=== PATIENT | female | born 1955 | race African-American/Black ===

== ENCOUNTER → 2016-06-21 | Outpatient (CLI) | payer MEDICAID ==
[2016-06-21 12:29] LABS: APPEARANCE,URINE CLEAR; BILIRUBIN,URINE NEGATIVE (NEGATIVE); GLUCOSE, URINE NEGATIVE (NEGATIVE); KETONES,URINE NEGATIVE (NEGATIVE); LEUKOCYTE ESTERASE,URINE NEGATIVE (NEGATIVE); NITRITE,URINE NEGATIVE (NEGATIVE); PROTEIN,URINE NEGATIVE (NEGATIVE); URINE SPECIFIC GRAVITY 1.014; UROBILINOGEN,URINE NEGATIVE mg/dL (<2.0)
[2016-06-21 12:48] LABS: HEMATOCRIT 32.5 % (36.0-47.0); HEMOGLOBIN 10.5 g/dL (12.0-15.5); MEAN CORPUSCULAR HEMOGLOBIN 27.1 pg (27.0-33.4); MEAN CORPUSCULAR HGB CONC 32.2 g/dL (32.0-36.0); MEAN CORPUSCULAR VOLUME 84 fl (80-97); RED BLOOD COUNT 3.86 10^6/uL (3.72-5.28); RED CELL DISTRIBUTION WIDTH 15.6 % (11.5-14.0); WHITE BLOOD COUNT 5.9 10^3/uL (4.0-10.5)
[2016-06-21 13:04] LABS: ANION GAP 10 (5-19); BLOOD UREA NITROGEN 33 mg/dL (7-20); CALCIUM 8.7 mg/dL (8.4-10.2); CARBON DIOXIDE 29 mmol/L (22-30); CHLORIDE 105 mmol/L (98-107); CREATININE RESULT 2.12 mg/dL (0.52-1.25); GLUCOSE 130 mg/dL (75-110); PHOSPHORUS 4.5 mg/dL (2.5-4.5); POTASSIUM 3.7 mmol/L (3.6-5.0); SODIUM 143.8 mmol/L (137-145)
== END ==
LOC: OD 11:21
PROVIDERS: ATTEND Internal Medicine Nephrology
DX: I12.9 Hypertensive chronic kidney disease with stage 1 through stage 4 chronic kidney disease, or unspecified chronic kidney disease (principal); N18.4 Chronic kidney disease, stage 4 (severe); E11.9 Type 2 diabetes mellitus without complications; D64.9 Anemia, unspecified
CPT/HCPCS: 36415; 80048; 81001; 82570; 83970; 84100; 84156; 85027

== ENCOUNTER → 2016-08-03 | Outpatient (CLI) | payer MEDICAID ==
[2016-08-03 13:10] LABS: ANION GAP 6 (5-19); BLOOD UREA NITROGEN 29 mg/dL (7-20); CALCIUM 9.6 mg/dL (8.4-10.2); CARBON DIOXIDE 35 mmol/L (22-30); CHLORIDE 106 mmol/L (98-107); CREATININE RESULT 1.69 mg/dL (0.52-1.25); GLUCOSE 47 mg/dL (75-110); MAGNESIUM 1.9 mg/dL (1.6-2.3); POTASSIUM 3.7 mmol/L (3.6-5.0); SODIUM 147.4 mmol/L (137-145)
== END ==
LOC: OD 12:05
PROVIDERS: ATTEND Internal Medicine Nephrology
DX: N18.9 Chronic kidney disease, unspecified (principal)
CPT/HCPCS: 36415; 80048; 83735

== ENCOUNTER → 2016-09-09 | Outpatient (CLI) | payer MEDICAID ==
[2016-09-09 09:44] LABS: HEMATOCRIT 39.2 % (36.0-47.0); HEMOGLOBIN 12.7 g/dL (12.0-15.5); HGB HCT DIFFERENCE -1.1; MEAN CORPUSCULAR HEMOGLOBIN 27.6 pg (27.0-33.4); MEAN CORPUSCULAR HGB CONC 32.3 g/dL (32.0-36.0); MEAN CORPUSCULAR VOLUME 85 fl (80-97); RED CELL DISTRIBUTION WIDTH 16.2 % (11.5-14.0); WHITE BLOOD COUNT 6.8 10^3/uL (4.0-10.5)
[2016-09-09 10:14] LABS: ANION GAP 11 (5-19); BLOOD UREA NITROGEN 31 mg/dL (7-20); CALCIUM 9.2 mg/dL (8.4-10.2); CARBON DIOXIDE 29 mmol/L (22-30); CHLORIDE 106 mmol/L (98-107); CREATININE RESULT 1.91 mg/dL (0.52-1.25); GLUCOSE 122 mg/dL (75-110); MAGNESIUM 2.1 mg/dL (1.6-2.3); SODIUM 146.1 mmol/L (137-145)
[2016-09-09 10:34] LABS: POTASSIUM 3.9 mmol/L (3.6-5.0)
== END ==
LOC: OD 08:31
PROVIDERS: ATTEND Internal Medicine Nephrology
DX: N18.4 Chronic kidney disease, stage 4 (severe) (principal); E11.9 Type 2 diabetes mellitus without complications; I50.9 Heart failure, unspecified; D64.1 Secondary sideroblastic anemia due to disease
CPT/HCPCS: 36415; 80048; 82043; 83735; 85027

== ENCOUNTER → 2016-10-20 | Outpatient (CLI) | payer MEDICAID ==
--- NOTE | 2016-10-20 15:36 | RADIOLOGY REPORT (SQ) ---
EXAM DESCRIPTION: CT ABD/PELVIS ORAL ONLY COMPLETED DATE/TIME: 10/20/2016 3:03 pm REASON FOR STUDY: RIGHT LOWER QUADRANT PAIN R10.31 RIGHT LOWER QUADRANT PAIN COMPARISON: CT abdomen and pelvis 08/13/2011, 05/01/2012, 03/25/2013, 02/25/2014 TECHNIQUE: CT scan of the abdomen and pelvis performed without intravenous contrast. Patient drank oral contrast. Images reviewed with lung, soft tissue, and bone windows. Reconstructed coronal and sagittal MPR imag es reviewed. All images stored on PACS. All CT scanners at this facility use dose modulation, iterative reconstruction, and/or weight based d osing when appropriate to reduce radiation dose to as low as reasonably achievable (ALARA). [facility]: Dose Right [facility]: CareDose [facility]: Dose Right [facility]: Teradose 4D [facility]: [employer] RADIATION DOSE: 28.03mGy. LIMITATIONS: None. FINDINGS: LOWER CHEST: Cardiomegaly. Small hiatal hernia. Lung bases are clear. NON-CONTRASTED LIVER, SPLEEN, ADRENALS: Evaluation limited by lack of IV contrast. No identified sign ificant masses. PANCREAS: No masses. No peripancreatic inflammatory changes. GALLBLADDER: No identified stones by CT criteria. No inflammatory changes to suggest cholecystitis. RIGHT KIDNEY AND URETER: Post partial nephrectomy along the mid pole kidney. 2 mm upper pole and 5 mm lower pole right sided intrarenal calculi. No hydronephrosis or hydroureter. LEFT KIDNEY AND URETER: No suspicious masses. Assessment limited by lack of IV contrast. 2.5 cm left midpole renal cortical cyst. No significant calcifications. No hydronephrosis or hydroureter. AORTA AND RETROPERITONEUM: No aneurysm. No retroperitoneal masses or adenopathy. BOWEL AND PERITONEAL CAVITY: No obvious masses or inflammatory changes. No free fluid. Post gastric bypass with surgical clips at the stomach fundus. Oral contrast is seen throughout small bowel and c olon in a nonobstructive pattern. APPENDIX: Normal. PELVIS, BLADDER, AND ABDOMINAL WALL:No abnormal masses. No free fluid. Bladder normal. Post hysterec kimberlee. Multiple small fat containing midline anterior abdominal wall hernias. BONES: Degenerative changes lower lumbar spine. OTHER: No other significant finding. IMPRESSION: Post gastric bypass. Small hiatal hernia. Post right partial nephrectomy. Right-sided intrarenal nonobstructive kidney stones. Oral contrast throughout the gastrointestinal tract without evidence of obstruction Multiple small midline incisional hernias containing fat TECHNICAL DOCUMENTATION: JOB ID: [id number] Quality ID # [id number]: Final reports with documentation of one or more dose reduction techniques (e.g., Au tomated exposure control, adjustment of the mA and/or kV according to patient size, use of iterative reconstruction technique) 2010 [employer]- All Rights Reserved
== END ==
LOC: RAD 12:04
PROVIDERS: ATTEND Internal Medicine
DX: R10.31 Right lower quadrant pain (principal); K44.9 Diaphragmatic hernia without obstruction or gangrene; N20.0 Calculus of kidney; Z98.84 Bariatric surgery status
CPT/HCPCS: 74176

== ENCOUNTER → 2016-11-29 | Outpatient (CLI) | payer MEDICAID ==
[2016-11-29 15:22] LABS: HEMOGLOBIN 12.2 g/dL (12.0-15.5); HGB HCT DIFFERENCE -1.4; MEAN CORPUSCULAR HGB CONC 32.2 g/dL (32.0-36.0); MEAN CORPUSCULAR VOLUME 87 fl (80-97); RED BLOOD COUNT 4.38 10^6/uL (3.72-5.28); RED CELL DISTRIBUTION WIDTH 14.1 % (11.5-14.0); WHITE BLOOD COUNT 7.1 10^3/uL (4.0-10.5)
[2016-11-29 16:09] LABS: ANION GAP 8 (5-19); BLOOD UREA NITROGEN 36 mg/dL (7-20); CALCIUM 8.4 mg/dL (8.4-10.2); CARBON DIOXIDE 28 mmol/L (22-30); CHLORIDE 105 mmol/L (98-107); CREATININE RESULT 2.16 mg/dL (0.52-1.25); GLUCOSE 46 mg/dL (75-110); POTASSIUM 3.7 mmol/L (3.6-5.0); SODIUM 141.4 mmol/L (137-145)
== END ==
LOC: OD 13:53
PROVIDERS: ATTEND Internal Medicine Nephrology
DX: E11.22 Type 2 diabetes mellitus with diabetic chronic kidney disease (principal); N18.3 Chronic kidney disease, stage 3 (moderate); R80.9 Proteinuria, unspecified; I50.9 Heart failure, unspecified
CPT/HCPCS: 36415; 80048; 85027

== ENCOUNTER → 2017-01-19 | Outpatient (CLI) | payer MEDICAID ==
--- NOTE | 2017-01-19 10:08 | RADIOLOGY REPORT (SQ) ---
EXAM DESCRIPTION: CT ABD/PELVIS NO ORAL OR IV COMPLETED DATE/TIME: 01/19/2017 9:12 am REASON FOR STUDY: RLQ PAIN R10.13 EPIGASTRIC PAIN COMPARISON: 10/20/2016 TECHNIQUE: CT scan of the abdomen and pelvis performed without intravenous or oral contrast. Images reviewed with lung, soft tissue, and bone windows. Reconstructed coronal and sagittal MPR images revi ewed. All images stored on PACS. All CT scanners at this facility use dose modulation, iterative reconstruction, and/or weight based d osing when appropriate to reduce radiation dose to as low as reasonably achievable (ALARA). [facility]: Dose Right [facility]: CareDose [facility]: Dose Right [facility]: Teradose 4D [facility]: [employer] RADIATION DOSE: Up-to-date CT equipment and radiation dose reduction techniques were employed. CTDIv ol: 28.5 mGy. DLP: 1492 mGy-cm.mGy. LIMITATIONS: None. FINDINGS: LOWER CHEST: No significant findings. No nodules or infiltrates. NON-CONTRASTED LIVER, SPLEEN, ADRENALS: Evaluation limited by lack of IV contrast. No identified sign ificant masses. PANCREAS: No masses. No peripancreatic inflammatory changes. GALLBLADDER: No identified stones by CT criteria. No inflammatory changes to suggest cholecystitis. RIGHT KIDNEY AND URETER: There are postsurgical changes involving the right kidney. There are small nonobstructing stones stable in appearance. No hydronephrosis or hydroureter. LEFT KIDNEY AND URETER: There is a simple left renal cysts. No suspicious findings. No significant calcifications. No hydronephrosis or hydroureter. AORTA AND RETROPERITONEUM: No aneurysm. No retroperitoneal masses or adenopathy. BOWEL AND PERITONEAL CAVITY: The patient has had prior gastric bypass. There is stool throughout the colon. No inflammation or evidence of obstruction. APPENDIX: Normal. PELVIS, BLADDER, AND ABDOMINAL WALL:There are multiple small anterior abdominal wall hernias. On [address] 48 there is a small hernia containing a small amount of colon but no obstruction. BONES: No significant findings. OTHER: No other significant finding. IMPRESSION: Stable CT of the abdomen pelvis with postsurgical changes. There are small incisional h ernias. No obstruction. Other findings as described above. COMMENT: Quality ID # [id number]: Final reports with documentation of one or more dose reduction techniques (e.g., Automated exposure control, adjustment of the mA and/or kV according to patient size, use of iterative reconstruction technique) TECHNICAL DOCUMENTATION: JOB ID: [id number] [employer]- All Rights Reserved
--- NOTE | 2017-01-19 10:10 | RADIOLOGY REPORT (SQ) ---
EXAM DESCRIPTION: CHEST PA/LAT COMPLETED DATE/TIME: 01/19/2017 9:38 am REASON FOR STUDY: WHEEZING/RLQ PAIN COMPARISON: 01/28/2016 EXAM PARAMETERS: NUMBER OF VIEWS: two views TECHNIQUE: Digital Frontal and Lateral radiographic views of the chest acquired. RADIATION DOSE: NA LIMITATIONS: none FINDINGS: LUNGS AND PLEURA: No opacities, masses or pneumothorax. No pleural effusion. MEDIASTINUM AND HILAR STRUCTURES: No masses or contour abnormalities. HEART AND VASCULAR STRUCTURES: The heart is enlarged. There is no failure. BONES: No acute findings. HARDWARE: None in the chest. OTHER: No other significant finding. IMPRESSION: Cardiomegaly. No failure. TECHNICAL DOCUMENTATION: JOB ID: [id number] [employer]- All Rights Reserved
== END ==
LOC: RAD 09:01
PROVIDERS: ATTEND Internal Medicine
DX: R10.13 Epigastric pain (principal); R06.2 Wheezing; R10.31 Right lower quadrant pain; K43.2 Incisional hernia without obstruction or gangrene; I51.7 Cardiomegaly
CPT/HCPCS: 71020; 74176

== ENCOUNTER 2017-03-18 09:21 | Emergency (ER) | payer MEDICAID ==
--- NOTE | 2017-03-18 09:50 | ER Document Report ---
ED Medical Screen (RME) - General Chief Complaint: High Blood Sugar Stated Complaint: BLOOD SUGAR PROBLEM Time Seen by Provider: 03/18/17 09:37 Mode of Arrival: Wheelchair Information source: Patient TRAVEL OUTSIDE OF THE [place] IN LAST 30 DAYS: No - HPI Patient complains to provider of: Multiple complaint Notes: 03/18/17 09:49 Patient is a 61-year-old female presenting to the emergency room for multiple complaints which include intermittent chest pain with shortness of breath, elevated blood sugars, elevated blood pressure, seeing black spots, mild headache - Related Data Allergies/Adverse Reactions: benazepril Allergy (Verified 03/18/17 09:42) throat closes,lips swell Past Medical History - Social History Family history: Reviewed & Not Pertinent - Past Medical History Cardiac Medical History: Reports: Hx Atrial Fibrillation, Hx Hypercholesterolemia, Hx Hypertension Denies: Hx Congestive Heart Failure, Hx Coronary Artery Disease, Hx Heart Attack, Hx Peripheral Vascular Disease, Hx Pulmonary Embolism, Hx Heart Murmur Pulmonary Medical History: Reports: Hx Asthma - as a child, Hx Sleep Apnea - CPAP- started October 2014 Denies: Hx Bronchitis, Hx COPD, Hx Pneumonia, Hx Respiratory Failure, Hx Tuberculosis Neurological Medical History: Denies: Hx Cerebrovascular Accident, Hx Seizures Endocrine Medical History: Reports: Hx Diabetes Mellitus Type 2, Hx Hypothyroidism - goiter/Thyroidectomy 2010. Denies: Hx Graves' Disease, Hx Hyperthyroidism Renal/ Medical History: Reports: Hx Kidney Stones. Denies: Hx End Stage Renal Disease, Hx Peritoneal Dialysis Malignancy Medical History: Reports: Hx Renal (Kidney) Cancer. Denies: Hx Leukemia, Hx Lung Cancer GI Medical History: Reports: Hx Gastroesophageal Reflux Disease - 3 yrs-takes meds. Denies: Hx Crohn's Disease, Hx Hiatal Hernia, Hx Irritable Bowel, Hx Liver Failure, Hx Pancreatitis, Hx Ulcer Musculoskeltal Medical History: Reports Hx Arthritis - neck, Denies Hx Fibromyalgia, Denies Hx Multiple Sclerosis, Denies Hx Muscular Dystrophy Psychiatric Medical History: Denies: Hx Dementia Traumatic Medical History: Denies: Hx Fractures Infectious Medical History: Denies: Hx HIV Past Surgical History: Reports: Hx Gastric Bypass Surgery - 1994, Hx Hysterectomy, Hx Kidney (Renal Surgery) - mass removed off of right kidney, Hx Thyroid Surgery - removed 2010. Denies: Hx Appendectomy, Hx Bowel Surgery, Hx Section, Hx Cholecystectomy, Hx Colostomy, Hx Coronary Artery Bypass Graft, Hx Herniorrhaphy, Hx Mastectomy, Hx Pacemaker, Hx Tonsillectomy, Hx Tubal Ligation - Immunizations Hx Diphtheria, Pertussis, Tetanus Vaccination: Yes Physical Exam - Vital signs Vitals: Temp Pulse Resp BP Pulse Ox 98.8 F 59 L 16 162/76 H 99 03/18/17 09:25 03/18/17 09:25 03/18/17 09:25 03/18/17 09:25 03/18/17 09:25 Course - Vital Signs Vital signs: Temp Pulse Resp BP Pulse Ox 98.8 F 59 L 16 162/76 H 99 03/18/17 09:25 03/18/17 09:25 03/18/17 09:25 03/18/17 09:25 03/18/17 09:25
[2017-03-18 10:37] LABS: ABSOLUTE EOSINOPHILS # (AUTO) 0.1 10^3/uL (0.0-0.6); ABSOLUTE LYMPHOCYTES (AUTO) 0.7 10^3/uL (0.5-4.7); ABSOLUTE MONOCYTES (AUTO) 0.6 10^3/uL (0.1-1.4); ABSOLUTE NEUT (AUTO) 7.6 10^3/uL (1.7-8.2); BASOPHILS % (AUTO) 0.2 % (0-2); EOSINOPHILS % (AUTO) 0.8 % (0-6); HEMATOCRIT 37.9 % (36.0-47.0); HEMOGLOBIN 12.6 g/dL (12.0-15.5); HGB HCT DIFFERENCE -0.1; LYMPHOCYTES % (AUTO) 7.7 % (13-45); MEAN CORPUSCULAR HEMOGLOBIN 28.3 pg (27.0-33.4); MEAN CORPUSCULAR HGB CONC 33.2 g/dL (32.0-36.0); MEAN CORPUSCULAR VOLUME 85 fl (80-97); MONOCYTES % (AUTO) 6.2 % (3-13); RED BLOOD COUNT 4.44 10^6/uL (3.72-5.28); RED CELL DISTRIBUTION WIDTH 14.9 % (11.5-14.0); SEGMENTED NEUTROPHILS % (AUTO) 85.1 % (42-78)
--- NOTE | 2017-03-18 10:39 | ER Document Report ---
ED General - General Chief Complaint: High Blood Sugar Stated Complaint: BLOOD SUGAR PROBLEM Time Seen by Provider: 03/18/17 09:37 Mode of Arrival: Wheelchair Information source: Patient Notes: PCP: Sheldon[facility]office [facility]-- 61 yo femlae htn, dm (lantus, novolog), peripheral neuropathy, hyperlipidemic, stage 2 renal disease, hypothyroid, sleep apnea (CPAP) a fib (2013) takes xarelto, DVT, right kidney cancer, GERD, Lives alone. came to ER today for high blood pressure, shortness of breath, seeing black dots /strings (that float) in front of eyes since monday after she saw dr. Thomas in the office. Short of breath for a month (dr. Thomas aware). Slight left uatsdin HUITRON this morning, not unusual for her. Wanted to come last night due to the difficulty breathing, something heavy on her chest at 2230, lasted for 1 hour. Monday heaviness was worse at 22:00, lasted all night, sat up in recliner which made it better, same as last night used 2 pillows to prop up. No fever. no cough, no n/v/d. TRAVEL OUTSIDE OF THE [place] IN LAST 30 DAYS: No - Related Data Allergies/Adverse Reactions: benazepril Allergy (Verified 03/18/17 09:42) throat closes,lips swell Past Medical History - General Information source: Patient - Social History Smoking Status: Never Smoker Chew tobacco use (# tins/day): No Frequency of alcohol use: None Drug Abuse: None Lives with: Alone Family History: CAD, CVA Patient has suicidal ideation: No Patient has homicidal ideation: No - Past Medical History Cardiac Medical History: Reports: Hx Atrial Fibrillation, Hx Hypercholesterolemia, Hx Hypertension Pulmonary Medical History: Reports: Hx Asthma - as a child, Hx Sleep Apnea - CPAP- started October 2014 Endocrine Medical History: Reports: Hx Diabetes Mellitus Type 2, Hx Hypothyroidism - goiter/Thyroidectomy 2010 Renal/ Medical History: Reports: Hx Kidney Stones, Other - stage 2 renal disease Malignancy Medical History: Reports: Hx Renal (Kidney) Cancer GI Medical History: Reports: Hx Gastroesophageal Reflux Disease - 3 yrs-takes meds Musculoskeltal Medical History: Reports Hx Arthritis - neck Psychiatric Medical History: Infectious Medical History: Past Surgical History: Reports: Hx Gastric Bypass Surgery - 1994, Hx Hysterectomy, Hx Kidney (Renal Surgery) - mass removed off of right kidney, Hx Orthopedic Surgery - left knee replacement, Hx Thyroid Surgery - removed 2010 - Immunizations Hx Diphtheria, Pertussis, Tetanus Vaccination: Yes Hx Pneumococcal Vaccination: 02/26/14 Review of Systems - Review of Systems Constitutional: No symptoms reported EENT: See HPI Cardiovascular: See HPI Respiratory: See HPI Gastrointestinal: No symptoms reported Genitourinary: No symptoms reported Female Genitourinary: No symptoms reported Musculoskeletal: No symptoms reported Skin: No symptoms reported Hematologic/Lymphatic: No symptoms reported Neurological/Psychological: No symptoms reported Physical Exam - Vital signs Vitals: Temp Pulse Resp BP Pulse Ox 98.8 F 59 L 16 162/76 H 99 03/18/17 09:25 03/18/17 09:25 03/18/17 09:25 03/18/17 09:25 03/18/17 09:25 Interpretation: Normal - General General appearance: Appears well, Alert - HEENT Head: Normocephalic, Atraumatic Eyes: Normal Conjunctiva: Normal Cornea: Normal. No: Flourescein stain uptake Pupils: PERRL Neck: Supple. No: Lymphadenopathy - Respiratory Respiratory status: No respiratory distress Chest status: Nontender Breath sounds: Normal Chest palpation: Normal - Cardiovascular Rhythm: Regular Heart sounds: Normal auscultation Murmur: No - Abdominal Inspection: Normal Distension: No distension Bowel sounds: Normal Tenderness: Nontender. No: Tender Organomegaly: No organomegaly - Back Back: Normal, Nontender. No: CVA tenderness - Extremities General upper extremity: Normal inspection, Nontender, Normal color, Normal ROM , Normal temperature General lower extremity: Normal inspection, Nontender, Normal color, Normal ROM , Normal temperature, Normal weight bearing. No: Pavel's sign - Neurological Neuro grossly intact: Yes Cognition: Normal Orientation: AAOx4 Ant Coma Scale Eye Opening: Spontaneous Clayton Coma Scale Verbal: Oriented Ant Coma Scale Motor: Obeys Commands Ant Coma Scale Total: 15 Speech: Normal Motor strength normal: LUE, RUE, LLE, RLE Sensory: Normal - Psychological Associated symptoms: Normal affect, Normal mood - Skin Skin Temperature: Warm Skin Moisture: Dry Skin Color: Normal Course - Re-evaluation Re-evalutation: 03/18/17 11:30 Chest x-ray and head CT are negative EKG shows normal sinus rhythm not atrial fibrillation. Her liver enzymes are elevated today and they never have been before. 03/18/17 11:[address] García over the phone about the elevated liver enzymes and the symptoms he feels like he can follow her up at the office. I told him that the hepatitis A, B, and C panel is pending. He states she has been worked up for coronary artery disease in the past. Sees Dr. Cesar and had a recent echocardiogram. He is okay with her going home and seeing her in the office. - Vital Signs Vital signs: Temp Pulse Resp BP Pulse Ox 97.7 F 60 16 187/101 H 100 03/18/17 12:06 03/18/17 12:06 03/18/17 12:06 03/18/17 12:06 03/18/17 12:06 - Laboratory Result Diagrams: 03/18/17 10:28 03/18/17 10:28 Laboratory results interpreted by me: 03/18/17 03/18/17 03/18/17 10:11 10:28 10:28 RDW 14.9 H Seg Neutrophils % 85.1 H Lymphocytes % 7.7 L Sodium 147.5 H Chloride 109 H BUN 31 H Creatinine 2.43 H Est GFR ( Amer) 25 L Est GFR (Non-Af Amer) 20 L AST 100 H ALT 205 H Alkaline Phosphatase 148 H Total Protein 5.6 L Albumin 3.1 L Urine Protein 100 H Discharge - Discharge Clinical Impression: Elevated liver enzymes, bilateral eye floaters , episode of chest pain last night, diabetes Hypertension Qualifiers: Hypertension type: unspecified Qualified Code(s): I10 - Essential (primary) hypertension Condition: Good Disposition: HOME, SELF-CARE Instructions: Chest Pain of Unclear Cause ([facility]), Diabetes ([facility]), Dyspnea, Nonspecific ([facility]), High Blood Pressure ([facility]), Liver Function Abnormality ([facility]) Additional Instructions: see dr garcía on monday, call for appt early monday morning hepatitis screening panel is pending see the eye doctor about the new floaters return to the ER if worse Please complete the patient satisfaction survey if you get one, and return it.. If you do not receive a survey, then you can go to the [facility] website, [email or web address] and place your comments about your very good care. Thank you very much. It was a pleasure being your medical provider today. Referrals: JIM GARCÍA MD [Primary Care Provider] - 03/20/17 CATHERINE MARTINS MD [ACTIVE STAFF] - Follow up tomorrow
[2017-03-18 10:40] LABS: APPEARANCE,URINE CLEAR; BILIRUBIN,URINE NEGATIVE (NEGATIVE); GLUCOSE, URINE NEGATIVE (NEGATIVE); KETONES,URINE NEGATIVE (NEGATIVE); LEUKOCYTE ESTERASE,URINE NEGATIVE (NEGATIVE); NITRITE,URINE NEGATIVE (NEGATIVE); PROTEIN,URINE 100 mg/dL (NEGATIVE); URINE SPECIFIC GRAVITY 1.006; UROBILINOGEN,URINE NEGATIVE mg/dL (<2.0)
--- NOTE | 2017-03-18 10:52 | RADIOLOGY REPORT (SQ) ---
EXAM DESCRIPTION: CT HEAD WITHOUT COMPLETED DATE/TIME: 03/18/2017 10:36 am REASON FOR STUDY: headache COMPARISON: 09/28/2013 TECHNIQUE: Axial images acquired through the brain without intravenous contrast. Images reviewed wi th bone, brain and subdural windows. Images stored on PACS. All CT scanners at this facility use dose modulation, iterative reconstruction, and/or weight based d osing when appropriate to reduce radiation dose to as low as reasonably achievable (ALARA). [facility]: Dose Right [facility]: CareDose [facility]: Dose Right [facility]: Teradose 4D [facility]: [employer] RADIATION DOSE: Up-to-date CT equipment and radiation dose reduction techniques were employed. CTDIv ol: 64.6 mGy. DLP: 1034 mGy-cm. mGy. LIMITATIONS: None. FINDINGS: VENTRICLES: Normal size and contour. CEREBRUM: No masses. No hemorrhage. No midline shift. No evidence for acute infarction. Normal gra y/white matter differentiation. No areas of low density in the white matter. CEREBELLUM: No masses. No hemorrhage. No alteration of density. No evidence for acute infarction. EXTRAAXIAL SPACES: No fluid collections. No masses. ORBITS AND GLOBE: No intra- or extraconal masses. Normal contour of globe without masses. CALVARIUM: No fracture. PARANASAL SINUSES: No fluid or mucosal thickening. SOFT TISSUES: No mass or hematoma. OTHER: No other significant finding. IMPRESSION: NORMAL BRAIN CT WITHOUT CONTRAST. EVIDENCE OF ACUTE STROKE: NO. COMMENT: Quality ID # [id number]: Final reports with documentation of one or more dose reduction techniques (e.g., Automated exposure control, adjustment of the mA and/or kV according to patient size, use of iterative reconstruction technique) TECHNICAL DOCUMENTATION: JOB ID: [id number]- All Rights Reserved
[2017-03-18 10:54] LABS: ALANINE AMINOTRANSFERASE 205 U/L (9-52); ALBUMIN 3.1 g/dL (3.5-5.0); ALKALINE PHOSPHATASE 148 U/L (38-126); ANION GAP 11 (5-19); ASPARTATE AMINO TRANSFERASE 100 U/L (14-36); BILIRUBIN,DIRECT 0.3 mg/dL (0.0-0.4); BILIRUBIN,TOTAL 0.4 mg/dL (0.2-1.3); BLOOD UREA NITROGEN 31 mg/dL (7-20); CALCIUM 8.6 mg/dL (8.4-10.2); CARBON DIOXIDE 28 mmol/L (22-30); CHLORIDE 109 mmol/L (98-107); CREATININE RESULT 2.43 mg/dL (0.52-1.25); GLUCOSE 100 mg/dL (75-110); POTASSIUM 3.7 mmol/L (3.6-5.0); SODIUM 147.5 mmol/L (137-145); TOTAL PROTEIN 5.6 g/dL (6.3-8.2)
--- NOTE | 2017-03-18 11:18 | RADIOLOGY REPORT (SQ) ---
EXAM DESCRIPTION: CHEST PA/LAT COMPLETED DATE/TIME: 03/18/2017 10:54 am REASON FOR STUDY: cp COMPARISON: 01/19/2017 NUMBER OF VIEWS: Two view. TECHNIQUE: Frontal and lateral radiographic views of the chest acquired. LIMITATIONS: None. FINDINGS: LUNGS AND PLEURA: No opacities, masses or pneumothorax. No pleural effusion. MEDIASTINUM AND HILAR STRUCTURES: No masses. No contour abnormalities. HEART AND VASCULAR STRUCTURES: Heart enlarged without failure. Aorta normal for age. BONES: No acute findings. HARDWARE: None in the chest. OTHER: No other significant finding. IMPRESSION: No acute findings in the chest. TECHNICAL DOCUMENTATION: JOB ID: [id number] [employer]- All Rights Reserved
[2017-03-18 12:34] VITALS: BP 187/101
[2017-03-18] MEDS ORDERED: CLONIDINE HCL 0.1 MG TABLET PO ONE (12:54)
--- NOTE | 2017-03-18 13:38 | EKG REPORT ---
SEVERITY:- BORDERLINE ECG - SINUS RHYTHM BORDERLINE T ABNORMALITIES, INFERIOR LEADS : Confirmed by: Olivia Cesar 18-Mar-2017 13:37:31
== END 2017-03-18 13:00 | disposition home or self-care (01) ==
LOC: ER 09:21
DX: E11.42 Type 2 diabetes mellitus with diabetic polyneuropathy (principal); E11.65 Type 2 diabetes mellitus with hyperglycemia; H43.393 Other vitreous opacities, bilateral; R74.8 Abnormal levels of other serum enzymes; R07.9 Chest pain, unspecified; I10 Essential (primary) hypertension; Z79.4 Long term (current) use of insulin; E78.5 Hyperlipidemia, unspecified; N18.2 Chronic kidney disease, stage 2 (mild); E03.9 Hypothyroidism, unspecified; I48.91 Unspecified atrial fibrillation; Z79.01 Long term (current) use of anticoagulants
CPT/HCPCS: 93005; 99285; 36415; 82962; 85025; 80053; 81001; 84484; 80074; 71020; 70450; 93010; J3490

== ENCOUNTER → 2017-04-04 | Outpatient (CLI) | payer MEDICAID ==
--- NOTE | 2017-04-04 14:40 | RADIOLOGY REPORT (SQ) ---
EXAM DESCRIPTION: U/S ABDOMEN COMPLETE W/DOPPLER COMPLETED DATE/TIME: 04/04/2017 10:53 am REASON FOR STUDY: N94.5 ABNORMAL RESULTS OF LIVER FUNCTION STUDIES R94.5 ABNORMAL RESULTS OF LIVER FUNCTION STUDIES COMPARISON: 02/17/2012 TECHNIQUE: Dynamic and static grayscale images acquired of the abdomen and recorded on PACS. Additio nal selected color Doppler and spectral images recorded. LIMITATIONS: None. FINDINGS: PANCREAS: Poorly seen. LIVER: 18.8 cm. Normal echotexture. LIVER VASCULATURE: Normal directional flow of the main portal vein and hepatic veins. GALLBLADDER: No stones. Normal wall thickness. No pericholecystic fluid. ULTRASOUND-DETECTED LINN'S SIGN: Negative. INTRAHEPATIC DUCTS AND COMMON DUCT: CBD and intrahepatic ducts normal caliber. No filling defects. INFERIOR VENA CAVA: Normal flow. AORTA: No aneurysm in the proximal mid aorta. The distal aorta was obscured by gas. RIGHT KIDNEY: Normal size, 8.2 cm. Normal echogenicity. No solid masses. Surgical changes. No hydronephrosis. No calcifications. LEFT KIDNEY: Normal size, 9.6 cm Normal echogenicity. No solid masses. There is a 33 mm cyst. No hydronephrosis. No calcifications. SPLEEN: Normal size, 8.3 cm. No masses. PERITONEAL AND PLEURAL SPACES: No ascites or effusions. OTHER: No other significant finding. IMPRESSION: Hepatomegaly. TECHNICAL DOCUMENTATION: JOB ID: [id number] [employer]- All Rights Reserved
== END ==
LOC: RAD 09:49
PROVIDERS: ATTEND Internal Medicine
DX: R94.5 Abnormal results of liver function studies (principal)
CPT/HCPCS: 76700; 93976

== ENCOUNTER → 2017-04-21 | Outpatient (CLI) | payer MEDICAID ==
--- NOTE | 2017-04-21 16:01 | RADIOLOGY REPORT (SQ) ---
EXAM DESCRIPTION: CT ABD/PELVIS NO ORAL OR IV COMPLETED DATE/TIME: 04/21/2017 3:47 pm REASON FOR STUDY: UNSPECIFIED RENAL COLIC N23 UNSPECIFIED RENAL COLIC COMPARISON: 01/19/2017. TECHNIQUE: CT scan of the abdomen and pelvis performed without intravenous or oral contrast. Images reviewed with lung, soft tissue, and bone windows. Reconstructed coronal and sagittal MPR images revi ewed. All images stored on PACS. All CT scanners at this facility use dose modulation, iterative reconstruction, and/or weight based d osing when appropriate to reduce radiation dose to as low as reasonably achievable (ALARA). [facility]: Dose Right [facility]: CareDose [facility]: Dose Right [facility]: Teradose 4D [facility]: [employer] RADIATION DOSE: mGy. LIMITATIONS: None. FINDINGS: LOWER CHEST: Trace left pleural effusion and trace pericardial effusion. No nodules or inf iltrates. NON-CONTRASTED LIVER, SPLEEN, ADRENALS: Evaluation limited by lack of IV contrast. No identified sign ificant masses. PANCREAS: No masses. No peripancreatic inflammatory changes. GALLBLADDER: No identified stones by CT criteria. No inflammatory changes to suggest cholecystitis. RIGHT KIDNEY AND URETER: Surgical changes. No suspicious masses. Assessment limited by lack of IV co ntrast. 4 mm of calculus in a lower pole calyx. No hydronephrosis or hydroureter. LEFT KIDNEY AND URETER: Cortical and parapelvic cyst. No suspicious masses. Assessment limited by la ck of IV contrast. No significant calcifications. No hydronephrosis or hydroureter. AORTA AND RETROPERITONEUM: No aneurysm. No retroperitoneal masses or adenopathy. BOWEL AND PERITONEAL CAVITY: Previous gastric bypass. No obvious masses or inflammatory changes. No free fluid. APPENDIX: Normal. PELVIS, BLADDER, AND ABDOMINAL WALL:Again seen are midline anterior abdominal wall hernias containing fat. The most superior hernia contains a small portion of the transverse colon, unchanged from the prior study. No abnormal masses. No free fluid. Bladder normal. BONES: No significant findings. OTHER: No other significant finding. IMPRESSION: 1. MIDLINE ANTERIOR ABDOMINAL WALL HERNIAS. THE MOST SUPERIOR HERNIA CONTAINS A SMALL PORTION OF THE ADJACENT TRANSVERSE COLON. NO OBSTRUCTION. 2. NONOBSTRUCTING CALYCEAL CALCULUS IN THE RIGHT KIDNEY. SURGICAL CHANGES IN THE RIGHT KIDNEY. LEFT RENAL CYST. 3. CHANGES OF GASTRIC BYPASS. 4. TRACE LEFT PLEURAL EFFUSION AND TRACE PERICARDIAL EFFUSION. 5. NO OTHER SIGNIFICANT OR ACUTE PROCESS IN THE ABDOMEN OR PELVIS. COMMENT: Quality ID # 436: Final reports with documentation of one or more dose reduction techniques (e.g., Automated exposure control, adjustment of the mA and/or kV according to patient size, use of iterative reconstruction technique) TECHNICAL DOCUMENTATION: JOB ID: [id number] [employer]- All Rights Reserved
== END ==
LOC: RAD 15:24
PROVIDERS: ATTEND Internal Medicine
DX: N23 Unspecified renal colic (principal)
CPT/HCPCS: 74176

== ENCOUNTER → 2017-05-05 | Outpatient (CLI) | payer MEDICAID ==
[2017-05-05 11:12] LABS: APPEARANCE,URINE CLEAR; BILIRUBIN,URINE NEGATIVE (NEGATIVE); GLUCOSE, URINE NEGATIVE (NEGATIVE); KETONES,URINE NEGATIVE (NEGATIVE); LEUKOCYTE ESTERASE,URINE NEGATIVE (NEGATIVE); NITRITE,URINE NEGATIVE (NEGATIVE); PROTEIN,URINE 100 mg/dL (NEGATIVE); URINE SPECIFIC GRAVITY 1.009; UROBILINOGEN,URINE NEGATIVE mg/dL (<2.0)
[2017-05-05 11:17] LABS: HEMATOCRIT 36.7 % (36.0-47.0); HGB HCT DIFFERENCE -0.7; MEAN CORPUSCULAR HEMOGLOBIN 28.3 pg (27.0-33.4); MEAN CORPUSCULAR HGB CONC 32.8 g/dL (32.0-36.0); MEAN CORPUSCULAR VOLUME 86 fl (80-97); RED BLOOD COUNT 4.25 10^6/uL (3.72-5.28); RED CELL DISTRIBUTION WIDTH 14.4 % (11.5-14.0)
[2017-05-05 11:31] LABS: URINE CREATININE 62.6 mg/dL (15-278); URINE PROTEIN 120.2 mg/dL (<12)
[2017-05-05 11:50] LABS: ANION GAP 10 (5-19); BLOOD UREA NITROGEN 36 mg/dL (7-20); CALCIUM 8.1 mg/dL (8.4-10.2); CARBON DIOXIDE 27 mmol/L (22-30); CHLORIDE 107 mmol/L (98-107); CREATININE RESULT 2.45 mg/dL (0.52-1.25); GLUCOSE 75 mg/dL (75-110); PHOSPHORUS 4.3 mg/dL (2.5-4.5); POTASSIUM 3.4 mmol/L (3.6-5.0); SODIUM 144.2 mmol/L (137-145)
== END ==
LOC: OD 10:27
PROVIDERS: ATTEND Internal Medicine Nephrology
DX: E11.22 Type 2 diabetes mellitus with diabetic chronic kidney disease (principal); N18.4 Chronic kidney disease, stage 4 (severe); I50.9 Heart failure, unspecified; R80.9 Proteinuria, unspecified; D64.9 Anemia, unspecified
CPT/HCPCS: 36415; 80048; 81001; 82570; 83970; 84100; 84156; 85027

== ENCOUNTER 2017-05-29 15:37 | Emergency (ER) | payer MEDICAID ==
[2017-05-29] MEDS ORDERED: NORMAL SALINE 1000 ML 1,000 ML IV ONE ×2 (16:31→18:41)
--- NOTE | 2017-05-29 16:31 | ER Document Report ---
ED Medical Screen (RME) - General Chief Complaint: Flank Pain Stated Complaint: FLANK PAIN Time Seen by Provider: 05/29/17 16:30 Notes: Patient has right flank pain. She has had no nausea vomiting or diarrhea. She is also feeling lightheaded dizzy and has chills. TRAVEL OUTSIDE OF THE [place] IN LAST 30 DAYS: No - Related Data Allergies/Adverse Reactions: benazepril Allergy (Verified 05/29/17 15:39) throat closes,lips swell Past Medical History - Social History Family history: Reviewed & Not Pertinent - Past Medical History Cardiac Medical History: Reports: Hx Atrial Fibrillation, Hx Hypercholesterolemia, Hx Hypertension Denies: Hx Congestive Heart Failure, Hx Coronary Artery Disease, Hx Heart Attack, Hx Peripheral Vascular Disease, Hx Pulmonary Embolism, Hx Heart Murmur Pulmonary Medical History: Reports: Hx Asthma - as a child, Hx Sleep Apnea - CPAP- started October 2014 Denies: Hx Bronchitis, Hx COPD, Hx Pneumonia, Hx Respiratory Failure, Hx Tuberculosis Neurological Medical History: Denies: Hx Cerebrovascular Accident, Hx Seizures Endocrine Medical History: Reports: Hx Diabetes Mellitus Type 2, Hx Hypothyroidism - goiter/Thyroidectomy 2010. Denies: Hx Graves' Disease, Hx Hyperthyroidism Renal/ Medical History: Reports: Hx Kidney Stones. Denies: Hx End Stage Renal Disease, Hx Peritoneal Dialysis Malignancy Medical History: Reports: Hx Renal (Kidney) Cancer. Denies: Hx Leukemia, Hx Lung Cancer GI Medical History: Reports: Hx Gastroesophageal Reflux Disease - 3 yrs-takes meds. Denies: Hx Crohn's Disease, Hx Hiatal Hernia, Hx Irritable Bowel, Hx Liver Failure, Hx Pancreatitis, Hx Ulcer Musculoskeltal Medical History: Reports Hx Arthritis - neck, Denies Hx Fibromyalgia, Denies Hx Multiple Sclerosis, Denies Hx Muscular Dystrophy Psychiatric Medical History: Denies: Hx Dementia Traumatic Medical History: Denies: Hx Fractures Infectious Medical History: Denies: Hx HIV Past Surgical History: Reports: Hx Gastric Bypass Surgery - 1994, Hx Hysterectomy, Hx Kidney (Renal Surgery) - mass removed off of right kidney, Hx Orthopedic Surgery - left knee replacement, Hx Thyroid Surgery - removed 2010. Denies: Hx Appendectomy, Hx Bowel Surgery, Hx Section, Hx Cholecystectomy, Hx Colostomy, Hx Coronary Artery Bypass Graft, Hx Herniorrhaphy , Hx Mastectomy, Hx Pacemaker, Hx Tonsillectomy, Hx Tubal Ligation - Immunizations Hx Diphtheria, Pertussis, Tetanus Vaccination: Yes Physical Exam - Vital signs Vitals: Temp Pulse Resp BP Pulse Ox 98.8 F 112 H 20 141/89 H 100 05/29/17 15:42 05/29/17 15:42 05/29/17 15:42 05/29/17 15:42 05/29/17 15:42 Course - Vital Signs Vital signs: Temp Pulse Resp BP Pulse Ox 98.8 F 112 H 20 141/89 H 100 05/29/17 15:42 05/29/17 15:42 05/29/17 15:42 05/29/17 15:42 05/29/17 15:42
[2017-05-29 18:09] LABS: ABSOLUTE EOSINOPHILS # (AUTO) 0.1 10^3/uL (0.0-0.6); ABSOLUTE LYMPHOCYTES (AUTO) 0.8 10^3/uL (0.5-4.7); ABSOLUTE MONOCYTES (AUTO) 0.5 10^3/uL (0.1-1.4); ABSOLUTE NEUT (AUTO) 6.7 10^3/uL (1.7-8.2); APPEARANCE,URINE CLEAR; BASOPHILS % (AUTO) 0.2 % (0-2); BILIRUBIN,URINE NEGATIVE (NEGATIVE); COLOR,URINE STRAW; EOSINOPHILS % (AUTO) 0.9 % (0-6); GLUCOSE, URINE NEGATIVE (NEGATIVE); HEMATOCRIT 37.4 % (36.0-47.0); HEMOGLOBIN 12.1 g/dL (12.0-15.5); KETONES,URINE NEGATIVE (NEGATIVE); LEUKOCYTE ESTERASE,URINE NEGATIVE (NEGATIVE); LYMPHOCYTES % (AUTO) 9.4 % (13-45); MEAN CORPUSCULAR HEMOGLOBIN 27.9 pg (27.0-33.4); MEAN CORPUSCULAR HGB CONC 32.3 g/dL (32.0-36.0); MEAN CORPUSCULAR VOLUME 86 fl (80-97); MONOCYTES % (AUTO) 6.3 % (3-13); NITRITE,URINE NEGATIVE (NEGATIVE); PLATELET COUNT 250 10^3/uL (150-450); PROTEIN,URINE 100 mg/dL (NEGATIVE); RED BLOOD COUNT 4.33 10^6/uL (3.72-5.28); RED CELL DISTRIBUTION WIDTH 14.6 % (11.5-14.0); SEGMENTED NEUTROPHILS % (AUTO) 83.2 % (42-78); TOTAL CELLS COUNTED % (AUTO) 100 %; URINE SPECIFIC GRAVITY 1.006; UROBILINOGEN,URINE NEGATIVE mg/dL (<2.0); WHITE BLOOD COUNT 8.1 10^3/uL (4.0-10.5)
[2017-05-29 18:34] LABS: ALANINE AMINOTRANSFERASE 60 U/L (9-52); ALBUMIN 3.1 g/dL (3.5-5.0); ALKALINE PHOSPHATASE 100 U/L (38-126); ANION GAP 13 (5-19); ASPARTATE AMINO TRANSFERASE 34 U/L (14-36); BILIRUBIN,DIRECT 0.2 mg/dL (0.0-0.4); BILIRUBIN,TOTAL 0.2 mg/dL (0.2-1.3); BLOOD UREA NITROGEN 48 mg/dL (7-20); CALCIUM 8.4 mg/dL (8.4-10.2); CARBON DIOXIDE 24 mmol/L (22-30); CHLORIDE 106 mmol/L (98-107); GLUCOSE 183 mg/dL (75-110); POTASSIUM 3.4 mmol/L (3.6-5.0); SODIUM 142.9 mmol/L (137-145); TOTAL PROTEIN 5.4 g/dL (6.3-8.2)
[2017-05-29] MEDS ORDERED: LIDOCAINE 5% (700 MG) TRANSDERMAL ADH..PATCH TP ONE (18:41)
[2017-05-29] MEDS ORDERED: ACETAMINOPHEN 325 MG TABLET PO ONE (18:42)
--- NOTE | 2017-05-29 18:42 | ER Document Report ---
ED GI/ - General Chief Complaint: Flank Pain Stated Complaint: FLANK PAIN Time Seen by Provider: 05/29/17 16:30 Notes: The patient is a 61-year-old female, past medical history right renal mass that was surgically removed, prior kidney stones, CKD, presents with right lower back pain that is worse with movement. She said that she has not had much to eat or drink for the past few days. She denies hematuria, dysuria, fevers, rash , saddle anesthesia, change in bowel or bladder, chest pain, shortness of breath , numbness, tingling or weakness. TRAVEL OUTSIDE OF THE [place] IN LAST 30 DAYS: No - Related Data Allergies/Adverse Reactions: benazepril Allergy (Verified 05/29/17 15:39) throat closes,lips swell Past Medical History - General Information source: Patient - Social History Smoking Status: Unknown if Ever Smoked Family History: CAD, CVA Patient has suicidal ideation: No Patient has homicidal ideation: No - Past Medical History Cardiac Medical History: Reports: Hx Atrial Fibrillation, Hx Hypercholesterolemia, Hx Hypertension Denies: Hx Congestive Heart Failure, Hx Coronary Artery Disease, Hx Heart Attack, Hx Peripheral Vascular Disease, Hx Pulmonary Embolism, Hx Heart Murmur Pulmonary Medical History: Reports: Hx Asthma - as a child, Hx Sleep Apnea - CPAP- started October 2014 Denies: Hx Bronchitis, Hx COPD, Hx Pneumonia, Hx Respiratory Failure, Hx Tuberculosis Neurological Medical History: Denies: Hx Cerebrovascular Accident, Hx Seizures Endocrine Medical History: Reports: Hx Diabetes Mellitus Type 2, Hx Hypothyroidism - goiter/Thyroidectomy 2010. Denies: Hx Graves' Disease, Hx Hyperthyroidism Renal/ Medical History: Reports: Hx Kidney Stones. Denies: Hx End Stage Renal Disease, Hx Peritoneal Dialysis Malignancy Medical History: Reports: Hx Renal (Kidney) Cancer. Denies: Hx Leukemia, Hx Lung Cancer GI Medical History: Reports: Hx Gastroesophageal Reflux Disease - 3 yrs-takes meds. Denies: Hx Crohn's Disease, Hx Hiatal Hernia, Hx Irritable Bowel, Hx Liver Failure, Hx Pancreatitis, Hx Ulcer Musculoskeltal Medical History: Reports Hx Arthritis - neck, Denies Hx Fibromyalgia, Denies Hx Multiple Sclerosis, Denies Hx Muscular Dystrophy Psychiatric Medical History: Denies: Hx Dementia Traumatic Medical History: Denies: Hx Fractures Infectious Medical History: Denies: Hx HIV Past Surgical History: Reports: Hx Gastric Bypass Surgery - 1994, Hx Hysterectomy, Hx Kidney (Renal Surgery) - mass removed off of right kidney, Hx Orthopedic Surgery - left knee replacement, Hx Thyroid Surgery - removed 2010. Denies: Hx Appendectomy, Hx Bowel Surgery, Hx Section, Hx Cholecystectomy, Hx Colostomy, Hx Coronary Artery Bypass Graft, Hx Herniorrhaphy , Hx Mastectomy, Hx Pacemaker, Hx Tonsillectomy, Hx Tubal Ligation - Immunizations Hx Diphtheria, Pertussis, Tetanus Vaccination: Yes Hx Pneumococcal Vaccination: 02/26/14 Review of Systems - Review of Systems Notes: REVIEW OF SYSTEMS: CONSTITUTIONAL: -fevers, -chills EENT: -eye pain, -difficulty swallowing, -nasal congestion CARDIOVASCULAR: -chest pain, -syncope. RESPIRATORY: -cough, -SOB GASTROINTESTINAL: -abdominal pain, -nausea, -vomiting, -diarrhea GENITOURINARY: -dysuria, -hematuria MUSCULOSKELETAL: +right lower back pain, -neck pain SKIN: -rash or skin lesions. HEMATOLOGIC: -easy bruising or bleeding. LYMPHATIC: -swollen, enlarged glands. NEUROLOGICAL: -altered mental status or loss of consciousness, -headache, - neurologic symptoms PSYCHIATRIC: -anxiety, -depression. ALL OTHER SYSTEMS REVIEWED AND NEGATIVE. Physical Exam - Vital signs Vitals: Temp Pulse Resp BP Pulse Ox 98.8 F 112 H 20 141/89 H 100 05/29/17 15:42 05/29/17 15:42 05/29/17 15:42 05/29/17 15:42 05/29/17 15:42 - Notes Notes: PHYSICAL EXAMINATION: GENERAL: Well-appearing, well-nourished and in no acute distress. HEAD: Atraumatic, normocephalic. EYES: Pupils equal round and reactive to light, extraocular movements intact, sclera anicteric, conjunctiva are normal. ENT: nares patent, oropharynx clear without exudates. Moist mucous membranes. NECK: Normal range of motion, supple without lymphadenopathy LUNGS: Breath sounds clear to auscultation bilaterally and equal. No wheezes rales or rhonchi. HEART: Regular rate and rhythm without murmurs ABDOMEN: Soft, nontender, normoactive bowel sounds. No guarding, no rebound. No masses appreciated. EXTREMITIES: Normal range of motion, no pitting or edema. No cyanosis. BACK: Tenderness over right lower back. No midline tenderness. NEUROLOGICAL: Cranial nerves grossly intact. Normal speech, normal gait. Normal sensory and motor exams. PSYCH: Normal mood, normal affect. SKIN: Warm, Dry, normal turgor, no rashes or lesions noted. Course - Re-evaluation Re-evalutation: Pt's low back pain is reproducible nature. Her urinalysis does not show any evidence of pyelonephritis or hematuria. She has known small renal stones and said that she has usually have them pass in the past. Symptoms are atypical for her kidney stones at this time. Patient does appear to be dehydrated and she was provided with IV fluids. Her creatinine is 4.9, which is increased from her prior value of 2.45. 05/29/17 18:[address] García about the increase in creatinine. Will provide him with 2 L IV fluids and have the patient seen in the office tomorrow for recheck of her kidney function. She has had prior values that have been higher than today, but her last recorded creatinine was 2.45. Instructed patient to drink plenty of fluids and given very strict return precautions. - Vital Signs Vital signs: Temp Pulse Resp BP Pulse Ox 97.8 F 79 18 162/109 H 98 05/29/17 18:44 05/29/17 18:44 05/29/17 18:44 05/29/17 18:44 05/29/17 18:44 - Laboratory Result Diagrams: 05/29/17 17:10 05/29/17 17:10 Laboratory results interpreted by me: 05/29/17 05/29/17 05/29/17 17:10 17:10 17:10 RDW 14.6 H Seg Neutrophils % 83.2 H Lymphocytes % 9.4 L Potassium 3.4 L BUN 48 H Creatinine 4.93 H Est GFR ( Amer) 11 L Est GFR (Non-Af Amer) 9 L Glucose 183 H ALT 60 H Total Protein 5.4 L Albumin 3.1 L Urine Protein 100 H Discharge - Discharge Clinical Impression: Right flank pain, LEÓN (acute kidney injury) Condition: Stable Disposition: HOME, SELF-CARE Additional Instructions: Your creatinine increased today from your prior values (2.45 to 4.9 today). You must have this rechecked by Dr. García tomorrow in his office. Call for an appointment. Use Lidoderm patches and Tylenol for any pain. Return to the ER if you have any worsening symptoms or any other concerns. Flank Pain We weren't able to prove an exact cause for your flank pain. Pain in the flank can be caused by a muscle strain or spasm. Sometimes a kidney stone causes pain, but can't be found on our tests. Infection in the kidney should be evident on a urine test. Early shingles can occasionally cause flank pain, without the rash that proves the diagnosis. On rare occasions, disease of the pancreas, aorta, spleen, or colon can create pain in the flank. At this time, there's no evidence of a dangerous condition, and it seems safe for you to be at home. If the pain goes away and does not come back, no further testing will be needed. If pain persists, or becomes more severe, we may need to repeat some tests or order additional new testing. Blood in the urine, urgency to urinate frequently, and pain that radiates to the groin can indicate a kidney stone. Fever may mean that the pain is due to infection, either of the kidney or the colon (diverticulitis). If your pain is early shingles, you should develop an eruption of blisters in the painful area within a few days. Call the doctor or return if you have pain that is spreading or becoming more severe, pain that does not resolve with time, fever, or any other new symptoms. Kidney Failure When your kidneys no longer filter the blood adequately, we call this "kidney failure." While kidney failure can happen suddenly, usually it's the result of many years of slow damage. Kidneys can be injured by many different medical problems including infections, diabetes, high blood pressure, kidney stones, drug toxicity, and immune reactions. The symptoms of kidney failure do not develop until most of the normal kidney tissue has been lost. Early kidney failure usually has no symptoms. As it gets worse, symptoms can include weakness, confusion, high blood pressure, swelling, nausea, anemia, and itching. The seriousness of kidney failure is determined by measuring kidney function tests such as BUN or creatinine. The cause of kidney failure may be obvious from the medical history, but occasionally requires special tests such as an angiogram or kidney biopsy. Kidney failure can cause high blood pressure, and uncontrolled hypertension damages kidneys. Good control of blood pressure is important. If you have diabetes, good blood sugar control helps prevent further kidney damage. Fluid retention can be monitored by checking your weight daily. It's best to eat a diet low in protein, potassium, and salt. When kidney failure becomes severe, dialysis or kidney transplant may be required. Call the doctor or return if you develop significant weakness, repeated vomiting, severe lightheadedness, confusion, severe headache, or other serious change in your health. Forms: Elevated Blood Pressure Referrals: JIM GARCÍA MD [Primary Care Provider] - Follow up as needed
[2017-05-29 18:45] VITALS: BP 162/109
[2017-05-29 19:55] LABS: VENOUS BLOOD BASE EXCESS -4.1 mmol/L; VENOUS BLOOD HCO3 22.5 mmol/L (20-32); VENOUS BLOOD PH 7.3 (7.30-7.42)
== END 2017-05-29 19:50 | disposition home or self-care (01) ==
LOC: ER 15:37
DX: R10.9 Unspecified abdominal pain (principal); N17.9 Acute kidney failure, unspecified; E78.00 Pure hypercholesterolemia, unspecified; I10 Essential (primary) hypertension; E11.9 Type 2 diabetes mellitus without complications; I48.91 Unspecified atrial fibrillation; Z87.442 Personal history of urinary calculi; Z98.84 Bariatric surgery status; Z90.710 Acquired absence of both cervix and uterus; Z96.652 Presence of left artificial knee joint
CPT/HCPCS: 99284; 96360; 96361; 36415; 87040; 87086; 85025; 80053; 81001; 82803; 83605; J3490 ×2; J7030

== ENCOUNTER → 2017-06-05 | Outpatient (CLI) | payer MEDICAID ==
[2017-06-05 09:57] LABS: HEMATOCRIT 34.5 % (36.0-47.0); HEMOGLOBIN 11.3 g/dL (12.0-15.5); MEAN CORPUSCULAR HEMOGLOBIN 27.9 pg (27.0-33.4); MEAN CORPUSCULAR HGB CONC 32.6 g/dL (32.0-36.0); MEAN CORPUSCULAR VOLUME 85 fl (80-97); PLATELET COUNT 233 10^3/uL (150-450); RED BLOOD COUNT 4.04 10^6/uL (3.72-5.28); RED CELL DISTRIBUTION WIDTH 14.4 % (11.5-14.0); WHITE BLOOD COUNT 8.4 10^3/uL (4.0-10.5)
[2017-06-05 10:18] LABS: ALANINE AMINOTRANSFERASE 54 U/L (9-52); ALBUMIN 2.7 g/dL (3.5-5.0); ALKALINE PHOSPHATASE 88 U/L (38-126); ANION GAP 8 (5-19); ASPARTATE AMINO TRANSFERASE 34 U/L (14-36); BILIRUBIN,DIRECT 0.1 mg/dL (0.0-0.4); BILIRUBIN,TOTAL 0.1 mg/dL (0.2-1.3); BLOOD UREA NITROGEN 52 mg/dL (7-20); CALCIUM 8.1 mg/dL (8.4-10.2); CARBON DIOXIDE 27 mmol/L (22-30); CHLORIDE 106 mmol/L (98-107); GLUCOSE 157 mg/dL (75-110); MAGNESIUM 1.6 mg/dL (1.6-2.3); PHOSPHORUS 5.5 mg/dL (2.5-4.5); POTASSIUM 4.1 mmol/L (3.6-5.0); SODIUM 140.5 mmol/L (137-145); TOTAL PROTEIN 4.8 g/dL (6.3-8.2)
== END ==
LOC: OD 09:25
PROVIDERS: ATTEND Internal Medicine Nephrology
DX: I12.9 Hypertensive chronic kidney disease with stage 1 through stage 4 chronic kidney disease, or unspecified chronic kidney disease (principal); N18.4 Chronic kidney disease, stage 4 (severe); E11.9 Type 2 diabetes mellitus without complications; D64.9 Anemia, unspecified; R80.9 Proteinuria, unspecified
CPT/HCPCS: 36415; 80053; 83735; 83970; 84100; 85027

== ENCOUNTER → 2017-06-05 | Outpatient (CLI) | payer MEDICAID ==
--- NOTE | 2017-06-05 16:05 | RADIOLOGY REPORT (SQ) ---
EXAM DESCRIPTION: CHEST PA/LATERAL COMPLETED DATE/TIME: 06/05/2017 3:51 pm REASON FOR STUDY: OTH SYMPTOMS AND SIGNS INVOLVING THE CIRC AND RESP SYSTEMS R09.89 OTH SYMPTOMS AN D SIGNS INVOLVING THE CIRC AND RESP SY COMPARISON: 03/18/2017. NUMBER OF VIEWS: Two view. TECHNIQUE: Frontal and lateral radiographic views of the chest acquired. LIMITATIONS: None. FINDINGS: LUNGS AND PLEURA: No opacities, masses or pneumothorax. No pleural effusion. MEDIASTINUM AND HILAR STRUCTURES: No masses. No contour abnormalities. HEART AND VASCULAR STRUCTURES: Heart enlarged without failure. Aorta normal for age. BONES: No acute findings. HARDWARE: None in the chest. OTHER: No other significant finding. IMPRESSION: CARDIAC ENLARGEMENT WITHOUT FAILURE. TECHNICAL DOCUMENTATION: JOB ID: [id number] [employer]- All Rights Reserved
== END ==
LOC: OD 14:58
PROVIDERS: ATTEND Physician Assistant Medical
DX: I51.7 Cardiomegaly (principal); R09.89 Other specified symptoms and signs involving the circulatory and respiratory systems
CPT/HCPCS: 71046

== ENCOUNTER → 2017-06-12 | Outpatient (CLI) | payer MEDICAID ==
--- NOTE | 2017-06-12 16:43 | RADIOLOGY REPORT (SQ) ---
EXAM DESCRIPTION: U/S RETROPERITON (RENAL/AORTA) COMPLETED DATE/TIME: 06/12/2017 3:23 pm REASON FOR STUDY: CKD STAGE 4 N18.4 CHRONIC KIDNEY DISEASE, STAGE 4 (SEVERE) N20.0 CALCULUS OF KID MILTON I50.9 HEART FAILURE, UNSPECIFIED COMPARISON: Comparison CT abdomen 04/21/2017 TECHNIQUE: Dynamic and static grayscale images acquired of the kidneys and bladder and recorded on P ACS. Additional selected color Doppler and spectral images recorded. LIMITATIONS: None. FINDINGS: RIGHT KIDNEY: The right kidney is 9 cm in length. No overt hydronephrosis. 1.3 cm cyst. LEFT KIDNEY: The left kidney is 10.5 cm in length. Stable 2.9 cm peripelvic cyst. No overt hydrone phrosis. BLADDER: Unremarkable OTHER FINDINGS: No other significant finding. IMPRESSION: No overt hydronephrosis. Right kidney 9 cm in length. Left kidney 10.5 cm in length. TECHNICAL DOCUMENTATION: JOB ID: [id number] [employer]- All Rights Reserved
== END ==
LOC: RAD 14:21
PROVIDERS: ATTEND Physician Assistant Medical
DX: N18.4 Chronic kidney disease, stage 4 (severe) (principal); N20.0 Calculus of kidney; I50.9 Heart failure, unspecified
CPT/HCPCS: 76770

== ENCOUNTER → 2017-06-13 | Outpatient (CLI) | payer MEDICAID ==
[2017-06-13 12:46] LABS: HEMATOCRIT 34.2 % (36.0-47.0); HEMOGLOBIN 11.2 g/dL (12.0-15.5); MEAN CORPUSCULAR HEMOGLOBIN 27.9 pg (27.0-33.4); MEAN CORPUSCULAR HGB CONC 32.7 g/dL (32.0-36.0); MEAN CORPUSCULAR VOLUME 85 fl (80-97); PLATELET COUNT 226 10^3/uL (150-450); RED BLOOD COUNT 4.02 10^6/uL (3.72-5.28); RED CELL DISTRIBUTION WIDTH 14.5 % (11.5-14.0); WHITE BLOOD COUNT 7.1 10^3/uL (4.0-10.5)
[2017-06-13 13:12] LABS: ANION GAP 7 (5-19); BLOOD UREA NITROGEN 47 mg/dL (7-20); CALCIUM 8.5 mg/dL (8.4-10.2); CARBON DIOXIDE 27 mmol/L (22-30); CHLORIDE 109 mmol/L (98-107); GLUCOSE 65 mg/dL (75-110); POTASSIUM 3.7 mmol/L (3.6-5.0); SODIUM 142.7 mmol/L (137-145)
== END ==
LOC: OD 11:11
PROVIDERS: ATTEND Physician Assistant Medical
DX: N18.4 Chronic kidney disease, stage 4 (severe) (principal); I50.9 Heart failure, unspecified; R60.9 Edema, unspecified
CPT/HCPCS: 36415; 80048; 85027

== ENCOUNTER → 2017-06-23 | Outpatient (CLI) | payer MEDICAID ==
--- NOTE | 2017-06-23 12:43 | RADIOLOGY REPORT (SQ) ---
EXAM DESCRIPTION: VENOUS UNILATERAL LOWER COMPLETED DATE/TIME: 06/23/2017 12:33 pm REASON FOR STUDY: RLE SWELLING R22.41 LOCALIZED SWELLING, MASS AND LUMP, RIGHT LOWER LIMB COMPARISON: 05/10/2016 TECHNIQUE: Dynamic and static green scale and color images acquired of the right leg venous system. S elected spectral images acquired with additional compression and augmentation maneuvers. The contrala teral common femoral vein and saphenofemoral junction were also imaged. Images stored on PACS. LIMITATIONS: None. FINDINGS: RIGHT COMMON FEMORAL: Normal phasicity, compression and augmentation. No visualized echogenic material on g ray scale. No defects on color images. FEMORAL: Normal compression and augmentation. No visualized echogenic material on green scale. No defe cts on color images. POPLITEAL: Normal compression, augmentation. No visualized echogenic material on green scale. No defec ts on color images. CALF VESSELS: Normal compression, augmentation. No visualized echogenic material on green scale. No de fects on color images. GSV and SSV: Normal compression, augmentation. No visualized echogenic material on green scale. No def ects on color images. ANY DEEP VENOUS INSUFFICIENCY: Not evaluated. ANY EVIDENCE OF POPLITEAL CYST: No. OTHER: No other significant finding. LEFT COMMON FEMORAL VEIN AND SAPHENOFEMORAL JUNCTION: Normal phasicity, compression and augmentation. No visualized echogenic material on green scale. No de fects on color images. IMPRESSION: NO EVIDENCE OF DVT OR SVT IN THE RIGHT LEG. TECHNICAL DOCUMENTATION: JOB ID: [id number] [employer]- All Rights Reserved
== END ==
LOC: SP 11:26
PROVIDERS: ATTEND Internal Medicine
DX: R22.41 Localized swelling, mass and lump, right lower limb (principal)
CPT/HCPCS: 93971

== ENCOUNTER → 2017-07-24 | Outpatient (CLI) | payer MEDICAID ==
[2017-07-24 08:37] LABS: HEMATOCRIT 36.4 % (36.0-47.0); HEMOGLOBIN 11.8 g/dL (12.0-15.5); MEAN CORPUSCULAR HEMOGLOBIN 27.3 pg (27.0-33.4); MEAN CORPUSCULAR HGB CONC 32.4 g/dL (32.0-36.0); MEAN CORPUSCULAR VOLUME 84 fl (80-97); PLATELET COUNT 239 10^3/uL (150-450); RED BLOOD COUNT 4.33 10^6/uL (3.72-5.28); RED CELL DISTRIBUTION WIDTH 14.7 % (11.5-14.0); WHITE BLOOD COUNT 9.5 10^3/uL (4.0-10.5)
[2017-07-24 08:45] LABS: APPEARANCE,URINE CLEAR; BILIRUBIN,URINE NEGATIVE (NEGATIVE); COLOR,URINE STRAW; GLUCOSE, URINE NEGATIVE (NEGATIVE); KETONES,URINE NEGATIVE (NEGATIVE); LEUKOCYTE ESTERASE,URINE NEGATIVE (NEGATIVE); NITRITE,URINE NEGATIVE (NEGATIVE); PROTEIN,URINE 100 mg/dL (NEGATIVE); UROBILINOGEN,URINE NEGATIVE mg/dL (<2.0)
[2017-07-24 09:00] LABS: ANION GAP 9 (5-19); BLOOD UREA NITROGEN 53 mg/dL (7-20); CALCIUM 9.2 mg/dL (8.4-10.2); CARBON DIOXIDE 25 mmol/L (22-30); CHLORIDE 109 mmol/L (98-107); GLUCOSE 179 mg/dL (75-110); PHOSPHORUS 5.6 mg/dL (2.5-4.5); POTASSIUM 3.6 mmol/L (3.6-5.0); SODIUM 143.4 mmol/L (137-145)
[2017-07-24 09:01] LABS: UR PRO/CREAT RATIO RESULT 1.4 mg/mg (0.0-0.2); URINE CREATININE 69.1 mg/dL (15-278); URINE PROTEIN 98.5 mg/dL (<12)
== END ==
LOC: OD 07:56
PROVIDERS: ATTEND Physician Assistant Medical
DX: I12.9 Hypertensive chronic kidney disease with stage 1 through stage 4 chronic kidney disease, or unspecified chronic kidney disease (principal); N18.4 Chronic kidney disease, stage 4 (severe); I50.9 Heart failure, unspecified; E11.9 Type 2 diabetes mellitus without complications
CPT/HCPCS: 36415; 80048; 81001; 82570; 83970; 84100; 84156; 85027

== ENCOUNTER 2017-08-03 15:39 | Observation (INO) | payer MEDICAID ==
[2017-08-03] MEDS ORDERED: DEXTROSE 40% GEL 15 GM TUBE X 2 PO PRN (16:40)
[2017-08-03] MEDS ORDERED: DEXTROSE 50%-WATER SYRINGE 12.5 GM/25 ML DOSE IV PRN (16:40)
[2017-08-03] MEDS ORDERED: GLUCAGON,HUMAN RECOMB 1 MG INJ IM PRN (16:40)
[2017-08-03] MEDS ORDERED: DEXTROSE 40% GEL 15 GM TUBE PO PRN (16:40)
[2017-08-03] MEDS ORDERED: DEXTROSE 50%-WATER SYRINGE 25 GM/50 ML DOSE IV PRN (16:40)
[2017-08-03 17:09] LABS: HEMATOCRIT 35.1 % (36.0-47.0); HEMOGLOBIN 11.2 g/dL (12.0-15.5); MEAN CORPUSCULAR HEMOGLOBIN 27.1 pg (27.0-33.4); MEAN CORPUSCULAR VOLUME 85 fl (80-97); PLATELET COUNT 247 10^3/uL (150-450); RED BLOOD COUNT 4.14 10^6/uL (3.72-5.28); RED CELL DISTRIBUTION WIDTH 15.1 % (11.5-14.0); WHITE BLOOD COUNT 9.2 10^3/uL (4.0-10.5)
[2017-08-03 17:26] LABS: ALANINE AMINOTRANSFERASE 43 U/L (9-52); ALBUMIN 3.3 g/dL (3.5-5.0); ALKALINE PHOSPHATASE 91 U/L (38-126); ANION GAP 12 (5-19); ASPARTATE AMINO TRANSFERASE 22 U/L (14-36); BILIRUBIN,DIRECT 0.2 mg/dL (0.0-0.4); BILIRUBIN,TOTAL 0.2 mg/dL (0.2-1.3); BLOOD UREA NITROGEN 59 mg/dL (7-20); CALCIUM 9.2 mg/dL (8.4-10.2); CARBON DIOXIDE 23 mmol/L (22-30); CHLORIDE 106 mmol/L (98-107); CREATINE KINASE 95 U/L (30-135); GLUCOSE 58 mg/dL (75-110); IRON(TIBC) 42.5 ug/dL (37-170); POTASSIUM 3.6 mmol/L (3.6-5.0); TOTAL PROTEIN 5.2 g/dL (6.3-8.2)
--- NOTE | 2017-08-03 17:33 | RADIOLOGY REPORT (SQ) ---
EXAM DESCRIPTION: CHEST SINGLE VIEW COMPLETED DATE/TIME: 08/03/2017 4:58 pm REASON FOR STUDY: Direct Admission COMPARISON: 06/05/2017 EXAM PARAMETERS: NUMBER OF VIEWS: One view. TECHNIQUE: Single frontal radiographic view of the chest acquired. RADIATION DOSE: NA LIMITATIONS: None. FINDINGS: LUNGS AND PLEURA: No opacities, masses or pneumothorax. No pleural effusion. MEDIASTINUM AND HILAR STRUCTURES: No masses. Contour normal. HEART AND VASCULAR STRUCTURES: Marked cardiomegaly, stable BONES: No acute findings. HARDWARE: Clips post thyroidectomy OTHER: No other significant finding. IMPRESSION: Marked cardiomegaly, stable TECHNICAL DOCUMENTATION: JOB ID: [id number] [employer]- All Rights Reserved Reading location - IP/workstation name: [email or web address]
[2017-08-03 17:45] LABS: CREATINE KINASE MB 1.99 ng/mL (<4.55)
[2017-08-03 17:49] LABS: TROPONIN I < 0.012 ng/mL
--- NOTE | 2017-08-03 18:58 | EKG REPORT ---
SEVERITY:- ABNORMAL ECG - ATRIAL FIBRILLATION, V-RATE 79-120 NONSPECIFIC T ABNORMALITIES, ANT-LAT LEADS : Confirmed by: Kendall Arrington MD 03-Aug-2017 18:57:56
--- NOTE | 2017-08-03 20:31 | PDOC H&P ---
History of Present Illness Admission Date/PCP: 08/03/17 15:39 JIM GARCÍA MD History of Present Illness: ORLANDO COOPER is a 62 year old female, She came to the office to the floor evaluation of multiple complaints including dizziness, malaise, anorexia, fatigue, sense of doom there was no apparent unifying diagnosis that I could come up with in the office. She was admitted directly from the office to the hospital for further evaluation of her symptoms. She has chronic kidney disease stage IV but the blood work that was done , GFR was 12, consistent with chronic kidney disease stage V. She has diabetic related nephropathy/nephrotic syndrome she follows with nephrology she did not show any signs of uremia and there is no biochemical evidence of immediate need for hemodialysis. Past Medical History Cardiac Medical History: Reports: Atrial Fibrillation, Hyperlipidema, Hypertension Pulmonary Medical History: Reports: Asthma - as a child, Sleep Apnea - CPAP- started October 2014 Endocrine Medical History: Reports: Diabetes Mellitus Type 2, Hypothyroidism - goiter/Thyroidectomy 2010 Malignancy Medical History: Reports: Renal (Kidney) Cancer GI Medical History: Reports: Gastroesophageal Reflux Disease - 3 yrs-takes meds Musculoskeltal Medical History: Reports: Arthritis - neck Psychiatric Medical History: Reports: Depression Hematology: Reports: 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 Infectious Medical History: Denies: HIV Past Surgical History Past Surgical History: Reports: Gastric Bypass Surgery - 1994, Hysterectomy, Orthopedic Surgery - left knee replacement Social History Smoking Status: Never Smoker Frequency of Alcohol Use: None Hx Recreational Drug Use: No Drugs: None Hx Prescription Drug Abuse: No - Advance Directive Resuscitation Status: Full Code Family History Family History: CAD, CVA Parental Family History Reviewed: Yes Children Family History Reviewed: Yes Sibling(s) Family History Reviewed.: Yes Medication/Allergy Home Medications: Amlodipine Besylate [Norvasc 10 mg Tablet] 10 mg PO DAILY 08/03/17 Calcitriol [Rocaltrol 0.5 mcg Capsule] 1 mcg PO DAILY 08/03/17 Cetirizine HCl [Zyrtec 10 mg Tablet] 10 mg PO DAILY 08/03/17 Clonidine HCl [Catapres 0.3 mg Tablet] 0.3 mg PO Q8 08/03/17 Cyanocobalamin (Vitamin B-12) [Vitamin B-12 Inj 1000 Mcg/1 ml Vial] 1,000 mcg IM [id number] 08/03/17 Furosemide [Lasix 40 mg Tablet] 20 mg PO DAILY@1400 08/03/17 Furosemide [Lasix 40 mg Tablet] 40 mg PO QAM 08/03/17 Glipizide [Glipizide Xl] 10 mg PO DAILY 08/03/17 Insulin Aspart [Novolog Flexpen] 5 units SQ MEALS 08/03/17 Isosorb Dinit/Hydralazine HCl [Bidil 20-37.5 mg Tablet] 1 tab PO Q8 08/03/17 Levothyroxine Sodium [Synthroid 0.15 mg Tablet] 0.15 mg PO Q6AM 08/03/17 Metoprolol Succinate [Toprol XL 100 mg Tablet] 100 mg PO Q12 08/03/17 Omeprazole 40 mg PO DAILY 08/03/17 Oxycodone HCl/Acetaminophen [Oxycodone-Acetaminophen 10-325] 1 tab PO Q8HP PRN 08/03/17 Potassium Chloride [Klor-Con Sprinkle] 10 meq PO DAILY 08/03/17 Pravastatin Sodium [Pravachol] 40 mg PO DAILY 08/03/17 Rivaroxaban [Xarelto 10 mg Tablet] 10 mg PO DAILY 08/03/17 Sertraline HCl [Zoloft] 25 mg PO DAILY 08/03/17 Solifenacin Succinate [Vesicare] 5 mg PO DAILY 08/03/17 Valsartan [Diovan] 320 mg PO DAILY 08/03/17 Allergies/Adverse Reactions: benazepril Allergy (Verified 05/29/17 15:39) throat closes,lips swell Review of Systems Constitutional: PRESENT: anorexia, fatigue Eyes: ABSENT: visual disturbances Ears: ABSENT: hearing changes Cardiovascular: ABSENT: chest pain, dyspnea on exertion, edema, orthropnea, palpitations Respiratory: ABSENT: cough, hemoptysis Gastrointestinal: PRESENT: nausea Genitourinary: ABSENT: dysuria, hematuria Musculoskeletal: ABSENT: joint swelling Integumentary: ABSENT: rash, wounds Neurological: ABSENT: abnormal gait, abnormal speech, confusion, dizziness, focal weakness, syncope Psychiatric: ABSENT: anxiety, depression, homidical ideation, suicidal ideation Endocrine: ABSENT: cold intolerance, heat intolerance, menstrual abnormalities, polydipsia, polyuria Hematologic/Lymphatic: ABSENT: easy bleeding, easy bruising, lymphadenopathy Physical Exam Vital Signs: Temp Pulse Resp BP Pulse Ox 97.9 F 103 H 18 131/94 H 100 08/03/17 16:21 08/03/17 19:00 08/03/17 16:21 08/03/17 16:21 08/03/17 16:21 Intake & Output 08/02/17 08/03/17 08/04/17 06:59 06:59 06:59 Weight 107.2 kg General appearance: PRESENT: no acute distress, well-developed, well-nourished Head exam: PRESENT: atraumatic, normocephalic Eye exam: PRESENT: conjunctiva pink, EOMI, PERRLA Ear exam: PRESENT: normal external ear exam Mouth exam: PRESENT: moist, tongue midline Neck exam: PRESENT: full ROM Respiratory exam: PRESENT: clear to auscultation andrey Cardiovascular exam: PRESENT: RRR, +S1, +S2 Pulses: PRESENT: normal dorsalis pedis pul, +2 pedal pulses bilateral Vascular exam: PRESENT: normal capillary refill GI/Abdominal exam: PRESENT: normal bowel sounds, soft Rectal exam: PRESENT: deferred Neurological exam: PRESENT: alert, awake, oriented to person, oriented to place , oriented to time, oriented to situation, CN II-XII grossly intact Psychiatric exam: PRESENT: appropriate affect, normal mood Skin exam: PRESENT: dry, intact, warm Results Laboratory Results: 08/03/17 16:43 08/03/17 16:43 08/03/17 08/03/17 16:43 16:43 WBC 9.2 RBC 4.14 Hgb 11.2 L Hct 35.1 L MCV 85 MCH 27.1 MCHC 32.0 RDW 15.1 H Plt Count 247 Sodium 141.0 Potassium 3.6 Chloride 106 Carbon Dioxide 23 Anion Gap 12 BUN 59 H Creatinine 4.62 H Est GFR ( Amer) 12 L Est GFR (Non-Af Amer) 10 L Glucose 58 L Calcium 9.2 Iron 42.5 TIBC 255 % Saturation 17 Ferritin 187.00 Total Bilirubin 0.2 AST 22 ALT 43 Alkaline Phosphatase 91 Total Protein 5.2 L Albumin 3.3 L 08/03/17 08/03/17 16:43 16:43 Creatine Kinase 95 CK-MB (CK-2) 1.99 Troponin I < 0.012 Impressions: Chest X-Ray 08/03/17 00:00 IMPRESSION: Marked cardiomegaly, stable Assessment & Plan - Diagnosis (1) Chronic kidney disease, stage 5 Is this a current diagnosis for this admission?: Yes Plan: It seems that the kidney disease has progressed to stage V, and symptoms who partly be due to the chronic kidney disease but there is no immediate need for dialysis at this time, she be observed on discharge home, she would need to follow with Dr. Scotty Lopez nephrology that is primary quality assurance project manager (2) Type 2 diabetes mellitus with chronic kidney disease Qualifiers: Diabetes mellitus exterminator termite insulin use: with exterminator termite use Chronic kidney disease stage: stage 5, not on chronic dialysis Qualified Code(s): E11.22 - Type 2 diabetes mellitus with diabetic chronic kidney disease; N18.5 - Chronic kidney disease, stage 5; N18.5 - Chronic kidney disease, stage 5; N18.5 - Chronic kidney disease, stage 5; N18.5 - Chronic kidney disease, stage 5; Z79.4 - FDC (current) use of insulin; Z79.4 - FDC (current) use of insulin ; Z79.4 - terminal operations supervisor (current) use of insulin; Z79.4 - FDC (current) use of insulin Is this a current diagnosis for this admission?: Yes
[2017-08-03] MEDS: AMLODIPINE BESYLATE 10 MG TABLET PO SCH (22:45)
[2017-08-03] MEDS: CLONIDINE HCL 0.1 MG TABLET PO SCH (22:45)
[2017-08-03] MEDS: ISOSORB DINIT/HYDRALAZINE HCL 20-37.5 MG TABLET PO SCH (22:46)
[2017-08-03] MEDS: RIVAROXABAN 10 MG TABLET PO SCH (22:46)
[2017-08-03] MEDS: INSULIN LISPRO 100 UNIT/ML 3 ML VIAL SUBCUT PRN (23:02)
[2017-08-03] MEDS: OXYCODONE-ACETAMINOPHEN 5-325 MG TABLET PO PRN (23:04)
[2017-08-04 00:59] LABS: CREATINE KINASE MB 1.27 ng/mL (<4.55)
[2017-08-04 01:01] LABS: TROPONIN I < 0.012 ng/mL
[2017-08-04] MEDS: ISOSORB DINIT/HYDRALAZINE HCL 20-37.5 MG TABLET PO SCH ×3 (06:13→21:50)
[2017-08-04] MEDS: CLONIDINE HCL 0.1 MG TABLET PO SCH ×3 (06:13→21:50)
[2017-08-04] MEDS: LEVOTHYROXINE SODIUM 0.15 MG TABLET PO SCH (06:18)
[2017-08-04] MEDS: CALCITRIOL 0.25 MCG CAPSULE PO SCH (09:09)
[2017-08-04] MEDS: VALSARTAN 160 MG TABLET PO SCH (09:10)
[2017-08-04 09:42] LABS: CREATINE KINASE MB 1.06 ng/mL (<4.55)
[2017-08-04 09:47] LABS: TROPONIN I < 0.012 ng/mL
[2017-08-04] MEDS: OXYCODONE-ACETAMINOPHEN 5-325 MG TABLET PO PRN (13:53)
[2017-08-04 14:14] LABS: ALANINE AMINOTRANSFERASE 44 U/L (9-52); ALKALINE PHOSPHATASE 95 U/L (38-126); ANION GAP 11 (5-19); ASPARTATE AMINO TRANSFERASE 27 U/L (14-36); BILIRUBIN,DIRECT 0.2 mg/dL (0.0-0.4); BILIRUBIN,TOTAL 0.2 mg/dL (0.2-1.3); BLOOD UREA NITROGEN 60 mg/dL (7-20); CALCIUM 9.2 mg/dL (8.4-10.2); CARBON DIOXIDE 22 mmol/L (22-30); CHLORIDE 108 mmol/L (98-107); GLUCOSE 193 mg/dL (75-110); POTASSIUM 3.9 mmol/L (3.6-5.0); SODIUM 140.5 mmol/L (137-145); TOTAL PROTEIN 5.5 g/dL (6.3-8.2)
[2017-08-04 17:21] LABS: APPEARANCE,URINE CLEAR; BILIRUBIN,URINE NEGATIVE (NEGATIVE); COLOR,URINE YELLOW; GLUCOSE, URINE 50 mg/dL (NEGATIVE); KETONES,URINE NEGATIVE (NEGATIVE); LEUKOCYTE ESTERASE,URINE TRACE (NEGATIVE); NITRITE,URINE NEGATIVE (NEGATIVE); PROTEIN,URINE 100 mg/dL (NEGATIVE); URINE SPECIFIC GRAVITY 1.012; UROBILINOGEN,URINE NEGATIVE mg/dL (<2.0)
[2017-08-04] MEDS: INSULIN LISPRO 100 UNIT/ML 3 ML VIAL SUBCUT PRN (18:37)
--- NOTE | 2017-08-04 20:56 | PDOC DISCHARGE SUMMARY ---
General - Admit/Disc Date/PCP Admission Date/Primary Care Provider: 08/03/17 15:39 JIM GARCÍA MD Discharge Date: 08/04/17 - Discharge Diagnosis (1) Chronic kidney disease, stage 5 Is this a current diagnosis for this admission?: Yes (2) Type 2 diabetes mellitus with chronic kidney disease Is this a current diagnosis for this admission?: Yes - Additional Information Resuscitation Status: Full Code Home Medications: Amlodipine Besylate [Norvasc 10 mg Tablet] 10 mg PO DAILY 08/03/17 Calcitriol [Rocaltrol 0.5 mcg Capsule] 1 mcg PO DAILY 08/03/17 Cetirizine HCl [Zyrtec 10 mg Tablet] 10 mg PO DAILY 08/03/17 Clonidine HCl [Catapres 0.3 mg Tablet] 0.3 mg PO Q8 08/03/17 Cyanocobalamin (Vitamin B-12) [Vitamin B-12 Inj 1000 Mcg/1 ml Vial] 1,000 mcg IM [id number] 08/03/17 Furosemide [Lasix 40 mg Tablet] 20 mg PO DAILY@1400 08/03/17 Furosemide [Lasix 40 mg Tablet] 40 mg PO QAM 08/03/17 Glipizide [Glipizide Xl] 10 mg PO DAILY 08/03/17 Insulin Aspart [Novolog Flexpen] 5 units SQ MEALS 08/03/17 Isosorb Dinit/Hydralazine HCl [Bidil 20-37.5 mg Tablet] 1 tab PO Q8 08/03/17 Levothyroxine Sodium [Synthroid 0.15 mg Tablet] 0.15 mg PO Q6AM 08/03/17 Metoprolol Succinate [Toprol XL 100 mg Tablet] 100 mg PO Q12 08/03/17 Omeprazole 40 mg PO DAILY 08/03/17 Oxycodone HCl/Acetaminophen [Oxycodone-Acetaminophen 10-325] 1 tab PO Q8HP PRN 08/03/17 Potassium Chloride [Klor-Con Sprinkle] 10 meq PO DAILY 08/03/17 Pravastatin Sodium [Pravachol] 40 mg PO DAILY 08/03/17 Rivaroxaban [Xarelto 10 mg Tablet] 10 mg PO DAILY 08/03/17 Sertraline HCl [Zoloft] 25 mg PO DAILY 08/03/17 Solifenacin Succinate [Vesicare] 5 mg PO DAILY 08/03/17 Valsartan [Diovan] 320 mg PO DAILY 08/03/17 History of Present Illness History of Present Illness: ORLANDO COOPER is a 62 year old female, She came to the office to the floor evaluation of multiple complaints including dizziness, malaise, anorexia, fatigue, sense of doom there was no apparent unifying diagnosis that I could come up with in the office. She was admitted directly from the office to the hospital for further evaluation of her symptoms. She has chronic kidney disease stage IV but the blood work that was done , GFR was 12, consistent with chronic kidney disease stage V. She has diabetic related nephropathy/nephrotic syndrome she follows with nephrology she did not show any signs of uremia and there is no biochemical evidence of immediate need for hemodialysis. Hospital Course Hospital Course: She was admitted for observation, for management of multiple complaints, it seems that I kidney disease has progressed to stay 5, there is no immediate need for hemodialysis, she will follow with Dr. Scotty Lopez, primary land title examiner Physical Exam Vital Signs: Temp Pulse Resp BP Pulse Ox 98.5 F 93 18 130/68 H 99 08/04/17 15:37 08/04/17 15:37 08/04/17 15:37 08/04/17 15:37 08/04/17 15:37 Intake & Output 08/03/17 08/04/17 08/05/17 06:59 06:59 06:59 Intake Total 580 920 Output Total 1000 Balance -420 920 Weight 107.2 kg General appearance: PRESENT: no acute distress, well-developed, well-nourished Head exam: PRESENT: atraumatic, normocephalic Eye exam: PRESENT: conjunctiva pink, EOMI, PERRLA Ear exam: PRESENT: normal external ear exam Mouth exam: PRESENT: moist, tongue midline Neck exam: PRESENT: full ROM. ABSENT: carotid bruit, JVD, lymphadenopathy, thyromegaly Respiratory exam: PRESENT: clear to auscultation andrey Cardiovascular exam: PRESENT: RRR, +S1, +S2 Pulses: PRESENT: normal dorsalis pedis pul, +2 pedal pulses bilateral Vascular exam: PRESENT: normal capillary refill GI/Abdominal exam: PRESENT: normal bowel sounds, soft Rectal exam: PRESENT: deferred Neurological exam: PRESENT: alert, awake, oriented to person, oriented to place , oriented to time, oriented to situation, CN II-XII grossly intact. ABSENT: motor sensory deficit Psychiatric exam: PRESENT: appropriate affect, normal mood Skin exam: PRESENT: dry, intact, warm Results Laboratory Results: 08/03/17 16:43 08/04/17 13:38 08/04/17 08/04/17 13:38 16:25 Sodium 140.5 Potassium 3.9 Chloride 108 H Carbon Dioxide 22 Anion Gap 11 BUN 60 H Creatinine 4.95 H Est GFR ( Amer) 11 L Est GFR (Non-Af Amer) 9 L Glucose 193 H Calcium 9.2 Total Bilirubin 0.2 AST 27 ALT 44 Alkaline Phosphatase 95 Total Protein 5.5 L Albumin 3.0 L Urine Color YELLOW Urine Appearance CLEAR Urine pH 5.0 Ur Specific [place] 1.012 Urine Protein 100 H Urine Glucose (UA) 50 H Urine Ketones NEGATIVE Urine Blood NEGATIVE Urine Nitrite NEGATIVE Ur Leukocyte Esterase TRACE H Urine WBC (Auto) 3 Urine RBC (Auto) 1 08/03/17 08/03/17 08/04/17 16:43 16:43 00:16 Creatine Kinase 95 70 CK-MB (CK-2) 1.99 Troponin I < 0.012 08/04/17 08/04/17 08/04/17 00:16 08:27 08:37 Creatine Kinase 55 CK-MB (CK-2) 1.27 1.06 Troponin I < 0.012 < 0.012 Impressions: Chest X-Ray 08/03/17 00:00 IMPRESSION: Marked cardiomegaly, stable Qualifiers - * PATEINT BEING DISCHARGED WITH ANY OF THE FOLLOWING DIAGNOSIS?: No VTE patient discharged on overlapping Therapy?: Yes
[2017-08-04] MEDS: RIVAROXABAN 10 MG TABLET PO SCH (21:50)
[2017-08-04] MEDS: AMLODIPINE BESYLATE 10 MG TABLET PO SCH (21:50)
[2017-08-04] MEDS ORDERED: ATORVASTATIN CALCIUM 10 MG TABLET PO SCH (22:00)
[2017-08-05] MEDS: CLONIDINE HCL 0.1 MG TABLET PO SCH (06:28)
[2017-08-05] MEDS: ISOSORB DINIT/HYDRALAZINE HCL 20-37.5 MG TABLET PO SCH (06:28)
[2017-08-05] MEDS: LEVOTHYROXINE SODIUM 0.15 MG TABLET PO SCH (06:28)
[2017-08-05 08:59] VITALS: BP 131/94
[2017-08-05] MEDS: CALCITRIOL 0.25 MCG CAPSULE PO SCH (09:19)
[2017-08-05] MEDS: VALSARTAN 160 MG TABLET PO SCH (09:24)
[2017-08-05] MEDS ORDERED: MULTIVITAMIN TABLET PO SCH (10:00)
== END 2017-08-05 11:56 | disposition home or self-care (01) ==
LOC: 4N 15:39
PROVIDERS: ADMIT Internal Medicine; ATTEND Internal Medicine
DX: E11.22 Type 2 diabetes mellitus with diabetic chronic kidney disease (principal); I12.0 Hypertensive chronic kidney disease with stage 5 chronic kidney disease or end stage renal disease; N18.5 Chronic kidney disease, stage 5; E11.21 Type 2 diabetes mellitus with diabetic nephropathy; I48.91 Unspecified atrial fibrillation; K21.9 Gastro-esophageal reflux disease without esophagitis; E78.5 Hyperlipidemia, unspecified; E03.9 Hypothyroidism, unspecified; R11.0 Nausea; R63.0 Anorexia; Z98.84 Bariatric surgery status; Z85.528 Personal history of other malignant neoplasm of kidney; Z79.899 Other long term (current) drug therapy; Z79.01 Long term (current) use of anticoagulants; Z68.41 Body mass index [BMI] 40.0-44.9, adult; Z79.4 Long term (current) use of insulin
CPT/HCPCS: 36415 ×2; 87040; 87086; 82553 ×2; 82962 ×3; 82550 ×2; 82728; 83540; 83550; 85027; 80076; 80048; 80053; 81001; 84484 ×2; 71045; 93005; 93010; J3490 ×12

== ENCOUNTER → 2017-08-16 | Outpatient (CLI) | payer MEDICAID ==
[2017-08-16 13:05] LABS: ANION GAP 10 (5-19); BLOOD UREA NITROGEN 49 mg/dL (7-20); CALCIUM 8.9 mg/dL (8.4-10.2); CARBON DIOXIDE 25 mmol/L (22-30); CHLORIDE 108 mmol/L (98-107); GLUCOSE 88 mg/dL (75-110); POTASSIUM 3.9 mmol/L (3.6-5.0); SODIUM 142.7 mmol/L (137-145)
== END ==
LOC: OD 12:03
PROVIDERS: ATTEND Physician Assistant Medical
DX: I12.9 Hypertensive chronic kidney disease with stage 1 through stage 4 chronic kidney disease, or unspecified chronic kidney disease (principal); N18.5 Chronic kidney disease, stage 5; I50.9 Heart failure, unspecified
CPT/HCPCS: 36415; 80048

== ENCOUNTER → 2017-09-18 | Outpatient (CLI) | payer MEDICAID ==
[2017-09-18 11:47] LABS: HEMATOCRIT 28.9 % (36.0-47.0); HEMOGLOBIN 9.5 g/dL (12.0-15.5); MEAN CORPUSCULAR HEMOGLOBIN 28.8 pg (27.0-33.4); MEAN CORPUSCULAR VOLUME 87 fl (80-97); PLATELET COUNT 235 10^3/uL (150-450); RED BLOOD COUNT 3.31 10^6/uL (3.72-5.28); RED CELL DISTRIBUTION WIDTH 16.3 % (11.5-14.0); WHITE BLOOD COUNT 7.4 10^3/uL (4.0-10.5)
[2017-09-18 12:09] LABS: ANION GAP 11 (5-19); BLOOD UREA NITROGEN 42 mg/dL (7-20); CALCIUM 8.7 mg/dL (8.4-10.2); CARBON DIOXIDE 27 mmol/L (22-30); CHLORIDE 108 mmol/L (98-107); GLUCOSE 94 mg/dL (75-110); PHOSPHORUS 4.6 mg/dL (2.5-4.5); SODIUM 146.1 mmol/L (137-145)
[2017-09-18 12:40] LABS: AMORPHOUS SEDIMENT,URINE TRACE /HPF; APPEARANCE,URINE CLOUDY; BILIRUBIN,URINE NEGATIVE (NEGATIVE); COLOR,URINE YELLOW; GLUCOSE, URINE 50 mg/dL (NEGATIVE); KETONES,URINE NEGATIVE (NEGATIVE); LEUKOCYTE ESTERASE,URINE NEGATIVE (NEGATIVE); NITRITE,URINE NEGATIVE (NEGATIVE); PROTEIN,URINE 100 mg/dL (NEGATIVE); URINE SPECIFIC GRAVITY 1.014; UROBILINOGEN,URINE NEGATIVE mg/dL (<2.0)
== END ==
LOC: OD 11:18
PROVIDERS: ATTEND Physician Assistant Medical
DX: I12.9 Hypertensive chronic kidney disease with stage 1 through stage 4 chronic kidney disease, or unspecified chronic kidney disease (principal); N18.4 Chronic kidney disease, stage 4 (severe); I50.9 Heart failure, unspecified
CPT/HCPCS: 36415; 80048; 81001; 83970; 84100; 85027

== ENCOUNTER → 2017-10-24 | Outpatient (CLI) | payer MEDICAID ==
[2017-10-24 13:54] LABS: HEMATOCRIT 29.6 % (36.0-47.0); HEMOGLOBIN 9.9 g/dL (12.0-15.5); MEAN CORPUSCULAR HEMOGLOBIN 29.4 pg (27.0-33.4); MEAN CORPUSCULAR HGB CONC 33.4 g/dL (32.0-36.0); MEAN CORPUSCULAR VOLUME 88 fl (80-97); PLATELET COUNT 205 10^3/uL (150-450); RED BLOOD COUNT 3.36 10^6/uL (3.72-5.28); RED CELL DISTRIBUTION WIDTH 14.5 % (11.5-14.0); WHITE BLOOD COUNT 8.4 10^3/uL (4.0-10.5)
[2017-10-24 13:59] LABS: APPEARANCE,URINE CLEAR; BILIRUBIN,URINE NEGATIVE (NEGATIVE); COLOR,URINE YELLOW; GLUCOSE, URINE NEGATIVE (NEGATIVE); KETONES,URINE NEGATIVE (NEGATIVE); LEUKOCYTE ESTERASE,URINE NEGATIVE (NEGATIVE); NITRITE,URINE NEGATIVE (NEGATIVE); PROTEIN,URINE 100 mg/dL (NEGATIVE); URINE SPECIFIC GRAVITY 1.012; UROBILINOGEN,URINE NEGATIVE mg/dL (<2.0)
[2017-10-24 14:14] LABS: ANION GAP 9 (5-19); BLOOD UREA NITROGEN 36 mg/dL (7-20); CALCIUM 8.9 mg/dL (8.4-10.2); CARBON DIOXIDE 25 mmol/L (22-30); CHLORIDE 109 mmol/L (98-107); GLUCOSE 124 mg/dL (75-110); PHOSPHORUS 4.3 mg/dL (2.5-4.5); POTASSIUM 3.9 mmol/L (3.6-5.0); SODIUM 143.4 mmol/L (137-145)
== END ==
LOC: OD 13:27
PROVIDERS: ATTEND Physician Assistant Medical
DX: I12.9 Hypertensive chronic kidney disease with stage 1 through stage 4 chronic kidney disease, or unspecified chronic kidney disease (principal); N18.4 Chronic kidney disease, stage 4 (severe); I50.9 Heart failure, unspecified
CPT/HCPCS: 36415; 80048; 81001; 83970; 84100; 85027

== ENCOUNTER → 2017-12-04 | Outpatient (CLI) | payer MEDICAID ==
--- NOTE | 2017-12-04 17:23 | WOMENS IMAGING REPORT ---
EXAM DESCRIPTION: 3D SCREENING MAMMO BILAT COMPLETED DATE/TIME: 12/04/2017 4:02 pm REASON FOR STUDY: SCREENING MAMMO Z12.31 ENCNTR SCREEN MAMMOGRAM FOR MALIGNANT NEOPLASM OF ZELDA COMPARISON: 2011, 2013 TECHNIQUE: Standard craniocaudal and mediolateral oblique views of each breast recorded using digita l acquisition and breast tomosynthesis. LIMITATIONS: None. FINDINGS: Findings present which are benign by mammographic criteria. No suspicious masses, calcifi cations or architectural distortion. Pertinent benign findings: Multiple benign bilateral breast parenchymal calcifications. Read with the assistance of CAD. .[facility] - R2 Cenova Version 1.3 .[facility] - R2 Cenova Version 1.3 .[facility] - R2 Cenova Version 2.4 .[facility] [place]2 Cenova Version 2.4 .[facility] - R2 Spd Manager Version 9.2 Benign mammographic findings may include one or more of the following: Smooth masses, popcorn/rim/co arse calcifications, asymmetries, post-procedure changes, and lesions with long-standing stability. IMPRESSION: BENIGN MAMMOGRAPHIC FINDINGS. BIRADS 2 BREAST DENSITY: b. There are scattered areas of fibroglandular density. BIRAD: 2 BENIGN FINDING(S) RECOMMENDATION: RECOMMENDATION: ROUTINE SCREENING Please continue yearly bilateral screening mammography/tomosynthesis in November 2018 COMMENT: The patient has been notified of the results by letter per SA requirements. Additional no tification policies are in place for contacting patient with suspicious or incomplete findings. Quality ID #[id number]: The [employer] recommends an annual screening mammogram for women aged 40 years or over. This facility utilizes a reminder system to ensure that all patients receive reminder letters, and/or direct phone calls for appointments. This includes reminders for routine scr eening mammograms, diagnostic mammograms, or other Breast Imaging Interventions when appropriate. Th is patient will be placed in the appropriate reminder system. The [employer] (ACR) has developed recommendations for screening MRI of the breast s in certain patient populations, to be used in conjunction with mammography. Breast MRI surveillanc e may be appropriate for women with more than 20% lifetime risk of developing breast cancer as deter mined by genetic testing, significant family history of the disease, or history of mantle radiation f or Hodgkins Disease. ACR Practice Guidelines 2008. DBT Technology DBT is a type of tomographic mammography. With conventional mammography, overlapping breast tissue ma y make lesions difficult to detect, even with good compression. DBT uses an x-ray tube that rotates a round the breast, taking images at different angles. These images are then combined to create thin sl ices of the breast that the radiologist can view as a 3D reconstruction. The SYLOB unit can perform full-field digital mammograms (2D imaging); or DBT (3D imaging); or both, in a combination mode that quickly performs both the mammogram and the tomosynthesis scan while the breast is still compressed. PQRS 6045F: Fluoroscopic imaging is not utilized for breast tomosynthesis. TECHNICAL DOCUMENTATION: FINDING NUMBER: (1) ASSESSMENT: (1) JOB ID: [id number] [employer]- All Rights Reserved Reading location - IP/workstation name: [email or web address]
== END ==
LOC: WI 14:36
PROVIDERS: ATTEND Internal Medicine
DX: Z12.31 Encounter for screening mammogram for malignant neoplasm of breast (principal)
CPT/HCPCS: 77063; 77067

== ENCOUNTER → 2018-01-19 | Outpatient (CLI) | payer MEDICAID ==
[2018-01-19 10:45] LABS: HEMATOCRIT 30.4 % (36.0-47.0); HEMOGLOBIN 10.1 g/dL (12.0-15.5); MEAN CORPUSCULAR HEMOGLOBIN 28.9 pg (27.0-33.4); MEAN CORPUSCULAR HGB CONC 33.3 g/dL (32.0-36.0); MEAN CORPUSCULAR VOLUME 87 fl (80-97); PLATELET COUNT 205 10^3/uL (150-450); RED CELL DISTRIBUTION WIDTH 13.9 % (11.5-14.0); WHITE BLOOD COUNT 6.5 10^3/uL (4.0-10.5)
[2018-01-19 11:07] LABS: ANION GAP 11 (5-19); BLOOD UREA NITROGEN 47 mg/dL (7-20); CALCIUM 8.8 mg/dL (8.4-10.2); CARBON DIOXIDE 24 mmol/L (22-30); CHLORIDE 109 mmol/L (98-107); GLUCOSE 131 mg/dL (75-110); PHOSPHORUS 4.8 mg/dL (2.5-4.5); POTASSIUM 3.8 mmol/L (3.6-5.0); SODIUM 144.2 mmol/L (137-145)
[2018-01-19 13:33] LABS: APPEARANCE,URINE SLIGHTLY-CLOUDY; BILIRUBIN,URINE NEGATIVE (NEGATIVE); COLOR,URINE STRAW; GLUCOSE, URINE 50 mg/dL (NEGATIVE); KETONES,URINE NEGATIVE (NEGATIVE); LEUKOCYTE ESTERASE,URINE NEGATIVE (NEGATIVE); NITRITE,URINE NEGATIVE (NEGATIVE); PROTEIN,URINE 30 mg/dL (NEGATIVE); URINE SPECIFIC GRAVITY 1.009; UROBILINOGEN,URINE NEGATIVE mg/dL (<2.0)
[2018-01-19 13:44] LABS: URINE CREATININE 52.6 mg/dL (15-278); URINE PROTEIN 53.2 mg/dL (<12)
== END ==
LOC: OD 10:02
PROVIDERS: ATTEND Physician Assistant Medical
DX: I12.9 Hypertensive chronic kidney disease with stage 1 through stage 4 chronic kidney disease, or unspecified chronic kidney disease (principal); N18.4 Chronic kidney disease, stage 4 (severe); E11.9 Type 2 diabetes mellitus without complications; R80.9 Proteinuria, unspecified; I50.9 Heart failure, unspecified
CPT/HCPCS: 36415; 80048; 81001; 82570; 83970; 84100; 84156; 85027

== ENCOUNTER → 2018-05-04 | Outpatient (CLI) | payer MEDICAID ==
[2018-05-04 11:58] LABS: HEMOGLOBIN 11.5 g/dL (12.0-15.5); MEAN CORPUSCULAR VOLUME 88 fl (80-97); PLATELET COUNT 235 10^3/uL (150-450); RED BLOOD COUNT 3.98 10^6/uL (3.72-5.28); WHITE BLOOD COUNT 7.7 10^3/uL (4.0-10.5)
[2018-05-04 12:24] LABS: ANION GAP 13 (5-19); BLOOD UREA NITROGEN 58 mg/dL (7-20); CARBON DIOXIDE 21 mmol/L (22-30); CHLORIDE 110 mmol/L (98-107); GLUCOSE 179 mg/dL (75-110); POTASSIUM 3.9 mmol/L (3.6-5.0); SODIUM 144.3 mmol/L (137-145)
[2018-05-04 12:35] LABS: APPEARANCE,URINE SLIGHTLY-CLOUDY; BILIRUBIN,URINE NEGATIVE (NEGATIVE); COLOR,URINE STRAW; GLUCOSE, URINE 50 mg/dL (NEGATIVE); KETONES,URINE NEGATIVE (NEGATIVE); LEUKOCYTE ESTERASE,URINE NEGATIVE (NEGATIVE); NITRITE,URINE NEGATIVE (NEGATIVE); PROTEIN,URINE 30 mg/dL (NEGATIVE); URINE SPECIFIC GRAVITY 1.011; UROBILINOGEN,URINE NEGATIVE mg/dL (<2.0)
== END ==
LOC: OD 11:05
PROVIDERS: ATTEND Physician Assistant Medical
DX: I12.9 Hypertensive chronic kidney disease with stage 1 through stage 4 chronic kidney disease, or unspecified chronic kidney disease (principal); E11.22 Type 2 diabetes mellitus with diabetic chronic kidney disease; N18.4 Chronic kidney disease, stage 4 (severe); E87.6 Hypokalemia
CPT/HCPCS: 36415; 80048; 81001; 85027

== ENCOUNTER 2018-07-25 10:13 | Emergency (ER) | payer MEDICAID ==
[2018-07-25 10:20] VITALS: BP 149/89
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
[2018-07-25] MEDS ORDERED: DIPH/PERTUSS(ACELL)/TETANUS VAC/PF 0.5 ML SYR (>=10YO) IM ONE (11:01)
== END 2018-07-25 11:14 | disposition home or self-care (01) ==
LOC: ER 10:13
DX: T21.21XA Burn of second degree of chest wall, initial encounter (principal); X10.2XXA Contact with fats and cooking oils, initial encounter; Y93.G3 Activity, cooking and baking; I10 Essential (primary) hypertension; E11.9 Type 2 diabetes mellitus without complications; Z85.528 Personal history of other malignant neoplasm of kidney; Z98.84 Bariatric surgery status
CPT/HCPCS: 90471; 90715; 99283

== ENCOUNTER 2018-08-18 07:06 | Emergency (ER) | payer MEDICAID ==
[2018-08-18 07:27] VITALS: BP 158/98
--- NOTE | 2018-08-18 08:37 | ER Document Report ---
ED ENT - General Chief Complaint: Nose Bleed Stated Complaint: NOSE BLEED Time Seen by Provider: 08/18/18 07:36 Primary Care Provider: JIM GARCÍA MD [Primary Care Provider] - Follow up as needed TRAVEL OUTSIDE OF THE [place] IN LAST 30 DAYS: No - HPI Notes: Patient presents the emergency department for evaluation of a nosebleed. It started while she was sleeping. She woke up to the taste of blood. She states it was bleeding until the time she got to the hospital when he did stop. She is currently on Xarelto for atrial fibrillation. Has been taking it as prescribed. She denies any trauma. No chest pain or difficulty breathing. No dizziness. - Related Data Allergies/Adverse Reactions: benazepril Allergy (Verified 08/18/18 08:27) throat closes,lips swell Past Medical History - General Information source: Patient - Social History Smoking Status: Never Smoker Family History: CAD, CVA Patient has suicidal ideation: No Patient has homicidal ideation: No - Past Medical History Cardiac Medical History: Reports: Hx Atrial Fibrillation, Hx Hypercholesterolemia, Hx Hypertension Denies: Hx Congestive Heart Failure, Hx Coronary Artery Disease, Hx Heart Attack, Hx Peripheral Vascular Disease, Hx Pulmonary Embolism, Hx Heart Murmur Pulmonary Medical History: Reports: Hx Asthma - as a child, Hx Sleep Apnea - CPAP- started October 2014 Denies: Hx Bronchitis, Hx COPD, Hx Pneumonia, Hx Respiratory Failure, Hx Tuberculosis Neurological Medical History: Denies: Hx Cerebrovascular Accident, Hx Seizures Endocrine Medical History: Reports: Hx Diabetes Mellitus Type 2, Hx Hypothyroidism - goiter/Thyroidectomy 2010. Denies: Hx Graves' Disease, Hx Hyperthyroidism Renal/ Medical History: Denies: Hx End Stage Renal Disease, Hx Kidney Stones, Hx Peritoneal Dialysis Malignancy Medical History: Reports: Hx Renal (Kidney) Cancer. Denies: Hx Leukemia, Hx Lung Cancer GI Medical History: Reports: Hx Gastroesophageal Reflux Disease - 3 yrs-takes meds. Denies: Hx Cirrhosis, Hx Crohn's Disease, Hx Hiatal Hernia, Hx Irritable Bowel, Hx Liver Failure, Hx Pancreatitis, Hx Ulcer Musculoskeletal Medical History: Reports Hx Arthritis - neck, Denies Hx Fibromyalgia, Denies Hx Multiple Sclerosis, Denies Hx Muscular Dystrophy Psychiatric Medical History: Reports: Hx Depression Denies: Hx Bipolar Disorder, Hx Dementia, Hx Schizophrenia Traumatic Medical History: Denies: Hx Fractures Infectious Medical History: Denies: Hx HIV Past Surgical History: Reports: Hx Abdominal Surgery - GBP, Hx Gastric Bypass Surgery - 1994, Hx Hysterectomy, Hx Kidney (Renal Surgery) - mass removed off of right kidney, Hx Orthopedic Surgery - left knee replacement, Hx Thyroid Surgery - removed 2010. Denies: Hx Appendectomy, Hx Bowel Surgery, Hx Section, Hx Cholecystectomy, Hx Colostomy, Hx Coronary Artery Bypass Graft, Hx Herniorrhaphy, Hx Mastectomy, Hx Pacemaker, Hx Tonsillectomy, Hx Tubal Ligation - Immunizations Hx Diphtheria, Pertussis, Tetanus Vaccination: Yes Hx Pneumococcal Vaccination: 02/26/14 Review of Systems - Review of Systems Constitutional: No symptoms reported EENT: See HPI Cardiovascular: No symptoms reported Respiratory: No symptoms reported Gastrointestinal: No symptoms reported Genitourinary: No symptoms reported Skin: No symptoms reported Neurological/Psychological: No symptoms reported Physical Exam - Vital signs Vitals: Temp Pulse Resp BP Pulse Ox 98.6 F 104 H 16 158/98 H 96 08/18/18 07:22 08/18/18 07:22 08/18/18 07:22 08/18/18 07:22 08/18/18 07:22 - Notes Notes: Vital signs reviewed, please refer to chart. Patient is normocephalic, atraumatic. Pupils equal round, reactive to light. Palpebral conjunctivae is pink. Examination of bilateral nares reveals a mild amount of dried blood. No visible active bleeding. No blood in the posterior pharynx. Neck is supple without meningismus. Heart is regular rate and rhythm. Lungs are clear to auscultation bilaterally. Abdomen is soft, nontender, normoactive bowel sounds throughout. Extremities without cyanosis, clubbing, edema. Peripheral pulses are equal. Skin is warm and dry. Patient is awake, alert, neurological exam is nonfocal. Course - Re-evaluation Re-evalutation: 08/18/18 08:35 Patient presents emergency department for evaluation. Initially she was mildly tachycardic but on my exam she was not. She is on Xarelto but her bleeding stopped prior to my examination. She was monitored here and she was concerned about her blood sugar, that this was checked. It was found to be within normal limits. At this point she has no signs of significant anemia. She has no active bleeding. She is given cautions not to touch her nose, blow her nose, pick her nose. She is monitored here and had no signs of rebleeding. She is to hold her Xarelto for the next 48 hours. She is to follow-up with primary care, return to the emergency department for worsening or new concerning symptoms. 08/18/18 08:38 - Vital Signs Vital signs: Temp Pulse Resp BP Pulse Ox 98.6 F 104 H 16 158/98 H 96 08/18/18 07:22 08/18/18 07:22 08/18/18 07:22 08/18/18 07:22 08/18/18 07:22 Discharge - Discharge Clinical Impression: Epistaxis not due to trauma Condition: Stable Instructions: Nosebleed Instructions ([facility]) Additional Instructions: Do not take your Xarelto today or tomorrow. Avoid touching or blowing her nose. Follow-up with your doctor this week. Return to the emergency department with worsening or new hearing symptoms. Referrals: JIM GARCÍA MD [Primary Care Provider] - Follow up as needed
== END 2018-08-18 08:56 | disposition home or self-care (01) ==
LOC: ER 07:06
DX: R04.0 Epistaxis (principal); I48.91 Unspecified atrial fibrillation; Z79.02 Long term (current) use of antithrombotics/antiplatelets; E78.00 Pure hypercholesterolemia, unspecified; I10 Essential (primary) hypertension; E11.9 Type 2 diabetes mellitus without complications; E03.9 Hypothyroidism, unspecified; Z98.84 Bariatric surgery status; Z90.710 Acquired absence of both cervix and uterus; Z96.652 Presence of left artificial knee joint
CPT/HCPCS: 82962; 99283

== ENCOUNTER 2018-08-18 18:21 | Emergency (ER) | payer MEDICAID ==
--- NOTE | 2018-08-18 18:47 | ER Document Report ---
ED Medical Screen (RME) - General Chief Complaint: Nose Bleed Stated Complaint: NOSE BLEED Time Seen by Provider: 08/18/18 18:39 Primary Care Provider: JIM GARCÍA MD [Primary Care Provider] - Follow up as needed Notes: 63-year-old female patient who takes Xarelto 10 mg once daily comes emerged from complaining of nosebleed. She was seen here early this morning with nosebleed, however reviewing the chart appears that there was no bleeding when she was seen. She states she has been bleeding off and on since leaving, with occasional clots. She reports it comes out of both sides of her nose. Brief exam shows that at this time there is no active bleeding. The mucosa is hyperemic on both sides. I have greeted and performed a rapid initial assessment of this patient. A comprehensive ED assessment and evaluation of the patient, analysis of test results and completion of the medical decision making process will be conducted by additional ED providers. TRAVEL OUTSIDE OF THE [place] IN LAST 30 DAYS: No - Related Data Allergies/Adverse Reactions: benazepril Allergy (Verified 08/18/18 18:36) throat closes,lips swell Past Medical History - Social History Frequency of alcohol use: None Drug Abuse: None Family history: Reviewed & Not Pertinent - Past Medical History Cardiac Medical History: Reports: Hx Atrial Fibrillation, Hx Hypercholesterolemia, Hx Hypertension Denies: Hx Congestive Heart Failure, Hx Coronary Artery Disease, Hx Heart Attack, Hx Peripheral Vascular Disease, Hx Pulmonary Embolism, Hx Heart Murmur Pulmonary Medical History: Reports: Hx Asthma - as a child, Hx Sleep Apnea - CPAP- started October 2014 Denies: Hx Bronchitis, Hx COPD, Hx Pneumonia, Hx Respiratory Failure, Hx Tuberculosis Neurological Medical History: Denies: Hx Cerebrovascular Accident, Hx Seizures Endocrine Medical History: Reports: Hx Diabetes Mellitus Type 2, Hx Hypothyroidism - goiter/Thyroidectomy 2010. Denies: Hx Graves' Disease, Hx Hyperthyroidism Renal/ Medical History: Denies: Hx End Stage Renal Disease, Hx Kidney Stones, Hx Peritoneal Dialysis Malignancy Medical History: Reports: Hx Renal (Kidney) Cancer. Denies: Hx Leukemia, Hx Lung Cancer GI Medical History: Reports: Hx Gastroesophageal Reflux Disease - 3 yrs-takes meds. Denies: Hx Cirrhosis, Hx Crohn's Disease, Hx Hiatal Hernia, Hx Irritable Bowel, Hx Liver Failure, Hx Pancreatitis, Hx Ulcer Musculoskeltal Medical History: Reports Hx Arthritis - neck, Denies Hx Fibromyalgia, Denies Hx Multiple Sclerosis, Denies Hx Muscular Dystrophy Psychiatric Medical History: Reports: Hx Depression Denies: Hx Bipolar Disorder, Hx Dementia, Hx Schizophrenia Traumatic Medical History: Denies: Hx Fractures Infectious Medical History: Denies: Hx HIV Past Surgical History: Reports: Hx Abdominal Surgery - GBP, Hx Gastric Bypass Surgery - 1994, Hx Hysterectomy, Hx Kidney (Renal Surgery) - mass removed off of right kidney, Hx Orthopedic Surgery - left knee replacement, Hx Thyroid Surgery - removed 2010. Denies: Hx Appendectomy, Hx Bowel Surgery, Hx Section, Hx Cholecystectomy, Hx Colostomy, Hx Coronary Artery Bypass Graft, Hx Her niorrhaphy, Hx Mastectomy, Hx Pacemaker, Hx Tonsillectomy, Hx Tubal Ligation - Immunizations Hx Diphtheria, Pertussis, Tetanus Vaccination: Yes History of Influenza Vaccine for 02/2017 - 07/2017 Season: Yes Influenza Administration Date for 02/2017 - 07/2017 Season: 02/19/17 Physical Exam - Vital signs Vitals: Temp Pulse Resp BP Pulse Ox 98.7 F 107 H 18 154/89 H 95 08/18/18 18:24 08/18/18 18:24 08/18/18 18:24 08/18/18 18:24 08/18/18 18:24 Course - Vital Signs Vital signs: Temp Pulse Resp BP Pulse Ox 98.7 F 107 H 18 154/89 H 95 08/18/18 18:24 08/18/18 18:24 08/18/18 18:24 08/18/18 18:24 08/18/18 18:24 Doctor's Discharge - Discharge Referrals: JIM GARCÍA MD [Primary Care Provider] - Follow up as needed
--- NOTE | 2018-08-18 19:18 | EKG REPORT ---
SEVERITY:- ABNORMAL ECG - ATRIAL FIBRILLATION, V-RATE 82-143 PROBABLE LVH WITH SECONDARY REPOL ABNRM : Confirmed by: Nancy Collier MD 18-Aug-2018 19:18:16
[2018-08-18 19:21] LABS: ABSOLUTE EOSINOPHILS # (AUTO) 0.1 10^3/uL (0.0-0.6); ABSOLUTE LYMPHOCYTES (AUTO) 0.8 10^3/uL (0.5-4.7); ABSOLUTE MONOCYTES (AUTO) 0.6 10^3/uL (0.1-1.4); ABSOLUTE NEUT (AUTO) 6.6 10^3/uL (1.7-8.2); BASOPHILS % (AUTO) 0.2 % (0-2); HEMATOCRIT 31.6 % (36.0-47.0); HEMOGLOBIN 10.4 g/dL (12.0-15.5); LYMPHOCYTES % (AUTO) 9.6 % (13-45); MEAN CORPUSCULAR VOLUME 88 fl (80-97); MONOCYTES % (AUTO) 7.2 % (3-13); PLATELET COUNT 219 10^3/uL (150-450); RED CELL DISTRIBUTION WIDTH 14.4 % (11.5-14.0); TOTAL CELLS COUNTED % (AUTO) 100 %; WHITE BLOOD COUNT 8.1 10^3/uL (4.0-10.5)
[2018-08-18 19:30] LABS: INTERNATIONAL RATION (INR) 1.27; PROTHROMBIN TIME 16.5 SEC (11.4-15.4)
[2018-08-18 19:35] LABS: ALANINE AMINOTRANSFERASE 76 U/L (9-52); ALBUMIN 3.1 g/dL (3.5-5.0); ALKALINE PHOSPHATASE 134 U/L (38-126); ANION GAP 8 (5-19); ASPARTATE AMINO TRANSFERASE 46 U/L (14-36); BILIRUBIN,DIRECT 0.3 mg/dL (0.0-0.4); BILIRUBIN,TOTAL 0.3 mg/dL (0.2-1.3); BLOOD UREA NITROGEN 48 mg/dL (7-20); CALCIUM 8.7 mg/dL (8.4-10.2); CARBON DIOXIDE 22 mmol/L (22-30); CHLORIDE 110 mmol/L (98-107); GLUCOSE 130 mg/dL (75-110); POTASSIUM 3.6 mmol/L (3.6-5.0); SODIUM 139.9 mmol/L (137-145); TOTAL PROTEIN 5.2 g/dL (6.3-8.2)
[2018-08-18] MEDS ORDERED: OXYMETAZOLINE HCL 0.05% NASAL SPRAY 15 ML BOTTLE NASL ONE (21:00)
--- NOTE | 2018-08-18 21:00 | ER Document Report ---
ED General - General Chief Complaint: Nose Bleed Stated Complaint: NOSE BLEED Time Seen by Provider: 08/18/18 18:39 Primary Care Provider: JIM GARCÍA MD [Primary Care Provider] - Follow up as needed Notes: Patient is a 63-year-old female with a past medical history of chronic kidney disease, anticoagulated on rivaroxaban, presents with intermittent bleeding from the right nostril since early this morning. Was seen in the emergency department at that time, no active bleeding, discharged home. States after getting home she woke up from a nap and had some scant bleeding from the right nostril again prompting her to return to the emergency department. She has not had any bleeding since arriving here in the department. Denies any associated lightheadedness, near-syncope, chest pain or shortness of breath. No difficulty breathing. No trauma to the nose. Denies history of similar symptoms in the past. Nothing seemed to improve or worsen her symptoms. Has not seen her primary doctor regarding today's concerns. TRAVEL OUTSIDE OF THE [place] IN LAST 30 DAYS: No - Related Data Allergies/Adverse Reactions: benazepril Allergy (Verified 08/18/18 18:36) throat closes,lips swell Past Medical History - General Information source: Patient - Social History Smoking Status: Never Smoker Frequency of alcohol use: None Drug Abuse: None Lives with: Family Family History: CAD, CVA Patient has suicidal ideation: No Patient has homicidal ideation: No - Past Medical History Cardiac Medical History: Reports: Hx Atrial Fibrillation, Hx Hyperc holesterolemia, Hx Hypertension Denies: Hx Congestive Heart Failure, Hx Coronary Artery Disease, Hx Heart Attack, Hx Peripheral Vascular Disease, Hx Pulmonary Embolism, Hx Heart Murmur Pulmonary Medical History: Reports: Hx Asthma - as a child, Hx Sleep Apnea - CPAP- started October 2014 Denies: Hx Bronchitis, Hx COPD, Hx Pneumonia, Hx Respiratory Failure, Hx Tuberculosis Neurological Medical History: Denies: Hx Cerebrovascular Accident, Hx Seizures Endocrine Medical History: Reports: Hx Diabetes Mellitus Type 2, Hx Hypo thyroidism - goiter/Thyroidectomy 2010. Denies: Hx Graves' Disease, Hx Hyperthyroidism Renal/ Medical History: Denies: Hx End Stage Renal Disease, Hx Kidney Stones, Hx Peritoneal Dialysis Malignancy Medical History: Reports: Hx Renal (Kidney) Cancer. Denies: Hx Leukemia, Hx Lung Cancer GI Medical History: Reports: Hx Gastroesophageal Reflux Disease - 3 yrs-takes meds. Denies: Hx Cirrhosis, Hx Crohn's Disease, Hx Hiatal Hernia, Hx Irritable Bowel, Hx Liver Failure, Hx Pancreatitis, Hx Ulcer Musculoskeletal Medical History: Reports Hx Arthritis - neck, Denies Hx Fibromyalgia, Denies Hx Multiple Sclerosis, Denies Hx Muscular Dystrophy Psychiatric Medical History: Reports: Hx Depression Denies: Hx Bipolar Disorder, Hx Dementia, Hx Schizophrenia Traumatic Medical History: Denies: Hx Fractures Infectious Medical History: Denies: Hx HIV Past Surgical History: Reports: Hx Abdominal Surgery - GBP, Hx Gastric Bypass Surgery - 1994, Hx Hysterectomy, Hx Kidney (Renal Surgery) - mass removed off of right kidney, Hx Orthopedic Surgery - left knee replacement, Hx Thyroid Surgery - removed 2010. Denies: Hx Appendectomy, Hx Bowel Surgery, Hx Section, Hx Cholecystectomy, Hx Colostomy, Hx Coronary Artery Bypass Graft, Hx Herniorrhaphy, Hx Mastectomy, Hx Pacemaker, Hx Tonsillectomy, Hx Tubal Ligation - Immunizations Hx Diphtheria, Pertussis, Tetanus Vaccination: Yes Hx Pneumococcal Vaccination: 02/26/14 Review of Systems - Review of Systems Notes: Constitutional: Negative for fever. HENT: Negative for sore throat. Positive for nosebleed Eyes: Negative for visual changes. Cardiovascular: Negative for chest pain. Respiratory: Negative for shortness of breath. Gastrointestinal: Negative for abdominal pain, vomiting or diarrhea. Genitourinary: Negative for dysuria. Musculoskeletal: Negative for back pain. Skin: Negative for rash. Neurological: Negative for headaches, weakness or numbness. 10 point ROS negative except as marked above and in HPI. Physical Exam - Vital signs Vitals: Temp Pulse Resp BP Pulse Ox 98.7 F 107 H 18 154/89 H 95 08/18/18 18:24 08/18/18 18:24 08/18/18 18:24 08/18/18 18:24 08/18/18 18:24 Interpretation: Hypertensive, Tachycardic Notes: PHYSICAL EXAMINATION: GENERAL: Well-appearing, well-nourished and in no acute distress. HEAD: Atraumatic, normocephalic. EYES: Pupils equal round and reactive to light, extraocular movements intact, sclera anicteric, conjunctiva are normal. ENT: nares patent, oropharynx clear without exudates. Moist mucous membranes. NECK: Normal range of motion, supple without lymphadenopathy LUNGS: Breath sounds clear to auscultation bilaterally and equal. No wheezes rales or rhonchi. HEART: Regular rate and rhythm without murmurs ABDOMEN: Soft, nontender, normoactive bowel sounds. No guarding, no rebound. No masses appreciated. EXTREMITIES: Normal range of motion, no pitting or edema. No cyanosis. NEUROLOGICAL: No focal neurological deficits. Moves all extremities spontaneously and on command. PSYCH: Normal mood, normal affect. SKIN: Warm, Dry, normal turgor, no rashes or lesions noted. Course - Re-evaluation Re-evalutation: 08/18/18 20:59 Patient presents with concerns of intermittent bleeding from her right nostril which has not recurred since apparently she came into the emergency room today. Was seen in the emergency room earlier. States that she had some scant bleeding from the nostril since that time although none in triage and on exam currently. No active bleeding on nasal examination. Does take rivaroxaban. Hemoglobin mildly low, relatively within her previous ranges. No lightheadedness, syncope or vomiting. Remainder of exam is benign. Have prescribed oxymetazoline for at home, recommended moisturizing nasal passages. At this time will discharge with return precautions and follow-up recommendations. Verbal discharge instructions given a the bedside and opportunity for questions given. Medication warnings reviewed. Patient is in agreement with this plan and has verbalized understanding of return precautions and the need for primary care follow-up in the next 24-72 hours. - Vital Signs Vital signs: Temp Pulse Resp BP Pulse Ox 98.7 F 107 H 18 154/89 H 95 08/18/18 18:24 08/18/18 18:24 08/18/18 18:24 08/18/18 18:24 08/18/18 18:24 - Laboratory Result Diagrams: 08/18/18 19:10 08/18/18 19:10 Laboratory results interpreted by me: 08/18/18 08/18/18 08/18/18 19:10 19:10 19:10 RBC 3.60 L Hgb 10.4 L Hct 31.6 L RDW 14.4 H Seg Neutrophils % 82.0 H Lymphocytes % 9.6 L PT 16.5 H Chloride 110 H BUN 48 H Creatinine 4.17 H Est GFR ( Amer) 13 L Est GFR (Non-Af Amer) 11 L Glucose 130 H AST 46 H ALT 76 H Alkaline Phosphatase 134 H Total Protein 5.2 L Albumin 3.1 L Discharge - Discharge Clinical Impression: Epistaxis, Anticoagulated Condition: Good Disposition: HOME, SELF-CARE Additional Instructions: You were seen today for a nosebleed. If this restarts please apply direct pressure to the area for 15 minutes without releasing pressure. You can use 4-5 sprays the Afrin (oxymetazoline) spray that was given to you here in the em ergency room into the affected side prior to applying the pressure. You need to apply vasaline or a similar product along the inside of the side of the nose that is bleeding twice daily to help heal the inside of your nose. Please return to emergency department if these measures do not control the bleeding. Please also return if you pass out, have significant pain of the nose or face, or any other symptoms that are concerning to you. Your primary care doctor regarding today's visit.it. Referrals: JIM GARCÍA MD [Primary Care Provider] - Follow up as needed
[2018-08-19 07:51] VITALS: BP 180/100
== END 2018-08-18 21:55 | disposition home or self-care (01) ==
LOC: ER 18:21
DX: R04.0 Epistaxis (principal); Z79.02 Long term (current) use of antithrombotics/antiplatelets; I48.91 Unspecified atrial fibrillation; E78.00 Pure hypercholesterolemia, unspecified; I10 Essential (primary) hypertension; E11.9 Type 2 diabetes mellitus without complications; Z85.528 Personal history of other malignant neoplasm of kidney; Z98.84 Bariatric surgery status
CPT/HCPCS: 93005; 99283; 36415; 85025; 85610; 80053; 93010; J3490

== ENCOUNTER 2018-08-21 08:19 | Emergency (ER) | payer MEDICAID ==
--- NOTE | 2018-08-21 08:44 | ER Document Report ---
ED General - General Chief Complaint: Fall Stated Complaint: FALL Time Seen by Provider: 08/21/18 08:44 Primary Care Provider: JIM GARCÍA MD [Primary Care Provider] - Follow up in 3-5 days MCKAYLA CHRISTIAN DO [ACTIVE STAFF] - Follow up as needed TRAVEL OUTSIDE OF THE [place] IN LAST 30 DAYS: No - HPI Notes: Ext 3-year-old femalewith hx of diabetes presents to the female with complaints of bilateral knee pain right greater than left after she fell while going up a curb yesterday, denies any head trauma or change in level consciousness, patient has not been on any blood thinners since she had a episode of epistaxis approximately 3 days ago, that has completely resolved. Patient states she was getting out of her car was trying to get on the curb and fell on her knee, usually provider she did not hit her head, did not lose consciousness or there is no other area of injury. Patient did have a left knee replacement done by Dr. Veliz approximately 2 years ago. Pain is 4 out of 10, throbbing achy. Patient is ambulating with a cane however this is her usual form of ambulation. Denies fevers, chills, chest pain,palpitations, shortness of breath, dyspnea, nausea, vomiting, diarrhea, abdominal pain, hematuria,b speech changes, LH, dizziness, syncope, headaches, wheezing, ST, URI, neck pain, weakness, bowel or bladder dysfunction, saddle anesthesia, numbness or tingling in bilateral upper or lower extremities equally, muscle paralysis, weakness in bilateral upper or lower extremities equally or rash. - Related Data Allergies/Adverse Reactions: benazepril Allergy (Verified 08/21/18 08:22) throat closes,lips swell Past Medical History - General Information source: Patient - Social History Smoking Status: Unknown if Ever Smoked Family History: Reviewed & Not Pertinent, CAD, CVA - Past Medical History Cardiac Medical History: Reports: Hx Atrial Fibrillation, Hx Hypercholesterolemia, Hx Hypertension Denies: Hx Congestive Heart Failure, Hx Coronary Artery Disease, Hx Heart Attack, Hx Peripheral Vascular Disease, Hx Pulmonary Embolism, Hx Heart Murmur Pulmonary Medical History: Reports: Hx Asthma - as a child, Hx Sleep Apnea - CPAP- started October 2014 Denies: Hx Bronchitis, Hx COPD, Hx Pneumonia, Hx Respiratory Failure, Hx Tuberculosis Neurological Medical History: Denies: Hx Cerebrovascular Accident, Hx Seizures Endocrine Medical History: Reports: Hx Diabetes Mellitus Type 2, Hx Hypothyroidism - goiter/Thyroidectomy 2010. Denies: Hx Graves' Disease, Hx Hyperthyroidism Renal/ Medical History: Denies: Hx End Stage Renal Disease, Hx Kidney Stones, Hx Peritoneal Dialysis Malignancy Medical History: Reports: Hx Renal (Kidney) Cancer. Denies: Hx Leukemia, Hx Lung Cancer GI Medical History: Reports: Hx Gastroesophageal Reflux Disease - 3 yrs-takes meds. Denies: Hx Cirrhosis, Hx Crohn's Disease, Hx Hiatal Hernia, Hx Irritable Bowel, Hx Liver Failure, Hx Pancreatitis, Hx Ulcer Musculoskeletal Medical History: Reports Hx Arthritis - neck, Denies Hx Fibromyalgia, Denies Hx Multiple Sclerosis, Denies Hx Muscular Dystrophy Psychiatric Medical History: Reports: Hx Depression Denies: Hx Bipolar Disorder, Hx Dementia, Hx Schizophrenia Traumatic Medical History: Denies: Hx Fractures Infectious Medical History: Denies: Hx HIV Past Surgical History: Reports: Hx Abdominal Surgery - GBP, Hx Gastric Bypass Surgery - 1994, Hx Hysterectomy, Hx Kidney (Renal Surgery) - mass removed off of right kidney, Hx Orthopedic Surgery - left knee replacement, Hx Thyroid Surgery - removed 2010. Denies: Hx Appendectomy, Hx Bowel Surgery, Hx Section, Hx Cholecystectomy, Hx Colostomy, Hx Coronary Artery Bypass Graft, Hx Herniorrhaphy, Hx Mastectomy, Hx Pacemaker, Hx Tonsillectomy, Hx Tubal Ligation - Immunizations Hx Diphtheria, Pertussis, Tetanus Vaccination: Yes Hx Pneumococcal Vaccination: 02/26/14 Review of Systems - Review of Systems Constitutional: No symptoms reported EENT: No symptoms reported Cardiovascular: No symptoms reported Respiratory: No symptoms reported Gastrointestinal: No symptoms reported Genitourinary: No symptoms reported Female Genitourinary: No symptoms reported Musculoskeletal: See HPI Skin: No symptoms reported Hematologic/Lymphatic: No symptoms reported Neurological/Psychological: No symptoms reported Physical Exam - Vital signs Vitals: Temp Pulse Resp BP Pulse Ox 99.0 F 88 16 141/95 H 97 08/21/18 08:23 08/21/18 08:23 08/21/18 08:23 08/21/18 08:23 08/21/18 08:23 - Notes Notes: PHYSICAL EXAMINATION: GENERAL: Well-appearing, well-nourished and in no acute distress. HEAD: Atraumatic, normocephalic. EYES: Pupils equal round and reactive to light, extraocular movements intact, conjunctiva are normal. ENT: Nares patent, oropharynx clear without exudates. Moist mucous membranes. NECK: Normal range of motion, supple without lymphadenopathy LUNGS: Breath sounds clear to auscultation bilaterally and equal. No wheezes rales or rhonchi. HEART: Regular rate and rhythm without murmurs ABDOMEN: Soft, nontender, nondistended abdomen. No guarding, no rebound. No masses appreciated. Female : deferred Musculoskeletal: Normal range of motion, no pitting or edema. No cyanosis. right>L knee pain with palpation to lateral aspect of knee with noted swelling. negative cathy's sign. anterior and posterior drawer test negative. noted pain with inversion to right > left knee. Dtr + 2 in BLE. Full motor and sensory function to BLE equally. No open wounds. No induration or drainage. Strength 5 out of 5 bilaterally equally. Ankle examination normal. Squeeze test negative. Hip examination normal. Pulses + 2 bilaterally and equally.negative squeeze bilaterally and equally. NEUROLOGICAL: Cranial nerves grossly intact. Normal speech, normal gait. Normal sensory, motor exams PSYCH: Normal mood, normal affect. SKIN: Warm, Dry, normal turgor, no rashes or lesions noted. 22-like and then on the other half of a flight Course - Re-evaluation Re-evalutation: 08/21/18 10:51 63-year-old female with multiple comorbidities afebrile vitals stable no distress, evaluation of bilateral knee pain status post fall, x-ray negative for any acute fracture dislocation, patient placed in a right knee immobilizer and an Adebayo placed on her left knee, patient is using cane for ambulation, advised to follow-up with social media marketing specialist as well as primary care provider in the next 2-3 days. Elevate above level of heart, alternate between Tylenol and ibuprofen for pain control. Advised to apply heat 20 minutes on 20 minutes off several times a day. Follow-up with primary care provider within the next 24-48 hours. After performing a Medical Screening Examination, I estimate there is LOW risk for OPEN FRACTURE, COMPARTMENT SYNDROME, DEEP VENOUS THROMBOSIS, ACUTE TENDON RUPTURE, or NEUROVASCULAR INJURY thus I consider the discharge disposition reasonable. I have reevaluated this patient multiple times and no significant life threatening changes are noted. The patient and I have discussed the diagnosis and risks, and we agree with discharging home to closely follow-up with their primary doctor or the referral orthopedist with the understanding that symptoms and presentations can change. We also discussed returning to the Emergency Department immediately if new or worsening symptoms occur. We have discussed the symptoms which are most concerning (e.g., changing or worsening pain, numbness, weakness) that necessitate immediate return - Vital Signs Vital signs: Temp Pulse Resp BP Pulse Ox 97.9 F 80 20 152/88 H 96 08/21/18 12:01 08/21/18 12:01 08/21/18 12:01 08/21/18 12:01 08/21/18 12:01 - Laboratory Laboratory results interpreted by me: 08/21/18 10:33 POC Glucose 141 H Discharge - Discharge Clinical Impression: Knee joint replacement status Acute knee pain Qualifiers: Laterality: bilateral Qualified Code(s): M25.561 - Pain in right knee Condition: Stable Disposition: HOME, SELF-CARE Instructions: Knee Effusion ([facility]), Knee Exercise Program ([facility]), Knee Immobilizing Splint ([facility]), Sprained Knee ([facility]) Additional Instructions: Sprained Knee Your sprained knee results from a stretching or tearing of the ligaments which support the joint. This often results from a bending stress -- such as a twisting fall while skiing or a "clip" while playing football. The ligaments will require time and protection to heal adequately. A knee sprain can be quite serious, and should be taken seriously. The usual treatment is splinting of the knee, ice packs, and elevation. You shouldn't walk on the leg if weightbearing is painful. Unless the sprain is obviously a minor one, follow-up exam is very important. The degree of ligament damage often cannot be fully assessed at first due to muscle spasm and pain. Your treatment plan may change based on the physician's findings during your follow-up examination. Call the doctor at once if there is severe swelling, increasing pain, numbness, or other alarming symptoms. Talk with primary care provider as well as social media marketing specialist within 3-5 days, wear a knee immobilizing splint as directed, use cane for ambulation. Elevate above level of heart while at rest, apply heat 20 minutes on 20 minutes off several times a day, alternate between Tylenol and ibuprofen for pain control, return immediately for any new or worsening symptoms. Follow up with primary care provider, call tomorrow to make followup appointment. Referrals: JIM GARCÍA MD [Primary Care Provider] - Follow up in 3-5 days MCKAYLA CHRISTIAN DO [ACTIVE STAFF] - Follow up as needed
[2018-08-21] MEDS ORDERED: HYDROCODONE/ACETAMINOPHEN 5-325 MG TABLET PO ONE (09:26)
--- NOTE | 2018-08-21 09:43 | ER Document Report ---
Doctor's Note Notes: 08/21/18 09:42 I personally and independently obtained patient history and examined the patient and have reviewed the APC's note, reviewed, discussed and agree with their assessment and plan. HISTORY OF PRESENT ILLNESS: Patient is a 53-year-old female that presents to the emergency department for chief complaint of bilateral knee pain. Patient states her pain started after a mechanical fall. Her right knee hurts worse than the left. ROS: Constitutional: Negative for fever. Cardiovascular: Negative for chest pain. Respiratory: Negative for shortness of breath. Gastrointestinal: Negative for vomiting or abdominal pain Musculoskeletal: Bilateral knee pain Skin: Negative for rash. Neurological: Negative for weakness or numbness. Unless otherwise stated in this report the patient's positive and negative responses for review of systems for constitutional, eyes, ENT, cardiovascular, respiratory, gastrointestinal, neurological, genitourinary, musculoskeletal, and integumentary systems and related systems to the presenting problem are either as stated in the HPI or were not pertinent or were negative for the symptoms and/or complaints related to the presenting medical problem. PHYSICAL EXAMINATION: Vital signs reviewed, nursing noted reviewed. GENERAL: Well-appearing, obese and in no acute distress. HEAD: Atraumatic, normocephalic. EYES: Eyes appear normal, conjunctiva are normal. ENT: nares patent, oropharynx clear without exudates. Moist mucous membranes. NECK: Normal range of motion, supple without lymphadenopathy LUNGS: Breath sounds clear to auscultation bilaterally and equal. No wheezes rales or rhonchi. HEART: Regular rate and rhythm without murmurs ABDOMEN: Soft, nontender, normoactive bowel sounds. No rebound, guarding, or rigidity. No masses appreciated. EXTREMITIES: Diffuse tenderness to both knees worse in the prepatellar region, good range of motion, no pitting or edema. NEUROLOGICAL: No focal neurological deficits. Moves all extremities spontaneously Motor and sensory grossly intact on exam. PSYCH: Normal mood, normal affect. SKIN: Warm, Dry, normal turgor, no rashes or lesions noted on exposed MEDICAL DECISION MAKING: Patient seen and evaluated. Agree with plan of care. Please review detail APC documentation. *Note is created using voice recognition software and may contain spelling, syntax or grammatical errors.
--- NOTE | 2018-08-21 10:15 | RADIOLOGY REPORT (SQ) ---
EXAM DESCRIPTION: KNEE BILATERAL 1-2 VIEWS COMPLETED DATE/TIME: 08/21/2018 9:54 am REASON FOR STUDY: fell on knees x 1 day ago, R>L pain COMPARISON: None. NUMBER OF VIEWS: Four views. TECHNIQUE: AP and lateral standing bilateral knees. LIMITATIONS: None. FINDINGS: MINERALIZATION: Normal. RIGHT KNEE BONES: No acute fracture. No worrisome bone lesions. MEDIAL COMPARTMENT: Mild joint space narrowing. No significant osteophytes. No chondrocalcinosis. LATERAL COMPARTMENT: Mild to moderate joint space narrowing. Small marginal osteophytes. No chondro calcinosis. PATELLOFEMORAL COMPARTMENT: Mild joint space narrowing. Small osteophyte off of the superior pole. No chondrocalcinosis. LEFT KNEE BONES: Total left knee replacement. No radiographic evidence of loosening or infection. No evidenc e of fracture or dislocation. JOINT: No evidence of effusion. SOFT TISSUES: Soft tissue vascular calcifications bilaterally. IMPRESSION: 1. No acute osseous findings. 2. Total left knee replacement. 3. Tricompartmental mild to moderate osteoarthrosis. TECHNICAL DOCUMENTATION: JOB ID: [id number]- All Rights Reserved Reading location - IP/workstation name: [email or web address]
[2018-08-21 12:13] VITALS: BP 152/88
== END 2018-08-21 12:08 | disposition home or self-care (01) ==
LOC: ER 08:19
DX: M25.561 Pain in right knee (principal); M25.562 Pain in left knee; E11.9 Type 2 diabetes mellitus without complications; W19.XXXA Unspecified fall, initial encounter; I10 Essential (primary) hypertension; J45.909 Unspecified asthma, uncomplicated; Z96.651 Presence of right artificial knee joint
CPT/HCPCS: 99283; 82962; 73560; L1830

== ENCOUNTER → 2018-08-31 | Outpatient (CLI) | payer MEDICAID ==
[2018-08-31 13:08] LABS: HEMATOCRIT 29.7 % (36.0-47.0); HEMOGLOBIN 9.9 g/dL (12.0-15.5); MEAN CORPUSCULAR HGB CONC 33.2 g/dL (32.0-36.0); MEAN CORPUSCULAR VOLUME 87 fl (80-97); PLATELET COUNT 227 10^3/uL (150-450); RED BLOOD COUNT 3.41 10^6/uL (3.72-5.28); RED CELL DISTRIBUTION WIDTH 14.8 % (11.5-14.0); WHITE BLOOD COUNT 6.5 10^3/uL (4.0-10.5)
[2018-08-31 13:18] LABS: APPEARANCE,URINE SLIGHTLY-CLOUDY; BILIRUBIN,URINE NEGATIVE (NEGATIVE); COLOR,URINE YELLOW; GLUCOSE, URINE NEGATIVE (NEGATIVE); KETONES,URINE NEGATIVE (NEGATIVE); LEUKOCYTE ESTERASE,URINE NEGATIVE (NEGATIVE); NITRITE,URINE NEGATIVE (NEGATIVE); PROTEIN,URINE 30 mg/dL (NEGATIVE); URINE SPECIFIC GRAVITY 1.011; UROBILINOGEN,URINE NEGATIVE mg/dL (<2.0)
[2018-08-31 13:32] LABS: ANION GAP 9 (5-19); BLOOD UREA NITROGEN 54 mg/dL (7-20); CARBON DIOXIDE 19 mmol/L (22-30); CHLORIDE 112 mmol/L (98-107); GLUCOSE 108 mg/dL (75-110); PHOSPHORUS 6.2 mg/dL (2.5-4.5); POTASSIUM 3.3 mmol/L (3.6-5.0); SODIUM 140.2 mmol/L (137-145)
[2018-08-31 13:34] LABS: UR PRO/CREAT RATIO RESULT 0.8 mg/mg (0.0-0.2); URINE CREATININE 83.8 mg/dL (15-278); URINE PROTEIN 65.7 mg/dL (<12)
== END ==
LOC: OD 12:38
PROVIDERS: ATTEND Physician Assistant Medical
DX: I12.0 Hypertensive chronic kidney disease with stage 5 chronic kidney disease or end stage renal disease (principal); N18.5 Chronic kidney disease, stage 5; E11.22 Type 2 diabetes mellitus with diabetic chronic kidney disease; R80.9 Proteinuria, unspecified
CPT/HCPCS: 36415; 80048; 81001; 82570; 83970; 84100; 84156; 85027

== ENCOUNTER → 2018-09-11 | Outpatient (CLI) | payer MEDICAID ==
[2018-09-11 17:41] LABS: ANION GAP 6 (5-19); BLOOD UREA NITROGEN 48 mg/dL (7-20); CALCIUM 9.1 mg/dL (8.4-10.2); CARBON DIOXIDE 22 mmol/L (22-30); CHLORIDE 113 mmol/L (98-107); GLUCOSE 218 mg/dL (75-110); POTASSIUM 3.5 mmol/L (3.6-5.0); SODIUM 141.2 mmol/L (137-145)
== END ==
LOC: OD 15:58
PROVIDERS: ATTEND Physician Assistant Medical
DX: E11.22 Type 2 diabetes mellitus with diabetic chronic kidney disease (principal); I13.2 Hypertensive heart and chronic kidney disease with heart failure and with stage 5 chronic kidney disease, or end stage renal disease; N18.5 Chronic kidney disease, stage 5; I50.9 Heart failure, unspecified; R60.9 Edema, unspecified; E87.6 Hypokalemia
CPT/HCPCS: 36415; 80048

== ENCOUNTER 2018-10-08 15:33 | Observation (INO) | payer MEDICAID ==
[2018-10-08 17:35] LABS: ABSOLUTE EOSINOPHILS # (AUTO) 0.1 10^3/uL (0.0-0.6); ABSOLUTE LYMPHOCYTES (AUTO) 0.5 10^3/uL (0.5-4.7); ABSOLUTE MONOCYTES (AUTO) 0.5 10^3/uL (0.1-1.4); ABSOLUTE NEUT (AUTO) 5.4 10^3/uL (1.7-8.2); BASOPHILS % (AUTO) 0.2 % (0-2); EOSINOPHILS % (AUTO) 1.4 % (0-6); HEMATOCRIT 29.2 % (36.0-47.0); HEMOGLOBIN 9.4 g/dL (12.0-15.5); LYMPHOCYTES % (AUTO) 7.6 % (13-45); MEAN CORPUSCULAR HEMOGLOBIN 28.1 pg (27.0-33.4); MEAN CORPUSCULAR HGB CONC 32.2 g/dL (32.0-36.0); MEAN CORPUSCULAR VOLUME 87 fl (80-97); MONOCYTES % (AUTO) 8.1 % (3-13); PLATELET COUNT 205 10^3/uL (150-450); RED BLOOD COUNT 3.35 10^6/uL (3.72-5.28); RED CELL DISTRIBUTION WIDTH 14.6 % (11.5-14.0); SEGMENTED NEUTROPHILS % (AUTO) 82.7 % (42-78); TOTAL CELLS COUNTED % (AUTO) 100 %; WHITE BLOOD COUNT 6.5 10^3/uL (4.0-10.5)
[2018-10-08 17:54] LABS: ALANINE AMINOTRANSFERASE 42 U/L (9-52); ALBUMIN 2.8 g/dL (3.5-5.0); ALKALINE PHOSPHATASE 86 U/L (38-126); ANION GAP 9 (5-19); ASPARTATE AMINO TRANSFERASE 25 U/L (14-36); BILIRUBIN,DIRECT 0.3 mg/dL (0.0-0.4); BILIRUBIN,TOTAL 0.3 mg/dL (0.2-1.3); BLOOD UREA NITROGEN 48 mg/dL (7-20); CALCIUM 8.7 mg/dL (8.4-10.2); CARBON DIOXIDE 23 mmol/L (22-30); CHLORIDE 110 mmol/L (98-107); GLUCOSE 74 mg/dL (75-110); POTASSIUM 3.8 mmol/L (3.6-5.0); SODIUM 142.4 mmol/L (137-145)
[2018-10-08] MEDS: NORMAL SALINE 250 ML with FUROSEMIDE 250 MG IV PRN ×2 (18:02)
--- NOTE | 2018-10-08 18:22 | RADIOLOGY REPORT (SQ) ---
EXAM DESCRIPTION: MRI HEAD WITHOUT COMPLETED DATE/TIME: 10/08/2018 5:54 pm REASON FOR STUDY: memory loss COMPARISON: None. TECHNIQUE: Multiplanar imaging includes non-contrasted T1, T2, FLAIR, and diffusion with ADC map seq uences. Images stored on PACS. LIMITATIONS: None. FINDINGS: ANATOMY: No anomalies. Normal vascular flow voids. Pituitary fossa normal. CSF SPACES: Normal in size and contour. No hemorrhage. CEREBRUM: Sulci and gyri normal in size and contour. There does not appear to be significant tempora l lobe atrophy. Normal white matter signal on FLAIR imaging. No evidence of hemorrhage, mass, or ex traaxial fluid collection. POSTERIOR FOSSA: No signal alteration. No hemorrhage. No edema, masses or mass effect. Internal hemant tory canals, cerebello-pontine angles, mastoids normal. DIFFUSION IMAGING: Negative for acute or sub-acute infarction. ORBITS: No masses. Globes normal. PARANASAL SINUSES: No fluid levels. Mucosa normal. OTHER: No other significant finding. IMPRESSION: NORMAL MRI OF THE BRAIN WITHOUT INTRAVENOUS GADOLINIUM CONTRAST. EVIDENCE OF ACUTE STROKE: NO. TECHNICAL DOCUMENTATION: JOB ID: [id number] [employer]- All Rights Reserved Reading location - IP/workstation name: [email or web address]
--- NOTE | 2018-10-08 20:02 | PDOC H&P ---
History of Present Illness Admission Date/PCP: 10/08/18 15:33 ASHLEY FUENTES PA-C History of Present Illness: ORLANDO COOPER is a 63 year old female, She has history of chronic kidney dis ease stage V, type 2 diabetes mellitus with complications,She came to the office for evaluation of anasarca,She has severe lower extremity edema,. She has no chest pain no shortness of breath, she also complained of a headache, memory loss Past Medical History Cardiac Medical History: Reports: Atrial Fibrillation, Hyperlipidema, Hypertension Pulmonary Medical History: Reports: Asthma - as a child, Sleep Apnea - CPAP- started October 2014 Endocrine Medical History: Reports: Diabetes Mellitus Type 2, Hypothyroidism - goiter/Thyroidectomy 2010 Renal/ Medical History: Reports: Chronic Kidney Disease, Other - Chronic kidney disease stage V Malignancy Medical History: Reports: Renal (Kidney) Cancer GI Medical History: Reports: Gastroesophageal Reflux Disease - 3 yrs-takes meds Musculoskeltal Medical History: Reports: Arthritis - neck Psychiatric Medical History: Reports: Depression Hematology: Reports: 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 Past Surgical History Past Surgical History: Reports: Gastric Bypass Surgery - 1994, Hysterectomy, Orthopedic Surgery - left knee replacement Social History Smoking Status: Former Smoker Frequency of Alcohol Use: None Hx Recreational Drug Use: No Drugs: None Hx Prescription Drug Abuse: No Family History Family History: Reviewed & Not Pertinent, CAD, CVA Parental Family History Reviewed: Yes Children Family History Reviewed: Yes Sibling(s) Family History Reviewed.: Yes Medication/Allergy Home Medications: Amlodipine Besylate [Norvasc 10 mg Tablet] 10 mg PO DAILY 08/03/17 Calcitriol [Rocaltrol 0.5 mcg Capsule] 0.5 mcg PO DAILY 08/03/17 Cetirizine HCl [Zyrtec 10 mg Tablet] 10 mg PO DAILY 08/03/17 Clonidine HCl [Catapres 0.3 mg Tablet] 0.3 mg PO Q8 08/03/17 Cyanocobalamin (Vitamin B-12) [Vitamin B-12 Inj 1000 Mcg/1 ml Vial] 1,000 mcg IM [id number] 08/03/17 Furosemide [Lasix 40 mg Tablet] 40 mg PO QAM 08/03/17 Glipizide [Glipizide Xl] 10 mg PO DAILY 08/03/17 Levothyroxine Sodium [Synthroid 0.15 mg Tablet] 0.15 mg PO Q6AM 08/03/17 Metoprolol Succinate [Toprol XL 100 mg Tablet] 100 mg PO DAILY 08/03/17 Omeprazole 40 mg PO DAILY 08/03/17 Oxycodone HCl/Acetaminophen [Oxycodone-Acetaminophen 10-325] 1 tab PO Q8HP PRN 08/03/17 Potassium Chloride [Klor-Con Sprinkle] 10 meq PO DAILY 08/03/17 Pravastatin Sodium [Pravachol] 40 mg PO DAILY 08/03/17 Rivaroxaban [Xarelto 10 mg Tablet] 10 mg PO DAILY 08/03/17 Sertraline HCl [Zoloft] 25 mg PO DAILY 08/03/17 Solifenacin Succinate [Vesicare] 5 mg PO DAILY 08/03/17 Valsartan [Diovan] 320 mg PO DAILY 08/03/17 Silver Sulfadiazine [Silvadene 1% Cream 50 gm Tube] 1 applic TP BID #100 grams 07/25/18 Isosorb Dinit/Hydralazine HCl [Bidil 20-37.5 mg Tablet] 1 tab PO Q8 10/08/18 Meloxicam [Mobic] 7.5 mg PO DAILY 10/08/18 Allergies/Adverse Reactions: benazepril Allergy (Verified 08/21/18 08:22) throat closes,lips swell Review of Systems Eyes: ABSENT: visual disturbances Ears: ABSENT: hearing changes Cardiovascular: ABSENT: chest pain, dyspnea on exertion, edema, orthropnea, palpitations Respiratory: ABSENT: cough, hemoptysis Gastrointestinal: ABSENT: abdominal pain, constipation, diarrhea, hematemesis, hematochezia, nausea, vomiting Genitourinary: ABSENT: dysuria, hematuria Musculoskeletal: ABSENT: joint swelling Integumentary: ABSENT: rash, wounds Neurological: ABSENT: abnormal gait, abnormal speech, confusion, dizziness, focal weakness, syncope Psychiatric: ABSENT: anxiety, depression, homidical ideation, suicidal ideation Endocrine: ABSENT: cold intolerance, heat intolerance, menstrual abnormalities, polydipsia, polyuria Hematologic/Lymphatic: ABSENT: easy bleeding, easy bruising, lymphadenopathy Physical Exam Vital Signs: Temp Pulse Resp BP Pulse Ox 98.4 F 99 18 171/99 H 98 10/08/18 19:22 10/08/18 19:22 10/08/18 19:22 10/08/18 19:22 10/08/18 19:22 Intake & Output 10/07/18 10/08/18 10/09/18 06:59 06:59 06:59 Weight 111.2 kg General appearance: PRESENT: no acute distress Head exam: PRESENT: atraumatic, normocephalic Eye exam: PRESENT: PERRLA. ABSENT: scleral icterus Ear exam: PRESENT: normal external ear exam Mouth exam: PRESENT: moist, tongue midline Neck exam: PRESENT: full ROM Respiratory exam: PRESENT: clear to auscultation andrey Cardiovascular exam: PRESENT: RRR, +S1, +S2 GI/Abdominal exam: PRESENT: normal bowel sounds, soft Rectal exam: PRESENT: deferred Extremities exam: PRESENT: pedal edema Neurological exam: PRESENT: alert, CN II-XII grossly intact Psychiatric exam: PRESENT: appropriate affect, normal mood Skin exam: PRESENT: dry, intact, warm Results Laboratory Results: 10/08/18 17:09 10/08/18 17:09 10/08/18 10/08/18 17:09 17:09 WBC 6.5 RBC 3.35 L Hgb 9.4 L Hct 29.2 L MCV 87 MCH 28.1 MCHC 32.2 RDW 14.6 H Plt Count 205 Seg Neutrophils % 82.7 H Lymphocytes % 7.6 L Monocytes % 8.1 Eosinophils % 1.4 Basophils % 0.2 Absolute Neutrophils 5.4 Absolute Lymphocytes 0.5 Absolute Monocytes 0.5 Absolute Eosinophils 0.1 Absolute Basophils 0.0 Sodium 142.4 Potassium 3.8 Chloride 110 H Carbon Dioxide 23 Anion Gap 9 BUN 48 H Creatinine 4.92 H Est GFR ( Amer) 11 L Est GFR (Non-Af Amer) 9 L Glucose 74 L Calcium 8.7 Total Bilirubin 0.3 AST 25 ALT 42 Alkaline Phosphatase 86 Total Protein 5.0 L Albumin 2.8 L Impressions: Head MRI 10/08/18 00:00 IMPRESSION: NORMAL MRI OF THE BRAIN WITHOUT INTRAVENOUS GADOLINIUM CONTRAST. EVIDENCE OF ACUTE STROKE: NO. Assessment & Plan - Diagnosis (1) Anasarca Is this a current diagnosis for this admission?: Yes Plan: She has severe anasarca, most likely related to diabetic nephropathy, She is admitted for observation to be treated with Lasix infusion (2) Chronic kidney disease, stage 5 Is this a current diagnosis for this admission?: Yes (3) T2DM (type 2 diabetes mellitus) Qualifiers: Diabetes mellitus jail insulin use: with jail use Diabetes mellitus complication status: with neurologic complications Diabetes mellitus complication detail: with polyneuropathy Qualified Code(s): E11.42 - Type 2 diabetes mellitus with diabetic polyneuropathy; Z79.4 - intermediate school teacher (current) use of insulin Is this a current diagnosis for this admission?: Yes (4) Lumbar radiculopathy Is this a current diagnosis for this admission?: Yes
[2018-10-08] MEDS ORDERED: ACETAMINOPHEN 325 MG TABLET ONE (22:10)
[2018-10-08] MEDS ORDERED: ACETAMINOPHEN 325 MG TABLET PO PRN (22:29)
[2018-10-08] MEDS ORDERED: DEXTROSE 50%-WATER SYRINGE 25 GM/50 ML DOSE IV PRN (23:00)
[2018-10-08] MEDS ORDERED: DEXTROSE 50%-WATER SYRINGE 12.5 GM/25 ML DOSE IV PRN (23:00)
[2018-10-08] MEDS ORDERED: DEXTROSE 40% GEL 15 GM TUBE PO PRN (23:00)
[2018-10-08] MEDS ORDERED: GLUCAGON,HUMAN RECOMB 1 MG INJ IM PRN (23:00)
[2018-10-08] MEDS ORDERED: DEXTROSE 40% GEL 15 GM TUBE X 2 PO PRN (23:00)
[2018-10-08 23:18] LABS: APPEARANCE,URINE CLEAR; BILIRUBIN,URINE NEGATIVE (NEGATIVE); COLOR,URINE YELLOW; GLUCOSE, URINE NEGATIVE (NEGATIVE); KETONES,URINE NEGATIVE (NEGATIVE); LEUKOCYTE ESTERASE,URINE NEGATIVE (NEGATIVE); NITRITE,URINE NEGATIVE (NEGATIVE); PROTEIN,URINE 30 mg/dL (NEGATIVE); URINE SPECIFIC GRAVITY 1.011; UROBILINOGEN,URINE NEGATIVE mg/dL (<2.0)
[2018-10-08] MEDS ORDERED: METOPROLOL SUCCINATE 50 MG TAB.SR.24H PO ONE (23:59)
[2018-10-08] MEDS ORDERED: ISOSORB DINIT/HYDRALAZINE HCL 20-37.5 MG TABLET PO ONE (23:59)
[2018-10-08] MEDS ORDERED: CLONIDINE HCL 0.1 MG TABLET PO ONE (23:59)
[2018-10-09] MEDS: ISOSORB DINIT/HYDRALAZINE HCL 20-37.5 MG TABLET PO SCH ×3 (05:07→21:34)
[2018-10-09] MEDS: LEVOTHYROXINE SODIUM 0.15 MG TABLET PO SCH (05:07)
[2018-10-09] MEDS: CLONIDINE HCL 0.1 MG TABLET PO SCH ×3 (05:08→21:34)
[2018-10-09] MEDS: NORMAL SALINE 250 ML with FUROSEMIDE 250 MG IV PRN ×4 (06:43→21:37)
[2018-10-09 07:07] LABS: HEMATOCRIT 27.5 % (36.0-47.0); MEAN CORPUSCULAR HEMOGLOBIN 28.1 pg (27.0-33.4); MEAN CORPUSCULAR HGB CONC 32.6 g/dL (32.0-36.0); MEAN CORPUSCULAR VOLUME 86 fl (80-97); PLATELET COUNT 197 10^3/uL (150-450); RED BLOOD COUNT 3.19 10^6/uL (3.72-5.28); RED CELL DISTRIBUTION WIDTH 14.6 % (11.5-14.0)
[2018-10-09 07:28] LABS: ALANINE AMINOTRANSFERASE 40 U/L (9-52); ALBUMIN 2.5 g/dL (3.5-5.0); ALKALINE PHOSPHATASE 71 U/L (38-126); ANION GAP 9 (5-19); ASPARTATE AMINO TRANSFERASE 27 U/L (14-36); BILIRUBIN,DIRECT 0.3 mg/dL (0.0-0.4); BILIRUBIN,TOTAL 0.4 mg/dL (0.2-1.3); BLOOD UREA NITROGEN 50 mg/dL (7-20); CALCIUM 8.6 mg/dL (8.4-10.2); CARBON DIOXIDE 23 mmol/L (22-30); CHLORIDE 111 mmol/L (98-107); GLUCOSE 95 mg/dL (75-110); POTASSIUM 3.5 mmol/L (3.6-5.0); TOTAL PROTEIN 4.6 g/dL (6.3-8.2)
[2018-10-09] MEDS: INSULIN LISPRO 100 UNIT/ML 3 ML VIAL SUBCUT SCH ×4 (09:09→21:34)
[2018-10-09] MEDS: METOPROLOL SUCCINATE 50 MG TAB.SR.24H PO SCH ×2 (09:32→21:33)
[2018-10-09] MEDS: AMLODIPINE BESYLATE 10 MG TABLET PO SCH (09:32)
[2018-10-09] MEDS: CETIRIZINE 10 MG TABLET PO SCH (09:32)
[2018-10-09] MEDS: CALCITRIOL 0.25 MCG CAPSULE PO SCH (09:32)
[2018-10-09] MEDS: GLIPIZIDE XL 5 MG TAB.ER.24 PO SCH (09:32)
[2018-10-09] MEDS ORDERED: MELOXICAM 7.5 MG TABLET PO SCH (10:00)
--- NOTE | 2018-10-09 20:06 | PDOC DISCHARGE SUMMARY ---
General - Admit/Disc Date/PCP Admission Date/Primary Care Provider: 10/08/18 15:33 ASHLEY FUENTES PA-C Discharge Date: 10/09/18 - Discharge Diagnosis (1) Anasarca Is this a current diagnosis for this admission?: Yes (2) Chronic kidney disease, stage 5 Is this a current diagnosis for this admission?: Yes (3) T2DM (type 2 diabetes mellitus) Is this a current diagnosis for this admission?: Yes (4) Lumbar radiculopathy Is this a current diagnosis for this admission?: Yes - Additional Information Home Medications: Amlodipine Besylate [Norvasc 10 mg Tablet] 10 mg PO DAILY 08/03/17 Calcitriol [Rocaltrol 0.5 mcg Capsule] 0.5 mcg PO DAILY 08/03/17 Cetirizine HCl [Zyrtec 10 mg Tablet] 10 mg PO DAILY 08/03/17 Clonidine HCl [Catapres 0.3 mg Tablet] 0.3 mg PO Q8 08/03/17 Cyanocobalamin (Vitamin B-12) [Vitamin B-12 Inj 1000 Mcg/1 ml Vial] 1,000 mcg IM [id number] 08/03/17 Furosemide [Lasix 40 mg Tablet] 40 mg PO QAM 08/03/17 Glipizide [Glipizide Xl] 10 mg PO DAILY 08/03/17 Levothyroxine Sodium [Synthroid 0.15 mg Tablet] 0.15 mg PO Q6AM 08/03/17 Metoprolol Succinate [Toprol XL 100 mg Tablet] 100 mg PO DAILY 08/03/17 Omeprazole 40 mg PO DAILY 08/03/17 Oxycodone HCl/Acetaminophen [Oxycodone-Acetaminophen 10-325] 1 tab PO Q8HP PRN 08/03/17 Potassium Chloride [Klor-Con Sprinkle] 10 meq PO DAILY 08/03/17 Pravastatin Sodium [Pravachol] 40 mg PO DAILY 08/03/17 Rivaroxaban [Xarelto 10 mg Tablet] 10 mg PO DAILY 08/03/17 Sertraline HCl [Zoloft] 25 mg PO DAILY 08/03/17 Solifenacin Succinate [Vesicare] 5 mg PO DAILY 08/03/17 Valsartan [Diovan] 320 mg PO DAILY 08/03/17 Silver Sulfadiazine [Silvadene 1% Cream 50 gm] 1 applic TP BID #100 grams 07/25/18 Isosorb Dinit/Hydralazine HCl [Bidil 20-37.5 mg Tablet] 1 tab PO Q8 10/08/18 Meloxicam [Mobic] 7.5 mg PO DAILY 10/08/18 History of Present Illness History of Present Illness: ORLANDO COOPER is a 63 year old female, She has history of chronic kidney disease stage V, type 2 diabetes mellitus with complications,She came to the off ice for evaluation of anasarca,She has severe lower extremity edema,. She has no chest pain no shortness of breath, she also complained of a headache, memory loss Hospital Course Hospital Course: Patient was admitted for the management of anasarca,She was treated with intravenous furosemide infusion,She responds very well Physical Exam Vital Signs: Temp Pulse Resp BP Pulse Ox 98.0 F 83 18 137/83 H 99 10/09/18 16:30 10/09/18 19:43 10/09/18 16:30 10/09/18 16:30 10/09/18 16:30 Intake & Output 10/08/18 10/09/18 10/10/18 06:59 06:59 06:59 Intake Total 720 820 Output Total 1500 Balance 720 -680 Weight 110.6 kg General appearance: PRESENT: no acute distress Eye exam: PRESENT: PERRLA Respiratory exam: PRESENT: clear to auscultation andrey Cardiovascular exam: PRESENT: +S1, +S2 GI/Abdominal exam: PRESENT: soft Extremities exam: PRESENT: pedal edema Neurological exam: PRESENT: alert Results Laboratory Results: 10/09/18 06:47 10/09/18 06:47 10/08/18 10/09/18 10/09/18 22:30 06:47 06:47 WBC 6.0 RBC 3.19 L Hgb 9.0 L Hct 27.5 L MCV 86 MCH 28.1 MCHC 32.6 RDW 14.6 H Plt Count 197 Sodium 143.0 Potassium 3.5 L Chloride 111 H Carbon Dioxide 23 Anion Gap 9 BUN 50 H Creatinine 4.73 H Est GFR ( Amer) 11 L Est GFR (Non-Af Amer) 9 L Glucose 95 Calcium 8.6 Magnesium 2.2 Total Bilirubin 0.4 AST 27 ALT 40 Alkaline Phosphatase 71 Total Protein 4.6 L Albumin 2.5 L Urine Color YELLOW Urine Appearance CLEAR Urine pH 5.0 Ur Specific [place] 1.011 Urine Protein 30 H Urine Glucose (UA) NEGATIVE Urine Ketones NEGATIVE Urine Blood NEGATIVE Urine Nitrite NEGATIVE Ur Leukocyte Esterase NEGATIVE Urine WBC (Auto) 8 Urine RBC (Auto) 3 Impressions: Head MRI 10/08/18 00:00 IMPRESSION: NORMAL MRI OF THE BRAIN WITHOUT INTRAVENOUS GADOLINIUM CONTRAST. EVIDENCE OF ACUTE STROKE: NO. Qualifiers - * PATIENT BEING DISCHARGED WITH ANY OF THE FOLLOWING DIAGNOSIS: No Acute Heart Failure Is this a Heart Failure Patient?: No
[2018-10-10] MEDS: CLONIDINE HCL 0.1 MG TABLET PO SCH ×2 (05:05→17:53)
[2018-10-10] MEDS: LEVOTHYROXINE SODIUM 0.15 MG TABLET PO SCH (05:05)
[2018-10-10] MEDS: ISOSORB DINIT/HYDRALAZINE HCL 20-37.5 MG TABLET PO SCH ×2 (05:05→17:53)
[2018-10-10 06:08] LABS: ANION GAP 10 (5-19); BLOOD UREA NITROGEN 50 mg/dL (7-20); CALCIUM 8.8 mg/dL (8.4-10.2); CARBON DIOXIDE 26 mmol/L (22-30); CHLORIDE 108 mmol/L (98-107); GLUCOSE 125 mg/dL (75-110); POTASSIUM 3.6 mmol/L (3.6-5.0); SODIUM 143.6 mmol/L (137-145)
[2018-10-10] MEDS: INSULIN LISPRO 100 UNIT/ML 3 ML VIAL SUBCUT SCH (09:36)
[2018-10-10] MEDS: CALCITRIOL 0.25 MCG CAPSULE PO SCH (10:59)
[2018-10-10] MEDS: GLIPIZIDE XL 5 MG TAB.ER.24 PO SCH (10:59)
[2018-10-10] MEDS: CETIRIZINE 10 MG TABLET PO SCH (10:59)
[2018-10-10] MEDS: METOPROLOL SUCCINATE 50 MG TAB.SR.24H PO SCH (11:00)
[2018-10-10] MEDS: AMLODIPINE BESYLATE 10 MG TABLET PO SCH (11:00)
[2018-10-10 13:17] VITALS: BP 155/97
== END 2018-10-10 17:07 | disposition home or self-care (01) ==
LOC: INTOOBSV 15:33 → 3W 15:33
PROVIDERS: ADMIT Internal Medicine; ATTEND Internal Medicine
DX: R60.1 Generalized edema (principal); E11.42 Type 2 diabetes mellitus with diabetic polyneuropathy; I12.0 Hypertensive chronic kidney disease with stage 5 chronic kidney disease or end stage renal disease; E11.22 Type 2 diabetes mellitus with diabetic chronic kidney disease; N18.5 Chronic kidney disease, stage 5; M54.16 Radiculopathy, lumbar region; R51 Headache; R41.3 Other amnesia; E03.9 Hypothyroidism, unspecified; G47.30 Sleep apnea, unspecified; E78.5 Hyperlipidemia, unspecified; Z90.5 Acquired absence of kidney; Z98.84 Bariatric surgery status; Z79.02 Long term (current) use of antithrombotics/antiplatelets; Z79.899 Other long term (current) drug therapy; Z79.4 Long term (current) use of insulin; Z87.891 Personal history of nicotine dependence; Z85.528 Personal history of other malignant neoplasm of kidney; Z82.49 Family history of ischemic heart disease and other diseases of the circulatory system; Z86.73 Personal history of transient ischemic attack (TIA), and cerebral infarction without residual deficits; Z98.890 Other specified postprocedural states
CPT/HCPCS: 36415 ×3; 82962 ×3; 83735; 85025; 85027; 80076; 80048 ×2; 80053; 81001; 83036; 70551; G0378 ×3; G0379; J3490 ×15; J1940 ×2; J1815; J7050 ×2

== ENCOUNTER → 2018-10-23 | Outpatient (CLI) | payer MEDICAID ==
[2018-10-23 12:42] LABS: HEMATOCRIT 29.4 % (36.0-47.0); HEMOGLOBIN 9.6 g/dL (12.0-15.5); MEAN CORPUSCULAR HEMOGLOBIN 28.2 pg (27.0-33.4); MEAN CORPUSCULAR HGB CONC 32.8 g/dL (32.0-36.0); MEAN CORPUSCULAR VOLUME 86 fl (80-97); PLATELET COUNT 204 10^3/uL (150-450); RED BLOOD COUNT 3.42 10^6/uL (3.72-5.28); RED CELL DISTRIBUTION WIDTH 14.2 % (11.5-14.0); WHITE BLOOD COUNT 6.5 10^3/uL (4.0-10.5)
[2018-10-23 12:50] LABS: APPEARANCE,URINE SLIGHTLY-CLOUDY; BILIRUBIN,URINE NEGATIVE (NEGATIVE); COLOR,URINE STRAW; GLUCOSE, URINE NEGATIVE (NEGATIVE); KETONES,URINE NEGATIVE (NEGATIVE); LEUKOCYTE ESTERASE,URINE NEGATIVE (NEGATIVE); NITRITE,URINE NEGATIVE (NEGATIVE); PROTEIN,URINE 30 mg/dL (NEGATIVE); URINE SPECIFIC GRAVITY 1.009; UROBILINOGEN,URINE NEGATIVE mg/dL (<2.0)
[2018-10-23 13:02] LABS: ANION GAP 9 (5-19); BLOOD UREA NITROGEN 50 mg/dL (7-20); CALCIUM 8.9 mg/dL (8.4-10.2); CARBON DIOXIDE 24 mmol/L (22-30); CHLORIDE 109 mmol/L (98-107); GLUCOSE 196 mg/dL (75-110); POTASSIUM 4.2 mmol/L (3.6-5.0); SODIUM 141.9 mmol/L (137-145)
== END ==
LOC: OD 11:24
PROVIDERS: ATTEND Internal Medicine Nephrology
DX: I12.9 Hypertensive chronic kidney disease with stage 1 through stage 4 chronic kidney disease, or unspecified chronic kidney disease (principal); N18.4 Chronic kidney disease, stage 4 (severe); E11.22 Type 2 diabetes mellitus with diabetic chronic kidney disease; D64.9 Anemia, unspecified
CPT/HCPCS: 36415; 80048; 81001; 85027

== ENCOUNTER 2018-10-26 10:32 | Inpatient (IN) | payer MEDICAID ==
--- NOTE | 2018-10-26 11:25 | ER Document Report ---
ED Medical Screen (RME) - General Chief Complaint: Abnormal Lab Results Stated Complaint: CHEST PAIN Time Seen by Provider: 10/26/18 10:44 Primary Care Provider: Sissy MAI MD [Primary Care Provider] - Follow up as needed Notes: Patient is a 63-year-old female presents to the emergency department with respiratory distress on exertion. States she presented to her primary care provider today who told her to go to the emergency department because she was "in CHF." Patient states her lower extremities have been more swollen than normal. States she intermittently does have chest pain, more so when she exerts herself. LUNGS: Diminished to auscultation bilaterally. I have greeted and performed a rapid initial assessment of this patient. A comprehensive ED assessment and evaluation of the patient, analysis of test results and completion of the medical decision making process will be conducted by additional ED providers. This medical record was dictated with voice recognizing software. There may be grammatical, syntax errors that are unintended. TRAVEL OUTSIDE OF THE [place] IN LAST 30 DAYS: No - Related Data Allergies/Adverse Reactions: benazepril Allergy (Verified 10/26/18 10:33) throat closes,lips swell Past Medical History - Social History Chew tobacco use (# tins/day): No Frequency of alcohol use: None Drug Abuse: None Family history: Reviewed & Not Pertinent - Past Medical History Cardiac Medical History: Reports: Hx Atrial Fibrillation, Hx Hypercholesterolemia, Hx Hypertension Denies: Hx Congestive Heart Failure, Hx Coronary Artery Disease, Hx Heart Attack, Hx Peripheral Vascular Disease, Hx Pulmonary Embolism, Hx Heart Murmur Pulmonary Medical History: Reports: Hx Asthma - as a child, Hx Sleep Apnea - CPAP- started October 2014 Denies: Hx Bronchitis, Hx COPD, Hx Pneumonia, Hx Respiratory Failure, Hx Tuberculosis Neurological Medical History: Denies: Hx Cerebrovascular Accident, Hx Seizures Endocrine Medical History: Reports: Hx Diabetes Mellitus Type 2, Hx Hypothyroidism - goiter/Thyroidectomy 2010. Denies: Hx Graves' Disease, Hx Hyperthyroidism Renal/ Medical History: Denies: Hx End Stage Renal Disease, Hx Kidney Stones, Hx Peritoneal Dialysis Malignancy Medical History: Reports: Hx Renal (Kidney) Cancer. Denies: Hx Leukemia, Hx Lung Cancer GI Medical History: Reports: Hx Gastroesophageal Reflux Disease - 3 yrs-takes meds. Denies: Hx Cirrhosis, Hx Crohn's Disease, Hx Hiatal Hernia, Hx Irritable Bowel, Hx Liver Failure, Hx Pancreatitis, Hx Ulcer Musculoskeltal Medical History: Reports Hx Arthritis - neck, Denies Hx Fibromyalgia, Denies Hx Multiple Sclerosis, Denies Hx Muscular Dystrophy, Denies Hx Systemic Lupus Erythematosus Psychiatric Medical History: Reports: Hx Depression Denies: Hx Bipolar Disorder, Hx Dementia, Hx Schizophrenia Traumatic Medical History: Denies: Hx Fractures Infectious Medical History: Denies: Hx HIV Past Surgical History: Reports: Hx Abdominal Surgery - GBP, Hx Gastric Bypass Surgery - 1994, Hx Hysterectomy, Hx Kidney (Renal Surgery) - mass removed off of right kidney, Hx Orthopedic Surgery - left knee replacement, Hx Thyroid Surgery - removed 2010. Denies: Hx Appendectomy, Hx Bowel Surgery, Hx Section, Hx Cholecystectomy, Hx Colostomy, Hx Coronary Artery Bypass Graft, Hx Herniorrh aphy, Hx Mastectomy, Hx Pacemaker, Hx Tonsillectomy, Hx Tubal Ligation - Immunizations Hx Diphtheria, Pertussis, Tetanus Vaccination: Yes History of Influenza Vaccine for 02/2017 - 07/2017 Season: Yes Influenza Administration Date for 02/2017 - 07/2017 Season: 02/19/17 Physical Exam - Vital signs Vitals: Temp Pulse Resp BP Pulse Ox 98.1 F 110 H 20 154/96 H 97 10/26/18 10:44 10/26/18 10:44 10/26/18 10:44 10/26/18 10:44 10/26/18 10:44 Course - Vital Signs Vital signs: Temp Pulse Resp BP Pulse Ox 98.1 F 110 H 20 154/96 H 97 10/26/18 10:44 10/26/18 10:44 10/26/18 10:44 10/26/18 10:44 10/26/18 10:44 Doctor's Discharge - Discharge Referrals: Sissy MAI MD [Primary Care Provider] - Follow up as needed
--- NOTE | 2018-10-26 11:27 | RADIOLOGY REPORT (SQ) ---
EXAM DESCRIPTION: CHEST 2 VIEWS COMPLETED DATE/TIME: 10/26/2018 11:03 am REASON FOR STUDY: SOB COMPARISON: 03/18/2017. EXAM PARAMETERS: NUMBER OF VIEWS: two views TECHNIQUE: Digital Frontal and Lateral radiographic views of the chest acquired. RADIATION DOSE: NA LIMITATIONS: none FINDINGS: LUNGS AND PLEURA: No opacities, masses or pneumothorax. No pleural effusion. MEDIASTINUM AND HILAR STRUCTURES: No masses or contour abnormalities. HEART AND VASCULAR STRUCTURES: Mild cardiomegaly. Borderline vascular prominence. BONES: No acute findings. HARDWARE: None in the chest. OTHER: No other significant finding. IMPRESSION: MILD CARDIOMEGALY. BORDERLINE VASCULAR PROMINENCE. TECHNICAL DOCUMENTATION: JOB ID: [id number] [employer]- All Rights Reserved Reading location - IP/workstation name: [email or web address]
[2018-10-26 11:41] LABS: ABSOLUTE BASOPHILS # (AUTO) 0.1 10^3/uL (0.0-0.2); ABSOLUTE EOSINOPHILS # (AUTO) 0.1 10^3/uL (0.0-0.6); ABSOLUTE LYMPHOCYTES (AUTO) 0.8 10^3/uL (0.5-4.7); ABSOLUTE MONOCYTES (AUTO) 0.5 10^3/uL (0.1-1.4); ABSOLUTE NEUT (AUTO) 6.5 10^3/uL (1.7-8.2); BASOPHILS % (AUTO) 0.8 % (0-2); EOSINOPHILS % (AUTO) 0.9 % (0-6); HEMATOCRIT 29.3 % (36.0-47.0); HEMOGLOBIN 9.6 g/dL (12.0-15.5); LYMPHOCYTES % (AUTO) 9.6 % (13-45); MEAN CORPUSCULAR HEMOGLOBIN 28.1 pg (27.0-33.4); MEAN CORPUSCULAR HGB CONC 32.7 g/dL (32.0-36.0); MEAN CORPUSCULAR VOLUME 86 fl (80-97); MONOCYTES % (AUTO) 6.1 % (3-13); PLATELET COUNT 226 10^3/uL (150-450); RED BLOOD COUNT 3.41 10^6/uL (3.72-5.28); RED CELL DISTRIBUTION WIDTH 14.6 % (11.5-14.0); SEGMENTED NEUTROPHILS % (AUTO) 82.6 % (42-78); TOTAL CELLS COUNTED % (AUTO) 100 %; WHITE BLOOD COUNT 7.9 10^3/uL (4.0-10.5)
[2018-10-26 12:07] LABS: ALANINE AMINOTRANSFERASE 41 U/L (9-52); ALKALINE PHOSPHATASE 74 U/L (38-126); ANION GAP 10 (5-19); ASPARTATE AMINO TRANSFERASE 27 U/L (14-36); BILIRUBIN,DIRECT 0.4 mg/dL (0.0-0.4); BILIRUBIN,TOTAL 0.4 mg/dL (0.2-1.3); BLOOD UREA NITROGEN 50 mg/dL (7-20); CALCIUM 8.8 mg/dL (8.4-10.2); CARBON DIOXIDE 21 mmol/L (22-30); CHLORIDE 111 mmol/L (98-107); GLUCOSE 115 mg/dL (75-110); SODIUM 142.2 mmol/L (137-145); TOTAL PROTEIN 4.9 g/dL (6.3-8.2)
[2018-10-26 12:16] LABS: NT PRO BNP 17700 pg/mL (5-900)
[2018-10-26 12:17] LABS: TROPONIN I < 0.012 ng/mL
[2018-10-26 14:05] LABS: INTERNATIONAL RATION (INR) 1.13; PROTHROMBIN TIME 15.1 SEC (11.4-15.4)
[2018-10-26 14:06] LABS: PARTIAL THROMBOPLASTIN TIME 38.1 SEC (23.5-35.8)
[2018-10-26 14:15] LABS: LIPASE 89.5 U/L (23-300); PHOSPHORUS 5.3 mg/dL (2.5-4.5)
[2018-10-26 14:34] LABS: FREE T4 (FREE THYROXINE) 2.08 ng/dL (0.78-2.19)
[2018-10-26 14:46] LABS: APPEARANCE,URINE SLIGHTLY-CLOUDY; BILIRUBIN,URINE NEGATIVE (NEGATIVE); COLOR,URINE YELLOW; GLUCOSE, URINE NEGATIVE (NEGATIVE); KETONES,URINE NEGATIVE (NEGATIVE); LEUKOCYTE ESTERASE,URINE NEGATIVE (NEGATIVE); NITRITE,URINE NEGATIVE (NEGATIVE); PROTEIN,URINE 30 mg/dL (NEGATIVE); URINE SPECIFIC GRAVITY 1.009; UROBILINOGEN,URINE NEGATIVE mg/dL (<2.0)
[2018-10-26 14:48] LABS: THYROID STIMULATING HORMONE 0.18 uIU/mL (0.47-4.68)
[2018-10-26 15:00] LABS: URINE AMPHETAMINES SCREEN NEGATIVE; URINE BARBITURATES SCREEN NEGATIVE; URINE COCAINE SCREEN NEGATIVE; URINE MARIJUANA (THC) SCREEN NEGATIVE; URINE METHADONE SCREEN NEGATIVE; URINE PHENCYCLIDINE SCREEN NEGATIVE
[2018-10-26 15:05] LABS: URINE BENZODIAZEPINES SCREEN NEGATIVE
[2018-10-26] MEDS: NORMAL SALINE 250 ML with FUROSEMIDE 250 MG IV PRN ×2 (15:08)
--- NOTE | 2018-10-26 15:27 | ER Document Report ---
ED General - General Chief Complaint: Abnormal Lab Results Stated Complaint: CHEST PAIN Time Seen by Provider: 10/26/18 10:44 Primary Care Provider: Sissy LOPEZ MD [ACTIVE STAFF] - Follow up as needed Notes: Patient brought in for swelling of her legs. She has had this in the past and had to be admitted for IV diuretics. Says she saw Dr. Scotty Lopez yesterday who recommended she come in to be admitted and she is here today. Says her legs have been swelling like this for a couple of weeks. Also says she is feeling short of breath. Does not have any chest pains. No significant cough or chest congestion. Does not have asthma or COPD. Has not been running any fevers. History of severe renal insufficiency. Has been receiving Lasix orally without any relief over the last week. TRAVEL OUTSIDE OF THE [place] IN LAST 30 DAYS: No - Related Data Allergies/Adverse Reactions: benazepril Allergy (Verified 10/26/18 10:33) throat closes,lips swell Past Medical History - Social History Smoking Status: Never Smoker Chew tobacco use (# tins/day): No Frequency of alcohol use: None Drug Abuse: None Family History: Reviewed & Not Pertinent, CAD, CVA Patient has suicidal ideation: No Patient has homicidal ideation: No - Past Medical History Cardiac Medical History: Reports: Hx Atrial Fibrillation, Hx Hypercholesterolemia, Hx Hypertension Pulmonary Medical History: Reports: Hx Asthma - as a child, Hx Sleep Apnea - CPAP- started October 2014 Endocrine Medical History: Reports: Hx Diabetes Mellitus Type 2, Hx Hypothyroidism - goiter/Thyroidectomy 2010 Malignancy Medical History: Reports: Hx Renal (Kidney) Cancer GI Medical History: Reports: Hx Gastroesophageal Reflux Disease - 3 yrs-takes meds Musculoskeletal Medical History: Reports Hx Arthritis - neck Psychiatric Medical History: Reports: Hx Depression Traumatic Medical History: Denies: Hx Fractures Infectious Medical History: Past Surgical History: Reports: Hx Abdominal Surgery - GBP, Hx Gastric Bypass Surgery - 1994, Hx Hysterectomy, Hx Kidney (Renal Surgery) - mass removed off of right kidney, Hx Orthopedic Surgery - left knee replacement, Hx Thyroid Surgery - removed 2010 - Immunizations Hx Diphtheria, Pertussis, Tetanus Vaccination: Yes Hx Pneumococcal Vaccination: 02/26/14 Review of Systems - Review of Systems Notes: REVIEW OF SYSTEMS: CONSTITUTIONAL : Denies fever. EENT: Denies eye, ear, nose or mouth or throat pain or other symptoms. CARDIOVASCULAR: Denies chest pain. Lower leg swelling bilaterally. RESPIRATORY: Denies cough, chest congestion, but has some shortness of breath. GASTROINTESTINAL: Denies abdominal pain or nausea, vomiting, or diarrhea. GENITOURINARY: Denies difficulty or painful urinating, urinary frequency, blood in urine. MUSCULOSKELETAL: Denies back or neck pain. Denies joint pain or swelling. SKIN: Denies rash or skin lesions. NEUROLOGICAL: Denies LOC or altered mental status. Denies headache. Denies sensory loss or motor deficits. ALL OTHER SYSTEMS REVIEWED AND NEGATIVE. Physical Exam - Vital signs Vitals: Temp Pulse Resp BP Pulse Ox 98.1 F 110 H 20 154/96 H 97 10/26/18 10:44 10/26/18 10:44 10/26/18 10:44 10/26/18 10:44 10/26/18 10:44 Interpretation: Normal, Hypertensive - Mild Notes: PHYSICAL EXAMINATION: GENERAL: Well-appearing, in no acute distress. Able to [place] without difficulty. Says it hurts her legs, however. HEAD: Atraumatic, normocephalic. EYES: Pupils equal round and reactive to light, extraocular movements intact. ENT: oropharynx clear without exudates. Moist mucous membranes. NECK: Normal range of motion, supple. LUNGS: Breath sounds clear and equal bilaterally. HEART: Regular rate and rhythm without murmurs. ABDOMEN: Soft, nontender. No guarding or rebound. No masses. BACK: No tenderness throughout entire back. EXTREMITIES: Normal range of motion without pain. Pitting edema bilateral pretibial area. Negative Homans. NEUROLOGICAL: Normal speech, normal gait. Normal sensory, motor, and reflex exams. Awake, alert, and oriented x3. Cranial nerves normal. PSYCH: Normal mood, normal affect. SKIN: Warm, dry, no rashes. Course - Re-evaluation Re-evalutation: 10/26/18 15:[address] Scotty Lopez who says the patient is in cor pulmonale and needs to be admitted for IV Lasix. Spoke with Dr. Thomas, patient's primary care provider who will admit the patient to [facility]. - Vital Signs Vital signs: Temp Pulse Resp BP Pulse Ox 98.6 F 110 H 20 183/97 H 97 10/26/18 15:04 10/26/18 10:44 10/26/18 15:01 10/26/18 15:01 10/26/18 15:01 - Laboratory Result Diagrams: 10/26/18 11:23 10/26/18 11:23 Laboratory results interpreted by me: 10/26/18 10/26/18 10/26/18 11:23 11:23 11:23 RBC 3.41 L Hgb 9.6 L Hct 29.3 L RDW 14.6 H Seg Neutrophils % 82.6 H Lymphocytes % 9.6 L APTT Chloride 111 H Carbon Dioxide 21 L BUN 50 H Creatinine 4.53 H Est GFR ( Amer) 12 L Est GFR (Non-Af Amer) 10 L Glucose 115 H Phosphorus Ammonia NT-Pro-B Natriuret Pep 65915 H Total Protein 4.9 L Albumin 3.0 L TSH Urine Protein 10/26/18 10/26/18 10/26/18 11:23 11:23 11:23 RBC Hgb Hct RDW Seg Neutrophils % Lymphocytes % APTT 38.1 H Chloride Carbon Dioxide BUN Creatinine Est GFR ( Amer) Est GFR (Non-Af Amer) Glucose Phosphorus 5.3 H Ammonia NT-Pro-B Natriuret Pep Total Protein Albumin TSH 0.18 L Urine Protein 10/26/18 10/26/18 10/26/18 14:13 14:13 14:13 RBC Hgb Hct RDW Seg Neutrophils % Lymphocytes % APTT Chloride Carbon Dioxide BUN Creatinine Est GFR ( Amer) Est GFR (Non-Af Amer) Glucose Phosphorus Ammonia < 8.7 L NT-Pro-B Natriuret Pep 10899 H Total Protein Albumin TSH Urine Protein 30 H - Diagnostic Test Radiology results interpreted by me: 10/26/18 15:30 Chest x-ray shows cardiomegaly. Mild vascular changes. - EKG Interpretation by Me Rate: Normal Rhythm: A.Fib When compared to previous EKG there are: No significant change Discharge - Discharge Clinical Impression: CHF (congestive heart failure), Renal insufficiency Condition: Stable Disposition: ADMITTED INPATIENT Admitting Provider: [facility] Unit Admitted: [facility] Referrals: Sissy LOPEZ MD [ACTIVE STAFF] - Follow up as needed
[2018-10-26] MEDS ORDERED: (PENDING PHARMACY ID) (Oxycodone Hcl/Acetaminophen [Percocet 10-325 Mg Tablet] 1 TAB) PO PRN (17:21)
[2018-10-26] MEDS ORDERED: (PENDING PHARMACY ID) (Calcitriol [Calcitriol] 0.5 MCG) PO SCH (17:30)
[2018-10-26] MEDS ORDERED: (PENDING PHARMACY ID) (Sertraline Hcl [Zoloft] 25 MG) PO SCH (17:30)
[2018-10-26] MEDS ORDERED: GLIPIZIDE 10 MG PO SCH (17:30)
[2018-10-26] MEDS ORDERED: (PENDING PHARMACY ID) (Valsartan [Diovan] 320 MG) PO SCH (17:30)
[2018-10-26] MEDS ORDERED: (PENDING PHARMACY ID) (Solifenacin Succinate [Vesicare] 5 MG) PO SCH (17:30)
[2018-10-26] MEDS ORDERED: ISOSORB DINIT/HYDRALAZINE HCL 20-37.5 MG TABLET PO SCH (18:00)
[2018-10-26] MEDS ORDERED: (PENDING PHARMACY ID) (Pravastatin Sodium [Pravachol] 40 MG) PO SCH (18:00)
[2018-10-26] MEDS ORDERED: (PENDING PHARMACY ID) (Clonidine Hcl [Catapres 0.3 Mg Tablet] 0.3 MG) PO SCH (18:00)
[2018-10-26 18:26] LABS: CREATINE KINASE MB 1.67 ng/mL (<4.55)
[2018-10-26 18:29] LABS: TROPONIN I < 0.012 ng/mL
[2018-10-26] MEDS: VALSARTAN 160 MG TABLET PO SCH (18:35)
[2018-10-26] MEDS: CETIRIZINE 10 MG TABLET PO SCH (18:36)
[2018-10-26] MEDS: SERTRALINE HCL 50 MG TABLET PO SCH (18:36)
[2018-10-26] MEDS: AMLODIPINE BESYLATE 10 MG TABLET PO SCH (18:37)
[2018-10-26] MEDS: CALCITRIOL 0.25 MCG CAPSULE PO SCH (18:37)
[2018-10-26] MEDS: METOPROLOL SUCCINATE 50 MG TAB.SR.24H PO SCH (18:37)
[2018-10-26] MEDS: HEPARIN SOD (PORCINE) 5,000 UNIT/ML 1 ML SYRINGE SUBCUT SCH (18:38)
--- NOTE | 2018-10-26 21:14 | PDOC H&P ---
History of Present Illness Admission Date/PCP: 10/26/18 15:43 JIM GARCÍA MD History of Present Illness: ORLANDO COOPER is a 63 year old female, She has chronic kidney disease stage V, GFR 12 she has multiple comorbid conditions she was referred to the emergency room by the grants manager Dr. Lopez to be admitted for the management of anasarca she has tremendous fluid retention. She has multiple comorbid conditions including type II diabetes mellitus, chronic atrial fibrillation ,Morbid obesity, she has a history of pulmonary hypertension Past Medical History Cardiac Medical History: Reports: Atrial Fibrillation, Hyperlipidema, Hypertension Pulmonary Medical History: Reports: Asthma - as a child, Sleep Apnea - CPAP- started October 2014 Endocrine Medical History: Reports: Diabetes Mellitus Type 2, Hypothyroidism - goiter/Thyroidectomy 2010 Renal/ Medical History: Reports: Chronic Kidney Disease, Other - CKD stage V Malignancy Medical History: Reports: Renal (Kidney) Cancer GI Medical History: Reports: Gastroesophageal Reflux Disease - 3 yrs-takes meds Musculoskeltal Medical History: Reports: Arthritis - neck Psychiatric Medical History: Reports: Depression Hematology: Reports: 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 Past Surgical History Past Surgical History: Reports: Gastric Bypass Surgery - 1994, Hysterectomy, Orthopedic Surgery - left knee replacement Social History Smoking Status: Never Smoker Frequency of Alcohol Use: None Hx Recreational Drug Use: No Drugs: None Hx Prescription Drug Abuse: No Family History Family History: Reviewed & Not Pertinent, CAD, CVA Parental Family History Reviewed: Yes Children Family History Reviewed: Yes Sibling(s) Family History Reviewed.: Yes Medication/Allergy Home Medications: Amlodipine Besylate [Norvasc 10 mg Tablet] 10 mg PO DAILY 10/26/18 Cetirizine HCl [Zyrtec 10 mg Tablet] 10 mg PO DAILY 10/26/18 Clonidine HCl [Catapres 0.3 mg Tablet] 0.3 mg PO TID 10/26/18 Furosemide [Lasix 40 mg Tablet] 40 mg PO DAILY 10/26/18 Glipizide [Glucotrol Xl] 10 mg PO DAILY 10/26/18 Isosorb Dinit/Hydralazine HCl [Bidil 20-37.5 mg Tablet] 1 tab PO TID 10/26/18 Meloxicam [Mobic] 7.5 mg PO DAILY 10/26/18 Metoprolol Succinate [Toprol XL 100 mg Tablet] 100 mg PO DAILY 10/26/18 Oxycodone HCl/Acetaminophen [Percocet 10-325 mg Tablet] 1 tab PO Q8HP PRN 10/26/18 Pravastatin Sodium [Pravachol] 40 mg PO QPM 10/26/18 RX: Calcitriol 0.5 mcg PO DAILY 10/26/18 RX: Cyanocobalamin (Vitamin B-12) [Vitamin B-12 Inj 1000 Mcg/1 ml Vial] 1,000 mcg IM [id number] 10/26/18 RX: Levothyroxine Sodium 150 mcg PO Q6AM 10/26/18 RX: Omeprazole 40 mg PO DAILY 10/26/18 RX: Potassium Chloride [Klor-Con M10] 10 meq PO DAILY 10/26/18 Rivaroxaban [Xarelto 10 mg Tablet] 10 mg PO DAILY 10/26/18 Sertraline HCl [Zoloft] 25 mg PO DAILY 10/26/18 Silver Sulfadiazine [Ssd] 1 applic TOP BID 10/26/18 Solifenacin Succinate [Vesicare] 5 mg PO DAILY 10/26/18 Valsartan [Diovan] 320 mg PO DAILY 10/26/18 Allergies/Adverse Reactions: benazepril Allergy (Verified 10/26/18 10:33) throat closes,lips swell Review of Systems Constitutional: ABSENT: chills, fever(s), headache(s), weight gain, weight loss Eyes: ABSENT: visual disturbances Ears: ABSENT: hearing changes Cardiovascular: ABSENT: chest pain, dyspnea on exertion, edema, orthropnea, palpitations Respiratory: ABSENT: cough, hemoptysis Gastrointestinal: ABSENT: abdominal pain, constipation, diarrhea, hematemesis, hematochezia, nausea, vomiting Genitourinary: ABSENT: dysuria, hematuria Musculoskeletal: ABSENT: joint swelling Integumentary: ABSENT: rash, wounds Neurological: ABSENT: abnormal gait, abnormal speech, confusion, dizziness, focal weakness, syncope Psychiatric: ABSENT: anxiety, depression, homidical ideation, suicidal ideation Endocrine: ABSENT: cold intolerance, heat intolerance, menstrual abnormalities, polydipsia, polyuria Hematologic/Lymphatic: ABSENT: easy bleeding, easy bruising, lymphadenopathy Physical Exam Vital Signs: Temp Pulse Resp BP Pulse Ox 98.6 F 110 H 25 H 163/105 H 98 10/26/18 15:04 10/26/18 10:44 10/26/18 20:31 10/26/18 20:31 10/26/18 20:31 Intake & Output 10/25/18 10/26/18 10/27/18 06:59 06:59 06:59 Intake Total 400 Balance 400 Weight 111.6 kg General appearance: PRESENT: mild distress Head exam: PRESENT: atraumatic, normocephalic Eye exam: PRESENT: conjunctiva pink, EOMI, PERRLA Ear exam: PRESENT: normal external ear exam Mouth exam: PRESENT: moist, tongue midline Neck exam: PRESENT: full ROM Respiratory exam: PRESENT: rhonchi Cardiovascular exam: PRESENT: RRR, +S1, +S2 Pulses: PRESENT: normal dorsalis pedis pul, +2 pedal pulses bilateral Vascular exam: PRESENT: normal capillary refill GI/Abdominal exam: PRESENT: normal bowel sounds, soft Rectal exam: PRESENT: deferred Extremities exam: PRESENT: pedal edema Neurological exam: PRESENT: alert, awake, oriented to person, oriented to place, oriented to time, oriented to situation, CN II-XII grossly intact Psychiatric exam: PRESENT: appropriate affect, normal mood Skin exam: PRESENT: dry, intact, warm Results Laboratory Results: 10/26/18 11:23 10/26/18 11:23 10/26/18 10/26/18 10/26/18 11:23 11:23 11:23 WBC 7.9 RBC 3.41 L Hgb 9.6 L Hct 29.3 L MCV 86 MCH 28.1 MCHC 32.7 RDW 14.6 H Plt Count 226 Seg Neutrophils % 82.6 H Lymphocytes % 9.6 L Monocytes % 6.1 Eosinophils % 0.9 Basophils % 0.8 Absolute Neutrophils 6.5 Absolute Lymphocytes 0.8 Absolute Monocytes 0.5 Absolute Eosinophils 0.1 Absolute Basophils 0.1 Sodium 142.2 Potassium 4.0 Chloride 111 H Carbon Dioxide 21 L Anion Gap 10 BUN 50 H Creatinine 4.53 H Est GFR ( Amer) 12 L Est GFR (Non-Af Amer) 10 L Glucose 115 H Calcium 8.8 Phosphorus 5.3 H Magnesium 2.0 Total Bilirubin 0.4 AST 27 ALT 41 Alkaline Phosphatase 74 Ammonia Total Protein 4.9 L Albumin 3.0 L Amylase 51 Lipase 89.5 TSH Free T4 Urine Color Urine Appearance Urine pH Ur Specific [place] Urine Protein Urine Glucose (UA) Urine Ketones Urine Blood Urine Nitrite Ur Leukocyte Esterase Urine WBC (Auto) Urine RBC (Auto) 10/26/18 10/26/18 10/26/18 11:23 14:13 14:13 WBC RBC Hgb Hct MCV MCH MCHC RDW Plt Count Seg Neutrophils % Lymphocytes % Monocytes % Eosinophils % Basophils % Absolute Neutrophils Absolute Lymphocytes Absolute Monocytes Absolute Eosinophils Absolute Basophils Sodium Potassium Chloride Carbon Dioxide Anion Gap BUN Creatinine Est GFR ( Amer) Est GFR (Non-Af Amer) Glucose Calcium Phosphorus Magnesium Total Bilirubin AST ALT Alkaline Phosphatase Ammonia < 8.7 L Total Protein Albumin Amylase Lipase TSH 0.18 L Free T4 2.08 Urine Color YELLOW Urine Appearance SLIGHTLY-CLOUDY Urine pH 5.0 Ur Specific [place] 1.009 Urine Protein 30 H Urine Glucose (UA) NEGATIVE Urine Ketones NEGATIVE Urine Blood NEGATIVE Urine Nitrite NEGATIVE Ur Leukocyte Esterase NEGATIVE Urine WBC (Auto) 3 Urine RBC (Auto) 2 10/26/18 10/26/18 10/26/18 11:23 14:13 17:11 Creatine Kinase 77 CK-MB (CK-2) Troponin I < 0.012 NT-Pro-B Natriuret Pep 94979 H 07462 H 10/26/18 17:11 Creatine Kinase CK-MB (CK-2) 1.67 Troponin I < 0.012 NT-Pro-B Natriuret Pep Impressions: Chest X-Ray 10/26/18 10:45 IMPRESSION: MILD CARDIOMEGALY. BORDERLINE VASCULAR PROMINENCE. Assessment & Plan - Diagnosis (1) Anasarca Is this a current diagnosis for this admission?: Yes Plan: Patient is admitted for management (2) Chronic kidney disease, stage 5 Is this a current diagnosis for this admission?: Yes (3) T2DM (type 2 diabetes mellitus) Qualifiers: Diabetes mellitus half-way insulin use: with half-way use Diabetes mellitus complication status: with kidney complications Diabetes mellitus complication detail: with chronic kidney disease Chronic kidney disease stage: stage 5, not on chronic dialysis Qualified Code(s): E11.22 - Type 2 diabetes mellitus with diabetic chronic kidney disease; N18.5 - Chronic kidney disease, stage 5; Z79.4 - [facility] living (current) use of insulin Is this a current diagnosis for this admission?: Yes
--- NOTE | 2018-10-26 22:13 | EKG REPORT ---
SEVERITY:- ABNORMAL ECG - ATRIAL FIBRILLATION, V-RATE 72-125 NONSPECIFIC T ABNORMALITIES, DIFFUSE LEADS : Confirmed by: Kendall Arrington MD 26-Oct-2018 22:13:24
[2018-10-26] MEDS: ATORVASTATIN CALCIUM 10 MG TABLET PO SCH (22:46)
[2018-10-26] MEDS: CLONIDINE HCL 0.2 MG TABLET PO SCH (22:46)
[2018-10-26] MEDS: TOLTERODINE TARTRATE 1 MG TABLET PO SCH (22:46)
[2018-10-26] MEDS: OXYCODONE HCL IR 5 MG TABLET PO PRN (22:47)
[2018-10-26] MEDS: OXYCODONE-ACETAMINOPHEN 5-325 MG TABLET PO PRN (22:47)
[2018-10-26] MEDS: ISOSORB DINIT/HYDRALAZINE HCL 20-37.5 MG TABLET PO SCH (22:53)
[2018-10-27 00:36] LABS: CREATINE KINASE MB 1.72 ng/mL (<4.55)
[2018-10-27 00:40] LABS: TROPONIN I < 0.012 ng/mL
[2018-10-27] MEDS: HEPARIN SOD (PORCINE) 5,000 UNIT/ML 1 ML SYRINGE SUBCUT SCH ×4 (03:34→22:55)
[2018-10-27] MEDS: CLONIDINE HCL 0.2 MG TABLET PO SCH ×3 (05:51→22:54)
[2018-10-27] MEDS: PANTOPRAZOLE SODIUM 40 MG TABLET.DR PO SCH (05:52)
[2018-10-27] MEDS: ISOSORB DINIT/HYDRALAZINE HCL 20-37.5 MG TABLET PO SCH ×3 (05:52→22:55)
[2018-10-27 06:14] LABS: ABSOLUTE EOSINOPHILS # (AUTO) 0.1 10^3/uL (0.0-0.6); ABSOLUTE LYMPHOCYTES (AUTO) 0.6 10^3/uL (0.5-4.7); ABSOLUTE MONOCYTES (AUTO) 0.5 10^3/uL (0.1-1.4); ABSOLUTE NEUT (AUTO) 5.1 10^3/uL (1.7-8.2); BASOPHILS % (AUTO) 0.3 % (0-2); HEMATOCRIT 29.2 % (36.0-47.0); HEMOGLOBIN 9.5 g/dL (12.0-15.5); LYMPHOCYTES % (AUTO) 9.7 % (13-45); MEAN CORPUSCULAR HEMOGLOBIN 28.1 pg (27.0-33.4); MEAN CORPUSCULAR HGB CONC 32.5 g/dL (32.0-36.0); MEAN CORPUSCULAR VOLUME 86 fl (80-97); MONOCYTES % (AUTO) 8.2 % (3-13); PLATELET COUNT 209 10^3/uL (150-450); RED BLOOD COUNT 3.39 10^6/uL (3.72-5.28); RED CELL DISTRIBUTION WIDTH 14.1 % (11.5-14.0); SEGMENTED NEUTROPHILS % (AUTO) 79.8 % (42-78); TOTAL CELLS COUNTED % (AUTO) 100 %; WHITE BLOOD COUNT 6.4 10^3/uL (4.0-10.5)
[2018-10-27 06:40] LABS: ALANINE AMINOTRANSFERASE 43 U/L (9-52); ALBUMIN 2.8 g/dL (3.5-5.0); ALKALINE PHOSPHATASE 75 U/L (38-126); ANION GAP 8 (5-19); ASPARTATE AMINO TRANSFERASE 24 U/L (14-36); BILIRUBIN,DIRECT 0.4 mg/dL (0.0-0.4); BILIRUBIN,TOTAL 0.4 mg/dL (0.2-1.3); BLOOD UREA NITROGEN 52 mg/dL (7-20); CALCIUM 8.7 mg/dL (8.4-10.2); CARBON DIOXIDE 25 mmol/L (22-30); CHLORIDE 111 mmol/L (98-107); GLUCOSE 140 mg/dL (75-110); POTASSIUM 3.5 mmol/L (3.6-5.0); SODIUM 143.7 mmol/L (137-145); TOTAL PROTEIN 5.1 g/dL (6.3-8.2)
[2018-10-27 06:41] LABS: CREATINE KINASE MB 1.68 ng/mL (<4.55)
[2018-10-27 07:14] LABS: TROPONIN I < 0.012 ng/mL
[2018-10-27] MEDS: SERTRALINE HCL 50 MG TABLET PO SCH (09:49)
[2018-10-27] MEDS: VALSARTAN 160 MG TABLET PO SCH (09:50)
[2018-10-27] MEDS: AMLODIPINE BESYLATE 10 MG TABLET PO SCH (09:50)
[2018-10-27] MEDS: GLIPIZIDE XL 5 MG TAB.ER.24 PO SCH (09:50)
[2018-10-27] MEDS: METOPROLOL SUCCINATE 50 MG TAB.SR.24H PO SCH (09:50)
[2018-10-27] MEDS: CETIRIZINE 10 MG TABLET PO SCH (09:50)
[2018-10-27] MEDS: CALCITRIOL 0.25 MCG CAPSULE PO SCH (09:50)
[2018-10-27] MEDS: LEVOTHYROXINE SODIUM 0.15 MG TABLET PO SCH (09:50)
[2018-10-27] MEDS: TOLTERODINE TARTRATE 1 MG TABLET PO SCH ×2 (09:50→22:55)
[2018-10-27] MEDS ORDERED: CYANOCOBALAMIN (VITAMIN B-12) INJ 1000 MCG/1 ML VIAL IM SCH (10:00)
[2018-10-27] MEDS ORDERED: DEXTROSE 50%-WATER 25 GM/50 ML DISP.SYRIN IV PRN ×2 (18:23)
[2018-10-27] MEDS ORDERED: DEXTROSE 40% GEL 15 GM TUBE PO PRN ×2 (18:23)
[2018-10-27] MEDS ORDERED: GLUCAGON,HUMAN RECOMB 1 MG INJ IM PRN (18:23)
--- NOTE | 2018-10-27 18:32 | PDOC PROGRESS REPORT ---
Subjective Progress Note for:: 10/27/18 Subjective:: Patient remain on IV Lasix infusion therapy. She denied any chest pain or difficulty with breathing. No nausea, vomiting or abdominal pain. Reason For Visit: ANASARCA,CKD STAGE 5 T2DM WITH COMPLICATIONS Physical Exam Vital Signs: Temp Pulse Resp BP Pulse Ox 97.6 F 87 19 153/85 H 100 10/27/18 15:16 10/27/18 15:16 10/27/18 15:16 10/27/18 15:16 10/27/18 15:16 Intake & Output 10/26/18 10/27/18 10/28/18 06:59 06:59 06:59 Intake Total 620 360 Output Total 950 Balance -330 360 Weight 108.2 kg General appearance: PRESENT: no acute distress, morbidly obese Head exam: PRESENT: atraumatic, normocephalic Eye exam: PRESENT: conjunctiva pink. ABSENT: scleral icterus Ear exam: PRESENT: normal external ear exam Mouth exam: PRESENT: moist Respiratory exam: PRESENT: clear to auscultation andrey, decreased breath sounds - at lung bases Cardiovascular exam: PRESENT: RRR. ABSENT: diastolic murmur, rubs, systolic murmur Vascular exam: ABSENT: pallor GI/Abdominal exam: PRESENT: normal bowel sounds, soft. ABSENT: distended, guarding, mass, organolmegaly, rebound, tenderness Extremities exam: PRESENT: pedal edema Neurological exam: PRESENT: alert, awake, oriented to person, oriented to place, oriented to time, oriented to situation, CN II-XII grossly intact. ABSENT: motor sensory deficit Psychiatric exam: PRESENT: appropriate affect, normal mood. ABSENT: homicidal ideation, suicidal ideation Skin exam: PRESENT: dry, warm Results Laboratory Results: 10/27/18 05:44 10/27/18 05:54 10/27/18 10/27/18 05:44 05:54 WBC 6.4 RBC 3.39 L Hgb 9.5 L Hct 29.2 L MCV 86 MCH 28.1 MCHC 32.5 RDW 14.1 H Plt Count 209 Seg Neutrophils % 79.8 H Lymphocytes % 9.7 L Monocytes % 8.2 Eosinophils % 2.0 Basophils % 0.3 Absolute Neutrophils 5.1 Absolute Lymphocytes 0.6 Absolute Monocytes 0.5 Absolute Eosinophils 0.1 Absolute Basophils 0.0 Sodium 143.7 Potassium 3.5 L Chloride 111 H Carbon Dioxide 25 Anion Gap 8 BUN 52 H Creatinine 4.69 H Est GFR ( Amer) 11 L Est GFR (Non-Af Amer) 9 L Glucose 140 H Calcium 8.7 Total Bilirubin 0.4 AST 24 ALT 43 Alkaline Phosphatase 75 Total Protein 5.1 L Albumin 2.8 L 10/26/18 14:13 Clean Catch Midstream Urine Culture - Final Mixed Urogenital [place] 10/26/18 10/26/18 10/26/18 11:23 14:13 17:11 Creatine Kinase 77 CK-MB (CK-2) Troponin I < 0.012 NT-Pro-B Natriuret Pep 20320 H 97039 H 10/26/18 10/26/18 10/26/18 17:11 23:50 23:50 Creatine Kinase 67 CK-MB (CK-2) 1.67 1.72 Troponin I < 0.012 < 0.012 NT-Pro-B Natriuret Pep 10/27/18 10/27/18 05:44 05:54 Creatine Kinase 60 CK-MB (CK-2) 1.68 Troponin I < 0.012 NT-Pro-B Natriuret Pep Impressions: Chest X-Ray 10/26/18 10:45 IMPRESSION: MILD CARDIOMEGALY. BORDERLINE VASCULAR PROMINENCE. Assessment & Plan - Diagnosis (1) Anasarca Is this a current diagnosis for this admission?: Yes Plan: Continue current medication management. Fluid restriction to 1200ml/day. (2) Chronic kidney disease, stage 5 Is this a current diagnosis for this admission?: Yes Plan: Continue current medication management. Follow up on renal indices. Request nephrology input if no improvement or worsening renal function. (3) Type 2 diabetes mellitus with chronic kidney disease Qualifiers: Diabetes mellitus care home insulin use: with ferry terminal agent use Chronic kidney disease stage: stage 5, not on chronic dialysis Qualified Code(s): E11.22 - Type 2 diabetes mellitus with diabetic chronic kidney disease; N18.5 - Chronic kidney disease, stage 5; N18.5 - Chronic kidney disease, stage 5; N18.5 - Chronic kidney disease, stage 5; N18.5 - Chronic kidney disease, stage 5; Z79.4 - [facility] (current) use of insulin; Z79.4 - [facility] (current) use of insulin; Z79.4 - terminal press operator (current) use of insulin; Z79.4 - terminal press operator (current) use of insulin Is this a current diagnosis for this admission?: Yes Plan: Continue current medication management. - Time Time Spent with patient: 25-34 minutes Medications reviewed and adjusted accordingly: Yes Anticipated discharge: Home with Homehealth Within: Other - Inpatient Certification Based on my medical assessment, after consideration of the patient's comorbidities, presenting symptoms, or acuity I expect that the services needed warrant INPATIENT care.: Yes I certify that my determination is in accordance with my understanding of Medicare's requirements for reasonable and necessary INPATIENT services [42 CFR 412.3e].: Yes Medical Necessity: Significant Comorbidiites Make Outpatient Treatment Too [place]is [place], Need Close Monitoring Due to Risk of Patient Decompensation, Need For Continuous Telemetry Monitoring, Risk of Complication if Not Cared For in Hospital, Risk of Diagnosis Which Will Require Inpatient Eval/Care/Monitoring Post Hospital Care: D/C Hydraulic Blocker Documentation - Plan Summary Plan Summary: See covering attending physician orders for care plan details.
[2018-10-27] MEDS: ATORVASTATIN CALCIUM 10 MG TABLET PO SCH (22:55)
[2018-10-27] MEDS: INSULIN LISPRO 100 UNIT/ML 3 ML VIAL SUBCUT SCH (22:55)
[2018-10-28 05:40] LABS: ABSOLUTE EOSINOPHILS # (AUTO) 0.1 10^3/uL (0.0-0.6); ABSOLUTE LYMPHOCYTES (AUTO) 0.5 10^3/uL (0.5-4.7); ABSOLUTE MONOCYTES (AUTO) 0.5 10^3/uL (0.1-1.4); ABSOLUTE NEUT (AUTO) 4.9 10^3/uL (1.7-8.2); BASOPHILS % (AUTO) 0.2 % (0-2); EOSINOPHILS % (AUTO) 1.6 % (0-6); HEMATOCRIT 30.3 % (36.0-47.0); HEMOGLOBIN 9.7 g/dL (12.0-15.5); LYMPHOCYTES % (AUTO) 8.1 % (13-45); MEAN CORPUSCULAR HEMOGLOBIN 27.5 pg (27.0-33.4); MEAN CORPUSCULAR HGB CONC 32.1 g/dL (32.0-36.0); MEAN CORPUSCULAR VOLUME 86 fl (80-97); MONOCYTES % (AUTO) 8.3 % (3-13); PLATELET COUNT 238 10^3/uL (150-450); RED BLOOD COUNT 3.54 10^6/uL (3.72-5.28); RED CELL DISTRIBUTION WIDTH 14.5 % (11.5-14.0); SEGMENTED NEUTROPHILS % (AUTO) 81.8 % (42-78); TOTAL CELLS COUNTED % (AUTO) 100 %
[2018-10-28 05:59] LABS: ALANINE AMINOTRANSFERASE 36 U/L (9-52); ALBUMIN 2.9 g/dL (3.5-5.0); ALKALINE PHOSPHATASE 81 U/L (38-126); ANION GAP 8 (5-19); ASPARTATE AMINO TRANSFERASE 18 U/L (14-36); BILIRUBIN,DIRECT 0.3 mg/dL (0.0-0.4); BILIRUBIN,TOTAL 0.3 mg/dL (0.2-1.3); BLOOD UREA NITROGEN 52 mg/dL (7-20); CALCIUM 8.9 mg/dL (8.4-10.2); CARBON DIOXIDE 27 mmol/L (22-30); CHLORIDE 108 mmol/L (98-107); GLUCOSE 105 mg/dL (75-110); POTASSIUM 3.7 mmol/L (3.6-5.0); SODIUM 142.9 mmol/L (137-145); TOTAL PROTEIN 5.1 g/dL (6.3-8.2)
[2018-10-28] MEDS: CLONIDINE HCL 0.2 MG TABLET PO SCH ×3 (06:58→21:49)
[2018-10-28] MEDS: PANTOPRAZOLE SODIUM 40 MG TABLET.DR PO SCH (06:58)
[2018-10-28] MEDS: HEPARIN SOD (PORCINE) 5,000 UNIT/ML 1 ML SYRINGE SUBCUT SCH ×3 (06:59→21:49)
[2018-10-28] MEDS: ISOSORB DINIT/HYDRALAZINE HCL 20-37.5 MG TABLET PO SCH ×3 (06:59→21:49)
[2018-10-28] MEDS: INSULIN LISPRO 100 UNIT/ML 3 ML VIAL SUBCUT SCH ×4 (08:30→21:50)
[2018-10-28] MEDS: LEVOTHYROXINE SODIUM 0.15 MG TABLET PO SCH (08:52)
[2018-10-28] MEDS: VALSARTAN 160 MG TABLET PO SCH (10:16)
[2018-10-28] MEDS: SERTRALINE HCL 50 MG TABLET PO SCH (10:16)
[2018-10-28] MEDS: TOLTERODINE TARTRATE 1 MG TABLET PO SCH ×2 (10:16→21:49)
[2018-10-28] MEDS: CETIRIZINE 10 MG TABLET PO SCH (10:16)
[2018-10-28] MEDS: CALCITRIOL 0.25 MCG CAPSULE PO SCH (10:16)
[2018-10-28] MEDS: AMLODIPINE BESYLATE 10 MG TABLET PO SCH (10:17)
[2018-10-28] MEDS: GLIPIZIDE XL 5 MG TAB.ER.24 PO SCH (10:17)
[2018-10-28] MEDS: METOPROLOL SUCCINATE 50 MG TAB.SR.24H PO SCH (10:17)
[2018-10-28] MEDS: NORMAL SALINE 250 ML with FUROSEMIDE 250 MG IV PRN ×2 (15:17)
--- NOTE | 2018-10-28 15:44 | PDOC PROGRESS REPORT ---
Subjective Progress Note for:: 10/28/18 Subjective:: She continue to be in negative fluid balance. Remain on IV Lasix infusion therapy. She denied any chest pain or difficulty with breathing. No reported fever or chills. Reason For Visit: ANASARCA,CKD STAGE 5 T2DM WITH COMPLICATIONS Physical Exam Vital Signs: Temp Pulse Resp BP Pulse Ox 98.2 F 78 17 141/83 H 100 10/28/18 15:24 10/28/18 15:24 10/28/18 15:24 10/28/18 15:24 10/28/18 15:24 Intake & Output 10/27/18 10/28/18 10/29/18 06:59 06:59 06:59 Intake Total 620 900 554 Output Total 950 3300 700 Balance -330 -2400 -146 Weight 108.2 kg 105.9 kg Physical Exam: General appearance: PRESENT: no acute distress, morbidly obese Head exam: PRESENT: atraumatic, normocephalic Eye exam: PRESENT: conjunctiva pink. ABSENT: pallor scleral icterus Ear exam: PRESENT: normal external ear exam Mouth exam: PRESENT: moist Respiratory exam: PRESENT: clear to auscultation andrey, decreased breath sounds - at lung bases Cardiovascular exam: PRESENT: RRR. ABSENT: diastolic murmur, rubs, systolic murmur GI/Abdominal exam: PRESENT: normal bowel sounds, soft. ABSENT: distended, guarding, mass, organomegaly, rebound, tenderness Extremities exam: PRESENT: pedal edema Neurological exam: PRESENT: alert, awake, oriented to person, oriented to place, oriented to time, oriented to situation, CN II-XII grossly intact. ABSENT: motor sensory deficit Psychiatric exam: PRESENT: appropriate affect, normal mood. ABSENT: homicidal ideation, suicidal ideation Skin exam: PRESENT: dry, warm Results Laboratory Results: 10/28/18 05:20 10/28/18 05:20 10/28/18 10/28/18 05:20 05:20 WBC 6.0 RBC 3.54 L Hgb 9.7 L Hct 30.3 L MCV 86 MCH 27.5 MCHC 32.1 RDW 14.5 H Plt Count 238 Seg Neutrophils % 81.8 H Lymphocytes % 8.1 L Monocytes % 8.3 Eosinophils % 1.6 Basophils % 0.2 Absolute Neutrophils 4.9 Absolute Lymphocytes 0.5 Absolute Monocytes 0.5 Absolute Eosinophils 0.1 Absolute Basophils 0.0 Sodium 142.9 Potassium 3.7 Chloride 108 H Carbon Dioxide 27 Anion Gap 8 BUN 52 H Creatinine 4.45 H Est GFR ( Amer) 12 L Est GFR (Non-Af Amer) 10 L Glucose 105 Calcium 8.9 Total Bilirubin 0.3 AST 18 ALT 36 Alkaline Phosphatase 81 Total Protein 5.1 L Albumin 2.9 L 10/26/18 14:13 Clean Catch Midstream Urine Culture - Final Mixed Urogenital [place] 10/26/18 10/26/18 10/26/18 11:23 14:13 17:11 Creatine Kinase 77 CK-MB (CK-2) Troponin I < 0.012 NT-Pro-B Natriuret Pep 16388 H 49587 H 10/26/18 10/26/18 10/26/18 17:11 23:50 23:50 Creatine Kinase 67 CK-MB (CK-2) 1.67 1.72 Troponin I < 0.012 < 0.012 NT-Pro-B Natriuret Pep 10/27/18 10/27/18 05:44 05:54 Creatine Kinase 60 CK-MB (CK-2) 1.68 Troponin I < 0.012 NT-Pro-B Natriuret Pep Impressions: Chest X-Ray 10/26/18 10:45 IMPRESSION: MILD CARDIOMEGALY. BORDERLINE VASCULAR PROMINENCE. Assessment & Plan - Diagnosis (1) Anasarca Is this a current diagnosis for this admission?: Yes (2) Chronic kidney disease, stage 5 Is this a current diagnosis for this admission?: Yes (3) Type 2 diabetes mellitus with chronic kidney disease Qualifiers: Diabetes mellitus termite helper insulin use: with jail use Chronic kidney disease stage: stage 5, not on chronic dialysis Qualified Code(s): E11.22 - Type 2 diabetes mellitus with diabetic chronic kidney disease; N18.5 - Chronic kidney disease, stage 5; N18.5 - Chronic kidney disease, stage 5; N18.5 - Chronic kidney disease, stage 5; N18.5 - Chronic kidney disease, stage 5; Z79.4 - half-way (current) use of insulin; Z79.4 - half-way (current) use of insulin; Z79.4 - rodent exterminator (current) use of insulin; Z79.4 - rodent exterminator (current) use of insulin Is this a current diagnosis for this admission?: Yes - Time Time Spent with patient: 25-34 minutes Medications reviewed and adjusted accordingly: Yes Anticipated discharge: Home with Homehealth Within: Other - Inpatient Certification Based on my medical assessment, after consideration of the patient's comorbidities, presenting symptoms, or acuity I expect that the services needed warrant INPATIENT care.: Yes I certify that my determination is in accordance with my understanding of Medicare's requirements for reasonable and necessary INPATIENT services [42 CFR 412.3e].: Yes Medical Necessity: Significant Comorbidiites Make Outpatient Treatment Too Risky, Need Close Monitoring Due to Risk of Patient Decompensation, Need For Continuous Telemetry Monitoring, Risk of Complication if Not Cared For in Hospital, Risk of Diagnosis Which Will Require Inpatient Eval/Care/Monitoring Post Hospital Care: D/C Student Driving Instructor Documentation - Plan Summary Plan Summary: Continue current medication management. Consider discontinuation of IV Lasix tomorrow.
[2018-10-28] MEDS: ATORVASTATIN CALCIUM 10 MG TABLET PO SCH (21:50)
[2018-10-29 05:14] LABS: ABSOLUTE EOSINOPHILS # (AUTO) 0.1 10^3/uL (0.0-0.6); ABSOLUTE LYMPHOCYTES (AUTO) 0.7 10^3/uL (0.5-4.7); ABSOLUTE MONOCYTES (AUTO) 0.6 10^3/uL (0.1-1.4); BASOPHILS % (AUTO) 0.2 % (0-2); EOSINOPHILS % (AUTO) 2.3 % (0-6); HEMOGLOBIN 9.8 g/dL (12.0-15.5); LYMPHOCYTES % (AUTO) 12.6 % (13-45); MEAN CORPUSCULAR HEMOGLOBIN 28.1 pg (27.0-33.4); MEAN CORPUSCULAR HGB CONC 32.8 g/dL (32.0-36.0); MEAN CORPUSCULAR VOLUME 86 fl (80-97); MONOCYTES % (AUTO) 11.1 % (3-13); PLATELET COUNT 237 10^3/uL (150-450); RED BLOOD COUNT 3.49 10^6/uL (3.72-5.28); RED CELL DISTRIBUTION WIDTH 14.3 % (11.5-14.0); SEGMENTED NEUTROPHILS % (AUTO) 73.8 % (42-78); TOTAL CELLS COUNTED % (AUTO) 100 %; WHITE BLOOD COUNT 5.5 10^3/uL (4.0-10.5)
[2018-10-29] MEDS: HEPARIN SOD (PORCINE) 5,000 UNIT/ML 1 ML SYRINGE SUBCUT SCH ×2 (06:45→14:22)
[2018-10-29] MEDS: CLONIDINE HCL 0.2 MG TABLET PO SCH ×3 (06:46→21:12)
[2018-10-29] MEDS: ISOSORB DINIT/HYDRALAZINE HCL 20-37.5 MG TABLET PO SCH ×3 (06:46→21:12)
[2018-10-29] MEDS: PANTOPRAZOLE SODIUM 40 MG TABLET.DR PO SCH (06:46)
[2018-10-29] MEDS: OXYCODONE-ACETAMINOPHEN 5-325 MG TABLET PO PRN (06:46)
[2018-10-29] MEDS: OXYCODONE HCL IR 5 MG TABLET PO PRN (06:47)
[2018-10-29] MEDS: INSULIN LISPRO 100 UNIT/ML 3 ML VIAL SUBCUT SCH ×4 (07:50→21:12)
[2018-10-29] MEDS: GLIPIZIDE XL 5 MG TAB.ER.24 PO SCH (09:15)
[2018-10-29] MEDS: CALCITRIOL 0.25 MCG CAPSULE PO SCH (09:15)
[2018-10-29] MEDS: VALSARTAN 160 MG TABLET PO SCH (09:15)
[2018-10-29] MEDS: SERTRALINE HCL 50 MG TABLET PO SCH (09:16)
[2018-10-29] MEDS: TOLTERODINE TARTRATE 1 MG TABLET PO SCH ×2 (09:16→21:11)
[2018-10-29] MEDS: AMLODIPINE BESYLATE 10 MG TABLET PO SCH (09:16)
[2018-10-29] MEDS: LEVOTHYROXINE SODIUM 0.15 MG TABLET PO SCH (09:16)
[2018-10-29] MEDS: CETIRIZINE 10 MG TABLET PO SCH (09:16)
[2018-10-29] MEDS: METOPROLOL SUCCINATE 50 MG TAB.SR.24H PO SCH (09:16)
--- NOTE | 2018-10-29 11:19 | PDOC CONSULTATION ---
Consultation Consult Date: 10/29/18 Provider Consulted: Sissy MAI Consult reason:: Fluid overload in the setting of CKD stage V. History of Present Illness Admission Date/PCP: 10/26/18 15:43 JIM GARCÍA MD History of Present Illness: ORLANDO COOPER is a 63 year old female With a history of long-standing poorly controlled diabetes mellitus, hypertension, ROSLYN but not using CPAP for a long time was admitted with history of generalized anasarca and some shortness of breath. Patient is seen in my office this last week and was found to be in fluid overload with features suggestive of decompensating cor pulmonale. Patient was advised admission but she refused to go that day and went to the hospital the next day. There is no history of any chest pains coughing spells fever or chills. She is not compliant with any dietary or fluid restrictions. Labs and medications were reviewed. Baseline creatinine has been 4.5 in my office for the last many months. Currently she is on IV Lasix infusion and producing good urine output to produce a decent negative balance.Today when I saw her she is feels that her shortness of breath as well as edema is also improving and she is happy with the progress she is making. She is got a good appetite with no history of any nausea vomiting. Past Medical History Cardiac Medical History: Reports: Atrial Fibrillation, Hyperlipidemia, Hypertension-primary Denies: Coronary Artery Disease, Heart Murmur, Myocardial Infarction, Peripheral Vascular Disease, Pulmonary Embolism Pulmonary Medical History: Reports: Asthma - as a child, Sleep Apnea - CPAP- started October 2014 Denies: Bronchitis, Chronic Obstructive Pulmonary Disease (COPD), Pneumonia, Respiratory Failure, Tuberculosis Neurological Medical History: Denies: Seizures Endocrine Medical History: Reports: Diabetes Mellitus Type 2, Hypothyroidism - goiter/Thyroidectomy 2010 Denies: Hyperthyroidism Renal/ Medical History: Reports: Chronic Kidney Disease Stage V, Secondary Hyperparathyroidism, Other - CKD stage V Denies: Benign Prostatic Hyperplasia Malignancy Medical History: Reports: Renal (Kidney) Cancer Denies: Leukemia, Lung Cancer GI Medical History: Reports: Gastroesophageal Reflux Disease - 3 yrs-takes meds Denies: Cirrhosis, Crohn's Disease, Hiatal Hernia Musculoskeltal Medical History: Reports: Arthritis - neck Denies: Fibromyalgia, Rheumatoid Arthritis, Systemic Lupus Erythematosus Psychiatric Medical History: Reports: Depression Denies: Bipolar Disorder, Dementia Infectious Medical History: Denies: HIV Hematology Medical History: Reports Anemia of Chronic Kidney Disease Past Surgical History Past Surgical History: Reports: Gastric Bypass Surgery - 1995, Hysterectomy, Orthopedic Surgery - left knee replacement Denies: Appendectomy, Section, Cholecystectomy, Colostomy, Coronary Artery Bypass Graft, Herniorrhaphy, Mastectomy, Pacemaker, Tonsillectomy, Tubal Ligation Social History Smoking Status: Never Smoker Frequency of Alcohol Use: None Hx Recreational Drug Use: No Drugs: None Hx Prescription Drug Abuse: No Family History Parental Family History Reviewed: Yes - Negative for ESRD in appearance. Children Family History Reviewed: Yes - Daughter was having ESRD and was on dialysis before she . Sibling(s) Family History Reviewed.: No Medication/Allergy Home Medications: Amlodipine Besylate [Norvasc 10 mg Tablet] 10 mg PO DAILY 10/26/18 Calcitriol 0.5 mcg PO DAILY 10/26/18 Cetirizine HCl [Zyrtec 10 mg Tablet] 10 mg PO DAILY 10/26/18 Clonidine HCl [Catapres 0.3 mg Tablet] 0.3 mg PO TID 10/26/18 Cyanocobalamin (Vitamin B-12) [Vitamin B-12 Inj 1000 Mcg/1 ml Vial] 1,000 mcg IM [id number] 10/26/18 Furosemide [Lasix 40 mg Tablet] 40 mg PO DAILY 10/26/18 Glipizide [Glucotrol Xl] 10 mg PO DAILY 10/26/18 Isosorb Dinit/Hydralazine HCl [Bidil 20-37.5 mg Tablet] 1 tab PO TID 10/26/18 Levothyroxine Sodium 150 mcg PO Q6AM 10/26/18 Meloxicam [Mobic] 7.5 mg PO DAILY 10/26/18 Metoprolol Succinate [Toprol XL 100 mg Tablet] 100 mg PO DAILY 10/26/18 Omeprazole 40 mg PO DAILY 10/26/18 Oxycodone HCl/Acetaminophen [Percocet 10-325 mg Tablet] 1 tab PO Q8HP PRN 10/26/18 Potassium Chloride [Klor-Con M10] 10 meq PO DAILY 10/26/18 Pravastatin Sodium [Pravachol] 40 mg PO QPM 10/26/18 Rivaroxaban [Xarelto 10 mg Tablet] 10 mg PO DAILY 10/26/18 Sertraline HCl [Zoloft] 25 mg PO DAILY 10/26/18 Silver Sulfadiazine [Ssd] 1 applic TOP BID 10/26/18 Solifenacin Succinate [Vesicare] 5 mg PO DAILY 10/26/18 Valsartan [Diovan] 320 mg PO DAILY 10/26/18 Allergies/Adverse Reactions: benazepril Allergy (Verified 10/26/18 10:33) throat closes,lips swell Review of Systems Constitutional: PRESENT: fatigue, weakness, weight gain. ABSENT: anorexia, fever(s), headache(s), night sweats Nose, Mouth, and Throat: ABSENT: headache(s), mouth pain, sore throat Cardiovascular: PRESENT: dyspnea on exertion, edema. ABSENT: chest pain, orthropnea, palpitations Gastrointestinal: ABSENT: abdominal pain, coffee ground emesis, diarrhea, dysphagia, heartburn, hematemesis, hematochezia, nausea, vomiting Musculoskeletal: ABSENT: deformity, joint swelling Integumentary: ABSENT: erythema, lesions, pruritus, rash Neurological: ABSENT: abnormal movements, abnormal speech, confusion, convulsions, focal weakness, frequent falls, lack of coordination Psychiatric: ABSENT: hallucinations Endocrine: ABSENT: cold intolerance Hematologic/Lymphatic: ABSENT: easy bleeding, easy bruising, lymphadenopathy Physical Exam Vital Signs: Temp Pulse Resp BP Pulse Ox 97.9 F 86 17 150/89 H 93 10/29/18 07:24 10/29/18 07:24 10/29/18 07:24 10/29/18 07:24 10/29/18 07:24 Intake & Output 10/28/18 10/29/18 10/30/18 06:59 06:59 06:59 Intake Total 900 776 Output Total 3300 2900 Balance -2400 -2124 Weight 105.9 kg 101.4 kg General appearance: PRESENT: no acute distress Eye exam: PRESENT: EOMI, PERRLA. ABSENT: scleral icterus Ear exam: PRESENT: normal external ear exam Mouth exam: PRESENT: moist, neck supple Neck exam: ABSENT: lymphadenopathy, meningismus, tenderness, thyromegaly, tracheal deviation Respiratory exam: PRESENT: clear to auscultation andrey. ABSENT: crackles Cardiovascular exam: PRESENT: RRR, +S1, +S2. ABSENT: rubs GI/Abdominal exam: PRESENT: normal bowel sounds, soft. ABSENT: organomegaly, tenderness Extremities exam: PRESENT: +1 edema. ABSENT: clubbing, joint swelling Neurological exam: PRESENT: alert, awake, oriented to person, oriented to place, oriented to time. ABSENT: altered Psychiatric exam: PRESENT: appropriate affect Skin exam: PRESENT: mottled - Venous stasis changes in both lower extremities.. ABSENT: erythema, rash Results Laboratory Results: 10/29/18 04:52 10/28/18 05:20 10/29/18 04:52 WBC 5.5 RBC 3.49 L Hgb 9.8 L Hct 30.0 L MCV 86 MCH 28.1 MCHC 32.8 RDW 14.3 H Plt Count 237 Seg Neutrophils % 73.8 Lymphocytes % 12.6 L Monocytes % 11.1 Eosinophils % 2.3 Basophils % 0.2 Absolute Neutrophils 4.0 Absolute Lymphocytes 0.7 Absolute Monocytes 0.6 Absolute Eosinophils 0.1 Absolute Basophils 0.0 10/26/18 10/26/18 10/26/18 11:23 14:13 17:11 Creatine Kinase 77 CK-MB (CK-2) Troponin I < 0.012 NT-Pro-B Natriuret Pep 15960 H 81020 H 10/26/18 10/26/18 10/26/18 17:11 23:50 23:50 Creatine Kinase 67 CK-MB (CK-2) 1.67 1.72 Troponin I < 0.012 < 0.012 NT-Pro-B Natriuret Pep 10/27/18 10/27/18 05:44 05:54 Creatine Kinase 60 CK-MB (CK-2) 1.68 Troponin I < 0.012 NT-Pro-B Natriuret Pep Impressions: Chest X-Ray 10/26/18 10:45 IMPRESSION: MILD CARDIOMEGALY. BORDERLINE VASCULAR PROMINENCE. Assessment & Plan - Diagnosis (1) Cor pulmonale Plan: Decompensated. Patient currently on Lasix infusion and producing good amounts of urine output to stay negative balance. We will continue on the same.Recommend getting an echocardiogram as I do not see one done in the last couple of years in the hospital. (2) Obstructive sleep apnea Plan: Not using CPAP for personal reasons for a long time. We discussed implications. (3) Anasarca Is this a current diagnosis for this admission?: Yes Plan: Secondary to decompensated cor pulmonale. Patient has good response to current medication regimen. We will continue the same. Monitor. (4) Chronic kidney disease, stage 5 Is this a current diagnosis for this admission?: Yes Plan: Status quo and stable. No acute indications for renal replacements. I hope the patient will respond to current medication and have good fluid removal. At the same time she needs to have her cor pulmonale treated especially her obstructive sleep apnea she will need to have a sleep study done again as an outpatient and then hopefully she can comply with the CPAP as an outpatient. (5) Type 2 diabetes mellitus with chronic kidney disease Qualifiers: Diabetes mellitus buttermaker continuous churn insulin use: with [facility] Chronic kidney disease stage: stage 5, not on chronic dialysis Qualified Code(s): E11.22 - Type 2 diabetes mellitus with diabetic chronic kidney disease; N18.5 - Chronic kidney disease, stage 5; N18.5 - Chronic kidney disease, stage 5; N18.5 - Chronic kidney disease, stage 5; N18.5 - Chronic kidney disease, stage 5; Z79.4 - marine oil terminal superintendent (current) use of insulin; Z79.4 - marine oil terminal superintendent (current) use of insulin; Z79.4 - detention (current) use of insulin; Z79.4 - detention (current) use of insulin Is this a current diagnosis for this admission?: Yes Plan: Poorly controlled. Advised dietary compliance.
[2018-10-29] MEDS: PRAMIPEXOLE DI-HCL 0.25 MG TABLET PO SCH (18:15)
[2018-10-29] MEDS: APIXABAN 2.5 MG TABLET PO SCH (18:15)
[2018-10-29] MEDS: NORMAL SALINE 250 ML with FUROSEMIDE 250 MG IV PRN ×2 (18:21)
--- NOTE | 2018-10-29 18:45 | PDOC PROGRESS REPORT ---
Subjective Progress Note for:: 10/29/18 Subjective:: Patient was seen by the bedside, she complained of leg cramps, she has history of chronic atrial fibrillation, she was on Xarelto anticoagulant for CVA prophylaxis, she was taking of Xarelto because of epistasis and also the fact that she has CKD stage V, the medication will be transitioned to Eliquis 2.5 mg p.o. twice daily Reason For Visit: ANASARCA,CKD STAGE 5 T2DM WITH COMPLICATIONS Physical Exam Vital Signs: Temp Pulse Resp BP Pulse Ox 97.8 F 77 16 135/90 H 97 10/29/18 15:01 10/29/18 15:01 10/29/18 15:01 10/29/18 15:01 10/29/18 15:01 Intake & Output 10/28/18 10/29/18 10/30/18 06:59 06:59 06:59 Intake Total 900 776 735 Output Total 3300 2900 1700 Balance -2400 -2124 -965 Weight 105.9 kg 101.4 kg General appearance: PRESENT: no acute distress Eye exam: PRESENT: PERRLA Respiratory exam: PRESENT: clear to auscultation andrey Cardiovascular exam: PRESENT: +S1, +S2 GI/Abdominal exam: PRESENT: soft Neurological exam: PRESENT: alert Results Laboratory Results: 10/29/18 04:52 10/28/18 05:20 10/29/18 04:52 WBC 5.5 RBC 3.49 L Hgb 9.8 L Hct 30.0 L MCV 86 MCH 28.1 MCHC 32.8 RDW 14.3 H Plt Count 237 Seg Neutrophils % 73.8 Lymphocytes % 12.6 L Monocytes % 11.1 Eosinophils % 2.3 Basophils % 0.2 Absolute Neutrophils 4.0 Absolute Lymphocytes 0.7 Absolute Monocytes 0.6 Absolute Eosinophils 0.1 Absolute Basophils 0.0 10/26/18 10/26/18 10/26/18 11:23 14:13 17:11 Creatine Kinase 77 CK-MB (CK-2) Troponin I < 0.012 NT-Pro-B Natriuret Pep 95219 H 30373 H 10/26/18 10/26/18 10/26/18 17:11 23:50 23:50 Creatine Kinase 67 CK-MB (CK-2) 1.67 1.72 Troponin I < 0.012 < 0.012 NT-Pro-B Natriuret Pep 10/27/18 10/27/18 05:44 05:54 Creatine Kinase 60 CK-MB (CK-2) 1.68 Troponin I < 0.012 NT-Pro-B Natriuret Pep Impressions: Chest X-Ray 10/26/18 10:45 IMPRESSION: MILD CARDIOMEGALY. BORDERLINE VASCULAR PROMINENCE. Assessment & Plan - Diagnosis (1) Anasarca Is this a current diagnosis for this admission?: Yes Plan: Continue treatment (2) Chronic kidney disease, stage 5 Is this a current diagnosis for this admission?: Yes (3) T2DM (type 2 diabetes mellitus) Qualifiers: Diabetes mellitus [facility] insulin use: with terminal superintendent use Diabetes mellitus complication status: with kidney complications Diabetes mellitus complication detail: with chronic kidney disease Chronic kidney disease stage: stage 5, not on chronic dialysis Qualified Code(s): E11.22 - Type 2 diabetes mellitus with diabetic chronic kidney disease; N18.5 - Chronic kidney disease, stage 5; 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
[2018-10-29] MEDS: PHARMACY COMMUNICATION ORDER MC SCH (18:53)
[2018-10-29] MEDS: ATORVASTATIN CALCIUM 10 MG TABLET PO SCH (21:11)
--- NOTE | 2018-10-29 22:15 | XCELERA REPORT ---
[address] [address] Transthoracic Echocardiogram Report Name: ORLANDO COOPER Age: 63 yrs Gender: Female : 1955 Patient Status: Inpatient Patient Location: [address] [place] [address] Study Date: 10/29/2018 05:30 PM Height: 64 in Weight: 223 lb BSA: 2.0 m2 Procedure: A two-dimensional transthoracic echocardiogram with color flow and Doppler was performed. The study was technically difficult with many images being suboptimal in quality. Images were not obtained from all of the standard acoustic windows due to the limited scope of the study. Reason For Study: chf History: CHF. Ordering Physician: JIM GARCÍA Performed By: Urmila Paz Interpretation Summary The left ventricle is normal in size. There is normal left ventricular wall thickness. No True apical 2 chamber views obtained.Hence cannot comment on the apical anterior , the basal anterior, the basal inferior and apical inferior kaba.The mid anterior , the mid inferior and the rest of the LV kaba contract normally. . LVEF is normal and is greater than 60% in the limited views. There is no thrombus. Cannot assess ASD,VSD ,or PFO. LV diastolic function could not be adequately assessed due to atrial fibrilation. The right ventricle is not well visualized secondary to technical limitations The right atrium is normal. The left atrial size is normal. There is moderate mitral annular calcification. There is no evidence of mitral valve prolapse. There is no vegetation seen on the mitral valve. There is no mitral valve stenosis. There is a trace to mild amount of mitral regurgitation There is no aortic valvular vegetation. There is aortic sclerosis without aortic stenosis. There is no LVOT obstruction. No aortic regurgitation is present. There is no tricuspid stenosis. There is a moderate to severe amount of tricuspid regurgitation RVSP is 59 to 64 mm of Hg , with RA mean of 15 to 20. There is moderate to severe pulmonary hypertension by echo There is no pulmonic valvular stenosis. There is a mild amount of pulmonic regurgitation The inferior vena cava appeared dilated and decreased < 50% with respiration (RAP 15-20 mmHg) Small pericardial effusion. There are no echocardiographic or Doppler indications for cardiac tamponade MMode/2D Measurements & Calculations RVDd: 2.5 cm LVIDd: 4.1 cm FS: 28.2 % Ao root diam: 2.5 cm IVSd: 0.90 cm LVIDs: 3.0 cm EDV(Teich): Ao root area: LVPWd: 1.0 cm 75.9 ml 5.0 cm2 ESV(Teich): LA dimension: 3.7 cm 34.2 ml EF(Teich): 55.0 % LVLd ap4: 6.0 cm SV(MOD-sp4): EDV(MOD-sp4): 44.0 ml 63.0 ml LVLs ap4: 5.5 cm ESV(MOD-sp4): 19.0 ml EF(MOD-sp4): 69.8 % Doppler Measurements & Calculations MV E max dennise: MV P1/2t max dennise: Ao V2 max: LV V1 max P.1 cm/sec 133.6 cm/sec 144.4 cm/sec 4.0 mmHg MV P1/2t: 47.6 msec Ao max PG: LV V1 max: MVA(P1/2t): 4.6 cm2 8.3 mmHg 100.2 cm/sec MV dec slope: 822.4 cm/sec2 MV dec time: 0.20 sec PA V2 max: PI end-d dennise: TR max dennise: MV P1/2t-pr_phl: 106.7 cm/sec 157.5 cm/sec 331.2 cm/sec 47.6 msec PA max P.6 mmHg TR max P.9 mmHg Left Ventricle The left ventricle is normal in size. There is normal left ventricular wall thickness. No True apical 2 chamber views obtained.Hence cannot comment on the apical anterior , the basal anterior, the basal inferior and apical inferior kaba.The mid anterior , the mid inferior and the rest of the LV kaba contract normally. . LVEF is normal and is greater than 60% in the limited views. LV diastolic function could not be adequately assessed due to atrial fibrilation. There is no thrombus. Cannot assess ASD,VSD ,or PFO. Right Ventricle The right ventricle is not well visualized secondary to technical limitations. Atria The right atrium is normal. The left atrial size is normal. Mitral Valve There is moderate mitral annular calcification. There is no evidence of mitral valve prolapse. There is no vegetation seen on the mitral valve. There is no mitral valve stenosis. There is a trace to mild amount of mitral regurgitation. Aortic Valve There is no aortic valvular vegetation. There is aortic sclerosis without aortic stenosis. There is no LVOT obstruction. No aortic regurgitation is present. Tricuspid Valve There is no tricuspid stenosis. There is a moderate to severe amount of tricuspid regurgitation. RVSP is 59 to 64 mm of Hg , with RA mean of 15 to 20. There is moderate to severe pulmonary hypertension by echo. Pulmonic Valve There is no pulmonic valvular stenosis. There is a mild amount of pulmonic regurgitation. Great Vessels The aortic root is not well visualized but is probably normal size. The inferior vena cava appeared dilated and decreased < 50% with respiration (RAP 15-20 mmHg). Effusions Small pericardial effusion. There are no echocardiographic or Doppler indications for cardiac tamponade. : JIM GARCÍA > Nancy Collier
[2018-10-30] MEDS: ISOSORB DINIT/HYDRALAZINE HCL 20-37.5 MG TABLET PO SCH ×3 (05:19→21:20)
[2018-10-30] MEDS: CLONIDINE HCL 0.2 MG TABLET PO SCH ×3 (05:19→21:18)
[2018-10-30] MEDS: PANTOPRAZOLE SODIUM 40 MG TABLET.DR PO SCH (05:19)
[2018-10-30 09:12] LABS: ANION GAP 10 (5-19); BLOOD UREA NITROGEN 49 mg/dL (7-20); CALCIUM 8.9 mg/dL (8.4-10.2); CARBON DIOXIDE 29 mmol/L (22-30); CHLORIDE 101 mmol/L (98-107); GLUCOSE 233 mg/dL (75-110); SODIUM 140.2 mmol/L (137-145)
[2018-10-30 09:13] LABS: POTASSIUM 3.9 mmol/L (3.6-5.0)
[2018-10-30] MEDS: INSULIN LISPRO 100 UNIT/ML 3 ML VIAL SUBCUT SCH ×4 (09:43→21:19)
[2018-10-30] MEDS: GLIPIZIDE XL 5 MG TAB.ER.24 PO SCH (09:49)
[2018-10-30] MEDS: CETIRIZINE 10 MG TABLET PO SCH (09:49)
[2018-10-30] MEDS: CALCITRIOL 0.25 MCG CAPSULE PO SCH (09:49)
[2018-10-30] MEDS: TOLTERODINE TARTRATE 1 MG TABLET PO SCH ×2 (09:49→21:18)
[2018-10-30] MEDS: PRAMIPEXOLE DI-HCL 0.25 MG TABLET PO SCH ×2 (09:49→17:34)
[2018-10-30] MEDS: METOPROLOL SUCCINATE 50 MG TAB.SR.24H PO SCH (09:50)
[2018-10-30] MEDS: VALSARTAN 160 MG TABLET PO SCH (09:50)
[2018-10-30] MEDS: SERTRALINE HCL 50 MG TABLET PO SCH (09:51)
[2018-10-30] MEDS: LEVOTHYROXINE SODIUM 0.15 MG TABLET PO SCH (09:51)
[2018-10-30] MEDS: APIXABAN 2.5 MG TABLET PO SCH ×2 (09:52→17:34)
[2018-10-30] MEDS: AMLODIPINE BESYLATE 10 MG TABLET PO SCH (09:52)
--- NOTE | 2018-10-30 11:08 | PDOC PROGRESS REPORT ---
Subjective Progress Note for:: 10/30/18 Reason For Visit: Patient seen today. She is doing well. She is making good amounts of urine output and the edema and the breathing is a whole lot better. She denies any history of chest pain, fever or chills. Labs and medications were reviewed. Physical Exam Vital Signs: Temp Pulse Resp BP Pulse Ox 97.7 F 85 16 160/89 H 96 10/30/18 07:23 10/30/18 07:23 10/30/18 07:23 10/30/18 07:23 10/30/18 07:23 Intake & Output 10/29/18 10/30/18 10/31/18 06:59 06:59 06:59 Intake Total 776 735 Output Total 2900 3950 Balance -2124 -3215 Weight 101.4 kg 102.4 kg Respiratory exam: PRESENT: clear to auscultation andrey. ABSENT: crackles Cardiovascular exam: PRESENT: RRR, +S1, +S2. ABSENT: rubs GI/Abdominal exam: PRESENT: normal bowel sounds, soft. ABSENT: organomegaly, tenderness Extremities exam: PRESENT: +1 edema Neurological exam: PRESENT: alert, awake, oriented to person, oriented to place, oriented to time Results Laboratory Results: 10/29/18 04:52 10/30/18 08:32 10/30/18 08:32 Sodium 140.2 Potassium 3.9 Chloride 101 Carbon Dioxide 29 Anion Gap 10 BUN 49 H Creatinine 4.33 H Est GFR ( Amer) 13 L Est GFR (Non-Af Amer) 10 L Glucose 233 H Calcium 8.9 10/26/18 10/26/18 10/26/18 11:23 14:13 17:11 Creatine Kinase 77 CK-MB (CK-2) Troponin I < 0.012 NT-Pro-B Natriuret Pep 55185 H 22055 H 10/26/18 10/26/18 10/26/18 17:11 23:50 23:50 Creatine Kinase 67 CK-MB (CK-2) 1.67 1.72 Troponin I < 0.012 < 0.012 NT-Pro-B Natriuret Pep 10/27/18 10/27/18 05:44 05:54 Creatine Kinase 60 CK-MB (CK-2) 1.68 Troponin I < 0.012 NT-Pro-B Natriuret Pep Impressions: Chest X-Ray 10/26/18 10:45 IMPRESSION: MILD CARDIOMEGALY. BORDERLINE VASCULAR PROMINENCE. Assessment & Plan - Diagnosis (1) Cor pulmonale Plan: Continue present treatments. Echocardiogram can help and specific treatments can then be tailored to that. (2) Obstructive sleep apnea Plan: Advised on compliance with CPAP when she is discharged home. (3) Anasarca Is this a current diagnosis for this admission?: Yes Plan: Improving. Continue current diuretic regimen. (4) Chronic kidney disease, stage 5 Is this a current diagnosis for this admission?: Yes Plan: Stable renal numbers. No evidences of uremia or overt left ventricular failure. Electrolytes are stable. No indications for initiation of renal replacements currently. (5) Type 2 diabetes mellitus with chronic kidney disease Qualifiers: Diabetes mellitus [facility] use: with [facility] Chronic kidney disease stage: stage 5, not on chronic dialysis Qualified Code(s): E11.22 - Type 2 diabetes mellitus with diabetic chronic kidney disease; N18.5 - Chronic kidney disease, stage 5; Z79.4 - longterm (current) use of insulin Is this a current diagnosis for this admission?: Yes Plan: Advised tight diabetic control.
[2018-10-30] MEDS: PHARMACY COMMUNICATION ORDER MC SCH (17:16)
[2018-10-30] MEDS: NORMAL SALINE 250 ML with FUROSEMIDE 250 MG IV PRN ×2 (19:32)
--- NOTE | 2018-10-30 20:50 | PDOC PROGRESS REPORT ---
Subjective Progress Note for:: 10/30/18 Subjective:: Patient was seen by the bedside, she had 2D echo done today, it showed severe pulmonary hypertension Reason For Visit: ANASARCA,CKD STAGE 5 T2DM WITH COMPLICATIONS Physical Exam Vital Signs: Temp Pulse Resp BP Pulse Ox 98.1 F 85 16 144/81 H 93 10/30/18 19:34 10/30/18 19:34 10/30/18 19:34 10/30/18 19:34 10/30/18 19:34 Intake & Output 10/29/18 10/30/18 10/31/18 06:59 06:59 06:59 Intake Total 776 735 878 Output Total 2907 6170 [address] [facility], [place] -[id number] [phone] Weight 101.4 kg 102.4 kg General appearance: PRESENT: no acute distress Eye exam: PRESENT: PERRLA Respiratory exam: PRESENT: clear to auscultation andrey Cardiovascular exam: PRESENT: +S1, +S2 GI/Abdominal exam: PRESENT: soft Extremities exam: PRESENT: pedal edema Neurological exam: PRESENT: alert, CN II-XII grossly intact Results Laboratory Results: 10/29/18 04:52 10/30/18 08:32 10/30/18 08:32 Sodium 140.2 Potassium 3.9 Chloride 101 Carbon Dioxide 29 Anion Gap 10 BUN 49 H Creatinine 4.33 H Est GFR ( Amer) 13 L Est GFR (Non-Af Amer) 10 L Glucose 233 H Calcium 8.9 10/26/18 10/26/18 10/26/18 11:23 14:13 17:11 Creatine Kinase 77 CK-MB (CK-2) Troponin I < 0.012 NT-Pro-B Natriuret Pep 81843 H 55249 H 10/26/18 10/26/18 10/26/18 17:11 23:50 23:50 Creatine Kinase 67 CK-MB (CK-2) 1.67 1.72 Troponin I < 0.012 < 0.012 NT-Pro-B Natriuret Pep 10/27/18 10/27/18 05:44 05:54 Creatine Kinase 60 CK-MB (CK-2) 1.68 Troponin I < 0.012 NT-Pro-B Natriuret Pep Impressions: Chest X-Ray 10/26/18 10:45 IMPRESSION: MILD CARDIOMEGALY. BORDERLINE VASCULAR PROMINENCE. Assessment & Plan - Diagnosis (1) Anasarca Is this a current diagnosis for this admission?: Yes Plan: Continue Lasix infusion (2) Chronic kidney disease, stage 5 Is this a current diagnosis for this admission?: Yes (3) T2DM (type 2 diabetes mellitus) Qualifiers: Diabetes mellitus exterminator termite insulin use: with exterminator termite use Diabetes mellitus complication status: with kidney complications Diabetes mellitus complication detail: with chronic kidney disease Chronic kidney disease stage: stage 5, not on chronic dialysis Qualified Code(s): E11.22 - Type 2 diabetes mellitus with diabetic chronic kidney disease; N18.5 - Chronic kidney disease, stage 5; Z79.4 - longterm (current) use of insulin Is this a current diagnosis for this admission?: Yes (4) Pulmonary hypertension Is this a current diagnosis for this admission?: Yes
[2018-10-30] MEDS: ATORVASTATIN CALCIUM 10 MG TABLET PO SCH (21:18)
[2018-10-30] MEDS: OXYCODONE HCL IR 5 MG TABLET PO PRN (21:18)
[2018-10-30] MEDS: OXYCODONE-ACETAMINOPHEN 5-325 MG TABLET PO PRN (21:19)
[2018-10-31] MEDS: PANTOPRAZOLE SODIUM 40 MG TABLET.DR PO SCH (05:07)
[2018-10-31] MEDS: CLONIDINE HCL 0.2 MG TABLET PO SCH ×3 (05:07→21:39)
[2018-10-31] MEDS: ISOSORB DINIT/HYDRALAZINE HCL 20-37.5 MG TABLET PO SCH ×3 (05:07→21:40)
[2018-10-31 05:30] LABS: ANION GAP 9 (5-19); BLOOD UREA NITROGEN 49 mg/dL (7-20); CALCIUM 9.2 mg/dL (8.4-10.2); CARBON DIOXIDE 28 mmol/L (22-30); CHLORIDE 103 mmol/L (98-107); GLUCOSE 158 mg/dL (75-110); POTASSIUM 3.8 mmol/L (3.6-5.0); SODIUM 139.9 mmol/L (137-145)
[2018-10-31] MEDS: CALCITRIOL 0.25 MCG CAPSULE PO SCH (09:03)
[2018-10-31] MEDS: SERTRALINE HCL 50 MG TABLET PO SCH (09:03)
[2018-10-31] MEDS: PRAMIPEXOLE DI-HCL 0.25 MG TABLET PO SCH ×2 (09:03→17:00)
[2018-10-31] MEDS: TOLTERODINE TARTRATE 1 MG TABLET PO SCH ×2 (09:03→21:39)
[2018-10-31] MEDS: GLIPIZIDE XL 5 MG TAB.ER.24 PO SCH (09:04)
[2018-10-31] MEDS: LEVOTHYROXINE SODIUM 0.15 MG TABLET PO SCH (09:05)
[2018-10-31] MEDS: APIXABAN 2.5 MG TABLET PO SCH ×2 (09:05→17:00)
[2018-10-31] MEDS: OXYCODONE HCL IR 5 MG TABLET PO PRN (09:05)
[2018-10-31] MEDS: VALSARTAN 160 MG TABLET PO SCH (09:05)
[2018-10-31] MEDS: CETIRIZINE 10 MG TABLET PO SCH (09:05)
[2018-10-31] MEDS: AMLODIPINE BESYLATE 10 MG TABLET PO SCH (09:05)
[2018-10-31] MEDS: METOPROLOL SUCCINATE 50 MG TAB.SR.24H PO SCH (09:05)
[2018-10-31] MEDS: INSULIN LISPRO 100 UNIT/ML 3 ML VIAL SUBCUT SCH ×5 (09:06→21:49)
[2018-10-31] MEDS: OXYCODONE-ACETAMINOPHEN 5-325 MG TABLET PO PRN (09:10)
[2018-10-31] MEDS: PHARMACY COMMUNICATION ORDER MC SCH (17:01)
[2018-10-31] MEDS: PREGABALIN 50 MG CAPSULE PO SCH (18:01)
--- NOTE | 2018-10-31 19:35 | PDOC PROGRESS REPORT ---
Subjective Progress Note for:: 10/31/18 Subjective:: She has hyperesthesia of the lower extremities, mild touch of the leg provokes severe pain and discomfort suggesting neuropathy Reason For Visit: RIKI,CKD STAGE 5 T2DM WITH COMPLICATIONS Physical Exam Vital Signs: Temp Pulse Resp BP Pulse Ox 97.8 F 71 20 130/75 H 96 10/31/18 15:24 10/31/18 15:24 10/31/18 15:24 10/31/18 15:24 10/31/18 15:24 Intake & Output 10/30/18 10/31/18 11/01/18 06:59 06:59 06:59 Intake Total 735 878 740 Output Total 3950 2900 1750 Balance -3214 Weight 102.4 kg 101 kg General appearance: PRESENT: no acute distress Eye exam: PRESENT: PERRLA Respiratory exam: PRESENT: clear to auscultation andrey Cardiovascular exam: PRESENT: +S1, +S2 GI/Abdominal exam: PRESENT: soft Neurological exam: PRESENT: alert, CN II-XII grossly intact Results Laboratory Results: 10/29/18 04:52 10/31/18 04:14 10/31/18 04:14 Sodium 139.9 Potassium 3.8 Chloride 103 Carbon Dioxide 28 Anion Gap 9 BUN 49 H Creatinine 4.24 H Est GFR ( Amer) 13 L Est GFR (Non-Af Amer) 11 L Glucose 158 H Calcium 9.2 10/26/18 17:11 Blood Blood Culture - Final NO GROWTH IN 5 DAYS 10/26/18 15:00 Blood Blood Culture - Final NO GROWTH IN 5 DAYS 10/26/18 10/26/18 10/26/18 11:23 14:13 17:11 Creatine Kinase 77 CK-MB (CK-2) Troponin I < 0.012 NT-Pro-B Natriuret Pep 86708 H 67318 H 10/26/18 10/26/18 10/26/18 17:11 23:50 23:50 Creatine Kinase 67 CK-MB (CK-2) 1.67 1.72 Troponin I < 0.012 < 0.012 NT-Pro-B Natriuret Pep 10/27/18 10/27/18 05:44 05:54 Creatine Kinase 60 CK-MB (CK-2) 1.68 Troponin I < 0.012 NT-Pro-B Natriuret Pep Impressions: Chest X-Ray 10/26/18 10:45 IMPRESSION: MILD CARDIOMEGALY. BORDERLINE VASCULAR PROMINENCE. Assessment & Plan - Diagnosis (1) Anasarca Is this a current diagnosis for this admission?: Yes (2) Chronic kidney disease, stage 5 Is this a current diagnosis for this admission?: Yes (3) T2DM (type 2 diabetes mellitus) Qualifiers: Diabetes mellitus penitentiary insulin use: with penitentiary use Diabetes mellitus complication status: with kidney complications Diabetes mellitus complication detail: with chronic kidney disease Chronic kidney disease stage: stage 5, not on chronic dialysis Qualified Code(s): E11.22 - Type 2 diabetes mellitus with diabetic chronic kidney disease; N18.5 - Chronic kidney disease, stage 5; Z79.4 - long term care administrator (current) use of insulin Is this a current diagnosis for this admission?: Yes (4) Pulmonary hypertension Is this a current diagnosis for this admission?: Yes (5) Hyperesthesia Is this a current diagnosis for this admission?: Yes Plan: Start Lyrica 50 mg p.o. twice daily
[2018-10-31] MEDS: ATORVASTATIN CALCIUM 10 MG TABLET PO SCH (21:39)
[2018-11-01] MEDS: PANTOPRAZOLE SODIUM 40 MG TABLET.DR PO SCH (05:37)
[2018-11-01] MEDS: CLONIDINE HCL 0.2 MG TABLET PO SCH ×3 (05:37→22:21)
[2018-11-01] MEDS: ISOSORB DINIT/HYDRALAZINE HCL 20-37.5 MG TABLET PO SCH ×3 (05:37→22:22)
[2018-11-01 06:18] LABS: ANION GAP 7 (5-19); BLOOD UREA NITROGEN 50 mg/dL (7-20); CALCIUM 9.4 mg/dL (8.4-10.2); CARBON DIOXIDE 30 mmol/L (22-30); CHLORIDE 103 mmol/L (98-107); GLUCOSE 171 mg/dL (75-110); SODIUM 140.4 mmol/L (137-145)
[2018-11-01] MEDS: TOLTERODINE TARTRATE 1 MG TABLET PO SCH ×2 (09:36→22:22)
[2018-11-01] MEDS: METOPROLOL SUCCINATE 50 MG TAB.SR.24H PO SCH (09:36)
[2018-11-01] MEDS: SERTRALINE HCL 50 MG TABLET PO SCH (09:36)
[2018-11-01] MEDS: CALCITRIOL 0.25 MCG CAPSULE PO SCH (09:36)
[2018-11-01] MEDS: CETIRIZINE 10 MG TABLET PO SCH (09:36)
[2018-11-01] MEDS: GLIPIZIDE XL 5 MG TAB.ER.24 PO SCH (09:36)
[2018-11-01] MEDS: LEVOTHYROXINE SODIUM 0.15 MG TABLET PO SCH (09:36)
[2018-11-01] MEDS: VALSARTAN 160 MG TABLET PO SCH (09:37)
[2018-11-01] MEDS: PREGABALIN 50 MG CAPSULE PO SCH ×2 (09:37→17:53)
[2018-11-01] MEDS: PRAMIPEXOLE DI-HCL 0.25 MG TABLET PO SCH ×2 (09:38→17:52)
[2018-11-01] MEDS: AMLODIPINE BESYLATE 10 MG TABLET PO SCH (09:38)
[2018-11-01] MEDS: APIXABAN 2.5 MG TABLET PO SCH ×2 (09:38→17:53)
[2018-11-01] MEDS: INSULIN LISPRO 100 UNIT/ML 3 ML VIAL SUBCUT SCH ×4 (09:39→21:31)
--- NOTE | 2018-11-01 13:29 | PDOC PROGRESS REPORT ---
Subjective Progress Note for:: 11/01/18 Reason For Visit: Patient seen today. She is sleeping but easily arousable. Her brother is by the bedside. Patient generally feels better but for some pain of her lower extremities for which she sees Dr. Thomas as started her on Lyrica. Breathing is better than so to his edema. She has good making good urine output with the Lasix infusion. No complaints of any chest pain or fever or chills. Labs and medications were reviewed which show stable renal numbers.No complaints of any nausea or vomiting. Appetite is good. Physical Exam Vital Signs: Temp Pulse Resp BP Pulse Ox 97.6 F 74 16 133/83 H 95 11/01/18 11:08 11/01/18 11:08 11/01/18 11:08 11/01/18 11:08 11/01/18 11:08 Intake & Output 10/31/18 11/01/18 11/02/18 06:59 06:59 06:59 Intake Total 878 740 Output Total 2900 2150 Balance -2021 -1409 Weight 101 kg 100.9 kg Respiratory exam: PRESENT: clear to auscultation andrey, decreased breath sounds. ABSENT: crackles Cardiovascular exam: PRESENT: RRR, +S1, +S2. ABSENT: rubs GI/Abdominal exam: PRESENT: normal bowel sounds, soft. ABSENT: organomegaly, tenderness Extremities exam: PRESENT: +1 edema Neurological exam: PRESENT: alert, awake, oriented to person, oriented to place, oriented to time Results Laboratory Results: 10/29/18 04:52 11/01/18 05:40 11/01/18 05:40 Sodium 140.4 Potassium 4.0 Chloride 103 Carbon Dioxide 30 Anion Gap 7 BUN 50 H Creatinine 4.39 H Est GFR ( Amer) 12 L Est GFR (Non-Af Amer) 10 L Glucose 171 H Calcium 9.4 Magnesium 2.1 10/26/18 17:11 Blood Blood Culture - Final NO GROWTH IN 5 DAYS 10/26/18 15:00 Blood Blood Culture - Final NO GROWTH IN 5 DAYS 10/26/18 10/26/18 10/26/18 11:23 14:13 17:11 Creatine Kinase 77 CK-MB (CK-2) Troponin I < 0.012 NT-Pro-B Natriuret Pep 86763 H 07710 H 10/26/18 10/26/18 10/26/18 17:11 23:50 23:50 Creatine Kinase 67 CK-MB (CK-2) 1.67 1.72 Troponin I < 0.012 < 0.012 NT-Pro-B Natriuret Pep 10/27/18 10/27/18 05:44 05:54 Creatine Kinase 60 CK-MB (CK-2) 1.68 Troponin I < 0.012 NT-Pro-B Natriuret Pep Impressions: Chest X-Ray 10/26/18 10:45 IMPRESSION: MILD CARDIOMEGALY. BORDERLINE VASCULAR PROMINENCE. Assessment & Plan - Diagnosis (1) Cor pulmonale Plan: Continue present treatments. Echocardiogram shows moderate pulmonary hypertension. (2) Obstructive sleep apnea Plan: Advised on compliance with CPAP when she is discharged home. (3) Anasarca Is this a current diagnosis for this admission?: Yes Plan: Improving. Continue current diuretic regimen. (4) Chronic kidney disease, stage 5 Is this a current diagnosis for this admission?: Yes Plan: Stable renal numbers. No evidences of uremia or overt left ventricular failure. Electrolytes are stable. No indications for initiation of renal replacements c urrently. (5) Type 2 diabetes mellitus with chronic kidney disease Qualifiers: Diabetes mellitus middle or intermediate school principal insulin use: with group home use Chronic kidney disease stage: stage 5, not on chronic dialysis Qualified Code(s): E11.22 - Type 2 diabetes mellitus with diabetic chronic kidney disease; N18.5 - Chronic kidney disease, stage 5; Z79.4 - retirement (current) use of insulin Is this a current diagnosis for this admission?: Yes Plan: Advised tight diabetic control.
[2018-11-01] MEDS: PHARMACY COMMUNICATION ORDER MC SCH (17:55)
[2018-11-01] MEDS: FUROSEMIDE 80 MG TABLET PO SCH (18:57)
--- NOTE | 2018-11-01 20:27 | PDOC PROGRESS REPORT ---
Subjective Progress Note for:: 11/01/18 Subjective:: Patient complains of leg cramps with severe hyperesthesia, yesterday she was giving Lyrica for the treatment of the hyperesthesia but the Lyrica made her very confused so the Lyrica was discontinued today Reason For Visit: RIKI,CKD STAGE 5 T2DM WITH COMPLICATIONS Physical Exam Vital Signs: Temp Pulse Resp BP Pulse Ox 98.0 F 86 18 149/75 H 94 11/01/18 15:40 11/01/18 15:40 11/01/18 15:40 11/01/18 15:40 11/01/18 15:40 Intake & Output 10/31/18 11/01/18 11/02/18 06:59 06:59 06:59 Intake Total 716 823 0115 Output Total 2900 2150 Balance -2021 106 Weight 101 kg 100.9 kg General appearance: PRESENT: no acute distress Eye exam: PRESENT: PERRLA Respiratory exam: PRESENT: clear to auscultation andrey Cardiovascular exam: PRESENT: +S1, +S2 Neurological exam: PRESENT: alert Results Laboratory Results: 10/29/18 04:52 11/01/18 05:40 11/01/18 05:40 Sodium 140.4 Potassium 4.0 Chloride 103 Carbon Dioxide 30 Anion Gap 7 BUN 50 H Creatinine 4.39 H Est GFR ( Amer) 12 L Est GFR (Non-Af Amer) 10 L Glucose 171 H Calcium 9.4 Magnesium 2.1 10/26/18 17:11 Blood Blood Culture - Final NO GROWTH IN 5 DAYS 10/26/18 10/26/18 10/26/18 11:23 14:13 17:11 Creatine Kinase 77 CK-MB (CK-2) Troponin I < 0.012 NT-Pro-B Natriuret Pep 37640 H 69734 H 10/26/18 10/26/18 10/26/18 17:11 23:50 23:50 Creatine Kinase 67 CK-MB (CK-2) 1.67 1.72 Troponin I < 0.012 < 0.012 NT-Pro-B Natriuret Pep 10/27/18 10/27/18 05:44 05:54 Creatine Kinase 60 CK-MB (CK-2) 1.68 Troponin I < 0.012 NT-Pro-B Natriuret Pep Impressions: Chest X-Ray 10/26/18 10:45 IMPRESSION: MILD CARDIOMEGALY. BORDERLINE VASCULAR PROMINENCE. Assessment & Plan - Diagnosis (1) Anasarca Is this a current diagnosis for this admission?: Yes (2) Chronic kidney disease, stage 5 Is this a current diagnosis for this admission?: Yes (3) T2DM (type 2 diabetes mellitus) Qualifiers: Diabetes mellitus lobsterman insulin use: with senior living use Diabetes mellitus complication status: with kidney complications Diabetes mellitus complication detail: with chronic kidney disease Chronic kidney disease stage: stage 5, not on chronic dialysis Qualified Code(s): E11.22 - Type 2 diabetes mellitus with diabetic chronic kidney disease; N18.5 - Chronic kidney disease, stage 5; Z79.4 - terminologist (current) use of insulin Is this a current diagnosis for this admission?: Yes (4) Pulmonary hypertension Is this a current diagnosis for this admission?: Yes (5) Hyperesthesia Is this a current diagnosis for this admission?: Yes - Plan Summary Plan Summary: Discontinue continuous furosemide infusion transition to p.o. Cleo she was admitted on Monday is been 8 days of IV furosemide hopefully discharge home tomorrow
[2018-11-01] MEDS: ATORVASTATIN CALCIUM 10 MG TABLET PO SCH (22:21)
[2018-11-01] MEDS: OXYCODONE-ACETAMINOPHEN 5-325 MG TABLET PO PRN (23:35)
[2018-11-01] MEDS: OXYCODONE HCL IR 5 MG TABLET PO PRN (23:35)
[2018-11-02] MEDS: CLONIDINE HCL 0.2 MG TABLET PO SCH ×3 (06:26→22:24)
[2018-11-02] MEDS: PANTOPRAZOLE SODIUM 40 MG TABLET.DR PO SCH (06:26)
[2018-11-02] MEDS: ISOSORB DINIT/HYDRALAZINE HCL 20-37.5 MG TABLET PO SCH ×3 (06:27→22:24)
[2018-11-02 06:54] LABS: ANION GAP 12 (5-19); BLOOD UREA NITROGEN 64 mg/dL (7-20); CALCIUM 9.2 mg/dL (8.4-10.2); CARBON DIOXIDE 27 mmol/L (22-30); CHLORIDE 100 mmol/L (98-107); GLUCOSE 262 mg/dL (75-110); POTASSIUM 4.5 mmol/L (3.6-5.0); SODIUM 138.6 mmol/L (137-145)
[2018-11-02] MEDS: INSULIN LISPRO 100 UNIT/ML 3 ML VIAL SUBCUT SCH ×4 (10:21→22:25)
[2018-11-02] MEDS: PRAMIPEXOLE DI-HCL 0.25 MG TABLET PO SCH ×2 (10:22→17:42)
[2018-11-02] MEDS: SERTRALINE HCL 50 MG TABLET PO SCH (10:23)
[2018-11-02] MEDS: CALCITRIOL 0.25 MCG CAPSULE PO SCH (10:24)
[2018-11-02] MEDS: LEVOTHYROXINE SODIUM 0.15 MG TABLET PO SCH (10:24)
[2018-11-02] MEDS: GLIPIZIDE XL 5 MG TAB.ER.24 PO SCH (10:24)
[2018-11-02] MEDS: AMLODIPINE BESYLATE 10 MG TABLET PO SCH (10:24)
[2018-11-02] MEDS: TOLTERODINE TARTRATE 1 MG TABLET PO SCH ×2 (10:24→22:24)
[2018-11-02] MEDS: FUROSEMIDE 80 MG TABLET PO SCH ×2 (10:24→17:41)
[2018-11-02] MEDS: CETIRIZINE 10 MG TABLET PO SCH (10:24)
[2018-11-02] MEDS: APIXABAN 2.5 MG TABLET PO SCH ×2 (10:24→17:42)
[2018-11-02] MEDS: METOPROLOL SUCCINATE 50 MG TAB.SR.24H PO SCH (10:24)
[2018-11-02] MEDS: VALSARTAN 160 MG TABLET PO SCH (10:25)
[2018-11-02] MEDS: OXYCODONE HCL IR 5 MG TABLET PO PRN (17:46)
[2018-11-02] MEDS: OXYCODONE-ACETAMINOPHEN 5-325 MG TABLET PO PRN (17:46)
--- NOTE | 2018-11-02 20:41 | PDOC PROGRESS REPORT ---
Subjective Progress Note for:: 11/02/18 Subjective:: Patient was seen by the bedside, she has no new complaints, she had episode of hallucination, visual yesterday otherwise stable Reason For Visit: ANASARCA,CKD STAGE 5 T2DM WITH COMPLICATIONS Physical Exam Vital Signs: Temp Pulse Resp BP Pulse Ox 98.5 F 85 20 114/73 98 11/02/18 19:55 11/02/18 19:55 11/02/18 19:55 11/02/18 19:55 11/02/18 19:55 Intake & Output 11/01/18 11/02/18 11/03/18 06:59 06:59 06:59 Intake Total 740 1296 575 Output Total 2150 Balance -1410 1296 575 Weight 100.9 kg 93.5 kg General appearance: PRESENT: no acute distress Eye exam: PRESENT: PERRLA Respiratory exam: PRESENT: clear to auscultation andrey Cardiovascular exam: PRESENT: +S1, +S2 GI/Abdominal exam: PRESENT: soft Neurological exam: PRESENT: alert Results Laboratory Results: 10/29/18 04:52 11/02/18 05:07 11/02/18 05:07 Sodium 138.6 Potassium 4.5 Chloride 100 Carbon Dioxide 27 Anion Gap 12 BUN 64 H Creatinine 5.05 H Est GFR ( Amer) 10 L Est GFR (Non-Af Amer) 9 L Glucose 262 H Calcium 9.2 10/26/18 10/26/18 10/26/18 11:23 14:13 17:11 Creatine Kinase 77 CK-MB (CK-2) Troponin I < 0.012 NT-Pro-B Natriuret Pep 17955 H 58699 H 10/26/18 10/26/18 10/26/18 17:11 23:50 23:50 Creatine Kinase 67 CK-MB (CK-2) 1.67 1.72 Troponin I < 0.012 < 0.012 NT-Pro-B Natriuret Pep 10/27/18 10/27/18 05:44 05:54 Creatine Kinase 60 CK-MB (CK-2) 1.68 Troponin I < 0.012 NT-Pro-B Natriuret Pep Impressions: Chest X-Ray 10/26/18 10:45 IMPRESSION: MILD CARDIOMEGALY. BORDERLINE VASCULAR PROMINENCE. Assessment & Plan - Diagnosis (1) Anasarca Is this a current diagnosis for this admission?: Yes (2) Chronic kidney disease, stage 5 Is this a current diagnosis for this admission?: Yes (3) T2DM (type 2 diabetes mellitus) Qualifiers: Diabetes mellitus assisted insulin use: with oil heaterman use Diabetes mylai tori complication status: with kidney complications Diabetes mellitus comp lication detail: with chronic kidney disease Chronic kidney disease stage: stage 5, not on chronic dialysis Qualified Code(s): E11.22 - Type 2 diabetes mellitus with diabetic chronic kidney disease; N18.5 - Chronic kidney disease, stage 5; Z79.4 - oil heaterman (current) use of insulin Is this a current diagnosis for this admission?: Yes (4) Pulmonary hypertension Is this a current diagnosis for this admission?: Yes (5) Hyperesthesia Is this a current diagnosis for this admission?: Yes
[2018-11-02] MEDS: ATORVASTATIN CALCIUM 10 MG TABLET PO SCH (22:24)
[2018-11-03 06:12] LABS: ANION GAP 11 (5-19); BLOOD UREA NITROGEN 65 mg/dL (7-20); CARBON DIOXIDE 26 mmol/L (22-30); CHLORIDE 101 mmol/L (98-107); GLUCOSE 217 mg/dL (75-110); POTASSIUM 4.2 mmol/L (3.6-5.0); SODIUM 138.2 mmol/L (137-145)
[2018-11-03] MEDS: CLONIDINE HCL 0.2 MG TABLET PO SCH ×2 (06:45→14:31)
[2018-11-03] MEDS: PANTOPRAZOLE SODIUM 40 MG TABLET.DR PO SCH (06:47)
[2018-11-03] MEDS: ISOSORB DINIT/HYDRALAZINE HCL 20-37.5 MG TABLET PO SCH ×2 (06:48→14:30)
[2018-11-03] MEDS: LEVOTHYROXINE SODIUM 0.15 MG TABLET PO SCH (08:05)
[2018-11-03] MEDS: INSULIN LISPRO 100 UNIT/ML 3 ML VIAL SUBCUT SCH ×2 (08:05→11:36)
[2018-11-03] MEDS: TOLTERODINE TARTRATE 1 MG TABLET PO SCH (09:49)
[2018-11-03] MEDS: AMLODIPINE BESYLATE 10 MG TABLET PO SCH (09:49)
[2018-11-03] MEDS: SERTRALINE HCL 50 MG TABLET PO SCH (09:50)
[2018-11-03] MEDS: FUROSEMIDE 80 MG TABLET PO SCH (09:50)
[2018-11-03] MEDS: VALSARTAN 160 MG TABLET PO SCH (09:50)
[2018-11-03] MEDS: PRAMIPEXOLE DI-HCL 0.25 MG TABLET PO SCH (09:50)
[2018-11-03] MEDS: GLIPIZIDE XL 5 MG TAB.ER.24 PO SCH (09:50)
[2018-11-03] MEDS: CALCITRIOL 0.25 MCG CAPSULE PO SCH (09:51)
[2018-11-03] MEDS ORDERED: OXYCODONE-ACETAMINOPHEN 5-325 MG TABLET PO PRN (09:51)
[2018-11-03] MEDS: METOPROLOL SUCCINATE 50 MG TAB.SR.24H PO SCH (09:51)
[2018-11-03] MEDS: APIXABAN 2.5 MG TABLET PO SCH (09:51)
[2018-11-03] MEDS: CETIRIZINE 10 MG TABLET PO SCH (09:51)
--- NOTE | 2018-11-03 14:25 | PDOC DISCHARGE SUMMARY ---
General - Admit/Disc Date/PCP Admission Date/Primary Care Provider: 10/26/18 15:43 JIM GARCÍA MD Discharge Date: 11/03/18 - Discharge Diagnosis (1) Anasarca Is this a current diagnosis for this admission?: Yes (2) Chronic kidney disease, stage 5 Is this a current diagnosis for this admission?: Yes (3) T2DM (type 2 diabetes mellitus) Is this a current diagnosis for this admission?: Yes (4) Pulmonary hypertension Is this a current diagnosis for this admission?: Yes (5) Hyperesthesia Is this a current diagnosis for this admission?: Yes - Additional Information Discharge Diet: Cardiac, Diabetic Discharge Activity: Activity As Tolerated, Balance Activity w/Rest, Weigh Daily Prescriptions: Apixaban [Eliquis 2.5 mg Tablet] 2.5 mg PO BID #60 tablet Furosemide [Lasix 80 mg Tablet] 80 mg PO BID #180 tablet Home Medications: Amlodipine Besylate [Norvasc 10 mg Tablet] 10 mg PO DAILY 10/26/18 Calcitriol 0.5 mcg PO DAILY 10/26/18 Cetirizine HCl [Zyrtec 10 mg Tablet] 10 mg PO DAILY 10/26/18 Clonidine HCl [Catapres 0.3 mg Tablet] 0.3 mg PO TID 10/26/18 Cyanocobalamin (Vitamin B-12) [Vitamin B-12 Inj 1000 Mcg/1 ml Vial] 1,000 mcg IM [id number] 10/26/18 Glipizide [Glucotrol Xl] 10 mg PO DAILY 10/26/18 Isosorb Dinit/Hydralazine HCl [Bidil 20-37.5 mg Tablet] 1 tab PO TID 10/26/18 Levothyroxine Sodium 150 mcg PO Q6AM 10/26/18 Metoprolol Succinate [Toprol XL 100 mg Tablet] 100 mg PO DAILY 10/26/18 Omeprazole 40 mg PO DAILY 10/26/18 Oxycodone HCl/Acetaminophen [Percocet 10-325 mg Tablet] 1 tab PO Q8HP PRN 10/26/18 Pravastatin Sodium [Pravachol] 40 mg PO QPM 10/26/18 Sertraline HCl [Zoloft] 25 mg PO DAILY 10/26/18 Solifenacin Succinate [Vesicare] 5 mg PO DAILY 10/26/18 Valsartan [Diovan] 320 mg PO DAILY 10/26/18 Apixaban [Eliquis 2.5 mg Tablet] 2.5 mg PO BID #60 tablet 11/03/18 Furosemide [Lasix 80 mg Tablet] 80 mg PO BID #180 tablet 11/03/18 History of Present Illness History of Present Illness: ORLANDO COOPER is a 63 year old female, She has chronic kidney disease stage V, GFR 12 she has multiple comorbid conditions she was referred to the emergency room by the sterile processing technologist Dr. Lopez to be admitted for the management of anasarca she has tremendous fluid retention. She has multiple comorbid conditions including type II diabetes mellitus, chronic atrial fibrillation ,Morbid obesity, she has a history of pulmonary hypertension Hospital Course Hospital Course: Patient was admitted for the management of anasarca partly due to severe pulmonary hypertension, she has CKD stage V, she was seen by nephrology on this admission she did not require hemodialysis. She was treated with intravenous furosemide infusion, she was diuresed. The portal hypertension is probably due to obesity, she has ordered comorbid conditions including chronic atrial fibrillation, she is on anticoagulant, she was taken off Xarelto on this admission and started on Eliquis for CVA prophylaxis. Physical Exam Vital Signs: Temp Pulse Resp BP Pulse Ox 98.9 F 92 18 101/80 97 11/03/18 08:03 11/03/18 08:03 11/03/18 08:03 11/03/18 08:03 11/03/18 08:03 Intake & Output 11/02/18 11/03/18 11/04/18 06:59 06:59 06:59 Intake Total 1296 875 Output Total 1600 Balance 1296 -725 Weight 93.5 kg 92 kg General appearance: PRESENT: no acute distress Head exam: PRESENT: atraumatic, normocephalic Eye exam: PRESENT: conjunctiva pink, EOMI, PERRLA Ear exam: PRESENT: normal external ear exam Mouth exam: PRESENT: moist, tongue midline Neck exam: PRESENT: full ROM Cardiovascular exam: PRESENT: RRR, +S1, +S2 Vascular exam: PRESENT: normal capillary refill GI/Abdominal exam: PRESENT: normal bowel sounds, soft Rectal exam: PRESENT: deferred Neurological exam: PRESENT: alert, CN II-XII grossly intact Psychiatric exam: PRESENT: appropriate affect, normal mood Skin exam: PRESENT: dry, intact, warm Results Laboratory Results: 10/29/18 04:52 11/03/18 05:34 11/03/18 05:34 Sodium 138.2 Potassium 4.2 Chloride 101 Carbon Dioxide 26 Anion Gap 11 BUN 65 H Creatinine 5.15 H Est GFR ( Amer) 10 L Est GFR (Non-Af Amer) 8 L Glucose 217 H Calcium 9.0 10/26/18 10/26/18 10/26/18 11:23 14:13 17:11 Creatine Kinase 77 CK-MB (CK-2) Troponin I < 0.012 NT-Pro-B Natriuret Pep 94181 H 29888 H 10/26/18 10/26/18 10/26/18 17:11 23:50 23:50 Creatine Kinase 67 CK-MB (CK-2) 1.67 1.72 Troponin I < 0.012 < 0.012 NT-Pro-B Natriuret Pep 10/27/18 10/27/18 05:44 05:54 Creatine Kinase 60 CK-MB (CK-2) 1.68 Troponin I < 0.012 NT-Pro-B Natriuret Pep Impressions: Chest X-Ray 10/26/18 10:45 IMPRESSION: MILD CARDIOMEGALY. BORDERLINE VASCULAR PROMINENCE. Qualifiers - * PATIENT BEING DISCHARGED WITH ANY OF THE FOLLOWING DIAGNOSIS: No VTE patient discharged on overlapping Therapy?: No Reason(s) for not prescribing Overlap Therapy:: Not indicated Stroke Pt being discharged on Anti-thrombolytic therapy?: No Reason(s) for not prescribing Anti-thrombolytic therapy:: Not indicated Stroke Pt being discharged on Anti-coagulation therapy?: No Reason(s) for not prescribing Anti-coagulation therapy:: Not indicated Stroke Pt being discharged on Statins?: No Reason(s) for not prescribing Statins therapy:: Not indicated MT Pt being discharged on Aspirin therapy?: No Reason(s) for not prescribing Aspirin therapy:: Not indicated MT Pt being discharged on Statins?: No Reason(s) for not prescribing Statin therapy:: Not indicated MT Pt discharged ACEI/ARBS?: No Reason(s) for not prescribing ACEI/ARBS:: Not indicated Acute Heart Failure - Is this a Heart Failure Patient?: No
[2018-11-03 14:33] VITALS: BP 155/96
[2018-11-20] MEDS ORDERED: CYANOCOBALAMIN (VITAMIN B-12) INJ 1000 MCG/1 ML VIAL IM SCH (10:00)
== END 2018-11-03 15:37 | disposition home or self-care (01) | DRG 315 ==
LOC: ER 10:32 → EH 15:43 → 3W 21:09
PROVIDERS: ADMIT Internal Medicine; ATTEND Internal Medicine
DX: I27.20 Pulmonary hypertension, unspecified (principal); I13.2 Hypertensive heart and chronic kidney disease with heart failure and with stage 5 chronic kidney disease, or end stage renal disease; N18.5 Chronic kidney disease, stage 5; I50.9 Heart failure, unspecified; I48.2 Chronic atrial fibrillation; K21.9 Gastro-esophageal reflux disease without esophagitis; E66.01 Morbid (severe) obesity due to excess calories; J45.909 Unspecified asthma, uncomplicated; E78.5 Hyperlipidemia, unspecified; E89.0 Postprocedural hypothyroidism; D63.1 Anemia in chronic kidney disease; F32.9 Major depressive disorder, single episode, unspecified; M19.90 Unspecified osteoarthritis, unspecified site; Z96.652 Presence of left artificial knee joint; G47.33 Obstructive sleep apnea (adult) (pediatric); R20.3 Hyperesthesia; Z98.84 Bariatric surgery status; Z79.02 Long term (current) use of antithrombotics/antiplatelets; Z82.3 Family history of stroke; Z79.4 Long term (current) use of insulin; Z85.528 Personal history of other malignant neoplasm of kidney
CPT/HCPCS: 36415; 71046; 80048; 80053; 80307; 81001; 82140; 82150; 82550; 82553; 82962; 83036; 83690; 83735; 83880; 84100; 84439; 84443; 84484; 85025; 85610; 85730; 87040; 87086; 93005; 93010; 93306; 96360; 99284; J1644; J1815; J1940; J3490; J7050

== ENCOUNTER → 2018-11-09 | Outpatient (CLI) | payer MEDICAID ==
[2018-11-09 11:27] LABS: ABSOLUTE EOSINOPHILS # (AUTO) 0.1 10^3/uL (0.0-0.6); ABSOLUTE LYMPHOCYTES (AUTO) 0.8 10^3/uL (0.5-4.7); ABSOLUTE MONOCYTES (AUTO) 0.8 10^3/uL (0.1-1.4); ABSOLUTE NEUT (AUTO) 5.1 10^3/uL (1.7-8.2); BASOPHILS % (AUTO) 0.3 % (0-2); HEMATOCRIT 34.1 % (36.0-47.0); LYMPHOCYTES % (AUTO) 11.7 % (13-45); MEAN CORPUSCULAR HEMOGLOBIN 27.7 pg (27.0-33.4); MEAN CORPUSCULAR HGB CONC 32.4 g/dL (32.0-36.0); MEAN CORPUSCULAR VOLUME 85 fl (80-97); MONOCYTES % (AUTO) 11.6 % (3-13); PLATELET COUNT 254 10^3/uL (150-450); RED BLOOD COUNT 3.99 10^6/uL (3.72-5.28); RED CELL DISTRIBUTION WIDTH 14.3 % (11.5-14.0); SEGMENTED NEUTROPHILS % (AUTO) 74.4 % (42-78); TOTAL CELLS COUNTED % (AUTO) 100 %; WHITE BLOOD COUNT 6.8 10^3/uL (4.0-10.5)
[2018-11-09 11:47] LABS: ALANINE AMINOTRANSFERASE 27 U/L (9-52); ALKALINE PHOSPHATASE 79 U/L (38-126); ANION GAP 15 (5-19); ASPARTATE AMINO TRANSFERASE 21 U/L (14-36); BILIRUBIN,DIRECT 0.3 mg/dL (0.0-0.4); BILIRUBIN,TOTAL 0.3 mg/dL (0.2-1.3); BLOOD UREA NITROGEN 117 mg/dL (7-20); CALCIUM 8.4 mg/dL (8.4-10.2); CARBON DIOXIDE 21 mmol/L (22-30); CHLORIDE 105 mmol/L (98-107); GLUCOSE 56 mg/dL (75-110); IRON(TIBC) 40.4 ug/dL (37-170); SODIUM 141.1 mmol/L (137-145); TOTAL PROTEIN 5.4 g/dL (6.3-8.2)
[2018-11-11 14:37] LABS: A/G RATIO 1.4 (0.7-1.7); ALBUMIN 2 3.1 g/dL (2.9-4.4); ALPHA-2-GLOBULIN 2 0.6 g/dL (0.4-1.0); BETA GLOBULINS 0.8 g/dL (0.7-1.3); GAMMA GLOBULIN 0.5 g/dL (0.4-1.8); GLOBULIN TOTAL 2.2 g/dL (2.2-3.9); MONOCLONAL SPIKE Not Observed g/dL (Not Observ); PROTEIN TOTAL SERUM 5.3 g/dL (6.0-8.5)
== END ==
LOC: OD 10:59
PROVIDERS: ATTEND Internal Medicine Nephrology
DX: I13.2 Hypertensive heart and chronic kidney disease with heart failure and with stage 5 chronic kidney disease, or end stage renal disease (principal); N18.5 Chronic kidney disease, stage 5; E11.22 Type 2 diabetes mellitus with diabetic chronic kidney disease; I50.9 Heart failure, unspecified; N25.0 Renal osteodystrophy; R80.9 Proteinuria, unspecified
CPT/HCPCS: 36415; 80053; 82728; 83540; 83550; 83970; 84100; 84165; 84443; 85025

== ENCOUNTER 2018-11-20 17:15 | Inpatient (IN) | payer MEDICAID ==
--- NOTE | 2018-11-20 19:43 | ER Document Report ---
ED Medical Screen (RME) - General Chief Complaint: Fall Stated Complaint: FALL Time Seen by Provider: 11/20/18 19:23 Primary Care Provider: Sissy MAI MD [Primary Care Provider] - Follow up as needed Notes: Patient is a 63-year-old female who presents the emergency department after a fall. She complains of right foot pain, right hip pain, and generalized lower extremity pain. She has pain upon palpation of both lower extremities. Left foot does not hurt. She has a past history of a left knee replacement. She was on the toilet at the time of her fall. She does complain of some dysuria. She states that she lost some feeling in her feet and ended up falling over. Denies hitting her head. She also has a past medical history of hypertension, hyperlipidemia, CHF. Exam: Tenderness to bilateral lower extremities. I have greeted and performed a rapid initial assessment of this patient. A comprehensive ED assessment and evaluation of the patient, analysis of test results and completion of medical decision making process will be conducted by an additional ED providers. TRAVEL OUTSIDE OF THE [place] IN LAST 30 DAYS: No - Related Data Allergies/Adverse Reactions: benazepril Allergy (Verified 11/20/18 17:20) throat closes,lips swell Past Medical History - Social History Chew tobacco use (# tins/day): No Frequency of alcohol use: None Drug Abuse: None Family history: Reviewed & Not Pertinent - Past Medical History Cardiac Medical History: Reports: Hx Atrial Fibrillation, Hx Hypercholesterolemia, Hx Hypertension Denies: Hx Congestive Heart Failure, Hx Coronary Artery Disease, Hx Heart Attack, Hx Peripheral Vascular Disease, Hx Pulmonary Embolism, Hx Heart Murmur Pulmonary Medical History: Reports: Hx Asthma - as a child, Hx Sleep Apnea - CPAP- started October 2014 Denies: Hx Bronchitis, Hx COPD, Hx Pneumonia, Hx Respiratory Failure, Hx Tuberculosis Neurological Medical History: Denies: Hx Cerebrovascular Accident, Hx Seizures Endocrine Medical History: Reports: Hx Diabetes Mellitus Type 2, Hx Hypothyroidism - goiter/Thyroidectomy 2010. Denies: Hx Graves' Disease, Hx Hyperthyroidism Renal/ Medical History: Denies: Hx End Stage Renal Disease, Hx Kidney Stones, Hx Peritoneal Dialysis Malignancy Medical History: Reports: Hx Renal (Kidney) Cancer. Denies: Hx Leukemia, Hx Lung Cancer GI Medical History: Reports: Hx Gastroesophageal Reflux Disease - 3 yrs-takes meds. Denies: Hx Cirrhosis, Hx Crohn's Disease, Hx Hiatal Hernia, Hx Irritable Bowel, Hx Liver Failure, Hx Pancreatitis, Hx Ulcer Musculoskeltal Medical History: Reports Hx Arthritis - neck, Denies Hx Fibromyalgia, Denies Hx Multiple Sclerosis, Denies Hx Muscular Dystrophy, Denies Hx Systemic Lupus Erythematosus Psychiatric Medical History: Reports: Hx Depression Denies: Hx Bipolar Disorder, Hx Dementia, Hx Schizophrenia Traumatic Medical History: Denies: Hx Fractures Infectious Medical History: Denies: Hx HIV Past Surgical History: Reports: Hx Abdominal Surgery - GBP, Hx Gastric Bypass Surgery - 1994, Hx Hysterectomy, Hx Kidney (Renal Surgery) - mass removed off of right kidney, Hx Orthopedic Surgery - left knee replacement, Hx Thyroid Surgery - removed 2010. Denies: Hx Appendectomy, Hx Bowel Surgery, Hx Section, Hx Cholecystectomy, Hx Colostomy, Hx Coronary Artery Bypass Graft, Hx Herniorrhaphy, Hx Mastectomy, Hx Pacemaker, Hx Tonsillectomy, Hx Tubal Ligation - Immunizations Hx Diphtheria, Pertussis, Tetanus Vaccination: Yes History of Influenza Vaccine for 02/2017 - 07/2017 Season: Yes Influenza Administration Date for 02/2017 - 07/2017 Season: 02/19/17 Physical Exam - Vital signs Vitals: Temp Pulse Resp BP Pulse Ox 98.4 F 128 H 16 150/107 H 97 11/20/18 17:18 11/20/18 17:18 11/20/18 17:18 11/20/18 17:18 11/20/18 17:18 Course - Vital Signs Vital signs: Temp Pulse Resp BP Pulse Ox 97.6 F 96 19 127/70 H 98 11/20/18 19:48 11/20/18 19:48 11/20/18 19:48 11/20/18 19:48 11/20/18 19:48 - Laboratory Result Diagrams: 11/20/18 21:00 11/20/18 21:00 Laboratory results interpreted by me: 11/20/18 21:00 RBC 3.67 L Hgb 10.1 L Hct 30.9 L RDW 14.6 H Seg Neutrophils % 85.5 H Lymphocytes % 8.9 L Doctor's Discharge - Discharge Referrals: Sissy MAI MD [Primary Care Provider] - Follow up as needed
--- NOTE | 2018-11-20 20:47 | RADIOLOGY REPORT (SQ) ---
EXAM DESCRIPTION: Right foot [facility]Lex: XR FOOT 3 OR MORE VIEWS Views: 3 CLINICAL HISTORY: 63 years Female, fall COMPARISON: None. FINDINGS: There is an acute oblique fracture through the distal head of the 5th metatarsal, with minimal displacement. No additional fractures. Moderate vascular calcifications are noted. No soft tissue air. No lytic bone changes or periosteal reaction. IMPRESSION: 1. Acute minimally displaced fracture through the distal head of the 5th metatarsal. No joint involvement.
--- NOTE | 2018-11-20 20:48 | RADIOLOGY REPORT (SQ) ---
EXAM DESCRIPTION: XR PELVIS 1-2 VIEWS COMPLETED DATE/TME: 11/20/2018 19:40 CLINICAL HISTORY: 63 years, Female, fall/pain COMPARISON: 04/21/2017 FINDINGS: Single view of the pelvis. No acute fracture or dislocation. Osteopenia. Degenerative change of the spine. IMPRESSION: 1. No acute fracture or dislocation. copyright 2010 [employer]- All Rights Reserved
--- NOTE | 2018-11-20 20:49 | RADIOLOGY REPORT (SQ) ---
EXAM DESCRIPTION: RadLex: XR TIBIA FIBULA 2 VIEWS BILATERAL Views: 2 views of each tib-fib CLINICAL HISTORY: 63 years Female, fall COMPARISON: None. FINDINGS: Left: Knee arthroplasty is noted. No evidence for loosening. No acute fracture. Diffuse vascular calcification is noted. Right: Negative for acute fracture, dislocation, or radiopaque foreign body. Diffuse vascular calcification. IMPRESSION: 1. No acute findings.
--- NOTE | 2018-11-20 20:50 | RADIOLOGY REPORT (SQ) ---
EXAM DESCRIPTION: XR FEMUR BILATERAL COMPLETED DATE/TME: 11/20/2018 19:40 CLINICAL HISTORY: 63 years, Female, fall COMPARISON: None. FINDINGS: 2 views of the bilateral femurs. No acute fracture or dislocation. Osteopenia. Atherosclerotic vascular calcification. No radiopaque foreign body. Partial visualization of left total knee arthroplasty. IMPRESSION: 1. No acute fracture or dislocation. copyright 2010 [employer]- All Rights Reserved
[2018-11-20 21:24] LABS: ABSOLUTE LYMPHOCYTES (AUTO) 0.7 10^3/uL (0.5-4.7); ABSOLUTE MONOCYTES (AUTO) 0.4 10^3/uL (0.1-1.4); ABSOLUTE NEUT (AUTO) 6.7 10^3/uL (1.7-8.2); BASOPHILS % (AUTO) 0.1 % (0-2); EOSINOPHILS % (AUTO) 0.1 % (0-6); HEMATOCRIT 30.9 % (36.0-47.0); HEMOGLOBIN 10.1 g/dL (12.0-15.5); LYMPHOCYTES % (AUTO) 8.9 % (13-45); MEAN CORPUSCULAR HEMOGLOBIN 27.7 pg (27.0-33.4); MEAN CORPUSCULAR HGB CONC 32.9 g/dL (32.0-36.0); MEAN CORPUSCULAR VOLUME 84 fl (80-97); MONOCYTES % (AUTO) 5.4 % (3-13); PLATELET COUNT 276 10^3/uL (150-450); RED BLOOD COUNT 3.67 10^6/uL (3.72-5.28); RED CELL DISTRIBUTION WIDTH 14.6 % (11.5-14.0); SEGMENTED NEUTROPHILS % (AUTO) 85.5 % (42-78); TOTAL CELLS COUNTED % (AUTO) 100 %; WHITE BLOOD COUNT 7.8 10^3/uL (4.0-10.5)
[2018-11-20 21:46] LABS: ALANINE AMINOTRANSFERASE 28 U/L (9-52); ALBUMIN 3.3 g/dL (3.5-5.0); ALKALINE PHOSPHATASE 72 U/L (38-126); ANION GAP 19 (5-19); ASPARTATE AMINO TRANSFERASE 30 U/L (14-36); BILIRUBIN,DIRECT 0.2 mg/dL (0.0-0.4); BILIRUBIN,TOTAL 0.2 mg/dL (0.2-1.3); CALCIUM 8.7 mg/dL (8.4-10.2); POTASSIUM 4.3 mmol/L (3.6-5.0); TOTAL PROTEIN 5.8 g/dL (6.3-8.2)
[2018-11-20 21:52] LABS: CARBON DIOXIDE 16 mmol/L (22-30); CHLORIDE 102 mmol/L (98-107)
[2018-11-20 22:20] LABS: BLOOD UREA NITROGEN 157 mg/dL (7-20)
[2018-11-20 22:22] LABS: GLUCOSE 33 mg/dL (75-110)
[2018-11-20] MEDS ORDERED: DEXTROSE 50%-WATER 25 GM/50 ML DISP.SYRIN IV ONE (22:27)
[2018-11-20] MEDS ORDERED: DEXTROSE 40% GEL 15 GM TUBE ONE (22:36)
[2018-11-20] MEDS ORDERED: DEXTROSE 40% GEL 15 GM TUBE PO ONE (22:40)
[2018-11-20] MEDS ORDERED: RINGERS SOLUTION,LACTATED 1,000 ML IV ONE (22:46)
[2018-11-20] MEDS ORDERED: NORMAL SALINE 1000 ML 1,000 ML IV ONE (22:46)
--- NOTE | 2018-11-21 00:17 | EKG REPORT ---
SEVERITY:- ABNORMAL ECG - ATRIAL FIBRILLATION NONSPECIFIC T ABNORMALITIES, DIFFUSE LEADS : Confirmed by: Olivia Cesar 21-Nov-2018 00:15:58
--- NOTE | 2018-11-21 00:21 | ER Document Report ---
ED General - General Chief Complaint: Fall Stated Complaint: FALL Time Seen by Provider: 11/20/18 19:23 Notes: Patient is a 63-year-old female that presents to the emergency department for chief complaint of fall and foot pain. Patient states that she is in the bathroom, stood up off the toilet, and her legs gave out on her, she states that he felt wobbly, she denies hitting her head, this occurred around 3 PM today. She did injure her right foot, and hurts on the outside of it. She was recently in the hospital, and states that she was increased on her Lasix, she states her urination is decreased, she is felt dehydrated as well. She is also diabetic and has not eaten as much as usual because of her fall today. She feels somewhat lightheaded, but denies having any chest pain, shortness of breath, nausea, vomiting or abdominal pain. She denies any recent fevers, chills, night sweats, dysuria or hematuria. She currently rates the pain in her foot as a 3 out of 10 describes as an aching sensation, worse with movement of the foot particularly on the outside. Past Medical History: Chronic kidney disease, diabetes mellitus, hypertension Past Surgical History: Total knee arthroplasty Social History: Lives at home, denies tobacco or alcohol use. Family History: Reviewed and noncontributory for presenting illness Allergies: Reviewed, see documented allergy list. REVIEW OF SYSTEMS: Other than noted above, the 12 point review of systems was reviewed with the patient and were negative, all pertinent findings are included in the HPI. PHYSICAL EXAMINATION: Vital signs reviewed, nursing noted reviewed. GENERAL: Elderly female, no acute distress HEAD: Atraumatic, normocephalic. EYES: Eyes appear normal, extraocular movements intact, sclera anicteric, conjunctiva are normal. ENT: nares patent, oropharynx clear without exudates. Dry mucous membranes. NECK: Normal range of motion, supple without lymphadenopathy LUNGS: Breath sounds clear to auscultation bilaterally and equal. No wheezes rales or rhonchi. HEART: Heart rate tachycardic, regular rhythm, plus 3/6 systolic murmur noted. ABDOMEN: Soft, obese, nontender, normoactive bowel sounds. No rebound, guarding, or rigidity. No masses appreciated. EXTREMITIES: Nontender, good range of motion, trace pedal edema noted bilaterally. NEUROLOGICAL: No focal neurological deficits. Moves all extremities spontaneously Motor and sensory grossly intact on exam. PSYCH: Normal mood, flat affect. SKIN: Warm, Dry, normal turgor, no rashes or lesions noted on exposed skin TRAVEL OUTSIDE OF THE [place] IN LAST 30 DAYS: No - Related Data Allergies/Adverse Reactions: benazepril Allergy (Verified 11/20/18 17:20) throat closes,lips swell Past Medical History - Social History Smoking Status: Former Smoker Chew tobacco use (# tins/day): No Frequency of alcohol use: None Drug Abuse: None Family History: Reviewed & Not Pertinent, CAD, CVA Patient has suicidal ideation: No Patient has homicidal ideation: No - Past Medical History Cardiac Medical History: Reports: Hx Atrial Fibrillation, Hx Hypercholesterolemia, Hx Hypertension Denies: Hx Congestive Heart Failure, Hx Coronary Artery Disease, Hx Heart Attack, Hx Peripheral Vascular Disease, Hx Pulmonary Embolism, Hx Heart Murmur Pulmonary Medical History: Reports: Hx Asthma - as a child, Hx Sleep Apnea - CPAP- started October 2014 Denies: Hx Bronchitis, Hx COPD, Hx Pneumonia, Hx Respiratory Failure, Hx Tuberculosis Neurological Medical History: Denies: Hx Cerebrovascular Accident, Hx Seizures Endocrine Medical History: Reports: Hx Diabetes Mellitus Type 2, Hx Hypothyroidism - goiter/Thyroidectomy 2010. Denies: Hx Graves' Disease, Hx Hyperthyroidism Renal/ Medical History: Denies: Hx End Stage Renal Disease, Hx Kidney Stones, Hx Peritoneal Dialysis Malignancy Medical History: Reports: Hx Renal (Kidney) Cancer. Denies: Hx Leukemia, Hx Lung Cancer GI Medical History: Reports: Hx Gastroesophageal Reflux Disease - 3 yrs-takes meds. Denies: Hx Cirrhosis, Hx Crohn's Disease, Hx Hiatal Hernia, Hx Irritable Bowel, Hx Liver Failure, Hx Pancreatitis, Hx Ulcer Musculoskeletal Medical History: Reports Hx Arthritis - neck, Denies Hx Fibromyalgia, Denies Hx Multiple Sclerosis, Denies Hx Muscular Dystrophy, Denies Hx Systemic Lupus Erythematosus Psychiatric Medical History: Reports: Hx Depression Denies: Hx Bipolar Disorder, Hx Dementia, Hx Schizophrenia Traumatic Medical History: Denies: Hx Fractures Infectious Medical History: Denies: Hx HIV Past Surgical History: Reports: Hx Abdominal Surgery - GBP, Hx Gastric Bypass Surgery - 1994, Hx Hysterectomy, Hx Kidney (Renal Surgery) - mass removed off of right kidney, Hx Orthopedic Surgery - left knee replacement, Hx Thyroid Surgery - removed 2010. Denies: Hx Appendectomy, Hx Bowel Surgery, Hx Section, Hx Cholecystectomy, Hx Colostomy, Hx Coronary Artery Bypass Graft, Hx Herniorrhaphy, Hx Mastectomy, Hx Pacemaker, Hx Tonsillectomy, Hx Tubal Ligation - Immunizations Hx Diphtheria, Pertussis, Tetanus Vaccination: Yes Hx Pneumococcal Vaccination: 02/26/14 Physical Exam - Vital signs Vitals: Temp Pulse Resp BP Pulse Ox 98.4 F 128 H 16 150/107 H 97 11/20/18 17:18 11/20/18 17:18 11/20/18 17:18 11/20/18 17:18 11/20/18 17:18 Course - Re-evaluation Re-evalutation: Patient seen and examined vital signs reviewed. Laboratory data and imaging were ordered as appropriate for the patient's presenting symptoms and complaint, with consideration of any critical or life threatening conditions that may be associated with their obtained history and exam as noted above. Patient was treated with IV glucose, patient was noted to be profoundly hypoglycemic with a blood glucose in the 30s, she did become more conversant after receiving the glucose. Results were reviewed when available and demonstrated hyperglycemia, but more importantly the patient was noted to have acute kidney injury, on chronic kidney disease, I think this is prerenal, as the patient does appear dehydrated and has increased her diuretics recently, patient was given a total of 2 L of IV fluids, did not want to volume overload. Due to her fall, imaging was obtained of her lower extremities, and it was noted that she had 1/5 metatarsal fracture, and was placed in a postop shoe for this. The patient was re-evaluated and was improving Evaluation was most consistent with acute kidney injury, dehydration, fifth metatarsal fracture, fall, hypoglycemia Results were discussed with the patient at this point after careful considera tion I feel that that patient should be admitted to the hospital. This was discussed with the patient that it is in the best interest for their care to be admitted for further evaluation and management. Patient agreed with this plan of care. A call was placed to the admitting physician, Dr. Wagner who graciously accepted the patient onto their service. *Note is created using voice recognition software and may contain spelling, syntax or grammatical errors. Laboratory 11/20/18 11/20/18 11/21/18 21:00 21:00 00:07 WBC 7.8 RBC 3.67 L Hgb 10.1 L Hct 30.9 L MCV 84 MCH 27.7 MCHC 32.9 RDW 14.6 H Plt Count 276 Seg Neutrophils % 85.5 H Lymphocytes % 8.9 L Monocytes % 5.4 Eosinophils % 0.1 Basophils % 0.1 Absolute Neutrophils 6.7 Absolute Lymphocytes 0.7 Absolute Monocytes 0.4 Absolute Eosinophils 0.0 Absolute Basophils 0.0 Sodium 137.0 Potassium 4.3 Chloride 102 Carbon Dioxide 16 L Anion Gap 19 BUN 157 H Creatinine 15.07 H Est GFR ( Amer) 3 L Est GFR (Non-Af Amer) 2 L Glucose 33 L* POC Glucose 187 H Calcium 8.7 Total Bilirubin 0.2 Direct Bilirubin 0.2 Neonat Total Bilirubin Not Reportable Neonat Direct Bilirubin Not Reportable Neonat Indirect Bili Not Reportable AST 30 ALT 28 Alkaline Phosphatase 72 Total Protein 5.8 L Albumin 3.3 L Femur X-Ray 11/20/18 19:40 IMPRESSION: 1. No acute fracture or dislocation. copyright 2010 [employer]- All Rights Reserved Foot X-Ray 11/20/18 19:40 IMPRESSION: 1. Acute minimally displaced fracture through the distal head of the 5th metatarsal. No joint involvement. Pelvis X-Ray 11/20/18 19:40 IMPRESSION: 1. No acute fracture or dislocation. copyright 2010 [employer]- All Rights Reserved Tibia/Fibula X-Ray 11/20/18 19:40 IMPRESSION: 1. No acute findings. - Vital Signs Vital signs: Temp Pulse Resp BP Pulse Ox 97.5 F 106 H 20 144/100 H 91 L 11/21/18 03:21 11/21/18 03:21 11/21/18 03:21 11/21/18 03:21 11/21/18 03:21 - Laboratory Result Diagrams: 11/20/18 21:00 11/20/18 21:00 Laboratory results interpreted by me: 11/20/18 11/20/18 11/21/18 21:00 21:00 00:07 RBC 3.67 L Hgb 10.1 L Hct 30.9 L RDW 14.6 H Seg Neutrophils % 85.5 H Lymphocytes % 8.9 L Carbon Dioxide 16 L BUN 157 H Creatinine 15.07 H Est GFR ( Amer) 3 L Est GFR (Non-Af Amer) 2 L Glucose 33 L* POC Glucose 187 H Total Protein 5.8 L Albumin 3.3 L - EKG Interpretation by Me Additional EKG results interpreted by me: EKG demonstrates atrial fibrillation with a ventricular rate of 97 bpm, normal axis, T wave inversion noted in leads II and aVF, as well as lead I, V3 through V6, this is compared to prior EKG from 10/26/2018, without significant change. Procedures - Immobilization Right Foot Pre-Proc Neuro Vasc Exam: Normal Immobilizer type: Post-op shoe Performed by: PCT Post-Proc Neuro Vasc Exam: Normal Alignment checked and good: Yes Discharge - Discharge Clinical Impression: LEÓN (acute kidney injury), Hypoglycemia, Metabolic acidosis Fall Qualifiers: Encounter type: initial encounter Qualified Code(s): W19.XXXA - Unspecified fall, initial encounter Fracture of fifth metatarsal bone of right foot Qualifiers: Encounter type: initial encounter Fracture type: closed Fracture alignment: displaced Qualified Code(s): S92.351A - Displaced fracture of fifth metatarsal bone, right foot, initial encounter for closed fracture Anemia Qualifiers: Anemia type: unspecified type Qualified Code(s): D64.9 - Anemia, unspecified Condition: Stable Disposition: ADMITTED INPATIENT [facility] Unit Admitted: [facility]
[2018-11-21 03:02] LABS: APPEARANCE,URINE SLIGHTLY-CLOUDY; BILIRUBIN,URINE NEGATIVE (NEGATIVE); COLOR,URINE YELLOW; GLUCOSE, URINE NEGATIVE (NEGATIVE); KETONES,URINE NEGATIVE (NEGATIVE); LEUKOCYTE ESTERASE,URINE SMALL (NEGATIVE); NITRITE,URINE NEGATIVE (NEGATIVE); PROTEIN,URINE NEGATIVE (NEGATIVE); URINE SPECIFIC GRAVITY 1.009; UROBILINOGEN,URINE NEGATIVE mg/dL (<2.0)
[2018-11-21] MEDS ORDERED: DEXTROSE 40% GEL 15 GM TUBE PO PRN (04:30)
[2018-11-21] MEDS ORDERED: DEXTROSE 50%-WATER SYRINGE 25 GM/50 ML DOSE IV PRN (04:30)
[2018-11-21] MEDS ORDERED: DEXTROSE 50%-WATER SYRINGE 12.5 GM/25 ML DOSE IV PRN (04:30)
[2018-11-21] MEDS ORDERED: GLUCAGON,HUMAN RECOMB 1 MG INJ IM PRN (04:30)
[2018-11-21 06:12] LABS: ABSOLUTE LYMPHOCYTES (AUTO) 0.6 10^3/uL (0.5-4.7); ABSOLUTE MONOCYTES (AUTO) 0.6 10^3/uL (0.1-1.4); ABSOLUTE NEUT (AUTO) 5.6 10^3/uL (1.7-8.2); BASOPHILS % (AUTO) 0.1 % (0-2); EOSINOPHILS % (AUTO) 0.3 % (0-6); HEMATOCRIT 30.6 % (36.0-47.0); HEMOGLOBIN 10.1 g/dL (12.0-15.5); MEAN CORPUSCULAR HEMOGLOBIN 27.7 pg (27.0-33.4); MEAN CORPUSCULAR VOLUME 84 fl (80-97); MONOCYTES % (AUTO) 8.4 % (3-13); PLATELET COUNT 228 10^3/uL (150-450); RED BLOOD COUNT 3.64 10^6/uL (3.72-5.28); RED CELL DISTRIBUTION WIDTH 14.6 % (11.5-14.0); SEGMENTED NEUTROPHILS % (AUTO) 82.2 % (42-78); TOTAL CELLS COUNTED % (AUTO) 100 %; WHITE BLOOD COUNT 6.8 10^3/uL (4.0-10.5)
[2018-11-21 06:33] LABS: ANION GAP 19 (5-19); CALCIUM 8.2 mg/dL (8.4-10.2); CARBON DIOXIDE 15 mmol/L (22-30); CHLORIDE 103 mmol/L (98-107); GLUCOSE 88 mg/dL (75-110); POTASSIUM 4.6 mmol/L (3.6-5.0); SODIUM 136.5 mmol/L (137-145)
[2018-11-21 06:57] LABS: BLOOD UREA NITROGEN 156 mg/dL (7-20)
[2018-11-21] MEDS: INSULIN LISPRO 100 UNIT/ML 3 ML VIAL SUBCUT SCH ×4 (08:06→21:29)
[2018-11-21] MEDS: DEXTROSE 40% GEL 15 GM TUBE X 2 PO PRN ×2 (11:31→17:35)
[2018-11-21] MEDS ORDERED: TUBERCULIN,PURIF.PROT.DERIV. 5 TU/0.1 ML TEST 1 ML VIAL ID ONE (12:00)
[2018-11-21] MEDS ORDERED: (PENDING PHARMACY ID) (Oxycodone Hcl/Acetaminophen [Percocet 10-325 Mg Tablet] 1 TAB) PO PRN (18:23)
[2018-11-21] MEDS ORDERED: CYANOCOBALAMIN (VITAMIN B-12) INJ 1000 MCG/1 ML VIAL IM SCH (18:30)
--- NOTE | 2018-11-21 19:14 | PDOC H&P ---
History of Present Illness Admission Date/PCP: 11/21/18 00:49 K V JEANA MAI MD History of Present Illness: ORLANDO COOPER is a 63 year old female, she has a history of chronic kidney disease stage V, type 2 diabetes mellitus, she came to the emergency room for evaluation of a fall, she apparently fell and sustained acute displaced fracture of the distal head of the right metatarsal she was also found to be hypoglycemic, somewhat confused probably uremic. She has history of chronic kidney disease stage V, she follows with nephrology outpatient, she probably will need hemodialysis on this admission because of uremia. Past Medical History Cardiac Medical History: Reports: Atrial Fibrillation, Hyperlipidema, Hypertension Pulmonary Medical History: Reports: Asthma - as a child, Sleep Apnea - CPAP- started October 2014 Neurological Medical History: Denies: Seizures Endocrine Medical History: Reports: Diabetes Mellitus Type 2, Hypothyroidism - goiter/Thyroidectomy 2010 Malignancy Medical History: Reports: Renal (Kidney) Cancer GI Medical History: Reports: Gastroesophageal Reflux Disease - 3 yrs-takes meds Musculoskeltal Medical History: Reports: Arthritis - neck Psychiatric Medical History: Reports: Depression Hematology: Reports: 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 Past Surgical History Past Surgical History: Reports: Gastric Bypass Surgery - 1994, Hysterectomy, Orthopedic Surgery - left knee replacement Social History Smoking Status: Former Smoker Frequency of Alcohol Use: None Hx Recreational Drug Use: No Drugs: None Hx Prescription Drug Abuse: No Family History Family History: Reviewed & Not Pertinent, CAD, CVA Parental Family History Reviewed: Yes Children Family History Reviewed: Yes Sibling(s) Family History Reviewed.: Yes Medication/Allergy Home Medications: RX: Amlodipine Besylate [Norvasc 10 mg Tablet] 10 mg PO DAILY 10/26/18 RX: Calcitriol 0.5 mcg PO DAILY 10/26/18 RX: Cetirizine HCl [Zyrtec 10 mg Tablet] 10 mg PO DAILY 10/26/18 RX: Clonidine HCl [Catapres 0.3 mg Tablet] 0.3 mg PO TID 10/26/18 RX: Cyanocobalamin (Vitamin B-12) [Vitamin B-12 Inj 1000 Mcg/1 ml Vial] 1,000 mcg IM [id number] 10/26/18 RX: Glipizide [Glucotrol Xl] 10 mg PO DAILY 10/26/18 RX: Isosorb Dinit/Hydralazine HCl [Bidil 20-37.5 mg Tablet] 1 tab PO TID 10/26/18 RX: Levothyroxine Sodium 150 mcg PO Q6AM 10/26/18 RX: Metoprolol Succinate [Toprol XL 100 mg Tablet] 100 mg PO DAILY 10/26/18 RX: Omeprazole 40 mg PO DAILY 10/26/18 RX: Oxycodone HCl/Acetaminophen [Percocet 10-325 mg Tablet] 1 tab PO Q8HP PRN 10/26/18 RX: Pravastatin Sodium [Pravachol] 40 mg PO QPM 10/26/18 RX: Sertraline HCl [Zoloft] 25 mg PO DAILY 10/26/18 RX: Solifenacin Succinate [Vesicare] 5 mg PO DAILY 10/26/18 RX: Valsartan [Diovan] 320 mg PO DAILY 10/26/18 RX: Apixaban [Eliquis 2.5 mg Tablet] 2.5 mg PO BID #60 tablet 11/03/18 RX: Furosemide [Lasix 80 mg Tablet] 80 mg PO BID #180 tablet 11/03/18 Meloxicam [Mobic] 7.5 mg PO DAILY 11/21/18 Allergies/Adverse Reactions: benazepril Allergy (Verified 11/20/18 17:20) throat closes,lips swell Review of Systems Constitutional: PRESENT: fatigue Eyes: ABSENT: visual disturbances Ears: ABSENT: hearing changes Cardiovascular: ABSENT: as per HPI, chest pain, dyspnea on exertion, edema, orthropnea, palpitations, other Respiratory: ABSENT: cough, hemoptysis Gastrointestinal: PRESENT: nausea Genitourinary: ABSENT: dysuria, hematuria Musculoskeletal: ABSENT: joint swelling Integumentary: ABSENT: rash, wounds Neurological: ABSENT: abnormal gait, abnormal speech, confusion, dizziness, focal weakness, syncope Psychiatric: ABSENT: anxiety, depression, homidical ideation, suicidal ideation Endocrine: ABSENT: cold intolerance, heat intolerance, menstrual abnormalities, polydipsia, polyuria Hematologic/Lymphatic: ABSENT: easy bleeding, easy bruising, lymphadenopathy Physical Exam Vital Signs: Temp Pulse Resp BP Pulse Ox 98.9 F 103 H 18 157/97 H 99 11/21/18 17:28 11/21/18 17:28 11/21/18 11:30 11/21/18 17:39 11/21/18 17:28 Intake & Output 11/20/18 11/21/18 11/22/18 06:59 06:59 06:59 Intake Total 2000 200 Output Total 0 500 Balance 1999 -300 Weight 102.1 kg 102.1 kg General appearance: PRESENT: no acute distress Head exam: PRESENT: atraumatic, normocephalic Eye exam: PRESENT: PERRLA Ear exam: PRESENT: normal external ear exam Neck exam: PRESENT: full ROM Respiratory exam: PRESENT: clear to auscultation andrey Cardiovascular exam: PRESENT: RRR, +S1, +S2 Vascular exam: PRESENT: normal capillary refill GI/Abdominal exam: PRESENT: normal bowel sounds, soft Rectal exam: PRESENT: deferred Musculoskeletal exam: PRESENT: other - Right foot swelling Neurological exam: PRESENT: alert, CN II-XII grossly intact Psychiatric exam: PRESENT: appropriate affect, normal mood Skin exam: PRESENT: dry, intact, warm Results Laboratory Results: 11/21/18 05:47 11/21/18 05:47 11/20/18 11/20/18 11/21/18 21:00 21:00 02:45 WBC 7.8 RBC 3.67 L Hgb 10.1 L Hct 30.9 L MCV 84 MCH 27.7 MCHC 32.9 RDW 14.6 H Plt Count 276 Seg Neutrophils % 85.5 H Lymphocytes % 8.9 L Monocytes % 5.4 Eosinophils % 0.1 Basophils % 0.1 Absolute Neutrophils 6.7 Absolute Lymphocytes 0.7 Absolute Monocytes 0.4 Absolute Eosinophils 0.0 Absolute Basophils 0.0 Sodium 137.0 Potassium 4.3 Chloride 102 Carbon Dioxide 16 L Anion Gap 19 BUN 157 H Creatinine 15.07 H Est GFR ( Amer) 3 L Est GFR (Non-Af Amer) 2 L Glucose 33 L* Calcium 8.7 Total Bilirubin 0.2 AST 30 ALT 28 Alkaline Phosphatase 72 Total Protein 5.8 L Albumin 3.3 L Urine Color YELLOW Urine Appearance SLIGHTLY-CLOUDY Urine pH 5.0 Ur Specific [place] 1.009 Urine Protein NEGATIVE Urine Glucose (UA) NEGATIVE Urine Ketones NEGATIVE Urine Blood SMALL H Urine Nitrite NEGATIVE Ur Leukocyte Esterase SMALL H Urine WBC (Auto) 10 Urine RBC (Auto) 8 11/21/18 11/21/18 05:47 05:47 WBC 6.8 RBC 3.64 L Hgb 10.1 L Hct 30.6 L MCV 84 MCH 27.7 MCHC 33.0 RDW 14.6 H Plt Count 228 Seg Neutrophils % 82.2 H Lymphocytes % 9.0 L Monocytes % 8.4 Eosinophils % 0.3 Basophils % 0.1 Absolute Neutrophils 5.6 Absolute Lymphocytes 0.6 Absolute Monocytes 0.6 Absolute Eosinophils 0.0 Absolute Basophils 0.0 Sodium 136.5 L Potassium 4.6 Chloride 103 Carbon Dioxide 15 L Anion Gap 19 BUN 156 H Creatinine 13.99 H Est GFR ( Amer) 3 L Est GFR (Non-Af Amer) 3 L Glucose 88 Calcium 8.2 L Total Bilirubin AST ALT Alkaline Phosphatase Total Protein Albumin Urine Color Urine Appearance Urine pH Ur Specific [place] Urine Protein Urine Glucose (UA) Urine Ketones Urine Blood Urine Nitrite Ur Leukocyte Esterase Urine WBC (Auto) Urine RBC (Auto) Impressions: Femur X-Ray 11/20/18 19:40 IMPRESSION: 1. No acute fracture or dislocation. copyright 2010 [employer]- All Rights Reserved Foot X-Ray 11/20/18 19:40 IMPRESSION: 1. Acute minimally displaced fracture through the distal head of the 5th metatarsal. No joint involvement. Pelvis X-Ray 11/20/18 19:40 IMPRESSION: 1. No acute fracture or dislocation. copyright 2010 [employer]- All Rights Reserved Tibia/Fibula X-Ray 11/20/18 19:40 IMPRESSION: 1. No acute findings. Assessment & Plan - Diagnosis (1) Hypoglycemia Is this a current diagnosis for this admission?: Yes Plan: This is probably from glipizide (2) End stage kidney disease Is this a current diagnosis for this admission?: Yes (3) Uremia Is this a current diagnosis for this admission?: Yes Plan: Consultation from nephrology to initiate hemodialysis. (4) Fracture of fifth metatarsal bone of right foot Qualifiers: Encounter type: initial encounter Fracture type: closed Fracture alignment: displaced Qualified Code(s): S92.351A - Displaced fracture of fifth metatarsal bone, right foot, initial encounter for closed fracture Is this a current diagnosis for this admission?: Yes Plan: Consult orthopedic (5) T2DM (type 2 diabetes mellitus) Qualifiers: Diabetes mellitus mcfp insulin use: with mcfp use Diabetes mellitus complication status: with kidney complications Diabetes mellitus complication detail: with chronic kidney disease Chronic kidney disease stage: stage 5, not on chronic dialysis Qualified Code(s): E11.22 - Type 2 diabetes mellitus with diabetic chronic kidney disease; N18.5 - Chronic kidney disease, stage 5; Z79.4 - terminal operations manager (current) use of insulin Is this a current diagnosis for this admission?: Yes
[2018-11-21] MEDS: ISOSORB DINIT/HYDRALAZINE HCL 20-37.5 MG TABLET PO SCH (21:28)
[2018-11-21] MEDS: ATORVASTATIN CALCIUM 10 MG TABLET PO SCH (21:28)
[2018-11-21] MEDS: CLONIDINE HCL 0.2 MG TABLET PO SCH (21:28)
[2018-11-21] MEDS: METOPROLOL SUCCINATE 50 MG TAB.SR.24H PO SCH (21:32)
[2018-11-21] MEDS: OXYCODONE-ACETAMINOPHEN 5-325 MG TABLET PO PRN (21:39)
[2018-11-21] MEDS: OXYCODONE HCL IR 5 MG TABLET PO PRN (21:40)
[2018-11-21] MEDS ORDERED: TOLTERODINE TARTRATE 1 MG TABLET PO SCH (22:00)
[2018-11-22 05:37] LABS: HEPATITS B SURFACE ANTIGEN Negative (Negative)
[2018-11-22] MEDS: ISOSORB DINIT/HYDRALAZINE HCL 20-37.5 MG TABLET PO SCH ×3 (06:19→22:32)
[2018-11-22] MEDS: CLONIDINE HCL 0.2 MG TABLET PO SCH ×3 (06:19→22:32)
[2018-11-22] MEDS: LEVOTHYROXINE SODIUM 0.15 MG TABLET PO SCH (06:19)
[2018-11-22 07:24] LABS: HEPATITIS B CORE AB TOT Positive (Negative); HEPATITIS B SURFACE AB QUANT 735.1 mIU/mL (Immunity>9)
[2018-11-22] MEDS: INSULIN LISPRO 100 UNIT/ML 3 ML VIAL SUBCUT SCH ×4 (08:24→22:32)
--- NOTE | 2018-11-22 08:33 | Operative Report ---
Operative Report DATE OF SURGERY: 11/21/18 PREOPERATIVE DIAGNOSIS: 1. End-stage renal disease requiring hemodialysis. POSTOPERATIVE DIAGNOSIS: 1. End-stage renal disease requiring hemodialysis. OPERATION: 1. Ultrasound evaluation of the right femoral vein. 2. Insertion of temporary hemodialysis catheter via real-time ultrasound access in the right femoral vein. SURGEON: MIKEY SEGURA COIL PLACER: None. ANESTHESIA: Local TISSUE REMOVED OR ALTERED: Not applicable. COMPLICATIONS: None. ESTIMATED BLOOD LOSS: 5 mL. INTRAOPERATIVE FINDINGS: Of a satisfactory right femoral vein to support catheter. Satisfactory and safe access obtained under ultrasound guidance. Easy egress of blood and ingress of heparinized solution through all 3 ports. PROCEDURE: After obtaining informed consent, the patient was positioned supine at bedside. The right groin and adjacent areas were prepared with chlorhexidine and draped out with sterile linen. After the universal timeout the procedure commenced. A steriley sheathed ultrasound probe was used to evaluate the right femoral vein. Local anesthesia was infiltrated adjacent to the probe. Access into the right femoral was accomplished using a micropuncture needle followed, by micropuncture wire and then with a micropuncture catheter. This was followed by introduction of a 0.035 guidewire, the skin opening was enlarged slightly, serially larger dilators were now placed followed by introduction of a triaysis catheter. All of these transitions were smooth. Each lumen was aspirated of blood and irrigated with heparinized solution. The catheter was now sutured to the skin using 3-0 nylon. A Bio A patch was now applied, followed by sterile dressings. Caps were placed on the end of the each of the lumens. The procedure concluded. Copies dictated operative report to Dr. Mikey Vigil MD.
[2018-11-22] MEDS: CETIRIZINE 10 MG TABLET PO SCH (09:38)
[2018-11-22] MEDS: SERTRALINE HCL 50 MG TABLET PO SCH (09:41)
[2018-11-22] MEDS: PANTOPRAZOLE SODIUM 40 MG TABLET.DR PO SCH (09:41)
[2018-11-22] MEDS: VALSARTAN 160 MG TABLET PO SCH (09:41)
[2018-11-22] MEDS: METOPROLOL SUCCINATE 50 MG TAB.SR.24H PO SCH (09:41)
[2018-11-22] MEDS: FUROSEMIDE 80 MG TABLET PO SCH ×2 (09:41→17:24)
[2018-11-22] MEDS: AMLODIPINE BESYLATE 10 MG TABLET PO SCH (09:42)
[2018-11-22] MEDS: APIXABAN 2.5 MG TABLET PO SCH ×2 (09:42→17:24)
[2018-11-22] MEDS: CALCITRIOL 0.25 MCG CAPSULE PO SCH (09:57)
[2018-11-22] MEDS ORDERED: (PENDING PHARMACY ID) (Solifenacin Succinate [Vesicare] 5 MG) PO SCH (10:00)
[2018-11-22] MEDS ORDERED: MELOXICAM 7.5 MG TABLET PO SCH (10:00)
[2018-11-22] MEDS ORDERED: GLIPIZIDE XL 5 MG TAB.ER.24 PO SCH (10:00)
--- NOTE | 2018-11-22 10:59 | PDOC PROGRESS REPORT ---
Subjective Progress Note for:: 11/22/18 Subjective:: Patient was dialyzed for the first time yesterday due to acute uremia. She was originally admitted because of a displaced distal head fifth metatarsal fracture after a fall and was found to be uremic. She also has hypoglycemia which could be secondary to glipizide. She tolerated dialysis well yesterday without any problems. Dr. Lopez is DrTaylor regarding need for a chronic hemodialysis treatment moving forward. Patient is aware and agree with the plan. Patient still has no appetite. She still has asterixis which is new confirmed by Dr. Wagner. She said she has a little bit more energy than for the last few days. She denies any nausea, vomiting, chest pains no shortness of breath. Reason For Visit: FALL AT HOME, HYPOGLYCEMIA, ACUTE KIDNEY INJURY Physical Exam Vital Signs: Temp Pulse Resp BP Pulse Ox 98.3 F 81 16 155/76 H 97 11/22/18 08:04 11/22/18 08:04 11/22/18 08:04 11/22/18 08:04 11/22/18 08:04 Intake & Output 11/21/18 11/22/18 11/23/18 06:59 06:59 06:59 Intake Total 2000 320 Output Total 0 500 Balance 2000 -180 Weight 102.1 kg 101.9 kg Exam: General appearance: PRESENT: no acute distress, cooperative, well-developed, well-nourished Head exam: PRESENT: atraumatic, normocephalic Eye exam: PRESENT: conjunctiva pale, PERRLA. ABSENT: scleral icterus Neck exam: ABSENT: JVD Respiratory exam: PRESENT: Diminished breath sounds. ABSENT: crackles, rales, rhonchi, unlabored, wheezes Cardiovascular exam: PRESENT: Irregularly irregular rate rhythm -+S1, +S2. ABSENT: diastolic murmur, systolic murmur GI/Abdominal exam: PRESENT: normal bowel sounds, soft. ABSENT: guarding, mass, tenderness Extremities exam: Trace bilateral lower extremity pitting edema, patient's lower extremity are also very tender to mild touch possibly due to neuropathy Neurological exam: PRESENT: alert, awake, oriented to person, place and time. Positive asterixis. Skin exam: PRESENT: dry, warm, Cardiovascular exam: PRESENT: +S1, +S2, systolic murmur. ABSENT: rubs GI/Abdominal exam: PRESENT: normal bowel sounds, soft. ABSENT: organomegaly, te nderness Results Laboratory Results: 11/21/18 05:47 11/21/18 05:47 Impressions: Femur X-Ray 11/20/18 19:40 IMPRESSION: 1. No acute fracture or dislocation. copyright 2010 [employer]- All Rights Reserved Foot X-Ray 11/20/18 19:40 IMPRESSION: 1. Acute minimally displaced fracture through the distal head of the 5th metatarsal. No joint involvement. Pelvis X-Ray 11/20/18 19:40 IMPRESSION: 1. No acute fracture or dislocation. copyright 2010 [employer]- All Rights Reserved Tibia/Fibula X-Ray 11/20/18 19:40 IMPRESSION: 1. No acute findings. Assessment & Plan - Diagnosis (1) Chronic kidney disease, stage V requiring chronic dialysis Is this a current diagnosis for this admission?: Yes Plan: Patient came in uremic yesterday and so was initiated on renal replacement therapy urgently. Patient's kidney function has been deteriorating for the last few months anyway so patient will need to be on chronic dialysis treatment moving forward. Patient will have a PermCath placed by Dr. Cal Vigil hopefully tomorrow. We will arrange for her to get outpatient dialysis treatment in 1 of the dialysis units by [facility]. We will consult digital media planner to do that as soon as possible. Once arranged I think the patient can be discharged home. Meanwhile we will plan to do dialysis tomorrow. Patient agree with the plan. (2) Anemia in chronic kidney disease (CKD) Is this a current diagnosis for this admission?: Yes Plan: We will check iron panel if not already done. We will give Procrit as needed during dialysis treatment. (3) Hypertension Is this a current diagnosis for this admission?: Yes Plan: Acceptable control for dialysis patient. (4) Fracture of fifth metatarsal bone of right foot Qualifiers: Encounter type: initial encounter Fracture type: closed Fracture alignment: displaced Qualified Code(s): S92.351A - Displaced fracture of fifth metatarsal bone, right foot, initial encounter for closed fracture Is this a current diagnosis for this admission?: Yes (5) Chronic atrial fibrillation Is this a current diagnosis for this admission?: Yes (6) Hypoglycemia Is this a current diagnosis for this admission?: Yes Plan: Discontinue long-acting sulfonylurea, glipizide. Defer further management to Dr. Wagner. (7) Metabolic acidosis Is this a current diagnosis for this admission?: Yes Plan: Secondary to #1. We will expect to improve with dialysis treatment. (8) T2DM (type 2 diabetes mellitus) Qualifiers: Diabetes mellitus ocean transportation intermediary insulin use: with ocean transportation intermediary use Diabetes mellitus complication status: with kidney complications Diabetes mellitus complication detail: with chronic kidney disease Chronic kidney disease stage: stage 5, not on chronic dialysis Qualified Code(s): E11.22 - Type 2 diabetes mellitus with diabetic chronic kidney disease; N18.5 - Chronic kidney disease, stage 5; Z79.4 - supervisor intermediates (current) use of insulin Is this a current diagnosis for this admission?: Yes (9) Obstructive sleep apnea Is this a current diagnosis for this admission?: Yes - Time Time with patient: Greater than 35 minutes
[2018-11-22 11:39] LABS: ALANINE AMINOTRANSFERASE 28 U/L (9-52); ALBUMIN 2.5 g/dL (3.5-5.0); ALKALINE PHOSPHATASE 63 U/L (38-126); ANION GAP 13 (5-19); ASPARTATE AMINO TRANSFERASE 28 U/L (14-36); BILIRUBIN,DIRECT 0.4 mg/dL (0.0-0.4); BILIRUBIN,TOTAL 0.4 mg/dL (0.2-1.3); BLOOD UREA NITROGEN 89 mg/dL (7-20); CALCIUM 7.7 mg/dL (8.4-10.2); CARBON DIOXIDE 21 mmol/L (22-30); CHLORIDE 102 mmol/L (98-107); GLUCOSE 159 mg/dL (75-110); POTASSIUM 3.7 mmol/L (3.6-5.0); SODIUM 136.4 mmol/L (137-145); TOTAL PROTEIN 4.7 g/dL (6.3-8.2)
--- NOTE | 2018-11-22 11:46 | PDOC PROGRESS REPORT ---
Subjective Progress Note for:: 11/22/18 Subjective:: Patient had dialysis yesterday she is very drowsy but arousable still hypoglycemic, discontinue glipizide Reason For Visit: FALL AT HOME, HYPOGLYCEMIA, ACUTE KIDNEY INJURY Physical Exam Vital Signs: Temp Pulse Resp BP Pulse Ox 98.3 F 81 16 155/76 H 97 11/22/18 08:04 11/22/18 08:04 11/22/18 08:04 11/22/18 08:04 11/22/18 08:04 Intake & Output 11/21/18 11/22/18 11/23/18 06:59 06:59 06:59 Intake Total 1999 320 Output Total 0 500 Balance 1999 -180 Weight 102.1 kg 101.9 kg General appearance: PRESENT: no acute distress Eye exam: PRESENT: PERRLA Respiratory exam: PRESENT: clear to auscultation andrey Cardiovascular exam: PRESENT: +S1, +S2 GI/Abdominal exam: PRESENT: soft Results Laboratory Results: 11/21/18 05:47 11/22/18 10:50 11/22/18 10:50 Sodium 136.4 L Potassium 3.7 Chloride 102 Carbon Dioxide 21 L Anion Gap 13 BUN 89 H Creatinine 9.40 H Est GFR ( Amer) 5 L Est GFR (Non-Af Amer) 4 L Glucose 159 H Calcium 7.7 L Total Bilirubin 0.4 AST 28 ALT 28 Alkaline Phosphatase 63 Total Protein 4.7 L Albumin 2.5 L Impressions: Femur X-Ray 11/20/18 19:40 IMPRESSION: 1. No acute fracture or dislocation. copyright 2010 [employer]- All Rights Reserved Foot X-Ray 11/20/18 19:40 IMPRESSION: 1. Acute minimally displaced fracture through the distal head of the 5th metatarsal. No joint involvement. Pelvis X-Ray 11/20/18 19:40 IMPRESSION: 1. No acute fracture or dislocation. copyright 2010 [employer]- All Rights Reserved Tibia/Fibula X-Ray 11/20/18 19:40 IMPRESSION: 1. No acute findings. Assessment & Plan - Diagnosis (1) Chronic kidney disease, stage V requiring chronic dialysis Is this a current diagnosis for this admission?: Yes (2) Chronic atrial fibrillation Is this a current diagnosis for this admission?: Yes (3) Hypertension Is this a current diagnosis for this admission?: Yes (4) Fracture of fifth metatarsal bone of right foot Qualifiers: Encounter type: initial encounter Fracture type: closed Fracture alignment: displaced Qualified Code(s): S92.351A - Displaced fracture of fifth metatarsal bone, right foot, initial encounter for closed fracture Is this a current diagnosis for this admission?: Yes (5) T2DM (type 2 diabetes mellitus) Qualifiers: Diabetes mellitus alf insulin use: with terminal computer operator use Diabetes mellitus complication status: with kidney complications Diabetes mellitus complication detail: with chronic kidney disease Chronic kidney disease stage: stage 5, not on chronic dialysis Qualified Code(s): E11.22 - Type 2 diabetes mellitus with diabetic chronic kidney disease; N18.5 - Chronic kidney disease, stage 5; Z79.4 - prison (current) use of insulin Is this a current diagnosis for this admission?: Yes
[2018-11-22] MEDS: OXYCODONE-ACETAMINOPHEN 5-325 MG TABLET PO PRN (14:52)
[2018-11-22] MEDS: OXYCODONE HCL IR 5 MG TABLET PO PRN (14:52)
[2018-11-22] MEDS ORDERED: (PENDING PHARMACY ID) (Pravastatin Sodium [Pravachol] 40 MG) PO SCH (18:00)
[2018-11-22] MEDS: ATORVASTATIN CALCIUM 10 MG TABLET PO SCH (22:32)
[2018-11-23] MEDS: INSULIN LISPRO 100 UNIT/ML 3 ML VIAL SUBCUT SCH ×5 (01:37→22:00)
[2018-11-23] MEDS ORDERED: NORMAL SALINE 1000 ML 1,000 ML IV PRN (05:00)
[2018-11-23] MEDS: CLONIDINE HCL 0.2 MG TABLET PO SCH ×3 (06:07→22:26)
[2018-11-23] MEDS: ISOSORB DINIT/HYDRALAZINE HCL 20-37.5 MG TABLET PO SCH ×3 (06:07→22:27)
[2018-11-23] MEDS: LEVOTHYROXINE SODIUM 0.15 MG TABLET PO SCH (06:09)
--- NOTE | 2018-11-23 09:31 | PDOC PROGRESS REPORT ---
Subjective Progress Note for:: 11/23/18 Subjective:: I am seeing the patient during dialysis treatment this morning. Patient continues to have no appetite. She is currently tolerating dialysis without any issues. She does not have any new complaints. Reason For Visit: FALL AT HOME, HYPOGLYCEMIA, ACUTE KIDNEY INJURY Physical Exam Vital Signs: Temp Pulse Resp BP Pulse Ox 97.5 F 83 16 134/71 H 98 11/23/18 07:19 11/23/18 07:19 11/23/18 07:19 11/23/18 07:19 11/23/18 07:19 Intake & Output 11/22/18 11/23/18 11/24/18 06:59 06:59 06:59 Intake Total 320 200 Output Total 500 Balance -180 200 Weight 101.9 kg 101 kg Vitals during dialysis: Blood pressure 131/82, heart rate of 71, blood flow rate of 300 mL/min and dialysate flow rate of 600 mL/min. Exam: General appearance: PRESENT: no acute distress, cooperative, well-developed, well-nourished Head exam: PRESENT: atraumatic, normocephalic Eye exam: PRESENT: conjunctiva pink, PERRLA. ABSENT: scleral icterus Neck exam: ABSENT: JVD Respiratory exam: PRESENT: Diminished breath sounds. ABSENT: crackles, rales, rhonchi, unlabored, wheezes Cardiovascular exam: PRESENT: Irregularly irregular rate rhythm -+S1, +S2. ABSENT: diastolic murmur, systolic murmur GI/Abdominal exam: PRESENT: normal bowel sounds, soft. ABSENT: guarding, mass, tenderness Extremities exam: ABSENT: No edema Neurological exam: PRESENT: alert, awake, oriented to person, place and time. Bilateral lower extremities very sensitive to the lightest touch Skin exam: PRESENT: dry, warm, Cardiovascular exam: PRESENT: +S1, +S2, systolic murmur. ABSENT: rubs GI/Abdominal exam: PRESENT: normal bowel sounds, soft. ABSENT: organomegaly, tenderness Results Laboratory Results: 11/21/18 05:47 11/22/18 10:50 11/22/18 10:50 Sodium 136.4 L Potassium 3.7 Chloride 102 Carbon Dioxide 21 L Anion Gap 13 BUN 89 H Creatinine 9.40 H Est GFR ( Amer) 5 L Est GFR (Non-Af Amer) 4 L Glucose 159 H Calcium 7.7 L Total Bilirubin 0.4 AST 28 ALT 28 Alkaline Phosphatase 63 Total Protein 4.7 L Albumin 2.5 L Impressions: Femur X-Ray 11/20/18 19:40 IMPRESSION: 1. No acute fracture or dislocation. copyright 2010 [employer]- All Rights Reserved Foot X-Ray 11/20/18 19:40 IMPRESSION: 1. Acute minimally displaced fracture through the distal head of the 5th metatarsal. No joint involvement. Pelvis X-Ray 11/20/18 19:40 IMPRESSION: 1. No acute fracture or dislocation. copyright 2010 [employer]- All Rights Reserved Tibia/Fibula X-Ray 11/20/18 19:40 IMPRESSION: 1. No acute findings. Assessment & Plan - Diagnosis (1) Chronic kidney disease, stage V requiring chronic dialysis Is this a current diagnosis for this admission?: Yes Plan: We will do dialysis today for 2.5 hours, using the patient's temporary trialysis catheter, with 3K potassium bath, blood flow rate of 300 mL per minute, dialysate flow rate of 600 mL per minute, ultrafiltration only 1 L as tolerated, no heparin and no Procrit needed today. Patient was uremic when she presented and is currently is still have no appeti te. We are hoping that this will improve as she undergoes dialysis treatments. Phosphorus, PTH and iron panel are going to be drawn today. Consulted meeting/event planner to arrange outpatient chronic dialysis treatment with [facility]. Meanwhile we will continue dialysis while here in the hospital. Start Nephrocaps daily. (2) Anemia in chronic kidney disease (CKD) Is this a current diagnosis for this admission?: Yes Plan: We will check iron panel if not already done. We will give Procrit as needed during dialysis treatment. (3) Hypertension Is this a current diagnosis for this admission?: Yes Plan: Acceptable control for dialysis patient. (4) Fracture of fifth metatarsal bone of right foot Qualifiers: Encounter type: initial encounter Fracture type: closed Fracture alig nment: displaced Qualified Code(s): S92.351A - Displaced fracture of fifth metatarsal bone, right foot, initial encounter for closed fracture Is this a current diagnosis for this admission?: Yes (5) Chronic atrial fibrillation Is this a current diagnosis for this admission?: Yes (6) Hypoglycemia Is this a current diagnosis for this admission?: Yes Plan: Discontinue long-acting sulfonylurea, glipizide. Currently improved. Defer further management to Dr. Wagner. (7) Metabolic acidosis Is this a current diagnosis for this admission?: Yes Plan: Much improved after 1 dialysis treatment 2 days ago. (8) T2DM (type 2 diabetes mellitus) Qualifiers: Diabetes mellitus chcf insulin use: with intermission coordinator use Diabetes mellitus complication status: with kidney complications Diabetes mellitus complication detail: with chronic kidney disease Chronic kidney disease stage: stage 5, not on chronic dialysis Qualified Code(s): E11.22 - Type 2 diabetes mellitus with diabetic chronic kidney disease; N18.5 - Chronic kidney disease, stage 5; Z79.4 - terminal worker (current) use of insulin Is this a current diagnosis for this admission?: Yes (9) Obstructive sleep apnea Is this a current diagnosis for this admission?: Yes - Time Time with patient: 15-25 minutes
--- NOTE | 2018-11-23 12:04 | PDOC PROGRESS REPORT ---
Subjective Progress Note for:: 11/23/18 Subjective:: Patient seen by the bedside presently undergoing hemodialysis Reason For Visit: FALL AT HOME, HYPOGLYCEMIA, ACUTE KIDNEY INJURY Physical Exam Vital Signs: Temp Pulse Resp BP Pulse Ox 97.5 F 83 16 134/71 H 98 11/23/18 07:19 11/23/18 07:19 11/23/18 07:19 11/23/18 07:19 11/23/18 07:19 Intake & Output 11/22/18 11/23/18 11/24/18 06:59 06:59 06:59 Intake Total 320 200 Output Total 500 1200 Balance -180 200 -1200 Weight 101.9 kg 101 kg General appearance: PRESENT: no acute distress Eye exam: PRESENT: PERRLA Respiratory exam: PRESENT: clear to auscultation andrey Cardiovascular exam: PRESENT: +S1, +S2 GI/Abdominal exam: PRESENT: soft Neurological exam: PRESENT: alert Results Laboratory Results: 11/21/18 05:47 11/22/18 10:50 Impressions: Femur X-Ray 11/20/18 19:40 IMPRESSION: 1. No acute fracture or dislocation. copyright 2010 [employer]- All Rights Reserved Foot X-Ray 11/20/18 19:40 IMPRESSION: 1. Acute minimally displaced fracture through the distal head of the 5th metatarsal. No joint involvement. Pelvis X-Ray 11/20/18 19:40 IMPRESSION: 1. No acute fracture or dislocation. copyright 2010 [employer]- All Rights Reserved Tibia/Fibula X-Ray 11/20/18 19:40 IMPRESSION: 1. No acute findings. Assessment & Plan - Diagnosis (1) Chronic kidney disease, stage V requiring chronic dialysis Is this a current diagnosis for this admission?: Yes (2) Chronic atrial fibrillation Is this a current diagnosis for this admission?: Yes (3) Hypertension Is this a current diagnosis for this admission?: Yes (4) Fracture of fifth metatarsal bone of right foot Qualifiers: Encounter type: initial encounter Fracture type: closed Fracture alignment: displaced Qualified Code(s): S92.351A - Displaced fracture of fifth metatarsal bone, right foot, initial encounter for closed fracture Is this a current diagnosis for this admission?: Yes (5) T2DM (type 2 diabetes mellitus) Qualifiers: Diabetes mellitus vermin exterminator insulin use: with assisted use Diabetes mellitus complication status: with kidney complications Diabetes mellitus complication detail: with chronic kidney disease Chronic kidney disease stage: stage 5, not on chronic dialysis Qualified Code(s): E11.22 - Type 2 diabetes mellitus with diabetic chronic kidney disease; N18.5 - Chronic kidney disease, stage 5; Z79.4 - group home (current) use of insulin Is this a current diagnosis for this admission?: Yes (6) Hypoglycemia Is this a current diagnosis for this admission?: Yes Plan: The hypoglycemia is resolved
[2018-11-23] MEDS: AMLODIPINE BESYLATE 10 MG TABLET PO SCH (12:07)
[2018-11-23] MEDS: FUROSEMIDE 80 MG TABLET PO SCH ×2 (12:07→17:35)
[2018-11-23] MEDS: APIXABAN 2.5 MG TABLET PO SCH ×2 (12:07→17:35)
[2018-11-23] MEDS: PANTOPRAZOLE SODIUM 40 MG TABLET.DR PO SCH (12:07)
[2018-11-23] MEDS: VALSARTAN 160 MG TABLET PO SCH (12:07)
[2018-11-23] MEDS: CETIRIZINE 10 MG TABLET PO SCH (12:08)
[2018-11-23] MEDS: METOPROLOL SUCCINATE 50 MG TAB.SR.24H PO SCH (12:08)
[2018-11-23] MEDS: SERTRALINE HCL 50 MG TABLET PO SCH (12:08)
[2018-11-23] MEDS: CALCITRIOL 0.25 MCG CAPSULE PO SCH (12:08)
[2018-11-23] MEDS ORDERED: CEFAZOLIN 1 GM/D5W RTU 1 GM/50 ML RTUPB IV PRN ×2 (13:18→13:41)
[2018-11-23 13:56] LABS: ABSOLUTE EOSINOPHILS # (AUTO) 0.1 10^3/uL (0.0-0.6); ABSOLUTE LYMPHOCYTES (AUTO) 0.7 10^3/uL (0.5-4.7); ABSOLUTE MONOCYTES (AUTO) 0.8 10^3/uL (0.1-1.4); ABSOLUTE RETICS # 0.025 10^6/uL (0.028-0.122); BASOPHILS % (AUTO) 0.2 % (0-2); EOSINOPHILS % (AUTO) 1.7 % (0-6); HEMATOCRIT 30.6 % (36.0-47.0); HEMOGLOBIN 10.3 g/dL (12.0-15.5); LYMPHOCYTES % (AUTO) 8.9 % (13-45); MEAN CORPUSCULAR HEMOGLOBIN 27.9 pg (27.0-33.4); MEAN CORPUSCULAR HGB CONC 33.5 g/dL (32.0-36.0); MEAN CORPUSCULAR VOLUME 83 fl (80-97); MONOCYTES % (AUTO) 10.8 % (3-13); PLATELET COUNT 265 10^3/uL (150-450); RED BLOOD COUNT 3.68 10^6/uL (3.72-5.28); RED CELL DISTRIBUTION WIDTH 14.3 % (11.5-14.0); RETICULOCYTE COUNT (AUTO) 0.67 % (0.66-2.85); SEGMENTED NEUTROPHILS % (AUTO) 78.4 % (42-78); TOTAL CELLS COUNTED % (AUTO) 100 %; WHITE BLOOD COUNT 7.6 10^3/uL (4.0-10.5)
[2018-11-23] MEDS ORDERED: LIDOCAINE 1%/EPINEPHRINE INJ 20 ML VIAL ONE (14:52)
[2018-11-23 15:17] LABS: ALANINE AMINOTRANSFERASE 34 U/L (9-52); ALBUMIN 2.7 g/dL (3.5-5.0); ALKALINE PHOSPHATASE 77 U/L (38-126); ANION GAP 12 (5-19); ASPARTATE AMINO TRANSFERASE 25 U/L (14-36); BILIRUBIN,DIRECT 0.5 mg/dL (0.0-0.4); BILIRUBIN,TOTAL 0.6 mg/dL (0.2-1.3); BLOOD UREA NITROGEN 47 mg/dL (7-20); CALCIUM 8.3 mg/dL (8.4-10.2); CARBON DIOXIDE 25 mmol/L (22-30); CHLORIDE 101 mmol/L (98-107); GLUCOSE 116 mg/dL (75-110); POTASSIUM 3.6 mmol/L (3.6-5.0); SODIUM 137.5 mmol/L (137-145); TOTAL PROTEIN 5.3 g/dL (6.3-8.2)
[2018-11-23 15:20] LABS: IRON(TIBC) 28.9 ug/dL (37-170); PHOSPHORUS 4.2 mg/dL (2.5-4.5)
[2018-11-23] MEDS: FOLIC ACID/VITAMIN B COMP W-C CAPSULE PO SCH (16:44)
[2018-11-23] MEDS ORDERED: MEPERIDINE HCL/PF INJ 25 MG/1 ML DISP.SYRIN IV PRN (17:48)
[2018-11-23] MEDS ORDERED: FENTANYL CITRATE INJ/PF 100 MCG/2 ML AMPUL IV PRN ×3 (17:48)
[2018-11-23] MEDS ORDERED: PROMETHAZINE HCL INJ 25 MG/1 ML VIAL IV PRN (17:48)
[2018-11-23] MEDS ORDERED: DIPHENHYDRAMINE HCL 50 MG/ML VIAL IV PRN (17:48)
[2018-11-23] MEDS ORDERED: MIDAZOLAM 2 MG/2 ML INJ ONE (18:10)
[2018-11-23] MEDS ORDERED: FENTANYL CITRATE INJ/PF 100 MCG/2 ML AMPUL ONE (18:10)
[2018-11-23] MEDS ORDERED: ONDANSETRON HCL INJ/PF 4 MG/2 ML SDV ONE (18:10)
[2018-11-23] MEDS ORDERED: PROPOFOL INJ 200 MG/20 ML VIAL IV ONE (18:11)
[2018-11-23] MEDS ORDERED: HEPARIN SOD (PORCINE) 1,000 UNIT/ML 10 ML VIAL ONE (20:07)
--- NOTE | 2018-11-23 20:08 | Operative Report ---
Nonrecallable Operative Report DATE OF SURGERY: 11/23/18 PREOPERATIVE DIAGNOSIS: End-stage renal disease POSTOPERATIVE DIAGNOSIS: Same OPERATION: 1. Focused ultrasound of the right neck. 2. Ultrasound directed insertion of dual-lumen permacatheter, 23 cm cuff to tip into the right internal jugular vein. 3. Intraoperative fluoroscopy. SURGEON: EDDY CASTELLANOS ANESTHESIA: LMAC TISSUE REMOVED OR ALTERED: None COMPLICATIONS: None ESTIMATED BLOOD LOSS: Minimal INTRAOPERATIVE FINDINGS: See below PROCEDURE: The patient was taken to the preop holding area to the main operating room where LMAC anesthesia was induced. Patient's neck was rotated to the left, breast taped caudad, and both sides of the neck and chest were prepped and draped in sterile fashion Surgical plan surgical timeout were conducted. Using real-time ultrasound as a guide, the skin was anesthetized over the right internal jugular vein without difficulty. A darlin was made the skin with 11 blade, micro wire and needle threaded into the right internal jugular vein. Needle removed leaving the micro wire into position Suitable site for exit of the permacatheter was chosen in the right subclavian position. The skin and connecting tract was excised with 1% plain lidocaine. A darlin was made in the skin with a 15 blade, and the permacatheter, 23 cm tip to cuff was threaded between the 2 incisions with the cuff just underneath the exit site. We now switched to the micro wire over to a conventional 0.030 inch guidewire, and then passed the small, medium, and large dilators all under fluoroscopic guidance over the conventional guidewire. We now advanced and the largest dilator with the strip away sheath over the wire under fluoroscopic guidance, remove the dilator and wire, threaded the permacatheter into the right internal jugular vein and remove the strip away sheath. By fluoroscopic guidance, the tip of the catheter was in the SVC-IVC junction where there is no evidence of ectopy. There was no kinking of the catheter. Wounds closed with 3-0 Vicryl, catheter secured to the skin at 3 sites with 4-0 Ethilon suture, Biopatch and sterile dressing as well as reinforced with Steri- Strips. Patient tolerated the procedure well. She was taken to recovery in stable condition where catheter lumens were loaded with concentrated heparin.
[2018-11-23] MEDS ORDERED: HEPARIN SOD (PORCINE) 5,000 UNIT/ML 1 ML SYRINGE ONE ×2 (20:17)
[2018-11-23] MEDS: ATORVASTATIN CALCIUM 10 MG TABLET PO SCH (22:27)
[2018-11-23] MEDS: OXYCODONE-ACETAMINOPHEN 5-325 MG TABLET PO PRN (22:48)
[2018-11-24] MEDS: ISOSORB DINIT/HYDRALAZINE HCL 20-37.5 MG TABLET PO SCH ×3 (05:31→22:40)
[2018-11-24] MEDS: CLONIDINE HCL 0.2 MG TABLET PO SCH ×3 (05:32→22:41)
[2018-11-24] MEDS: LEVOTHYROXINE SODIUM 0.15 MG TABLET PO SCH (05:34)
[2018-11-24] MEDS ORDERED: ALLOPURINOL 300 MG TABLET PO SCH (08:00)
[2018-11-24] MEDS: INSULIN LISPRO 100 UNIT/ML 3 ML VIAL SUBCUT SCH ×4 (08:15→22:40)
--- NOTE | 2018-11-24 08:23 | RADIOLOGY REPORT (SQ) ---
EXAM DESCRIPTION: FLUORO/CV PLACEMENT COMPLETED DATE/TIME: 11/23/2018 8:09 pm REASON FOR STUDY: RIGHT SIDE PERM CATH COMPARISON: AP chest 10/26/2018 FLUOROSCOPY TIME: 0.6 minutes 2 C-arm images saved to PACS. TECHNIQUE: Intra-operative images acquired during surgical procedure to evaluate progress. NUMBER OF IMAGES: 2 C-arm images LIMITATIONS: None. FINDINGS: 2 C-arm images are submitted during placement of a right-sided central venous dialysis cat heter with the tip in the inferior vena cava/inferior aspect of the right atrium. On the second C-ar m image, the tip of the catheter assumes a Y shape IMPRESSION: Final fluoroscopic image demonstrates the tip of the catheter at the inferior vena cava/ inferior aspect right atrium COMMENT: Quality ID [id number]: Final reports for procedures using fluoroscopy that document radiation exp osure indices, or exposure time and number of fluorographic images (if radiation exposure indices are not available) Please consult full operative report of the attending physician for description of the procedure. TECHNICAL DOCUMENTATION: JOB ID: [id number] [employer]- All Rights Reserved Reading location - IP/workstation name: [email or web address]
[2018-11-24] MEDS: METOPROLOL SUCCINATE 50 MG TAB.SR.24H PO SCH (09:45)
[2018-11-24] MEDS: APIXABAN 2.5 MG TABLET PO SCH ×2 (09:45→17:23)
[2018-11-24] MEDS: AMLODIPINE BESYLATE 10 MG TABLET PO SCH (09:45)
[2018-11-24] MEDS: SERTRALINE HCL 50 MG TABLET PO SCH (09:45)
[2018-11-24] MEDS: CETIRIZINE 10 MG TABLET PO SCH (09:45)
[2018-11-24] MEDS: CALCITRIOL 0.25 MCG CAPSULE PO SCH (09:45)
[2018-11-24] MEDS: VALSARTAN 160 MG TABLET PO SCH (09:45)
[2018-11-24] MEDS: PANTOPRAZOLE SODIUM 40 MG TABLET.DR PO SCH (09:45)
[2018-11-24] MEDS: FUROSEMIDE 80 MG TABLET PO SCH ×2 (09:45→17:23)
[2018-11-24] MEDS: OXYCODONE HCL IR 5 MG TABLET PO PRN ×2 (10:48→22:46)
[2018-11-24 10:52] LABS: ALANINE AMINOTRANSFERASE 27 U/L (9-52); ALBUMIN 2.6 g/dL (3.5-5.0); ALKALINE PHOSPHATASE 68 U/L (38-126); ANION GAP 9 (5-19); ASPARTATE AMINO TRANSFERASE 21 U/L (14-36); BILIRUBIN,DIRECT 0.4 mg/dL (0.0-0.4); BILIRUBIN,TOTAL 0.4 mg/dL (0.2-1.3); BLOOD UREA NITROGEN 51 mg/dL (7-20); CALCIUM 8.1 mg/dL (8.4-10.2); CARBON DIOXIDE 27 mmol/L (22-30); CHLORIDE 100 mmol/L (98-107); GLUCOSE 236 mg/dL (75-110); POTASSIUM 4.1 mmol/L (3.6-5.0); SODIUM 136.4 mmol/L (137-145); TOTAL PROTEIN 4.9 g/dL (6.3-8.2)
--- NOTE | 2018-11-24 11:29 | PDOC PROGRESS REPORT ---
Subjective Progress Note for:: 11/24/18 Subjective:: Patient reported leg pain and increase sensitivity to touch. No focal weakness in extremities. No chest pain or difficulty with breathing. No fever or chills. No nausea or vomiting. Reason For Visit: FALL AT HOME, HYPOGLYCEMIA, ACUTE KIDNEY INJURY Physical Exam Vital Signs: Temp Pulse Resp BP Pulse Ox 98.0 F 96 16 140/87 H 96 11/24/18 08:04 11/24/18 08:04 11/24/18 08:04 11/24/18 08:04 11/24/18 08:04 Intake & Output 11/23/18 11/24/18 11/25/18 06:59 06:59 06:59 Intake Total 200 340 Output Total 1200 Balance 200 -860 Weight 101 kg 100.5 kg General appearance: PRESENT: no acute distress, well-developed, well-nourished Head exam: PRESENT: atraumatic, normocephalic Eye exam: PRESENT: conjunctiva pink. ABSENT: scleral icterus Ear exam: PRESENT: normal external ear exam Mouth exam: PRESENT: moist Respiratory exam: PRESENT: clear to auscultation andrey, decreased breath sounds - at lung bases Cardiovascular exam: PRESENT: RRR, +S1, +S2. ABSENT: diastolic murmur, rubs, systolic murmur Vascular exam: ABSENT: pallor GI/Abdominal exam: PRESENT: normal bowel sounds, soft. ABSENT: distended, guarding, mass, organolmegaly, rebound, tenderness Extremities exam: PRESENT: pedal edema Neurological exam: PRESENT: alert, awake, oriented to person, oriented to place, oriented to time, oriented to situation, CN II-XII grossly intact. ABSENT: motor sensory deficit Psychiatric exam: PRESENT: appropriate affect, normal mood. ABSENT: homicidal ideation, suicidal ideation Skin exam: PRESENT: dry, warm Results Laboratory Results: 11/23/18 13:39 11/24/18 10:25 11/23/18 11/23/18 11/23/18 13:39 13:39 13:39 WBC Cancelled 7.6 RBC Cancelled 3.68 L Hgb Cancelled 10.3 L Hct Cancelled 30.6 L MCV Cancelled 83 MCH Cancelled 27.9 MCHC Cancelled 33.5 RDW Cancelled 14.3 H Plt Count Cancelled 265 Seg Neutrophils % Cancelled 78.4 H Lymphocytes % Cancelled 8.9 L Monocytes % Cancelled 10.8 Eosinophils % Cancelled 1.7 Basophils % Cancelled 0.2 Absolute Neutrophils Cancelled 6.0 Absolute Lymphocytes Cancelled 0.7 Absolute Monocytes Cancelled 0.8 Absolute Eosinophils Cancelled 0.1 Absolute Basophils Cancelled 0.0 Retic Count (auto) 0.67 Absolute Retic 0.025 L Sodium 137.5 Potassium 3.6 Chloride 101 Carbon Dioxide 25 Anion Gap 12 BUN 47 H Creatinine 5.56 H Est GFR ( Amer) 9 L Est GFR (Non-Af Amer) 8 L Glucose 116 H Calcium 8.3 L Phosphorus Iron TIBC % Saturation Ferritin Total Bilirubin 0.6 AST 25 ALT 34 Alkaline Phosphatase 77 Total Protein 5.3 L Albumin 2.7 L Vitamin B12 Folate PTH Intact 11/23/18 11/23/18 11/24/18 13:39 13:39 10:25 WBC RBC Hgb Hct MCV MCH MCHC RDW Plt Count Seg Neutrophils % Lymphocytes % Monocytes % Eosinophils % Basophils % Absolute Neutrophils Absolute Lymphocytes Absolute Monocytes Absolute Eosinophils Absolute Basophils Retic Count (auto) Absolute Retic Sodium 136.4 L Potassium 4.1 Chloride 100 Carbon Dioxide 27 Anion Gap 9 BUN 51 H Creatinine 6.56 H Est GFR ( Amer) 8 L Est GFR (Non-Af Amer) 6 L Glucose 236 H Calcium 8.1 L Phosphorus 4.2 Iron 28.9 L TIBC 234 L % Saturation 12 Ferritin 191.00 Total Bilirubin 0.4 AST 21 ALT 27 Alkaline Phosphatase 68 Total Protein 4.9 L Albumin 2.6 L Vitamin B12 966.0 H Folate 16.90 PTH Intact 381.1 H Impressions: Femur X-Ray 11/20/18 19:40 IMPRESSION: 1. No acute fracture or dislocation. copyright 2010 [employer]- All Rights Reserved Foot X-Ray 11/20/18 19:40 IMPRESSION: 1. Acute minimally displaced fracture through the distal head of the 5th metatarsal. No joint involvement. Pelvis X-Ray 11/20/18 19:40 IMPRESSION: 1. No acute fracture or dislocation. copyright 2010 [employer]- All Rights Reserved Tibia/Fibula X-Ray 11/20/18 19:40 IMPRESSION: 1. No acute findings. Guidance Fluoroscopy 11/23/18 00:00 IMPRESSION: Final fluoroscopic image demonstrates the tip of the catheter at the inferior vena cava/ inferior aspect right atrium Assessment & Plan - Diagnosis (1) Chronic kidney disease, stage V requiring chronic dialysis Is this a current diagnosis for this admission?: Yes Plan: Continue dialysis support. (2) Hyperesthesia Is this a current diagnosis for this admission?: Yes Plan: Continue current medication management. (3) Hypertension Qualifiers: Hypertension type: essential hypertension Qualified Code(s): I10 - Essential (primary) hypertension Is this a current diagnosis for this admission?: Yes Plan: Continue current medication management. (4) Type 2 diabetes mellitus with chronic kidney disease Qualifiers: Diabetes mellitus halfway insulin use: with meterman use Chronic kidney disease stage: stage 5, not on chronic dialysis Qualified Code(s): E11.22 - Type 2 diabetes mellitus with diabetic chronic kidney disease; N18.5 - Chronic kidney disease, stage 5; Z79.4 - oysterman (current) use of insulin Is this a current diagnosis for this admission?: Yes Plan: Continue current medication management. - Time Time Spent with patient: 25-34 minutes Medications reviewed and adjusted accordingly: Yes Anticipated discharge: Home with Homehealth Within: Other - Inpatient Certification Based on my medical assessment, after consideration of the patient's comorbidities, presenting symptoms, or acuity I expect that the services needed warrant INPATIENT care.: Yes I certify that my determination is in accordance with my understanding of Medicare's requirements for reasonable and necessary INPATIENT services [42 CFR 412.3e].: Yes Medical Necessity: Significant Comorbidiites Make Outpatient Treatment Too Risky, Need Close Monitoring Due to Risk of Patient Decompensation, Risk of Co mplication if Not Cared For in Hospital, Risk of Diagnosis Which Will Require Inpatient Eval/Care/Monitoring Post Hospital Care: D/C Cath Lab Radiology Technician Documentation - Plan Summary Plan Summary: Continue current medication management.
[2018-11-24] MEDS: FOLIC ACID/VITAMIN B COMP W-C CAPSULE PO SCH (16:09)
--- NOTE | 2018-11-24 19:17 | EKG REPORT ---
SEVERITY:- ABNORMAL ECG - ATRIAL FIBRILLATION, V-RATE 95-152 CONSIDER LEFT VENTRICULAR HYPERTROPHY BORDERLINE T ABNORMALITIES, INFERIOR LEADS : Confirmed by: Olivia Cesar 24-Nov-2018 19:16:20
[2018-11-24] MEDS: ATORVASTATIN CALCIUM 10 MG TABLET PO SCH (22:41)
[2018-11-25] MEDS: ISOSORB DINIT/HYDRALAZINE HCL 20-37.5 MG TABLET PO SCH ×3 (05:38→21:40)
[2018-11-25] MEDS: CLONIDINE HCL 0.2 MG TABLET PO SCH ×3 (05:38→21:39)
[2018-11-25] MEDS: LEVOTHYROXINE SODIUM 0.15 MG TABLET PO SCH (05:38)
[2018-11-25] MEDS: INSULIN LISPRO 100 UNIT/ML 3 ML VIAL SUBCUT SCH ×4 (09:17→21:39)
[2018-11-25] MEDS: FUROSEMIDE 80 MG TABLET PO SCH ×2 (09:26→17:07)
[2018-11-25] MEDS: CETIRIZINE 10 MG TABLET PO SCH (09:27)
[2018-11-25] MEDS: AMLODIPINE BESYLATE 10 MG TABLET PO SCH (09:27)
[2018-11-25] MEDS: PANTOPRAZOLE SODIUM 40 MG TABLET.DR PO SCH (09:27)
[2018-11-25] MEDS: SERTRALINE HCL 50 MG TABLET PO SCH (09:27)
[2018-11-25] MEDS: CALCITRIOL 0.25 MCG CAPSULE PO SCH (09:27)
[2018-11-25] MEDS: APIXABAN 2.5 MG TABLET PO SCH ×2 (09:27→17:07)
[2018-11-25] MEDS: VALSARTAN 160 MG TABLET PO SCH (09:27)
[2018-11-25] MEDS: METOPROLOL SUCCINATE 50 MG TAB.SR.24H PO SCH (09:27)
[2018-11-25 09:36] LABS: HEPATITIS C QUANTITATION HCV Not Detected IU/mL (.)
[2018-11-25 10:44] LABS: ALANINE AMINOTRANSFERASE 22 U/L (9-52); ALBUMIN 2.7 g/dL (3.5-5.0); ALKALINE PHOSPHATASE 74 U/L (38-126); ANION GAP 9 (5-19); ASPARTATE AMINO TRANSFERASE 21 U/L (14-36); BILIRUBIN,DIRECT 0.3 mg/dL (0.0-0.4); BILIRUBIN,TOTAL 0.3 mg/dL (0.2-1.3); BLOOD UREA NITROGEN 59 mg/dL (7-20); CALCIUM 8.4 mg/dL (8.4-10.2); CARBON DIOXIDE 28 mmol/L (22-30); CHLORIDE 100 mmol/L (98-107); GLUCOSE 195 mg/dL (75-110); SODIUM 137.2 mmol/L (137-145); TOTAL PROTEIN 5.1 g/dL (6.3-8.2)
[2018-11-25] MEDS: FOLIC ACID/VITAMIN B COMP W-C CAPSULE PO SCH (16:32)
--- NOTE | 2018-11-25 17:01 | PDOC PROGRESS REPORT ---
Subjective Progress Note for:: 11/25/18 Subjective:: No chest pain or difficulty with breathing. No fever or chills. No abdominal pain, nausea or vomiting. Her leg pain has been under control on current pain medication management. She is schedule for hemodialysis tomorrow. Reason For Visit: FALL AT HOME, HYPOGLYCEMIA, ACUTE KIDNEY INJURY Physical Exam Vital Signs: Temp Pulse Resp BP Pulse Ox 98.1 F 95 20 146/72 H 94 11/25/18 15:16 11/25/18 15:16 11/25/18 15:16 11/25/18 15:16 11/25/18 15:16 Intake & Output 11/24/18 11/25/18 11/26/18 06:59 06:59 06:59 Intake Total 340 714 237 Output Total 1200 400 Balance -860 314 237 Weight 100.5 kg 102.8 kg Physical Exam: General appearance: PRESENT: no acute distress, well-developed, well-nourished Head exam: PRESENT: atraumatic, normocephalic Eye exam: PRESENT: conjunctiva pink. ABSENT: pallor, scleral icterus Ear exam: PRESENT: normal external ear exam Mouth exam: PRESENT: moist Respiratory exam: PRESENT: clear to auscultation andrey, decreased breath sounds - at lung bases Cardiovascular exam: PRESENT: RRR, +S1, +S2. ABSENT: diastolic murmur, rubs, systolic murmur GI/Abdominal exam: PRESENT: normal bowel sounds, soft. ABSENT: distended, guarding, mass, organomegaly, rebound, tenderness Extremities exam: PRESENT: pedal edema Neurological exam: PRESENT: alert, awake, oriented to person, oriented to place, oriented to time, oriented to situation, CN II-XII grossly intact. ABSENT: motor sensory deficit Psychiatric exam: PRESENT: appropriate affect, normal mood. ABSENT: homicidal ideation, suicidal ideation Skin exam: PRESENT: dry, warm Results Laboratory Results: 11/23/18 13:39 11/25/18 10:15 11/25/18 10:15 Sodium 137.2 Potassium 4.0 Chloride 100 Carbon Dioxide 28 Anion Gap 9 BUN 59 H Creatinine 7.69 H Est GFR ( Amer) 6 L Est GFR (Non-Af Amer) 5 L Glucose 195 H Calcium 8.4 Total Bilirubin 0.3 AST 21 ALT 22 Alkaline Phosphatase 74 Total Protein 5.1 L Albumin 2.7 L Impressions: Femur X-Ray 11/20/18 19:40 IMPRESSION: 1. No acute fracture or dislocation. copyright 2010 [employer]- All Rights Reserved Foot X-Ray 11/20/18 19:40 IMPRESSION: 1. Acute minimally displaced fracture through the distal head of the 5th metatarsal. No joint involvement. Pelvis X-Ray 11/20/18 19:40 IMPRESSION: 1. No acute fracture or dislocation. copyright 2010 [employer]- All Rights Reserved Tibia/Fibula X-Ray 11/20/18 19:40 IMPRESSION: 1. No acute findings. Guidance Fluoroscopy 11/23/18 00:00 IMPRESSION: Final fluoroscopic image demonstrates the tip of the catheter at the inferior vena cava/ inferior aspect right atrium Assessment & Plan - Diagnosis (1) Chronic kidney disease, stage V requiring chronic dialysis Is this a current diagnosis for this admission?: Yes (2) Hyperesthesia Is this a current diagnosis for this admission?: Yes (3) Hypertension Qualifiers: Hypertension type: essential hypertension Qualified Code(s): I10 - Essential (primary) hypertension Is this a current diagnosis for this admission?: Yes (4) Type 2 diabetes mellitus with chronic kidney disease Qualifiers: Diabetes mellitus mcfp insulin use: with watcher [employer] goods use Chronic kidney disease stage: stage 5, not on chronic dialysis Qualified Code(s): E11.22 - Type 2 diabetes mellitus with diabetic chronic kidney disease; N18.5 - Chronic kidney disease, stage 5; Z79.4 - senior living (current) use of insulin Is this a current diagnosis for this admission?: Yes - Time Time Spent with patient: 25-34 minutes Medications reviewed and adjusted accordingly: Yes Anticipated discharge: Home with Homehealth Within: Other - Inpatient Certification Based on my medical assessment, after consideration of the patient's comorbidities, presenting symptoms, or acuity I expect that the services needed warrant INPATIENT care.: Yes I certify that my determination is in accordance with my understanding of Medicare's requirements for reasonable and necessary INPATIENT services [42 CFR 412.3e].: Yes Medical Necessity: Significant Comorbidiites Make Outpatient Treatment Too Risky, Need Close Monitoring Due to Risk of Patient Decompensation, Risk of Complication if Not Cared For in Hospital, Risk of Diagnosis Which Will Require Inpatient Eval/Care/Monitoring Post Hospital Care: D/C Supply Technician Documentation - Plan Summary Plan Summary: Continue current medication management.
[2018-11-25] MEDS: ATORVASTATIN CALCIUM 10 MG TABLET PO SCH (21:40)
[2018-11-26] MEDS ORDERED: NORMAL SALINE 1000 ML 1,000 ML IV PRN (05:00)
[2018-11-26 05:06] LABS: HEMATOCRIT 30.3 % (36.0-47.0); HEMOGLOBIN 9.9 g/dL (12.0-15.5); MEAN CORPUSCULAR HEMOGLOBIN 27.4 pg (27.0-33.4); MEAN CORPUSCULAR HGB CONC 32.6 g/dL (32.0-36.0); MEAN CORPUSCULAR VOLUME 84 fl (80-97); PLATELET COUNT 232 10^3/uL (150-450); RED BLOOD COUNT 3.61 10^6/uL (3.72-5.28); RED CELL DISTRIBUTION WIDTH 14.3 % (11.5-14.0); WHITE BLOOD COUNT 8.2 10^3/uL (4.0-10.5)
[2018-11-26] MEDS: LEVOTHYROXINE SODIUM 0.15 MG TABLET PO SCH (05:54)
[2018-11-26] MEDS: CLONIDINE HCL 0.2 MG TABLET PO SCH ×3 (05:55→21:38)
[2018-11-26] MEDS: ISOSORB DINIT/HYDRALAZINE HCL 20-37.5 MG TABLET PO SCH ×3 (05:55→21:38)
[2018-11-26 06:35] LABS: ALANINE AMINOTRANSFERASE 12 U/L (9-52); ALBUMIN 2.6 g/dL (3.5-5.0); ALKALINE PHOSPHATASE 71 U/L (38-126); ANION GAP 12 (5-19); ASPARTATE AMINO TRANSFERASE 20 U/L (14-36); BILIRUBIN,DIRECT 0.3 mg/dL (0.0-0.4); BILIRUBIN,TOTAL 0.3 mg/dL (0.2-1.3); BLOOD UREA NITROGEN 63 mg/dL (7-20); CALCIUM 8.6 mg/dL (8.4-10.2); CARBON DIOXIDE 26 mmol/L (22-30); CHLORIDE 100 mmol/L (98-107); GLUCOSE 128 mg/dL (75-110); POTASSIUM 4.1 mmol/L (3.6-5.0); SODIUM 137.6 mmol/L (137-145); TOTAL PROTEIN 5.2 g/dL (6.3-8.2)
[2018-11-26] MEDS: INSULIN LISPRO 100 UNIT/ML 3 ML VIAL SUBCUT SCH ×4 (07:59→21:39)
--- NOTE | 2018-11-26 09:50 | PDOC PROGRESS REPORT ---
Subjective Progress Note for:: 11/26/18 Subjective:: Seen the patient during dialysis treatment this morning. She continues to have hypersensitivity of her lower extremities bilaterally. She is eating much better. Her asterixis seems to be improved as well. She is currently tolerating dialysis now. She had a PermCath placed Monday afternoon after dialysis. She did make a good amount of urine output for the last 24 hours about 1800 mL. Reason For Visit: FALL AT HOME, HYPOGLYCEMIA, ACUTE KIDNEY INJURY Physical Exam Vital Signs: Temp Pulse Resp BP Pulse Ox 98.3 F 112 H 18 141/73 H 96 11/26/18 03:54 11/26/18 07:00 11/26/18 03:54 11/26/18 03:54 11/26/18 03:54 Intake & Output 11/25/18 11/26/18 11/27/18 06:59 06:59 06:59 Intake Total 714 355 Output Total 400 1800 Balance 314 -1445 Weight 102.8 kg 100.7 kg Vitals during dialysis this morning: Blood pressure 143/94, heart rate of 98, blood flow rate of 300 mL/min and dialysate flow rate of 600 mL/min. Exam: General appearance: PRESENT: no acute distress, cooperative, well-developed, well-nourished Head exam: PRESENT: atraumatic, normocephalic Eye exam: PRESENT: conjunctiva pink, PERRLA. ABSENT: scleral icterus Neck exam: ABSENT: JVD Respiratory exam: PRESENT: Normal breath sounds. ABSENT: crackles, rales, rhonchi, unlabored, wheezes Cardiovascular exam: PRESENT: Irregular rate rhythm -+S1, +S2. ABSENT: diastolic murmur, systolic murmur GI/Abdominal exam: PRESENT: normal bowel sounds, soft. ABSENT: guarding, mass, tenderness Extremities exam: Possibly trace edema, her legs are very sensitive to minimal light touch so cannot assess leg so well. Neurological exam: PRESENT: alert, awake, oriented to person, place and time. Skin exam: PRESENT: dry, warm, Cardiovascular exam: PRESENT: +S1, +S2, systolic murmur. ABSENT: rubs GI/Abdominal exam: PRESENT: normal bowel sounds, soft. ABSENT: organomegaly, tenderness Results Laboratory Results: 11/26/18 04:49 11/26/18 04:49 11/25/18 11/26/1811/26/19 10:15 04:49 04:49 WBC 8.2 RBC 3.61 L Hgb 9.9 L Hct 30.3 L MCV 84 MCH 27.4 MCHC 32.6 RDW 14.3 H Plt Count 232 Sodium 137.2 137.6 Potassium 4.0 4.1 Chloride 100 100 Carbon Dioxide 28 26 Anion Gap 9 12 BUN 59 H 63 H Creatinine 7.69 H 8.36 H Est GFR ( Amer) 6 L 6 L Est GFR (Non-Af Amer) 5 L 5 L Glucose 195 H 128 H Calcium 8.4 8.6 Total Bilirubin 0.3 0.3 AST 21 20 ALT 22 12 Alkaline Phosphatase 74 71 Total Protein 5.1 L 5.2 L Albumin 2.7 L 2.6 L Impressions: Femur X-Ray 11/20/18 19:40 IMPRESSION: 1. No acute fracture or dislocation. copyright 2010 [employer]- All Rights Reserved Foot X-Ray 11/20/18 19:40 IMPRESSION: 1. Acute minimally displaced fracture through the distal head of the 5th metatarsal. No joint involvement. Pelvis X-Ray 11/20/18 19:40 IMPRESSION: 1. No acute fracture or dislocation. copyright 2010 [employer]- All Rights Reserved Tibia/Fibula X-Ray 11/20/18 19:40 IMPRESSION: 1. No acute findings. Guidance Fluoroscopy 11/23/18 00:00 IMPRESSION: Final fluoroscopic image demonstrates the tip of the catheter at the inferior vena cava/ inferior aspect right atrium Assessment & Plan - Diagnosis (1) Chronic kidney disease, stage V requiring chronic dialysis Is this a current diagnosis for this admission?: Yes Plan: We will do dialysis today for 2.5 hours, using the patient's PermCath, with 3 potassium bath, blood flow rate of 300 mL per minute, dialysate flow rate of 600 mL per minute, ultrafiltration 1 L only as tolerated, no heparin and no Procrit. Dialysis prescription discussed with her dialysis nurse today. Patient will be monitored throughout dialysis treatment and adjust ultrafiltration accordingly. (2) Anemia in chronic kidney disease (CKD) Is this a current diagnosis for this admission?: Yes Plan: Her iron is low so we will give iron first before starting Procrit. (3) Iron deficiency anemia Is this a current diagnosis for this admission?: Yes Plan: We will give Venofer 100 mg IV during dialysis today. (4) Metabolic acidosis Is this a current diagnosis for this admission?: Yes Plan: Resolved.. (5) Secondary hyperparathyroidism Is this a current diagnosis for this admission?: Yes Plan: We will correct vitamin D deficiency first. She was started on calcitriol orally over the weekend. Abdi have to switch this to IV paricalcitol or IV Hectorol as an outpatient at dialysis. (6) Vitamin D deficiency Is this a current diagnosis for this admission?: Yes Plan: Start vitamin D 2000 units daily. (7) Hyperesthesia Is this a current diagnosis for this admission?: Yes Plan: Patient has tried gabapentin and Lyrica which apparently did not work or had side effects. It may be worthwhile to try the patient on duloxetine but will defer to Dr. Wagner. (8) Hypertension Qualifiers: Hypertension type: essential hypertension Qualified Code(s): I10 - Essential (primary) hypertension Is this a current diagnosis for this admission?: Yes Plan: Acceptable control for dialysis patient. (9) Fracture of fifth metatarsal bone of right foot Qualifiers: Encounter type: initial encounter Fracture type: closed Fracture alignment: displaced Qualified Code(s): S92.351A - Displaced fracture of fifth metatarsal bone, right foot, initial encounter for closed fracture Is this a current diagnosis for this admission?: Yes (10) T2DM (type 2 diabetes mellitus) Qualifiers: Diabetes mellitus manager terminal insulin use: with usp use Diabetes mellitus complication status: with kidney complications Diabetes mellitus complication detail: with chronic kidney disease Chronic kidney disease stage: stage 5, not on chronic dialysis Qualified Code(s): E11.22 - Type 2 diabetes mellitus with diabetic chronic kidney disease; N18.5 - Chronic kidney disease, stage 5; Z79.4 - longterm (current) use of insulin Is this a current diagnosis for this admission?: Yes (11) Hypoglycemia Is this a current diagnosis for this admission?: Yes Plan: Discontinue long-acting sulfonylurea, glipizide. Currently improved. Defer further management to Dr. Wagner. (12) Chronic atrial fibrillation Is this a current diagnosis for this admission?: Yes (13) Obstructive sleep apnea Is this a current diagnosis for this admission?: Yes - Time Time with patient: 15-25 minutes
--- NOTE | 2018-11-26 10:01 | PDOC CONSULTATION ---
Consultation Consult Date: 11/21/18 Provider Consulted: Sissy MAI Consult reason:: LEÓN/ESRD History of Present Illness Admission Date/PCP: 11/21/18 00:49 Sissy MAI MD History of Present Illness: ORLANDO COOPER is a 63 year old female with a background history of CKD stage IV with a base creatinine around 4-5 , diabetes mellitus , hypertension, obstructive sleep apnea not using CPAP, atrial fibrillation, morbid obesity, congestive heart failure was admitted with history of having had a fall in the bathroom. She has so far been refusing preparation for eventual renal replace ment therapies. She was recently in the hospital with congestive heart failure and was discharged on diuretics but was apparently seen to have been taking more diuretics than was prescribed. She is a poor historian at the moment as she is not completing sentences. She is very vague about the nature of her fall. However evaluations in the ER revealed that she was hypoglycemic and that could have been a major factor in the precipitation of her fall. Patient is confused to place and person. Evaluations so far reveal a minimally displaced fracture of the fifth right metatarsal.Patient was clinically found to be uremic and looks like sje has reached ESRD status and decision was made to initiate on dialysis.She has been told of HD procedure and complications earlier and she had consented to it in my office on earlier visit. Presently she is being seen as she is undergoing dialysis after placement of a temporary femoral catheter. She is undergoing dialysis without any issues. Labs and medications were reviewed.Dialysis orders were reviewed with the treating dialysis nurse. Past Medical History Cardiac Medical History: Reports: Atrial Fibrillation, Hyperlipidemia, Hypertension-primary Denies: Coronary Artery Disease, Heart Murmur, Myocardial Infarction, Peripheral Vascular Disease, Pulmonary Embolism Pulmonary Medical History: Reports: Asthma - as a child, Sleep Apnea - CPAP- started October 2014 Denies: Bronchitis, Chronic Obstructive Pulmonary Disease (COPD), Pneumonia, Respiratory Failure, Tuberculosis Neurological Medical History: Denies: Seizures Endocrine Medical History: Reports: Diabetes Mellitus Type 2, Hypothyroidism - goiter/Thyroidectomy 2010 Denies: Hyperthyroidism Renal/ Medical History: Reports: Chronic Kidney Disease Stage V Denies: Benign Prostatic Hyperplasia, End Stage Renal Disease Malignancy Medical History: Reports: Renal (Kidney) Cancer Denies: Leukemia, Lung Cancer GI Medical History: Reports: Gastroesophageal Reflux Disease - 3 yrs-takes meds Denies: Cirrhosis, Crohn's Disease, Hiatal Hernia Musculoskeltal Medical History: Reports: Arthritis - neck Denies: Fibromyalgia, Rheumatoid Arthritis, Systemic Lupus Erythematosus Psychiatric Medical History: Reports: Depression Denies: Bipolar Disorder, Dementia Infectious Medical History: Denies: HIV Hematology Medical History: Reports Anemia of Chronic Kidney Disease Past Surgical History Past Surgical History: Reports: Gastric Bypass Surgery - 1994, Hysterectomy, Orthopedic Surgery - left knee replacement Denies: Appendectomy, Section, Cholecystectomy, Colostomy, Coronary Artery Bypass Graft, Herniorrhaphy, Mastectomy, Pacemaker, Tonsillectomy, Tubal Ligation Social History Smoking Status: Former Smoker Frequency of Alcohol Use: None Hx Recreational Drug Use: No Drugs: None Hx Prescription Drug Abuse: No Family History Parental Family History Reviewed: Yes - Negative for ESRD. Children Family History Reviewed: Yes - Had a daughter with ESRD who diet. Sibling(s) Family History Reviewed.: No Medication/Allergy Home Medications: Amlodipine Besylate [Norvasc 10 mg Tablet] 10 mg PO DAILY 10/26/18 Calcitriol 0.5 mcg PO DAILY 10/26/18 Cetirizine HCl [Zyrtec 10 mg Tablet] 10 mg PO DAILY 10/26/18 Clonidine HCl [Catapres 0.3 mg Tablet] 0.3 mg PO TID 10/26/18 Cyanocobalamin (Vitamin B-12) [Vitamin B-12 Inj 1000 Mcg/1 ml Vial] 1,000 mcg IM [id number] 10/26/18 Glipizide [Glucotrol Xl] 10 mg PO DAILY 10/26/18 Isosorb Dinit/Hydralazine HCl [Bidil 20-37.5 mg Tablet] 1 tab PO TID 10/26/18 Levothyroxine Sodium 150 mcg PO Q6AM 10/26/18 Metoprolol Succinate [Toprol XL 100 mg Tablet] 100 mg PO DAILY 10/26/18 Omeprazole 40 mg PO DAILY 10/26/18 Oxycodone HCl/Acetaminophen [Percocet 10-325 mg Tablet] 1 tab PO Q8HP PRN 10/26/18 Pravastatin Sodium [Pravachol] 40 mg PO QPM 10/26/18 Sertraline HCl [Zoloft] 25 mg PO DAILY 10/26/18 Solifenacin Succinate [Vesicare] 5 mg PO DAILY 10/26/18 Valsartan [Diovan] 320 mg PO DAILY 10/26/18 Apixaban [Eliquis 2.5 mg Tablet] 2.5 mg PO BID #60 tablet 11/03/18 Furosemide [Lasix 80 mg Tablet] 80 mg PO BID #180 tablet 11/03/18 Meloxicam [Mobic] 7.5 mg PO DAILY 11/21/18 Allergies/Adverse Reactions: benazepril Allergy (Verified 11/20/18 17:20) throat closes,lips swell Review of Systems Constitutional: PRESENT: anorexia, fatigue, weakness, weight loss. ABSENT: chills, fever(s), headache(s), night sweats Eyes: ABSENT: visual disturbances Ears: ABSENT: hearing changes Nose, Mouth, and Throat: ABSENT: mouth pain, sore throat Cardiovascular: PRESENT: dyspnea on exertion. ABSENT: chest pain, edema, orthropnea, palpitations Respiratory: PRESENT: dyspnea. ABSENT: cough, hemoptysis Gastrointestinal: PRESENT: nausea. ABSENT: abdominal pain, coffee ground emesis, diarrhea, dysphagia, heartburn, hematemesis, hematochezia, vomiting Genitourinary: ABSENT: difficulty urinating, dysuria, hematuria Musculoskeletal: ABSENT: deformity, joint swelling Integumentary: ABSENT: erythema, lesions, pruritus, rash Neurological: PRESENT: confusion, dizziness. ABSENT: abnormal movements, abnorm al speech, convulsions, focal weakness Hematologic/Lymphatic: ABSENT: easy bleeding, easy bruising, lymphadenopathy Physical Exam Vital Signs: Temp Pulse Resp BP Pulse Ox 97.9 F 106 H 18 139/80 H 95 11/21/18 11:30 11/21/18 14:00 11/21/18 11:30 11/21/18 11:30 11/21/18 11:30 Intake & Output 11/20/18 11/21/18 11/22/18 06:59 06:59 06:59 Intake Total 2000 200 Output Total 0 500 Balance 2000 -300 Weight 102.1 kg General appearance: PRESENT: no acute distress Eye exam: PRESENT: EOMI Ear exam: PRESENT: normal external ear exam Mouth exam: PRESENT: neck supple. ABSENT: moist Neck exam: ABSENT: lymphadenopathy, meningismus, tenderness, thyromegaly, tracheal deviation Respiratory exam: PRESENT: clear to auscultation andrey. ABSENT: crackles Cardiovascular exam: PRESENT: +S1, +S2, systolic murmur. ABSENT: rubs GI/Abdominal exam: PRESENT: normal bowel sounds, soft. ABSENT: organomegaly, tenderness Extremities exam: ABSENT: pedal edema Neurological exam: PRESENT: altered, awake, oriented to person. ABSENT: or iented to place, oriented to time Skin exam: PRESENT: dry. ABSENT: erythema, mottled, rash Results Laboratory Results: 11/21/18 05:47 11/21/18 05:47 11/20/18 11/20/18 11/21/18 21:00 21:00 02:45 WBC 7.8 RBC 3.67 L Hgb 10.1 L Hct 30.9 L MCV 84 MCH 27.7 MCHC 32.9 RDW 14.6 H Plt Count 276 Seg Neutrophils % 85.5 H Lymphocytes % 8.9 L Monocytes % 5.4 Eosinophils % 0.1 Basophils % 0.1 Absolute Neutrophils 6.7 Absolute Lymphocytes 0.7 Absolute Monocytes 0.4 Absolute Eosinophils 0.0 Absolute Basophils 0.0 Sodium 137.0 Potassium 4.3 Chloride 102 Carbon Dioxide 16 L Anion Gap 19 BUN 157 H Creatinine 15.07 H Est GFR ( Amer) 3 L Est GFR (Non-Af Amer) 2 L Glucose 33 L* Calcium 8.7 Total Bilirubin 0.2 AST 30 ALT 28 Alkaline Phosphatase 72 Total Protein 5.8 L Albumin 3.3 L Urine Color YELLOW Urine Appearance SLIGHTLY-CLOUDY Urine pH 5.0 Ur Specific [place] 1.009 Urine Protein NEGATIVE Urine Glucose (UA) NEGATIVE Urine Ketones NEGATIVE Urine Blood SMALL H Urine Nitrite NEGATIVE Ur Leukocyte Esterase SMALL H Urine WBC (Auto) 10 Urine RBC (Auto) 8 11/21/18 11/21/18 05:47 05:47 WBC 6.8 RBC 3.64 L Hgb 10.1 L Hct 30.6 L MCV 84 MCH 27.7 MCHC 33.0 RDW 14.6 H Plt Count 228 Seg Neutrophils % 82.2 H Lymphocytes % 9.0 L Monocytes % 8.4 Eosinophils % 0.3 Basophils % 0.1 Absolute Neutrophils 5.6 Absolute Lymphocytes 0.6 Absolute Monocytes 0.6 Absolute Eosinophils 0.0 Absolute Basophils 0.0 Sodium 136.5 L Potassium 4.6 Chloride 103 Carbon Dioxide 15 L Anion Gap 19 BUN 156 H Creatinine 13.99 H Est GFR ( Amer) 3 L Est GFR (Non-Af Amer) 3 L Glucose 88 Calcium 8.2 L Total Bilirubin AST ALT Alkaline Phosphatase Total Protein Albumin Urine Color Urine Appearance Urine pH Ur Specific [place] Urine Protein Urine Glucose (UA) Urine Ketones Urine Blood Urine Nitrite Ur Leukocyte Esterase Urine WBC (Auto) Urine RBC (Auto) Impressions: Femur X-Ray 11/20/18 19:40 IMPRESSION: 1. No acute fracture or dislocation. copyright 2010 [employer]- All Rights Reserved Foot X-Ray 11/20/18 19:40 IMPRESSION: 1. Acute minimally displaced fracture through the distal head of the 5th metatarsal. No joint involvement. Pelvis X-Ray 11/20/18 19:40 IMPRESSION: 1. No acute fracture or dislocation. copyright 2010 [employer]- All Rights Reserved Tibia/Fibula X-Ray 11/20/18 19:40 IMPRESSION: 1. No acute findings. Assessment & Plan - Diagnosis (1) LEÓN (acute kidney injury) Plan: Top of CKD stage IV/V. Patient is clinically uremic. Patient is therefore initiated on hemodialysis after explaining procedure and complications to the patient. This had been done earlier as an outpatient as well. Patient undergoing dialysis without any issues. Dialysis is being supervised to ensure safe and smooth procedure. Plan to remove no fluid. Follow-up with labs again in the morning. (2) Anemia Qualifiers: Anemia type: unspecified type Qualified Code(s): D64.9 - Anemia, unspecified Plan: Stable. Evaluate for indications for erythropoietin if her iron studies are normal. (3) Fall Qualifiers: Encounter type: initial encounter Qualified Code(s): W19.XXXA - Unspecified fall, initial encounter Plan: Possibly combination of uremia and hypoglycemia. She has a minimally displaced fracture right fifth metatarsal. (4) Metabolic acidosis Plan: Should respond to dialysis. 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
[2018-11-26] MEDS ORDERED: IRON SUCROSE COMPLEX INJ/PF 100 MG/5 ML SDV IV ONE (11:00)
[2018-11-26] MEDS: AMLODIPINE BESYLATE 10 MG TABLET PO SCH (11:48)
[2018-11-26] MEDS: SERTRALINE HCL 50 MG TABLET PO SCH (11:48)
[2018-11-26] MEDS: CALCITRIOL 0.25 MCG CAPSULE PO SCH (11:48)
[2018-11-26] MEDS: APIXABAN 2.5 MG TABLET PO SCH ×2 (11:48→17:17)
[2018-11-26] MEDS: OXYCODONE HCL IR 5 MG TABLET PO PRN (11:49)
[2018-11-26] MEDS: VALSARTAN 160 MG TABLET PO SCH (11:49)
[2018-11-26] MEDS: OXYCODONE-ACETAMINOPHEN 5-325 MG TABLET PO PRN (11:49)
[2018-11-26] MEDS: CETIRIZINE 10 MG TABLET PO SCH (11:49)
[2018-11-26] MEDS: PANTOPRAZOLE SODIUM 40 MG TABLET.DR PO SCH (11:49)
[2018-11-26] MEDS: METOPROLOL SUCCINATE 50 MG TAB.SR.24H PO SCH (11:49)
[2018-11-26] MEDS: FUROSEMIDE 80 MG TABLET PO SCH ×2 (11:49→17:17)
[2018-11-26] MEDS: CHOLECALCIFEROL (D3) 1,000 UNIT (25 MCG) TABLET PO SCH (11:50)
[2018-11-26] MEDS: FOLIC ACID/VITAMIN B COMP W-C CAPSULE PO SCH (15:31)
--- NOTE | 2018-11-26 20:01 | PDOC DISCHARGE SUMMARY ---
General - Admit/Disc Date/PCP Admission Date/Primary Care Provider: 11/21/18 00:49 K V JEANA MAI MD Discharge Date: 11/27/18 - Discharge Diagnosis (1) Uremia Is this a current diagnosis for this admission?: Yes (2) Chronic kidney disease, stage V requiring chronic dialysis Is this a current diagnosis for this admission?: Yes (3) Chronic atrial fibrillation Is this a current diagnosis for this admission?: Yes (4) Hypertension Is this a current diagnosis for this admission?: Yes (5) Fracture of fifth metatarsal bone of right foot Is this a current diagnosis for this admission?: Yes (6) T2DM (type 2 diabetes mellitus) Is this a current diagnosis for this admission?: Yes (7) Hypoglycemia Is this a current diagnosis for this admission?: Yes (8) Anemia in chronic kidney disease (CKD) Is this a current diagnosis for this admission?: Yes (9) Metabolic acidosis Is this a current diagnosis for this admission?: Yes (10) Secondary hyperparathyroidism Is this a current diagnosis for this admission?: Yes - Additional Information Resuscitation Status: Full Code Prescriptions: Amlodipine Besylate [Norvasc 10 mg Tablet] 10 mg PO DAILY #90 tablet Apixaban [Eliquis 2.5 mg Tablet] 2.5 mg PO BID #60 tablet Calcitriol 0.5 mcg PO DAILY #90 capsule Cholecalciferol (Vitamin D3) [Vitamin D3 1000 Unit Tablet] 2,000 unit PO DAILY #90 tablet Duloxetine HCl [Cymbalta 30 mg Capsule.] 30 mg PO Q12 #180 capsule. Folic Acid/Vitamin B Comp W-C [Nephrocaps Multiple Vitamin Capsule] 1 cap PO ACSUPPER #90 capsule Linagliptin [Tradjenta] 5 mg PO DAILY #90 tablet Home Medications: Cyanocobalamin (Vitamin B-12) [Vitamin B-12 Inj 1000 Mcg/1 ml Vial] 1,000 mcg IM [id number] 10/26/18 Isosorb Dinit/Hydralazine HCl [Bidil 20-37.5 mg Tablet] 1 tab PO TID 10/26/18 Levothyroxine Sodium 150 mcg PO Q6AM 10/26/18 Metoprolol Succinate [Toprol XL 100 mg Tablet] 100 mg PO DAILY 10/26/18 Omeprazole 40 mg PO DAILY 10/26/18 Oxycodone HCl/Acetaminophen [Percocet 10-325 mg Tablet] 1 tab PO Q8HP PRN 10/26/18 Pravastatin Sodium [Pravachol] 40 mg PO QPM 10/26/18 Valsartan [Diovan] 320 mg PO DAILY 10/26/18 Furosemide [Lasix 80 mg Tablet] 80 mg PO BID #180 tablet 11/03/18 Amlodipine Besylate [Norvasc 10 mg Tablet] 10 mg PO DAILY #90 tablet 11/26/18 Apixaban [Eliquis 2.5 mg Tablet] 2.5 mg PO BID #60 tablet 11/26/18 Calcitriol 0.5 mcg PO DAILY #90 capsule 11/26/18 Cetirizine HCl [Zyrtec 10 mg Tablet] 10 mg PO DAILY #90 11/26/18 Cholecalciferol (Vitamin D3) [Vitamin D3 1000 Unit Tablet] 2,000 unit PO DAILY #90 tablet 11/26/18 Clonidine HCl [Catapres 0.3 mg Tablet] 0.3 mg PO TID #90 11/26/18 Duloxetine HCl [Cymbalta 30 mg Capsule.] 30 mg PO Q12 #180 capsule. 11/26/18 Folic Acid/Vitamin B Comp W-C [Nephrocaps Multiple Vitamin Capsule] 1 cap PO ACSUPPER #90 capsule 11/26/18 Linagliptin [Tradjenta] 5 mg PO DAILY #90 tablet 11/26/18 History of Present Illness History of Present Illness: ORLANDO COOPER is a 63 year old female, she has a history of chronic kidney disease stage V, type 2 diabetes mellitus, she came to the emergency room for evaluation of a fall, she apparently fell and sustained acute displaced fracture of the distal head of the right metatarsal she was also found to be hypoglycemic, somewhat confused probably uremic. She has history of chronic kidney disease stage V, she follows with nephrology outpatient, she probably will need hemodialysis on this admission because of uremia. Hospital Course Hospital Course: 1 but letter. Previously 09/20/1999 patient was admitted for the management of uremia with a background of chronic kidney disease stage V, she required hemodialysis on this admission, she was seen by nephrology, hemodialysis was initiated on this admission. She also sustained fracture of the right foot, she was seen by orthopedic, conservative management was recommended. Physical Exam Vital Signs: Temp Pulse Resp BP Pulse Ox 98.4 F 106 H 16 136/78 H 96 11/26/18 15:13 11/26/18 19:00 11/26/18 15:13 11/26/18 15:13 11/26/18 15:13 Intake & Output 11/25/18 11/26/18 11/27/18 06:59 06:59 06:59 Intake Total 714 355 491 Output Total 400 1800 1100 Balance 314 -1374 -029 Weight 102.8 kg 100.7 kg General appearance: PRESENT: no acute distress, well-developed, well-nourished Head exam: PRESENT: atraumatic, normocephalic Eye exam: PRESENT: conjunctiva pink, EOMI, PERRLA Ear exam: PRESENT: normal external ear exam Mouth exam: PRESENT: moist, tongue midline Neck exam: PRESENT: full ROM Respiratory exam: PRESENT: clear to auscultation andrey Cardiovascular exam: PRESENT: RRR, +S1, +S2 Vascular exam: PRESENT: normal capillary refill GI/Abdominal exam: PRESENT: normal bowel sounds, soft Rectal exam: PRESENT: deferred Neurological exam: PRESENT: alert, CN II-XII grossly intact Psychiatric exam: PRESENT: appropriate affect, normal mood Skin exam: PRESENT: dry, intact, warm Results Laboratory Results: 11/26/18 04:49 11/26/18 04:49 11/26/18 11/26/18 04:49 04:49 WBC 8.2 RBC 3.61 L Hgb 9.9 L Hct 30.3 L MCV 84 MCH 27.4 MCHC 32.6 RDW 14.3 H Plt Count 232 Sodium 137.6 Potassium 4.1 Chloride 100 Carbon Dioxide 26 Anion Gap 12 BUN 63 H Creatinine 8.36 H Est GFR ( Amer) 6 L Est GFR (Non-Af Amer) 5 L Glucose 128 H Calcium 8.6 Total Bilirubin 0.3 AST 20 ALT 12 Alkaline Phosphatase 71 Total Protein 5.2 L Albumin 2.6 L Impressions: Femur X-Ray 11/20/18 19:40 IMPRESSION: 1. No acute fracture or dislocation. copyright 2010 [employer]- All Rights Reserved Foot X-Ray 11/20/18 19:40 IMPRESSION: 1. Acute minimally displaced fracture through the distal head of the 5th metatarsal. No joint involvement. Pelvis X-Ray 11/20/18 19:40 IMPRESSION: 1. No acute fracture or dislocation. copyright 2010 [employer]- All Rights Reserved Tibia/Fibula X-Ray 11/20/18 19:40 IMPRESSION: 1. No acute findings. Guidance Fluoroscopy 11/23/18 00:00 IMPRESSION: Final fluoroscopic image demonstrates the tip of the catheter at the inferior vena cava/ inferior aspect right atrium Qualifiers - * PATIENT BEING DISCHARGED WITH ANY OF THE FOLLOWING DIAGNOSIS: No VTE patient discharged on overlapping Therapy?: No Reason(s) for not prescribing Overlap Therapy:: Not indicated Stroke Pt being discharged on Anti-thrombolytic therapy?: No Reason(s) for not prescribing Anti-thrombolytic therapy:: Not indicated Stroke Pt being discharged on Anti-coagulation therapy?: No Reason(s) for not prescribing Anti-coagulation therapy:: Not indicated Stroke Pt being discharged on Statins?: No Reason(s) for not prescribing Statins therapy:: Not indicated NC Pt being discharged on Aspirin therapy?: No Reason(s) for not prescribing Aspirin therapy:: Not indicated NC Pt being discharged on Statins?: No Reason(s) for not prescribing Statin therapy:: Not indicated NC Pt discharged ACEI/ARBS?: No Reason(s) for not prescribing ACEI/ARBS:: Not indicated Acute Heart Failure - Is this a Heart Failure Patient?: No e) For LVEF <35%, discharged on Aldosterone antagonist?: N/A (LVEF > or = 35%)
[2018-11-26] MEDS: ATORVASTATIN CALCIUM 10 MG TABLET PO SCH (21:38)
[2018-11-26] MEDS: DULOXETINE HCL 30 MG CAPSULE.DR PO SCH (21:38)
[2018-11-27] MEDS: ISOSORB DINIT/HYDRALAZINE HCL 20-37.5 MG TABLET PO SCH (05:43)
[2018-11-27] MEDS: LEVOTHYROXINE SODIUM 0.15 MG TABLET PO SCH (05:43)
[2018-11-27] MEDS: CLONIDINE HCL 0.2 MG TABLET PO SCH (05:43)
[2018-11-27] MEDS: INSULIN LISPRO 100 UNIT/ML 3 ML VIAL SUBCUT SCH (07:47)
[2018-11-27 09:22] VITALS: BP 140/77
[2018-11-27] MEDS: FUROSEMIDE 80 MG TABLET PO SCH (09:22)
[2018-11-27] MEDS: CHOLECALCIFEROL (D3) 1,000 UNIT (25 MCG) TABLET PO SCH (09:22)
[2018-11-27] MEDS: METOPROLOL SUCCINATE 50 MG TAB.SR.24H PO SCH (09:22)
[2018-11-27] MEDS: DULOXETINE HCL 30 MG CAPSULE.DR PO SCH (09:22)
[2018-11-27] MEDS: APIXABAN 2.5 MG TABLET PO SCH (09:22)
[2018-11-27] MEDS: PANTOPRAZOLE SODIUM 40 MG TABLET.DR PO SCH (09:22)
[2018-11-27] MEDS: VALSARTAN 160 MG TABLET PO SCH (09:22)
[2018-11-27] MEDS: CALCITRIOL 0.25 MCG CAPSULE PO SCH (09:22)
[2018-11-27] MEDS: CETIRIZINE 10 MG TABLET PO SCH (09:22)
[2018-11-27] MEDS: AMLODIPINE BESYLATE 10 MG TABLET PO SCH (09:22)
== END 2018-11-27 10:02 | disposition home or self-care (01) | DRG 638 ==
LOC: ER 17:15 → EH 11-21 00:49 → 3N 11-21 02:31
PROVIDERS: ADMIT Internal Medicine; ATTEND Internal Medicine
PROC: 02HV33Z Insertion of Infusion Device into Superior Vena Cava, Percutaneous Approach (ICD-10-PCS; principal; 2018-11-21)
PROC: 5A1D70Z Performance of Urinary Filtration, Intermittent, Less than 6 Hours Per Day (ICD-10-PCS; 2018-11-21)
PROC: 02HV33Z Insertion of Infusion Device into Superior Vena Cava, Percutaneous Approach (ICD-10-PCS; 2018-11-23)
DX: E11.649 Type 2 diabetes mellitus with hypoglycemia without coma (principal); E87.2 Acidosis; I13.2 Hypertensive heart and chronic kidney disease with heart failure and with stage 5 chronic kidney disease, or end stage renal disease; N17.9 Acute kidney failure, unspecified; I50.9 Heart failure, unspecified; E78.5 Hyperlipidemia, unspecified; Z88.8 Allergy status to other drugs, medicaments and biological substances; I48.91 Unspecified atrial fibrillation; E03.9 Hypothyroidism, unspecified; K21.9 Gastro-esophageal reflux disease without esophagitis; M19.90 Unspecified osteoarthritis, unspecified site; F32.9 Major depressive disorder, single episode, unspecified; E86.0 Dehydration; E11.22 Type 2 diabetes mellitus with diabetic chronic kidney disease; E11.65 Type 2 diabetes mellitus with hyperglycemia; S92.351A Displaced fracture of fifth metatarsal bone, right foot, initial encounter for closed fracture; W18.11XA Fall from or off toilet without subsequent striking against object, initial encounter; T38.3X5A Adverse effect of insulin and oral hypoglycemic [antidiabetic] drugs, initial encounter; D63.1 Anemia in chronic kidney disease; G47.33 Obstructive sleep apnea (adult) (pediatric); D50.9 Iron deficiency anemia, unspecified; E55.9 Vitamin D deficiency, unspecified; R20.3 Hyperesthesia; E66.01 Morbid (severe) obesity due to excess calories; N18.5 Chronic kidney disease, stage 5; Z68.38 Body mass index [BMI] 38.0-38.9, adult
CPT/HCPCS: 00532; 36415; 36556; 72170; 73552; 76937; 77001; 80048; 80053; 81001; 82306; 82607; 82728; 82746; 82962; 83036; 83540; 83550; 83970; 84100; 85025; 85027; 85045; 86317; 86704; 87340; 87522; 93005; 93010; 96360; 96361; 99285; C1752; J1642; J1644; J1756; J1815; J2250; J2405; J2704; J3010; J3490; J7030; J7120

== ENCOUNTER → 2019-05-01 | Outpatient (CLI) | payer MEDICAID ==
--- NOTE | 2019-05-01 14:15 | RADIOLOGY REPORT (SQ) ---
EXAM DESCRIPTION: U/S ABDOMEN COMPLETE W/DOPPLER COMPLETED DATE/TIME: 05/01/2019 1:52 pm REASON FOR STUDY: EPIGASTRIC PAIN R10.13 EPIGASTRIC PAIN COMPARISON: 06/12/2017 TECHNIQUE: Dynamic and static grayscale images acquired of the abdomen and recorded on PACS. Additio nal selected color Doppler and spectral images recorded. Note: Exam does not meet criteria for a complete doppler/duplex scan LIMITATIONS: Study limited due to acoustical interference from fat or from air in the bowel. FINDINGS: PANCREAS: Poorly seen secondary to acoustical interference from fat or from air in the bow el. No visualized masses. Duct normal caliber as seen. LIVER: No masses. No dilated ducts. LIVER VASCULATURE: Normal directional flow of the main portal vein and hepatic veins. GALLBLADDER: Gallstone(s). No pericholecystic fluid. No wall thickening. ULTRASOUND-DETECTED LINN'S SIGN: Negative. INTRAHEPATIC DUCTS AND COMMON DUCT:CBD and intrahepatic ducts normal caliber. No filling defects. INFERIOR VENA CAVA: Normal flow. AORTA: No aneurysm. RIGHT KIDNEY: Normal size. Echogenic. 2 cm cyst. No solid or suspicious masses. No hydronephr osis. No calcifications. LEFT KIDNEY: Normal size. Echogenic. 1.9 cm cyst. No solid or suspicious masses. No hydroneph rosis. No calcifications. SPLEEN:Normal size. No solid masses. PERITONEAL AND PLEURAL SPACES: No ascites or effusions. OTHER: No other significant finding. IMPRESSION: Cholelithiasis. No evidence of acute cholecystitis. Chronic medical renal disease. TECHNICAL DOCUMENTATION: JOB ID: [id number] [employer]- All Rights Reserved Reading location - IP/workstation name: [email or web address]
== END ==
LOC: RAD 13:23
PROVIDERS: ATTEND Internal Medicine
DX: K80.80 Other cholelithiasis without obstruction (principal); R10.13 Epigastric pain
CPT/HCPCS: 76700; 93976

== ENCOUNTER 2019-05-22 14:22 | Emergency (ER) | payer MEDICAID ==
[2019-05-22] MEDS ORDERED: OXYMETAZOLINE HCL 0.05% NASAL SPRAY 15 ML BOTTLE NASL ONE (14:41)
--- NOTE | 2019-05-22 14:42 | ER Document Report ---
ED Medical Screen (RME) - General Chief Complaint: Nose Bleed Stated Complaint: NOSE BLEED Time Seen by Provider: 05/22/19 14:39 Primary Care Provider: MCKAYLA AYALA MD [Primary Care Provider] - Follow up as needed TRAVEL OUTSIDE OF THE [place] IN LAST 30 DAYS: No - HPI Notes: 05/22/19 14:41 Patient is a 63-year-old female on Eliquis who presents complaint of nosebleed since 1045 today. Patient does feel blood running in the back of her throat and has slowed, but is still bleeding a little on her. No fever. I have treated and performed a rapid initial assessment of this patient. A comprehensive ED assessment and evaluation of the patient, analysis of test results and completion of medical decision making process will be conducted by additional ED providers. PHYSICAL EXAMINATION: GENERAL: Well-appearing, well-nourished and in no acute distress. A&Ox4. Answers questions appropriately. Nose: scant bleeding currently with a clot noted rt nare. Oropharynx: blood noted - Related Data Allergies/Adverse Reactions: amlodipine [From Lotrel] Allergy (Verified 05/22/19 14:31) benazepril Allergy (Verified 05/22/19 14:31) throat closes,lips swell Past Medical History - Social History Frequency of alcohol use: None Drug Abuse: None Family history: Reviewed & Not Pertinent - Past Medical History Cardiac Medical History: Reports: Hx Atrial Fibrillation, Hx Hyperc holesterolemia, Hx Hypertension Denies: Hx Congestive Heart Failure, Hx Coronary Artery Disease, Hx Heart Attack, Hx Peripheral Vascular Disease, Hx Pulmonary Embolism, Hx Heart Murmur Pulmonary Medical History: Reports: Hx Asthma - as a child, Hx Sleep Apnea - CPAP- started October 2014 Denies: Hx Bronchitis, Hx COPD, Hx Pneumonia, Hx Respiratory Failure, Hx Tuberculosis Neurological Medical History: Denies: Hx Cerebrovascular Accident, Hx Seizures, Hx Parkinson's Disease Endocrine Medical History: Reports: Hx Diabetes Mellitus Type 2, Hx Hypothyroidism - goiter/Thyroidectomy 2010. Denies: Hx Graves' Disease, Hx Hyperthyroidism Renal/ Medical History: Denies: Hx End Stage Renal Disease, Hx Kidney Stones, Hx Peritoneal Dialysis Malignancy Medical History: Reports: Hx Renal (Kidney) Cancer. Denies: Hx Leukemia, Hx Lung Cancer GI Medical History: Reports: Hx Gastroesophageal Reflux Disease - 3 yrs-takes meds. Denies: Hx Cirrhosis, Hx Crohn's Disease, Hx Hiatal Hernia, Hx Irritable Bowel, Hx Liver Failure, Hx Pancreatitis, Hx Ulcer Musculoskeltal Medical History: Reports Hx Arthritis - neck, Denies Hx Fibromyalgia, Denies Hx Multiple Sclerosis, Denies Hx Muscular Dystrophy, Denies Hx Systemic Lupus Erythematosus Psychiatric Medical History: Reports: Hx Depression Denies: Hx Bipolar Disorder, Hx Dementia, Hx Schizophrenia Traumatic Medical History: Denies: Hx Fractures Infectious Medical History: Denies: Hx HIV Past Surgical History: Reports: Hx Abdominal Surgery - GBP, Hx Gastric Bypass Surgery - 1994, Hx Hysterectomy, Hx Kidney (Renal Surgery) - mass removed off of right kidney, Hx Orthopedic Surgery - left knee replacement, Hx Thyroid Surgery - removed 2010. Denies: Hx Appendectomy, Hx Bowel Surgery, Hx Section, Hx Cholecystectomy, Hx Colostomy, Hx Coronary Artery Bypass Graft, Hx Herniorrhaphy, Hx Mastectomy, Hx Pacemaker, Hx Tonsillectomy, Hx Tubal Ligation - Immunizations Hx Diphtheria, Pertussis, Tetanus Vaccination: Yes Physical Exam - Vital signs Vitals: Temp Pulse Resp BP Pulse Ox 97.9 F 110 H 20 163/99 H 97 05/22/19 14:31 05/22/19 14:31 05/22/19 14:31 05/22/19 14:31 05/22/19 14:31 Course - Vital Signs Vital signs: Temp Pulse Resp BP Pulse Ox 97.9 F 110 H 20 163/99 H 97 05/22/19 14:31 05/22/19 14:31 05/22/19 14:31 05/22/19 14:31 05/22/19 14:31 Doctor's Discharge - Discharge Referrals: MCKAYLA AYALA MD [Primary Care Provider] - Follow up as needed
[2019-05-22 15:02] LABS: ABSOLUTE LYMPHOCYTES (AUTO) 0.7 10^3/uL (0.5-4.7); ABSOLUTE MONOCYTES (AUTO) 0.4 10^3/uL (0.1-1.4); ABSOLUTE NEUT (AUTO) 3.6 10^3/uL (1.7-8.2); BASOPHILS % (AUTO) 0.4 % (0-2); HEMATOCRIT 35.8 % (36.0-47.0); HEMOGLOBIN 11.5 g/dL (12.0-15.5); LYMPHOCYTES % (AUTO) 14.7 % (13-45); MEAN CORPUSCULAR HGB CONC 32.2 g/dL (32.0-36.0); MEAN CORPUSCULAR VOLUME 93 fl (80-97); PLATELET COUNT 216 10^3/uL (150-450); RED BLOOD COUNT 3.84 10^6/uL (3.72-5.28); RED CELL DISTRIBUTION WIDTH 17.3 % (11.5-14.0); SEGMENTED NEUTROPHILS % (AUTO) 75.9 % (42-78); TOTAL CELLS COUNTED % (AUTO) 100 %; WHITE BLOOD COUNT 4.8 10^3/uL (4.0-10.5)
[2019-05-22 15:10] LABS: INTERNATIONAL RATION (INR) 1.61; PROTHROMBIN TIME 19.4 SEC (11.4-15.4)
[2019-05-22 15:12] LABS: PARTIAL THROMBOPLASTIN TIME 51.4 SEC (23.5-35.8)
[2019-05-22 15:21] LABS: ANION GAP 11 (5-19); BLOOD UREA NITROGEN 31 mg/dL (7-20); CARBON DIOXIDE 26 mmol/L (22-30); CHLORIDE 101 mmol/L (98-107); GLUCOSE 339 mg/dL (75-110); POTASSIUM 3.2 mmol/L (3.6-5.0)
[2019-05-22] MEDS ORDERED: TRANEXAMIC ACID INJ/PF 1,000 MG/10 ML SDV IV ONE (15:39)
--- NOTE | 2019-05-22 15:46 | ER Document Report ---
ED General - General Chief Complaint: Nose Bleed Stated Complaint: NOSE BLEED Time Seen by Provider: 05/22/19 14:39 Primary Care Provider: MCKAYLA AYALA MD [ACTIVE STAFF] - Follow up as needed TRAVEL OUTSIDE OF THE [place] IN LAST 30 DAYS: No - HPI Notes: Patient is a very pleasant 63-year-old female who presents to the emergency department for evaluation of a nosebleed. She states it started unprompted at 1045 this morning. She is on Eliquis. She states that it has slowed but it continues to bleed, she feels it running down her throat. Is only ever come from the right nostril. She denies any trauma to the area. She has had nosebleeds like this in the past, has never had to have it packed. She denies any other acute complaints or concerns. - Related Data Allergies/Adverse Reactions: amlodipine [From Lotrel] Allergy (Verified 05/22/19 14:31) benazepril Allergy (Verified 05/22/19 14:31) throat closes,lips swell Home Medications: List reviewed, please see note Past Medical History - General Information source: Patient - Social History Smoking Status: Never Smoker Frequency of alcohol use: None Drug Abuse: None Family History: Reviewed & Not Pertinent, CAD, CVA Patient has suicidal ideation: No Patient has homicidal ideation: No - Past Medical History Cardiac Medical History: Reports: Hx Atrial Fibrillation, Hx Hyp ercholesterolemia, Hx Hypertension Denies: Hx Congestive Heart Failure, Hx Coronary Artery Disease, Hx Heart Attack, Hx Peripheral Vascular Disease, Hx Pulmonary Embolism, Hx Heart Murmur Pulmonary Medical History: Reports: Hx Asthma - as a child, Hx Sleep Apnea - CPAP- started October 2014 Denies: Hx Bronchitis, Hx COPD, Hx Pneumonia, Hx Respiratory Failure, Hx Tuberculosis Neurological Medical History: Denies: Hx Cerebrovascular Accident, Hx Seizures, Hx Parkinson's Disease Endocrine Medical History: Reports: Hx Diabetes Mellitus Type 2, Hx Hypothyroidism - goiter/Thyroidectomy 2010. Denies: Hx Graves' Disease, Hx H yperthyroidism Renal/ Medical History: Reports: Hx End Stage Renal Disease. Denies: Hx Kidney Stones, Hx Peritoneal Dialysis Malignancy Medical History: Reports: Hx Renal (Kidney) Cancer. Denies: Hx Leukemia, Hx Lung Cancer GI Medical History: Reports: Hx Gastroesophageal Reflux Disease - 3 yrs-takes meds. Denies: Hx Cirrhosis, Hx Crohn's Disease, Hx Hiatal Hernia, Hx Irritable Bowel, Hx Liver Failure, Hx Pancreatitis, Hx Ulcer Musculoskeletal Medical History: Reports Hx Arthritis - neck, Denies Hx Fibromyalgia, Denies Hx Multiple Sclerosis, Denies Hx Muscular Dystrophy, Denies Hx Systemic Lupus Erythematosus Psychiatric Medical History: Reports: Hx Depression Denies: Hx Bipolar Disorder, Hx Dementia, Hx Schizophrenia Traumatic Medical History: Denies: Hx Fractures Infectious Medical History: Denies: Hx HIV Past Surgical History: Reports: Hx Abdominal Surgery - GBP, Hx Gastric Bypass Surgery - 1994, Hx Hysterectomy, Hx Kidney (Renal Surgery) - mass removed off of right kidney, Hx Orthopedic Surgery - left knee replacement, Hx Thyroid Surgery - removed 2010. Denies: Hx Appendectomy, Hx Bowel Surgery, Hx Section, Hx Cholecystectomy, Hx Colostomy, Hx Coronary Artery Bypass Graft, Hx Herniorrhaphy, Hx Mastectomy, Hx Pacemaker, Hx Tonsillectomy, Hx Tubal Ligation - Immunizations Hx Diphtheria, Pertussis, Tetanus Vaccination: Yes Hx Pneumococcal Vaccination: 02/26/14 Review of Systems - Review of Systems Constitutional: No symptoms reported EENT: See HPI Cardiovascular: No symptoms reported Respiratory: No symptoms reported Gastrointestinal: No symptoms reported Genitourinary: No symptoms reported Musculoskeletal: No symptoms reported Skin: No symptoms reported Neurological/Psychological: No symptoms reported Physical Exam - Vital signs Vitals: Temp Pulse Resp BP Pulse Ox 97.9 F 110 H 20 163/99 H 97 05/22/19 14:31 05/22/19 14:31 05/22/19 14:31 05/22/19 14:31 05/22/19 14:31 - Notes Notes: This is a pleasant 63-year-old female who appears her stated age in no acute distress. Head is normocephalic and atraumatic, oral mucosa is moist. Heart regular rate and rhythm, lungs are clear auscultation bilaterally. Examination of the nose yields a small amount of bright red blood from the right nostril. There is a large clot in the anterior aspect of the nose. This was removed with bayonet forceps. There is still a scant amount of blood, but secondary to the small size of patient's nasal passages, I am not able to fully appreciate any discrete bleeding source. Course - Re-evaluation Re-evalutation: 05/22/19 15:45 Patient presents emergency department for evaluation. She was initially seen through triage. She had laboratory investigations ordered. I did administer 2 sprays of oxymetazoline into the right nostril, with little effect. Patient is told to continue anterior pressure. Tranexamic acid is ordered to be atomized into the nostril. At this point her hemoglobin is higher than it was at her last measurement. Patient is stable, we will continue to monitor. 05/22/19 18:01 Patient did not respond to intranasal TXA either. In fact, several minutes later bleeding worsened. Decision was made to proceed with Rhino Rocket. Please see separate procedure note. Patient tolerated this well, but did have some discomfort following. I did administer Percocet and Zofran. I will send her home with Zofran and [place] dispense packs here. The patient has achieved hemostasis with a Rhino Rocket in place. We will refer her on to ENT for follow-up in 48 to 72 hours. She is given instructions on nosebleed, is to return to the ED with worsening or new concerning symptoms of any sort. - Vital Signs Vital signs: Temp Pulse Resp BP Pulse Ox 97.9 F 110 H 20 163/99 H 97 05/22/19 14:31 05/22/19 14:31 05/22/19 14:31 05/22/19 14:31 05/22/19 14:31 - Laboratory Result Diagrams: 05/22/19 14:46 05/22/19 14:46 Laboratory results interpreted by me: 05/22/19 05/22/19 05/22/19 14:46 14:46 14:46 Hgb 11.5 L Hct 35.8 L RDW 17.3 H PT 19.4 H APTT 51.4 H Potassium 3.2 L BUN 31 H Creatinine 5.91 H Est GFR ( Amer) 9 L Est GFR (MDRD) Non-Af 7 L Glucose 339 H Procedures - Nosebleed Procedure Right Location: Anterior Supplies used: Rhinorocket Notes: The procedure was explained in great detail. Rhino Rocket was soaked in sterile water, then placed from the anterior to posterior direction of the right nostril. It was then inflated. Patient tolerated this well, adequate h emostasis was achieved. Discharge - Discharge Clinical Impression: Epistaxis Condition: Stable Disposition: HOME, SELF-CARE Instructions: Nosebleed Instructions ([facility]) Additional Instructions: Hold your blood thinner for the next 48 hours. Follow-up with our ear nose and throat doctor, listed below, in 48 to 72 hours. If you develop bleeding despite packing in place, or any other new or concerning symptoms, please return imm ediately to the emergency department for evaluation. Referrals: MCKAYLA AYALA MD [ACTIVE STAFF] - Follow up as needed OLIVERIO FELIX MD [ACTIVE STAFF] - Follow up as needed
[2019-05-22] MEDS ORDERED: ONDANSETRON 4 MG TAB.RAPDIS PO ONE (17:11)
[2019-05-22] MEDS ORDERED: OXYCODONE-ACETAMINOPHEN 5-325 MG TABLET PO ONE (17:11)
[2019-05-22] MEDS ORDERED: HYDROCODONE/ACETAMINOPHEN 5-325 MG (6 TAB/ER DISP) PO PRN (18:04)
[2019-05-22] MEDS ORDERED: ONDANSETRON ODT 4 MG TAB (6 TAB/ER DISP) PO PRN (18:05)
[2019-05-22 19:30] VITALS: BP 173/79
== END 2019-05-22 19:34 | disposition home or self-care (01) ==
LOC: ER 14:22
DX: R04.0 Epistaxis (principal); I48.91 Unspecified atrial fibrillation; E78.00 Pure hypercholesterolemia, unspecified; I10 Essential (primary) hypertension; E11.9 Type 2 diabetes mellitus without complications; Z98.84 Bariatric surgery status
CPT/HCPCS: 99283; 36415; 85025; 85610; 85730; 80048; 30901; S0119; J3490 ×2

== ENCOUNTER 2019-06-11 06:57 | Day surgery (SDC) | payer MEDICAID ==
[2019-06-11] MEDS ORDERED: MIDAZOLAM 2 MG/2 ML INJ ONE (07:01)
[2019-06-11] MEDS ORDERED: ONDANSETRON HCL INJ/PF 4 MG/2 ML SDV ONE (07:01)
[2019-06-11] MEDS ORDERED: FENTANYL CITRATE INJ/PF 100 MCG/2 ML AMPUL ONE (07:01)
[2019-06-11] MEDS ORDERED: DIPHENHYDRAMINE HCL 50 MG/ML VIAL ONE (07:01)
[2019-06-11] MEDS ORDERED: NALOXONE HCL INJ/PF 0.4 MG/1 ML SDV ONE (07:01)
[2019-06-11] MEDS ORDERED: FLUMAZENIL INJ 0.5 MG/5 ML VIAL ONE (07:02)
[2019-06-11] MEDS ORDERED: EPINEPHRINE INJ 1 MG/10 ML DISP.SYRIN ONE (07:02)
[2019-06-11] MEDS ORDERED: GLUCAGON,HUMAN RECOMB 1 MG INJ ONE (07:02)
--- NOTE | 2019-06-11 08:04 | Operative Report ---
Nonrecallable Operative Report DATE OF SURGERY: 06/11/19 PREOPERATIVE DIAGNOSIS: Epigastric pain status post gastric bypass POSTOPERATIVE DIAGNOSIS: Gastro-gastric fistula, Jane-en-Y gastric bypass anatomy OPERATION: Esophagogastro duodenoscopy SURGEON: MCKAYLA AYALA ANESTHESIA: Moderate Sedation TISSUE REMOVED OR ALTERED: None COMPLICATIONS: None INTRAOPERATIVE FINDINGS: See note PROCEDURE: Procedure patient was brought to the endoscopy suite awake alert stable condition placed on the endoscopy table she was given IV sedation using Versed and fentanyl After appropriate timeout site verification procedure commenced. Using the Olympus gastroscope was passed in through the posterior pharynx into the proximal esophagus we traversed the proximal esophagus to the GE junction. The GE junction noted a moderate sized hiatal hernia Past into the gastric pouch which was relatively small approximately [address] to the right at the on the lesser curvature side of the gastric pouch about 3 cm below the GE junction there was an orifice noted consistent with a gastro- gastric fistula. I was unable to enter the fistula. However normal-appearing Mucosal edges We then identified the gastrojejunal anastomosis which appeared to be normal and widely patent there is no evidence of ulceration I traversed that orifice down into the jejunum and was able to advance the scope its entire length down the jejunum however I was unable to identify the Y anastomosis. . Scope was then slowly withdrawn. Findings. 1. Gastro-gastric fistula 2. Moderate sized hiatal hernia. 3. Otherwise normal gastric bypass anatomy
--- NOTE | 2019-06-11 08:06 | Discharge Summary ---
Discharge Summary (SDC) - Discharge Final Diagnosis: Epigastric pain status post gastric bypass, gastro-gastric fistula Date of Surgery: 06/11/19 Discharge Date: 06/11/19 Condition: Good Referrals: JIM GARCÍA MD [Primary Care Provider] - Discharge Diet: As Tolerated Discharge Activity: Activity As Tolerated Report the Following to Your Physician Immediately: Vomiting - Patient needs a follow-up in my office in 10 to 14 days, Increase in Pain
[2019-06-11 08:54] VITALS: BP 144/76
== END 2019-06-11 09:10 | disposition home or self-care (01) ==
LOC: END 06:57
PROVIDERS: ATTEND Surgery
DX: K31.6 Fistula of stomach and duodenum (principal); Z98.84 Bariatric surgery status; E11.9 Type 2 diabetes mellitus without complications; I48.91 Unspecified atrial fibrillation; Z88.8 Allergy status to other drugs, medicaments and biological substances
CPT/HCPCS: 43235; 82962; J2250; J3010; J0171; J1200; J1610; J2310; J2405; J3490

== ENCOUNTER → 2019-06-24 | Outpatient (CLI) | payer MEDICAID ==
--- NOTE | 2019-06-24 17:22 | XCELERA REPORT ---
[address] [place] [facility] [address] Lower Extremity Venous Evaluation Procedure: Color flow and duplex imaging of the veins of the left lower extremity as well as the right Common Femoral vein. Right Sided Venous Evaluation The right common femoral vein is fully compressible. Spontaneous and phasic flow is present in the right common femoral vein. Left Sided Venous Evaluation Normal vessel filling wall to wall, compression and augmentation as well as Colour flow down to the infrageniculate veins. Interpretation Summary No duplex evidence of DVT or obstruction in the left lower extremity nor in the right Common Femoral vein. Name: ORLANDO COOPER Age: 64 yrs Gender: Female : 1955 Patient Status: Outpatient Patient Location: Study Date: 06/24/2019 11:06 AM Reason For Study: LLE EDEMA Ordering Physician: JIM GARCÍA Performed By: Armando Allen : JIM GARCÍA > Jimmy Vigil
== END ==
LOC: SP 10:33
PROVIDERS: ATTEND Internal Medicine
DX: R22.42 Localized swelling, mass and lump, left lower limb (principal)
CPT/HCPCS: 93971

== ENCOUNTER → 2019-06-25 | Outpatient (CLI) | payer MEDICAID ==
--- NOTE | 2019-06-25 18:32 | RADIOLOGY REPORT (SQ) ---
EXAM DESCRIPTION: CT ABD/PELVIS ORAL ONLY COMPLETED DATE/TIME: 06/25/2019 4:51 pm REASON FOR STUDY: R10.84 GENERALIZED ABDOMINAL PAIN R10.84 GENERALIZED ABDOMINAL PAIN. Diabetes, k idney disease, high blood pressure. Diffuse abdominal pain. Previous hysterectomy and gastric bypas s. . COMPARISON: None. TECHNIQUE: CT scan of the abdomen and pelvis performed without intravenous or oral contrast. Images reviewed with lung, soft tissue, and bone windows. Reconstructed coronal and sagittal MPR images revi ewed. All images stored on PACS. All CT scanners at this facility use dose modulation, iterative reconstruction, and/or weight based d osing when appropriate to reduce radiation dose to as low as reasonably achievable (ALARA). [facility]: Dose Right [facility]: CareDose [facility]: Dose Right [facility]: Teradose 4D [facility]: Smart Technologies RADIATION DOSE: CT Rad equipment meets quality standard of care and radiation dose reduction techniq ues were employed. CTDIvol: 10.2 mGy. DLP: 514 mGy-cm.mGy. LIMITATIONS: None. FINDINGS: LOWER CHEST: No significant findings. No nodules or infiltrates. NON-CONTRASTED LIVER, SPLEEN, ADRENALS: Evaluation limited by lack of IV contrast. No identified sign ificant masses. PANCREAS: No masses. No peripancreatic inflammatory changes. GALLBLADDER: No identified stones by CT criteria. No inflammatory changes to suggest cholecystitis. RIGHT KIDNEY AND URETER: No suspicious masses. Assessment limited by lack of IV contrast. There are multiple nonobstructing right renal calculi. Exophytic right renal cortical cyst at the midpole. No hydronephrosis or hydroureter. LEFT KIDNEY AND URETER: No suspicious masses. Assessment limited by lack of IV contrast. Left renal cortical and parapelvic renal cysts. 5 mm nonobstructing left inferior pole renal calculus. No hy dronephrosis or hydroureter. AORTA AND RETROPERITONEUM: No aneurysm. No retroperitoneal masses or adenopathy. BOWEL AND PERITONEAL CAVITY: Postoperative changes of prior gastric bypass. No evidence of bowel obs truction. No bowel wall thickening or inflammatory change. APPENDIX: Normal. PELVIS, BLADDER, AND ABDOMINAL WALL:Post hysterectomy. No adnexal mass. Urinary bladder is decompre ssed. There are 2 small fat containing ventral hernias. No fluid in the upper ventral hernia sac. Diffuse subcutaneous edema throughout the abdomen in within the visualized lower breasts. Mild skin thickening involving the anterior pannus. No focal drainable abscess. BONES: No significant findings. OTHER: No other significant finding. IMPRESSION: 1. Diffuse subcutaneous edema. Mild skin thickening involving the pannus. Finding may represent flu id overload. Possible cellulitis at the inferior pannus. Clinical correlation and correlation with direct visualization recommended. 2. Bilateral nonobstructing renal calculi. No obstructing renal or ureteral calculus. No hydronephr osis. 3. Postoperative changes of prior gastric bypass. No bowel obstruction. Appendix is normal. COMMENT: Quality ID # [id number]: Final reports with documentation of one or more dose reduction techniques (e.g., Automated exposure control, adjustment of the mA and/or kV according to patient size, use of iterative reconstruction technique) TECHNICAL DOCUMENTATION: JOB ID: [id number] [employer]- All Rights Reserved Reading location - IP/workstation name: [email or web address]
== END ==
LOC: RAD 14:17
PROVIDERS: ATTEND Surgery
DX: N20.0 Calculus of kidney (principal); R10.84 Generalized abdominal pain
CPT/HCPCS: 74176; 82565

== ENCOUNTER 2019-09-11 12:03 | Inpatient (IN) | payer MEDICAID ==
[~2019-09-11 12:03] MED LIST: ROCURONIUM BROMIDE INJ 50 MG/5 ML VIAL IV ONE
--- NOTE | 2019-09-11 12:26 | ER Document Report ---
ED General - General Chief Complaint: General Weakness Stated Complaint: GENERAL WEAKNESS Time Seen by Provider: 09/11/19 12:14 Notes: Patient is a 64-year-old female with a history of atrial fibrillation, CHF, end- stage renal disease on dialysis, diabetes, and hypertension who presents emergency department of generally not feeling well and body aches. Patient states that she has felt this way at least since Monday when she saw her primary care provider. She also had dialysis yesterday. States that there was no problems with dialysis. Patient notes that she noted a knot at the middle of her chest. TRAVEL OUTSIDE OF THE [place] IN LAST 30 DAYS: No - Related Data Allergies/Adverse Reactions: amlodipine [From Lotrel] Allergy (Verified 09/11/19 12:14) benazepril Allergy (Verified 09/11/19 12:14) throat closes,lips swell Home Medications: medications at the bedside Past Medical History - Social History Smoking Status: Unknown if Ever Smoked Family History: Reviewed & Not Pertinent, CAD, CVA Patient has suicidal ideation: No Patient has homicidal ideation: No - Past Medical History Cardiac Medical History: Reports: Hx Atrial Fibrillation, Hx Hypercholes terolemia, Hx Hypertension Denies: Hx Congestive Heart Failure, Hx Coronary Artery Disease, Hx Heart Attack, Hx Peripheral Vascular Disease, Hx Pulmonary Embolism, Hx Heart Murmur Pulmonary Medical History: Reports: Hx COPD, Hx Sleep Apnea - CPAP- started October 2014 Denies: Hx Asthma, Hx Bronchitis, Hx Pneumonia, Hx Respiratory Failure, Hx Tuberculosis Neurological Medical History: Reports: Hx Cerebrovascular Accident. Denies: Hx Seizures, Hx Parkinson's Disease Endocrine Medical History: Reports: Hx Diabetes Mellitus Type 2, Hx Hypothyroidism - goiter/Thyroidectomy 2010. Denies: Hx Graves' Disease, Hx Hyperthyroidism Renal/ Medical History: Reports: Hx End Stage Renal Disease. Denies: Hx Kidney Stones, Hx Peritoneal Dialysis Malignancy Medical History: Reports: Hx Renal (Kidney) Cancer. Denies: Hx Leukemia, Hx Lung Cancer GI Medical History: Reports: Hx Gastroesophageal Reflux Disease - 3 yrs-takes meds. Denies: Hx Cirrhosis, Hx Crohn's Disease, Hx Hiatal Hernia, Hx Irritable Bowel, Hx Liver Failure, Hx Pancreatitis, Hx Ulcer Musculoskeletal Medical History: Denies Hx Arthritis, Denies Hx Fibromyalgia, Denies Hx Multiple Sclerosis, Denies Hx Muscular Dystrophy, Denies Hx Systemic Lupus Erythematosus Psychiatric Medical History: Reports: Hx Depression Denies: Hx Bipolar Disorder, Hx Dementia, Hx Schizophrenia Traumatic Medical History: Denies: Hx Fractures Infectious Medical History: Denies: Hx HIV Past Surgical History: Reports: Hx Abdominal Surgery - GBP, Hx Gastric Bypass Surgery - 1994, Hx Hysterectomy, Hx Kidney (Renal Surgery) - mass removed off of right kidney, Hx Orthopedic Surgery - left knee replacement, Hx Thyroid Surgery - removed 2010. Denies: Hx Appendectomy, Hx Bowel Surgery, Hx Section, Hx Cholecystectomy, Hx Colostomy, Hx Coronary Artery Bypass Graft, Hx Alo iorrhaphy, Hx Mastectomy, Hx Pacemaker, Hx Tonsillectomy, Hx Tubal Ligation - Immunizations Hx Diphtheria, Pertussis, Tetanus Vaccination: No Hx Pneumococcal Vaccination: 02/26/14 Review of Systems - Review of Systems Notes: REVIEW OF SYSTEMS: CONSTITUTIONAL : Denies recent illness. Denies recent unintentional weight loss. Denies fever, chills, or sweats. EENT: Denies eye, ear, throat, or mouth pain, discharge, or symptoms. Denies nasal or sinus congestion. CARDIOVASCULAR: Denies chest pain. RESPIRATORY: Denies shortness of breath, cough, congestion, difficulty breathing, or wheezing. GASTROINTESTINAL: Denies nausea, vomiting, and diarrhea. Denies abdominal pain. Denies constipation. GENITOURINARY: Denies difficulty urinating, burning, blood in urine, urgency or frequency. MUSCULOSKELETAL: Denies neck and back pain. Denies joint pain or swelling. SKIN: See HPI. HEMATOLOGIC : Denies easy bruising or bleeding. LYMPHATIC: Denies swollen, painful, enlarged glands. NEUROLOGICAL: Denies headache. Denies altered mental status. Denies alteration in speech. See HPI. PSYCHIATRIC: Denies stress, anxiety, alteration in sleep patterns, or depression. All other systems reviewed and negative. Physical Exam - Vital signs Vitals: Resp 18 09/11/19 12:12 - Notes Notes: PHYSICAL EXAMINATION: GENERAL: Chronically ill, moderate distress. HEAD: Normocephalic, atraumatic. EYES: PERRL, conjunctiva normal, all extraocular movements intact, sclera mildly icteric ENT: Dry mucous membranes. NECK: Supple, no noticeable swelling, redness, rash. Normal range of motion. LUNGS: Equal breath sounds bilaterally and clear to auscultation. No wheezes rales or rhonchi. CARDIOVASCULAR: Irregularly irregular. Radial pulses 2+, normal. ABDOMEN: Normoactive bowel sounds. Soft, moderately tender generalized abdomen, no guarding, no rebound tenderness, and no masses palpated. EXTREMITIES: 3+ pitting edema to bilateral lower extremities. No cyanosis. NEUROLOGICAL: Moves all extremities upon command. Strength 5/5 in upper extremities and 4/5 in lower extremities. PSYCH: Normal mood, normal affect. SKIN: Warm, very dry. No rash, lesions, ulcerations noted. Normal skin turgor. Course - Re-evaluation Re-evalutation: 09/11/19 14:[address] Prasad, my attending. At this time, he does not suspect any biliary dysfunction. Awaiting CT of the abdomen pelvis. 09/11/19 15:[address] Lomeli, if nephrology is able to see the patient, he would like patient admitted to [facility]. 09/11/19 15:58 Dr. Lopez will follow the patient. Patient will be admitted to [facility]. 09/11/19 16:09 Nurses have informed me that the patient has had low blood sugars despite getting D50 IV. Patient will receive glucagon IM. 09/11/19 17:08 Primary nurse told me the patient's lactic acid is 14.6. I evaluated the patient and patient is still in A. fib with RVR despite giving metoprolol. Patient will be started on vancomycin. I spoke with Dr. Wagner, the primary care provider. Will try to admit the patient to ICU, as the patient is unstable at this time. Blood pressure had dropped. 09/11/19 17:[address] Plaza and Dr. Lopez. Patient will be admitted to ICU. - Vital Signs Vital signs: Temp Pulse Resp BP Pulse Ox 98.0 F 19 86/46 L 71 L 09/11/19 19:36 09/11/19 19:01 09/11/19 19:36 09/11/19 18:22 - Laboratory Result Diagrams: 09/11/19 12:35 09/11/19 21:37 Laboratory results interpreted by me: 09/11/19 09/11/19 09/11/19 12:35 12:35 12:35 MCHC 31.8 L RDW 16.2 H Seg Neuts % (Manual) 89 H Lymphocytes % (Manual) 5 L Abs Neuts (Manual) 8.5 H PT 21.6 H APTT Sodium 135.7 L Potassium 5.8 H Chloride 96 L Carbon Dioxide 15 L Anion Gap 25 H BUN 36 H Creatinine 6.31 H Est GFR ( Amer) 8 L Est GFR (MDRD) Non-Af 7 L Glucose 71 L Lactic Acid Total Bilirubin 2.1 H Direct Bilirubin 1.4 H AST 1481 H ALT 1055 H Alkaline Phosphatase 160 H 09/11/19 09/11/19 09/11/19 12:35 12:35 15:14 MCHC RDW Seg Neuts % (Manual) Lymphocytes % (Manual) Abs Neuts (Manual) PT APTT 41.9 H Sodium Potassium Chloride Carbon Dioxide Anion Gap BUN Creatinine Est GFR ( Amer) Est GFR (MDRD) Non-Af Glucose Lactic Acid 11.2 H 14.6 H Total Bilirubin Direct Bilirubin AST ALT Alkaline Phosphatase Critical Care Note - Critical Care Note Total time excluding time spent on procedures (mins): 60 Comments: Critical care time spent obtaining history from patient or surrogate, discussions with consultants, development of treatment plan with patient or surrogate, evaluation of patient's response to treatment, examination of patient, ordering and performing treatments and interventions, ordering and review of laboratory studies, re-evaluation of patient's condition, ordering and review of radiographic studies and review of old charts Discharge - Discharge Clinical Impression: Generalized weakness, Elevated liver enzymes, Atrial fibrillation with rapid ventricular response, Lactic acidosis, Anasarca, Chronic kidney disease, stage V requiring chronic dialysis Sepsis Qualifiers: Sepsis type: sepsis due to unspecified organism Sepsis acute organ dysfunction status: unspecified Qualified Code(s): A41.9 - Sepsis, unspecified organism Condition: Fair Disposition: ADMITTED INPATIENT Admitting Provider: Bola ([facility]) Unit Admitted: ICU
[2019-09-11] MEDS ORDERED: NORMAL SALINE 500 ML IV ONE (12:48)
[2019-09-11] MEDS ORDERED: MORPHINE SULFATE 10 MG/ML INJ IV ONE (12:49)
[2019-09-11] MEDS ORDERED: ONDANSETRON HCL INJ/PF 4 MG/2 ML SDV IV ONE ×2 (12:49→13:41)
[2019-09-11] MEDS ORDERED: METOPROLOL TARTRATE PF/INJ 5 MG/5 ML SDV IV ONE ×2 (12:54→14:01)
[2019-09-11 13:17] LABS: INTERNATIONAL RATION (INR) 1.85; PROTHROMBIN TIME 21.6 SEC (11.4-15.4)
[2019-09-11 13:18] LABS: HEMATOCRIT 40.9 % (36.0-47.0); MEAN CORPUSCULAR HGB CONC 31.8 g/dL (32.0-36.0); MEAN CORPUSCULAR VOLUME 94 fl (80-97); PLATELET COUNT 179 10^3/uL (150-450); RED BLOOD COUNT 4.34 10^6/uL (3.72-5.28); RED CELL DISTRIBUTION WIDTH 16.2 % (11.5-14.0); WHITE BLOOD COUNT 9.5 10^3/uL (4.0-10.5)
[2019-09-11 13:44] LABS: ABSOLUTE LYMPHOCYTES# (MANUAL) 0.5 10^3/uL (0.5-4.7); ABSOLUTE MONOCYTES # (MANUAL) 0.6 10^3/uL (0.1-1.4); ANISOCYTOSIS 1+; BASOPHILS % (MANUAL) 0 % (0-2); EOSINOPHILS % (MANUAL) 0 % (0-6); LYMPHOCYTES % (MANUAL) 5 % (13-45); MONOCYTES % (MANUAL) 6 % (3-13); NUCLEATED RED BLOOD CELLS 2 /100 WBC (0); PLATELET COMMENT ADEQUATE; SEGMENTED NEUTROPHILS % (MAN) 89 % (42-78); TOTAL CELLS COUNTED 100
[2019-09-11 13:45] LABS: OVALOCYTES 1+
[2019-09-11 13:46] LABS: POIKILOCYTOSIS 1+; POLYCHROMASIA SLIGHT; TARGET CELLS SLIGHT
--- NOTE | 2019-09-11 13:52 | RADIOLOGY REPORT (SQ) ---
EXAM DESCRIPTION: CHEST SINGLE VIEW IMAGES COMPLETED DATE/TIME: 09/11/2019 1:33 pm REASON FOR STUDY: generalized weakness COMPARISON: 10/26/2018 EXAM PARAMETERS: NUMBER OF VIEWS: One view. TECHNIQUE: Single frontal radiographic view of the chest acquired. RADIATION DOSE: NA LIMITATIONS: None. FINDINGS: LUNGS AND PLEURA: No opacities, masses or pneumothorax. No pleural effusion. MEDIASTINUM AND HILAR STRUCTURES: No masses. Contour normal. HEART AND VASCULAR STRUCTURES: Cardiomegaly, stable finding. Normal vasculature. BONES: No acute findings. HARDWARE: Interval placement of right-sided dialysis catheter, with the tip at the caval atrial junc tion. Multiple surgical metallic clips at the base of the neck on the left, stable findings. OTHER: No other significant finding. IMPRESSION: 1. Since the prior study dated 10/26/2018, interval placement of right-sided dialysis cat heter. 2. Cardiomegaly, no evidence for failure. TECHNICAL DOCUMENTATION: JOB ID: [id number] 2010 [employer]- All Rights Reserved Reading location - IP/workstation name: [email or web address]
[2019-09-11 13:53] LABS: ALBUMIN 3.8 g/dL (3.5-5.0); ALKALINE PHOSPHATASE 160 U/L (38-126); BILIRUBIN,DIRECT 1.4 mg/dL (0.0-0.4); BILIRUBIN,TOTAL 2.1 mg/dL (0.2-1.3); BLOOD UREA NITROGEN 36 mg/dL (7-20); CALCIUM 10.2 mg/dL (8.4-10.2); GLUCOSE 71 mg/dL (75-110); POTASSIUM 5.8 mmol/L (3.6-5.0); TOTAL PROTEIN 6.8 g/dL (6.3-8.2)
[2019-09-11 13:59] LABS: CARBON DIOXIDE 15 mmol/L (22-30); CHLORIDE 96 mmol/L (98-107)
[2019-09-11 14:05] LABS: ANION GAP 25 (5-19)
[2019-09-11] MEDS ORDERED: DEXTROSE 50%-WATER 25 GM/50 ML DISP.SYRIN IV ONE ×4 (14:07→16:07)
[2019-09-11 14:15] LABS: ASPARTATE AMINO TRANSFERASE 1481 U/L (14-36)
--- NOTE | 2019-09-11 14:53 | RADIOLOGY REPORT (SQ) ---
EXAM DESCRIPTION: CT ABD/PELVIS NO ORAL OR IV IMAGES COMPLETED DATE/TIME: 09/11/2019 2:36 pm REASON FOR STUDY: elevated liver enzymes COMPARISON: 06/25/2019 TECHNIQUE: CT scan of the abdomen and pelvis performed without intravenous or oral contrast. Images reviewed with lung, soft tissue, and bone windows. Reconstructed coronal and sagittal MPR images revi ewed. All images stored on PACS. All CT scanners at this facility use dose modulation, iterative reconstruction, and/or weight based d osing when appropriate to reduce radiation dose to as low as reasonably achievable (ALARA). [facility]: Dose Right [facility]: CareDose [facility]: Dose Right [facility]: Teradose 4D [facility]: Smart SOASTA RADIATION DOSE: CT Rad equipment meets quality standard of care and radiation dose reduction techniq ues were employed. CTDIvol: 6.8 mGy. DLP: 334 mGy-cm.mGy. LIMITATIONS: None. FINDINGS: LOWER CHEST: Cardiomegaly. Coronary atherosclerosis. NON-CONTRASTED LIVER, SPLEEN, ADRENALS: Evaluation limited by lack of IV contrast. No identified sign ificant masses. Unchanged coarse calcification within the anterior left liver. PANCREAS: No masses. No peripancreatic inflammatory changes. GALLBLADDER: No identified stones by CT criteria. No inflammatory changes to suggest cholecystitis. RIGHT KIDNEY AND URETER: No suspicious masses. Assessment limited by lack of IV contrast. Atrophic kidney. Unchanged she had multiple nonobstructing stones, largest measuring 11 mm. No hydronephros is or hydroureter. LEFT KIDNEY AND URETER: No suspicious masses. Assessment limited by lack of IV contrast. Unchanged 1 7 mm cyst. Atrophic kidney. Nonobstructing stones, stable. AORTA AND RETROPERITONEUM: Aortoiliac atherosclerosis without aneurysm. No retroperitoneal masses or adenopathy. BOWEL AND PERITONEAL CAVITY: Prior gastric bypass. No obvious masses or inflammatory changes. No emanuel e fluid. APPENDIX: Normal. PELVIS, BLADDER, AND ABDOMINAL WALL:No abnormal masses. No free fluid. Bladder normal. Multiple midl ine fat containing hernias. Subcutaneous edema. Decreased skin thickening along the inferior pannus from prior. BONES: No acute bony abnormality. No suspicious osseous lesions. Stable grade 1 anterolisthesis of L4 on L5. OTHER: No other significant finding. IMPRESSION: 1. No evidence of acute intra-abdominal/pelvic process. 2. Anasarca. 3. Prior gastric bypass. Normal appendix. 4. Stable atrophic kidneys bilaterally with nonobstructing renal stones. COMMENT: Quality ID # [id number]: Final reports with documentation of one or more dose reduction techniques (e.g., Automated exposure control, adjustment of the mA and/or kV according to patient size, use of iterative reconstruction technique) TECHNICAL DOCUMENTATION: JOB ID: [id number] 2010 [employer]- All Rights Reserved Reading location - IP/workstation name: [email or web address]
[2019-09-11] MEDS ORDERED: GLUCAGON,HUMAN RECOMB 1 MG INJ IM ONE (16:09)
[2019-09-11] MEDS ORDERED: GLUCAGON,HUMAN RECOMB 1 MG INJ ONE (16:10)
[2019-09-11] MEDS ORDERED: NORMAL SALINE 1000 ML 1,000 ML IV ONE ×2 (17:03→21:32)
[2019-09-11] MEDS ORDERED: VANCOMYCIN HCL INJ 1000 MG VIAL IV ONE (17:03)
[2019-09-11 17:28] LABS: BLOOD UREA NITROGEN 35 mg/dL (7-20); CALCIUM 9.4 mg/dL (8.4-10.2); GLUCOSE 328 mg/dL (75-110); POTASSIUM 5.5 mmol/L (3.6-5.0)
[2019-09-11 17:34] LABS: CHLORIDE 97 mmol/L (98-107)
[2019-09-11 17:35] LABS: ANION GAP 30 (5-19)
[2019-09-11 17:37] LABS: CARBON DIOXIDE 7 mmol/L (22-30)
[2019-09-11] MEDS ORDERED: VANCOMYCIN HCL INJ 1000 MG VIAL ONE (17:40)
[2019-09-11] MEDS ORDERED: DEXTROSE 50%-WATER 25 GM/50 ML DISP.SYRIN IV PRN ×2 (18:07)
[2019-09-11] MEDS ORDERED: GLUCAGON,HUMAN RECOMB 1 MG INJ SUBCUT PRN (18:07)
[2019-09-11] MEDS ORDERED: DEXTROSE 40% GEL 15 GM TUBE PO PRN ×2 (18:07)
[2019-09-11 18:10] LABS: ARTERIAL BLOOD BASE EXCESS -22.4 mmol/L; ARTERIAL BLOOD H2CO3 1.01 mmol/L (1.05-1.35); ARTERIAL BLOOD HCO3 7.9 mmol/L (20-24); ARTERIAL BLOOD O2 SATURATION 60.5 % (94-98); ARTERIAL BLOOD PCO2 33.5 mmHg (35-45); ARTERIAL BLOOD PO2 46.3 mmHg (80-100)
[2019-09-11] MEDS ORDERED: METOPROLOL TARTRATE PF/INJ 5 MG/5 ML SDV IV PRN (18:13)
[2019-09-11] MEDS ORDERED: DEXTROSE 10%-WATER 1,000 ML IV PRN (18:14)
[2019-09-11 18:21] LABS: ARTERIAL BLOOD PH 6.99 (7.35-7.45)
[2019-09-11 18:24] LABS: ARTERIAL BLOOD FIO2 2
--- NOTE | 2019-09-11 18:26 | RADIOLOGY REPORT (SQ) ---
EXAM DESCRIPTION: CHEST SINGLE VIEW IMAGES COMPLETED DATE/TIME: 09/11/2019 6:16 pm REASON FOR STUDY: centeral placement COMPARISON: 09/11/2019 EXAM PARAMETERS: NUMBER OF VIEWS: One view. TECHNIQUE: Single frontal radiographic view of the chest acquired. RADIATION DOSE: NA LIMITATIONS: None. FINDINGS: LUNGS AND PLEURA: No evidence of pneumothorax. No acute pulmonary consolidation. MEDIASTINUM AND HILAR STRUCTURES: No masses. Contour normal. HEART AND VASCULAR STRUCTURES: Cardiomegaly, unchanged finding. Normal vasculature. BONES: No acute findings. HARDWARE: Right-sided dialysis catheter is again identified. Interval placement of left central jacobo e, tip is in the right atrium. OTHER: No other significant finding. IMPRESSION: 1. Interval placement of left central line, tip is in the region of the right atrium. No evidence of pneumothorax. 2. Cardiomegaly, unchanged finding. TECHNICAL DOCUMENTATION: JOB ID: [id number] 2010 [employer]- All Rights Reserved Reading location - IP/workstation name: [email or web address]
--- NOTE | 2019-09-11 18:31 | CRITICAL CARE ADMISSION REPORT ---
HPI Date:: 09/11/19 Time:: 17:00 Reason for ICU Reason:: Lactic acidosis, hypothermia, hypoglycemia. HPI: This patient is a 64 yo woman with several medical problems including HD, ESRD, DM-2 who has not been feeling well for 3-4 days. There is no specific complaints. She had dialysis yesterday and completed it without a problem. Today she is found with a lactic acid of 14. She is hypothermic to 95 and hypoglycemic to 71. She is understandably acidotic with no tachypnea or Kussmal breathing. She has signs of liver dysfunction with her lactic acid and hypoglycemia. NH3 pending as she is somewhat altered. There is no fever or respiratory complaints to make us think covid. She will need ICU care for the severe lactic acidosis with unknown cause and other metabolic derangements. History obtained from:: Old records, ED staff and sister Ms Steven Barr [phone] - Diagnosis/Plan (1) Atrial fibrillation with rapid ventricular response Is this a current diagnosis for this admission?: Yes Plan: She will need PRN lopressor. Her RVR may not subside until her pH is corrected. (2) Generalized weakness Is this a current diagnosis for this admission?: Yes Plan: Her main presenting symptom due to her metabolic derangements (3) Chronic atrial fibrillation Is this a current diagnosis for this admission?: Yes Plan: The goal will be rate control not NSR. (4) Chronic kidney disease, stage V requiring chronic dialysis Is this a current diagnosis for this admission?: Yes Plan: Dr. Lopez aware. This HD day. (5) Hypoglycemia Is this a current diagnosis for this admission?: Yes Plan: Her initial glucose 71. She will need D5W and frequent BG checks. (6) Metabolic acidosis Is this a current diagnosis for this admission?: Yes Plan: HD may help but this is a lactic acidosis. Last echo in 12/07 showed a normal EF (7) Type 2 diabetes mellitus with chronic kidney disease Qualifiers: Diabetes mellitus exterminator termite insulin use: with custodial use Chronic kidney disease stage: stage 5, not on chronic dialysis Qualified Code(s): E11.22 - Type 2 diabetes mellitus with diabetic chronic kidney disease; N18.5 - Chronic kidney disease, stage 5; Z79.4 - [facility] (current) use of insulin Is this a current diagnosis for this admission?: Yes Plan: Frequent accuchecks. Not on metformin. - . Plan Summary: Rewarm, check ammonia, needs HD tomorrow Past Medical History Cardiac Medical History: Reports: Atrial Fibrillation, Hyperlipidema, Hypertension Denies: Congestive Heart Failure, Coronary Artery Disease, Myocardial Infarction, Peripheral Vascular Disease, Pulmonary Embolism, Heart Murmur Pulmonary Medical History: Reports: Chronic Obstructive Pulmonary Disease ( COPD), Sleep Apnea - CPAP- started October 2014 Denies: Asthma, Bronchitis, Pneumonia, Respiratory Failure, Tuberculosis Neurological Medical History: Denies: Seizures Endocrine Medical History: Reports: Diabetes Mellitus Type 2, Hypothyroidism - goiter/Thyroidectomy 2010 Denies: Hyperthyroidism Renal/ Medical History: Reports: End Stage Renal Disease Malignancy Medical History: Reports: Renal (Kidney) Cancer Denies: Leukemia, Lung Cancer GI Medical History: Reports: Gastroesophageal Reflux Disease - 3 yrs-takes meds Denies: Cirrhosis, Crohn's Disease, Hiatal Hernia Musculoskeltal Medical History: Denies: Arthritis, Fibromyalgia Psychiatric Medical History: Reports: Depression Denies: Bipolar Disorder, Dementia Hematology: Denies: Anemia Infectious Medical History: Denies: HIV Past Surgical History Past Surgical History: Reports: Gastric Bypass Surgery - 1994, Hysterectomy, Orthopedic Surgery - left knee replacement Denies: Appendectomy, Section, Cholecystectomy, Colostomy, Coronary Artery Bypass Graft, Herniorrhaphy, Mastectomy, Pacemaker, Tonsillectomy, Tubal Ligation Social/Family History - Social History Smoking Status: Unknown if Ever Smoked Frequency of Alcohol Use: None Hx Recreational Drug Use: No Drugs: None Hx Prescription Drug Abuse: No - Medication/Allergies Home Medications: Levothyroxine Sodium 150 mcg PO Q6AM 10/26/18 Metoprolol Succinate [Toprol XL 100 mg Tablet] 100 mg PO DAILY 10/26/18 Omeprazole 40 mg PO DAILY 10/26/18 Cetirizine HCl [Zyrtec 10 mg Tablet] 10 mg PO DAILY #90 11/26/18 Duloxetine HCl [Cymbalta 30 mg Capsule.] 30 mg PO Q12 #180 capsule 11/26/18 Linaclotide [Linzess] 1 tab PO DAILY 06/11/19 Sucralfate [Carafate 1 gm Tablet] 1 tab PO DAILY 06/11/19 Albuterol Sulfate [Proair HFA Inhalation Aerosol 8.5 gm MDI] 2 puff IH Q6HP PRN 09/11/19 Albuterol Sulfate [Ventolin 0.083% Neb 2.5 mg/3 mL Ampul] 1 vial IH RTQ8HP PRN 09/11/19 Amlodipine Besylate [Norvasc 10 mg Tablet] 10 mg PO QHS 09/11/19 Cholecalciferol (Vitamin D3) [Vitamin D3 1000 Unit Tablet] 2,000 unit PO NOON 09/11/19 Clonidine HCl [Catapres 0.3 mg Tablet] 0.3 mg PO Q8 09/11/19 Cyanocobalamin (Vitamin B-12) [Vitamin B-12 Inj 1000 Mcg/1 ml Vial] 1 ml INJ .QMONTHLY 09/11/19 Insulin Glargine,Hum.rec.anlog [Lantus Insulin 100 Unit/1 ml 10 ml] 24 unit SQ DAILY 09/11/19 Megestrol Acetate [Megace 20 mg Tablet] 40 mg PO BID 09/11/19 Oxycodone HCl/Acetaminophen [Percocet 10-325 mg Tablet] 1 tab PO Q8HP PRN 09/11/19 Telmisartan 80 mg PO QHS 09/11/19 Allergies/Adverse Reactions: amlodipine [From Lotrel] Allergy (Verified 09/11/19 12:14) benazepril Allergy (Verified 09/11/19 12:14) throat closes,lips swell Review of Systems ROS unobtainable: Due to mental status Physical Exam Vital Signs: Temp Pulse Resp BP Pulse Ox 20 89/74 L 09/11/19 17:02 09/11/19 16:53 Intake & Output 09/10/19 09/11/19 09/12/19 06:59 06:59 06:59 Weight 77.1 kg Weight/Height Weight 77.1 kg Height 5 ft 4 in General appearance: PRESENT: no acute distress, cooperative Head exam: PRESENT: atraumatic, normocephalic Eye exam: PRESENT: conjunctiva pink, EOMI, PERRLA. ABSENT: scleral icterus Ear exam: PRESENT: normal external ear exam Mouth exam: PRESENT: moist, tongue midline Respiratory exam: PRESENT: clear to auscultation andrey. ABSENT: rales, rhonchi, wheezes Cardiovascular exam: PRESENT: irregular rhythm, tachycardia Pulses: PRESENT: normal dorsalis pedis pul GI/Abdominal exam: PRESENT: normal bowel sounds, soft. ABSENT: distended, guarding, mass, organolmegaly, rebound, tenderness Rectal exam: PRESENT: deferred Extremities exam: PRESENT: full ROM. ABSENT: calf tenderness, clubbing, pedal edema Neurological exam: PRESENT: altered Skin exam: PRESENT: dry, intact, warm. ABSENT: cyanosis, rash Tubes/Lines: PRESENT: Central Line Laboratory/Radiographs Laboratory Results: 09/11/19 12:35 09/11/19 16:52 09/11/19 09/11/19 09/11/19 12:35 12:35 12:35 WBC 9.5 RBC 4.34 Hgb 13.0 Hct 40.9 MCV 94 MCH 30.0 MCHC 31.8 L RDW 16.2 H Plt Count 179 Seg Neutrophils % Not Reportable Sodium 135.7 L Potassium 5.8 H Chloride 96 L Carbon Dioxide 15 L Anion Gap 25 H BUN 36 H Creatinine 6.31 H Est GFR ( Amer) 8 L Glucose 71 L Lactic Acid 11.2 H Calcium 10.2 Total Bilirubin 2.1 H AST 1481 H Alkaline Phosphatase 160 H Total Protein 6.8 Albumin 3.8 Lipase 119.3 09/11/19 09/11/19 15:14 16:52 WBC RBC Hgb Hct MCV MCH MCHC RDW Plt Count Seg Neutrophils % Sodium 134.3 L Potassium 5.5 H Chloride 97 L Carbon Dioxide 7 L* Anion Gap 30 H BUN 35 H Creatinine 6.28 H Est GFR ( Amer) 8 L Glucose 328 H Lactic Acid 14.6 H Calcium 9.4 Total Bilirubin AST Alkaline Phosphatase Total Protein Albumin Lipase 09/11/19 12:35 Troponin I 0.025 Impressions: Chest X-Ray 09/11/19 12:25 IMPRESSION: 1. Since the prior study dated 10/26/2018, interval placement of right-sided dialysis catheter. 2. Cardiomegaly, no evidence for failure. Abdomen/Pelvis CT 09/11/19 14:13 IMPRESSION: 1. No evidence of acute intra-abdominal/pelvic process. 2. Anasarca. 3. Prior gastric bypass. Normal appendix. 4. Stable atrophic kidneys bilaterally with nonobstructing renal stones. EKG: AF RVR rate 144. All labs, radiographs, diagnostic studies and EKGs were personally reviewed: Yes In addition, reports of radiographic and diagnostic studies were read: Yes Critical Time Critical Time (minutes): 40 -: The care of a critically ill patient is dynamic. This note represents a static moment in the admission process. Orders and treatments may be given simultaneously and urgently, and time is not personal financial representative of the treatment process. This patient requires Critical Care secondary to life threatening organ or limb dysfunction. Without Critical Care services, the patient is at risk for increased mortality and morbidity.
--- NOTE | 2019-09-11 18:33 | Operative Report ---
Bedside Procedure - History of Present Illness Indication for Procedure: Poor iv access need for multiple medications. Date: 09/11/19 Provider: LYNDA STYLES - Central Line Left Subclavian Time completed: 17:30 Consent obtained: Yes - From sister Central line pre-insertion: Sterile PPE donned, Chloraprep applied, Sterile drapes applied Central line lumen type: Triple Anesthetic type: 1% Lidocaine Ultrasound guided: No Line secured with sutures: Yes Central line post-insertion: Blood return from lumens, Biopatch applied, Sutured, Sterile dressing applied, Position confirmed w/ CXR Complications: No
--- NOTE | 2019-09-11 18:44 | EKG REPORT ---
SEVERITY:- ABNORMAL ECG - ATRIAL FIBRILLATION ABNRM R PROG, CONSIDER ASMI OR LEAD PLACEMENT ABNORMAL T, CONSIDER ISCHEMIA, LATERAL LEADS : Confirmed by: Olivia Cesar 11-Sep-2019 18:43:22
[2019-09-11] MEDS: FAMOTIDINE INJ/PF 20 MG/2 ML SDV IV SCH (19:00)
[2019-09-11] MEDS ORDERED: PROPOFOL 1,000 MG/100 ML INFUS..BTL IV PRN (19:06)
[2019-09-11] MEDS ORDERED: NOREPINEPHRINE BITARTRATE INJ/PF 4 MG/4 ML SDV IV ONE (20:00)
[2019-09-11] MEDS ORDERED: ETOMIDATE INJ/PF 20 MG/10 ML SDV IV ONE (20:00)
[2019-09-11] MEDS ORDERED: MIDAZOLAM HCL 50 MG/100 ML RTUINJ ONE (20:11)
[2019-09-11] MEDS: DEXTROSE 5%-WATER 250 ML with NOREPINEPHRINE BITARTRATE 4 MG IV PRN ×2 (20:12)
[2019-09-11] MEDS: MIDAZOLAM HCL 50 MG/100 ML RTUINJ IV PRN ×2 (20:26→23:55)
[2019-09-11 21:22] LABS: ARTERIAL BLOOD BASE EXCESS -26.7 mmol/L; ARTERIAL BLOOD H2CO3 0.33 mmol/L (1.05-1.35); ARTERIAL BLOOD HCO3 2.7 mmol/L (20-24); ARTERIAL BLOOD O2 SATURATION 99.8 % (94-98); ARTERIAL BLOOD PO2 612.7 mmHg (80-100)
[2019-09-11 21:23] LABS: ARTERIAL BLOOD FIO2 100%
[2019-09-11 21:24] LABS: ARTERIAL BLOOD PCO2 11.1 mmHg (35-45)
[2019-09-11] MEDS ORDERED: DEXTROSE 5%-WATER 1000 ML 1,000 ML with SODIUM BICARBONATE 150 MEQ IV PRN ×2 (21:45)
[2019-09-11] MEDS ORDERED: SODIUM BICARBONATE 8.4% INJ 50 MEQ/50 ML DISP.SYRIN ONE ×3 (21:46→23:27)
[2019-09-11] MEDS ORDERED: NORMAL SALINE INJ/PF 0.9% 10 ML SDV IV PRN (22:02)
--- NOTE | 2019-09-11 22:06 | RADIOLOGY REPORT (SQ) ---
CLINICAL INDICATION: ETT placement confirmation. TECHNIQUE: A single portable AP view was obtained of the chest at 2145 hours. Additional repeat image COMPARISON: 1813 hours. FINDINGS: The cardiomediastinal silhouette is enlarged but stable. The lungs are grossly clear. No evidence of effusion or pneumothorax. Endotracheal tube and nasogastric tube are both in satisfactory position. Left subclavian central venous catheter and right IJ tunneled hemodialysis access catheter remain in good position. IMPRESSION: Satisfactory positioning of supportive appliances. No adverse change.
[2019-09-11 22:11] LABS: ALBUMIN 2.8 g/dL (3.5-5.0); ALKALINE PHOSPHATASE 120 U/L (38-126); BILIRUBIN,DIRECT 1.4 mg/dL (0.0-0.4); BILIRUBIN,TOTAL 1.9 mg/dL (0.2-1.3); BLOOD UREA NITROGEN 35 mg/dL (7-20); CHLORIDE 101 mmol/L (98-107); GLUCOSE 207 mg/dL (75-110); POTASSIUM 5.6 mmol/L (3.6-5.0); TOTAL PROTEIN 5.2 g/dL (6.3-8.2)
[2019-09-11] MEDS ORDERED: SODIUM BICARBONATE 8.4% INJ 50 MEQ/50 ML DISP.SYRIN IV ONE ×2 (22:30→23:30)
[2019-09-11 22:41] LABS: ASPARTATE AMINO TRANSFERASE 2328 U/L (14-36)
--- NOTE | 2019-09-11 22:45 | Operative Report ---
Bedside Procedure - History of Present Illness Indication for Procedure: Blood pressure monitoring Date: 09/11/19 Provider: JD RUTLEDGE - Additional Procedures Arterial line Time performed: 21:20 Notes: A time out was completed verifying correct patient,procedure and site. The patients right groin was prepped and draped in sterile fashion 1% lidocaine was used to anesthetize the area a femoral arterial line was introduced into the right femoral artery a guidewire was placed and catheter threaded over the guidewire and the guidewire was removed. There was pulsatile blood return. The catheter was sutured in place to the skin and a sterile dressing was applied. Blood loss < 5cc no complication 1 attempt
[2019-09-11 22:49] LABS: CARBON DIOXIDE < 5 mmol/L (22-30)
--- NOTE | 2019-09-11 22:49 | Operative Report ---
Bedside Procedure - History of Present Illness Indication for Procedure: Airway Protection Date: 09/11/19 Provider: JD RUTLEDGE - Additional Procedures Intubation Time performed: 20:22 Notes: Pt with severe metabolic acidosis Intubated for increased WOB and airway protection. Intubate with 7.5 ETT using DL with a MAC #4 Grade 2 view ETT passed easily through the vocal cords. Good color change on the CO2 detector and bilateral breath sounds heard. Portable CXR confirmed placement 1 attempt
[2019-09-12 00:17] LABS: ARTERIAL BLOOD BASE EXCESS -19.9 mmol/L; ARTERIAL BLOOD H2CO3 0.46 mmol/L (1.05-1.35); ARTERIAL BLOOD O2 SATURATION 99.7 % (94-98); ARTERIAL BLOOD PH 7.21 (7.35-7.45); ARTERIAL BLOOD PO2 339.4 mmHg (80-100); ARTERIAL BLOOD TOTAL CO2 6.4 mmol/L (21-25)
[2019-09-12 00:18] LABS: ARTERIAL BLOOD FIO2 60%
[2019-09-12 00:19] LABS: ARTERIAL BLOOD PCO2 15.4 mmHg (35-45)
[2019-09-12] MEDS ORDERED: DEXTROSE 5%-WATER 500 ML with AMIODARONE HCL 900 MG IV PRN ×2 (00:53)
[2019-09-12] MEDS ORDERED: AMIODARONE HCL INJ 150 MG/3 ML VIAL IV ONE ×2 (01:08→01:11)
[2019-09-12] MEDS ORDERED: AMIODARONE HCL 150 MG in DEXTROSE 5%-WATER 100 ML IV ONE ×2 (01:43→02:30)
[2019-09-12] MEDS ORDERED: VASOPRESSIN INJ 20 UNIT/1 ML VIAL ONE (02:17)
[2019-09-12] MEDS ORDERED: DEXTROSE 5%-WATER 250 ML with VASOPRESSIN 100 UNIT IV PRN ×4 (02:26→05:08)
[2019-09-12] MEDS: MIDAZOLAM HCL 50 MG/100 ML RTUINJ IV PRN ×2 (02:39→05:57)
[2019-09-12 02:43] LABS: ARTERIAL BLOOD BASE EXCESS -23.3 mmol/L; ARTERIAL BLOOD H2CO3 0.43 mmol/L (1.05-1.35); ARTERIAL BLOOD HCO3 4.3 mmol/L (20-24); ARTERIAL BLOOD PO2 207.1 mmHg (80-100); ARTERIAL BLOOD TOTAL CO2 4.7 mmol/L (21-25)
[2019-09-12 02:44] LABS: ARTERIAL BLOOD FIO2 40%
[2019-09-12 02:45] LABS: ARTERIAL BLOOD PCO2 14.4 mmHg (35-45); ARTERIAL BLOOD PH 7.09 (7.35-7.45)
[2019-09-12] MEDS ORDERED: SODIUM BICARBONATE 8.4% INJ 50 MEQ/50 ML DISP.SYRIN IV ONE ×3 (02:48→10:00)
[2019-09-12] MEDS ORDERED: SODIUM BICARBONATE 8.4% INJ 50 MEQ/50 ML DISP.SYRIN ONE ×3 (03:04→09:06)
[2019-09-12] MEDS: DEXTROSE 5%-WATER 250 ML with NOREPINEPHRINE BITARTRATE 4 MG IV PRN ×12 (03:28→14:09)
[2019-09-12] MEDS: DEXTROSE 5%-WATER 1000 ML 1,000 ML with SODIUM BICARBONATE 150 MEQ IV PRN ×4 (04:18→09:57)
[2019-09-12] MEDS ORDERED: NORMAL SALINE 100 ML with INSULIN REGULAR, HUMAN 100 UNIT IV PRN ×2 (04:52)
[2019-09-12 05:16] LABS: HEMATOCRIT 29.3 % (36.0-47.0); MEAN CORPUSCULAR HEMOGLOBIN 30.8 pg (27.0-33.4); MEAN CORPUSCULAR HGB CONC 30.9 g/dL (32.0-36.0); RED BLOOD COUNT 2.94 10^6/uL (3.72-5.28); RED CELL DISTRIBUTION WIDTH 16.3 % (11.5-14.0)
[2019-09-12 05:18] LABS: ALBUMIN 2.3 g/dL (3.5-5.0); ALKALINE PHOSPHATASE 111 U/L (38-126); AMYLASE 169 U/L (30-110); BILIRUBIN,DIRECT 1.2 mg/dL (0.0-0.4); BLOOD UREA NITROGEN 35 mg/dL (7-20); GLUCOSE 267 mg/dL (75-110); POTASSIUM 5.7 mmol/L (3.6-5.0); TOTAL PROTEIN 4.1 g/dL (6.3-8.2)
[2019-09-12 05:18] LABS: MEAN CORPUSCULAR VOLUME 100 fl (80-97)
[2019-09-12 05:19] LABS: PLATELET COUNT 60 10^3/uL (150-450)
[2019-09-12] MEDS ORDERED: NORMAL SALINE 1000 ML 1,000 ML IV PRN (05:20)
[2019-09-12 05:23] LABS: CHLORIDE 95 mmol/L (98-107)
[2019-09-12 05:40] LABS: ABSOLUTE LYMPHOCYTES# (MANUAL) 0.5 10^3/uL (0.5-4.7); ABSOLUTE MONOCYTES # (MANUAL) 0.1 10^3/uL (0.1-1.4); BAND NEUTROPHILS % (MANUAL) 1 % (3-5); BASOPHILS % (MANUAL) 0 % (0-2); EOSINOPHILS % (MANUAL) 0 % (0-6); LYMPHOCYTES % (MANUAL) 14 % (13-45); MONOCYTES % (MANUAL) 3 % (3-13); SEGMENTED NEUTROPHILS % (MAN) 82 % (42-78); TOTAL CELLS COUNTED 100
[2019-09-12 05:42] LABS: ANISOCYTOSIS 4+; BURR CELLS 1+; OVALOCYTES 1+; PLATELET COMMENT DECREASED; POIKILOCYTOSIS 1+; POLYCHROMASIA 1+; TOXIC VACUOLATION PRESENT
[2019-09-12 05:43] LABS: NUCLEATED RED BLOOD CELLS 17 /100 WBC (0); WHITE BLOOD COUNT 4.1 10^3/uL (4.0-10.5)
[2019-09-12 05:45] LABS: FREE T3 2.23 pg/mL (2.77-5.27); FREE T4 (FREE THYROXINE) 0.95 ng/dL (0.78-2.19)
[2019-09-12 05:47] LABS: THYROID STIMULATING HORMONE 16.5 uIU/mL (0.47-4.68)
[2019-09-12 05:48] LABS: ANION GAP 34 (5-19); ASPARTATE AMINO TRANSFERASE 2617 U/L (14-36)
[2019-09-12 05:50] LABS: CARBON DIOXIDE 9 mmol/L (22-30)
[2019-09-12] MEDS ORDERED: INSULIN REG, HUMAN 100 UNIT/ML 3 ML VIAL (PYX) ONE (05:54)
[2019-09-12 06:12] LABS: ARTERIAL BLOOD BASE EXCESS -24.7 mmol/L; ARTERIAL BLOOD FIO2 40%; ARTERIAL BLOOD H2CO3 0.41 mmol/L (1.05-1.35); ARTERIAL BLOOD HCO3 3.7 mmol/L (20-24); ARTERIAL BLOOD O2 SATURATION 98.9 % (94-98); ARTERIAL BLOOD PO2 201.6 mmHg (80-100); ARTERIAL BLOOD TOTAL CO2 4.1 mmol/L (21-25)
[2019-09-12 06:14] LABS: ARTERIAL BLOOD PCO2 13.6 mmHg (35-45); ARTERIAL BLOOD PH 7.05 (7.35-7.45)
[2019-09-12 06:38] LABS: SALICYLATE 1.2 mg/dL (2.0-20.0)
[2019-09-12 06:39] LABS: ACETAMINOPHEN < 10 ug/mL (10-30)
[2019-09-12] MEDS: FAMOTIDINE INJ/PF 20 MG/2 ML SDV IV SCH (06:41)
[2019-09-12] MEDS ORDERED: CEFEPIME 1 GM/D5W RTU 1 GM/50 ML RTUPB IV SCH (07:00)
[2019-09-12] MEDS ORDERED: EPOETIN ALFA-EPBX 10,000 UNIT in SYRINGE, DISPOSABLE, 1 EACH IV PRN (07:32)
[2019-09-12] MEDS ORDERED: PHENYLEPHRINE HCL INJ/PF 10 MG/1 ML SDV ONE (08:15)
[2019-09-12] MEDS: DEXTROSE 5%-WATER 250 ML with PHENYLEPHRINE HCL 40 MG IV PRN ×4 (08:30→11:53)
[2019-09-12] MEDS: ALBUMIN HUMAN 12.5 GM/50 ML RTUINJ IV SCH ×2 (09:10→10:11)
[2019-09-12] MEDS ORDERED: LEVOTHYROXINE SODIUM 0.1 MG TABLET PO SCH (09:30)
[2019-09-12] MEDS ORDERED: EPINEPHRINE INJ 1 MG/10 ML DISP.SYRIN ONE ×2 (09:37→15:11)
[2019-09-12] MEDS ORDERED: FAMOTIDINE INJ/PF 20 MG/2 ML SDV IV SCH (10:00)
[2019-09-12] MEDS ORDERED: SUCRALFATE 1 GM TABLET PO SCH (10:00)
[2019-09-12] MEDS ORDERED: METOPROLOL SUCCINATE 50 MG TAB.SR.24H PO SCH (10:00)
[2019-09-12] MEDS ORDERED: HEPARIN SOD (PORCINE) 1,000 UNIT/ML 10 ML VIAL IV PRN (10:32)
[2019-09-12 10:37] LABS: BLOOD UREA NITROGEN 33 mg/dL (7-20); GLUCOSE 304 mg/dL (75-110); POTASSIUM 4.9 mmol/L (3.6-5.0)
[2019-09-12] MEDS ORDERED: NORMAL SALINE 250 ML IV PRN ×5 (10:37→12:47)
[2019-09-12 10:43] LABS: CARBON DIOXIDE 11 mmol/L (22-30); CHLORIDE 92 mmol/L (98-107)
[2019-09-12 10:48] LABS: CALCIUM 6.9 mg/dL (8.4-10.2)
[2019-09-12 10:49] LABS: ANION GAP 36 (5-19)
--- NOTE | 2019-09-12 10:54 | PDOC CRITICAL CARE PROG REPORT ---
General Date:: 09/12/19 ICU Day:: 1 Ventilator Day:: 1 Hospital Day:: 1 Resuscitation Status: Full Code Medical Power of Fish Roe Technician: Edna Barr [phone] Events in the past 12 to 24 Hours:: Intubated, acidotic, needs HD. Review of systems relevant to events:: Respiratory, renal, CV Reason for ICU Addmission:: Lactic acidosis, hypothermia, hypoglycemia. Intubated and now on pressors. - Medications: Medications reviewed and adjusted accordingly: Yes Vasopressors:: Levophed, soon to be phenylephrine. Physical Exam Vital Signs: Temp Pulse Resp BP Pulse Ox 100.2 F 124 H 27 H 47/18 L 79 L 09/12/19 05:22 09/11/19 22:27 09/12/19 08:07 09/12/19 08:07 09/12/19 08:00 Intake & Output 09/11/19 09/12/19 09/13/19 06:59 06:59 06:59 Intake Total 4312 Output Total 0 Balance 4312 Weight 77.5 kg Weight/Height Weight 77.5 kg Height 5 ft 4 in General appearance: PRESENT: no acute distress Head exam: PRESENT: atraumatic, normocephalic Eye exam: PRESENT: conjunctiva pink, EOMI, PERRLA. ABSENT: scleral icterus Ear exam: PRESENT: normal external ear exam Mouth exam: PRESENT: moist, tongue midline Respiratory exam: PRESENT: crackles, rhonchi, tachypnea, unlabored Cardiovascular exam: PRESENT: tachycardia GI/Abdominal exam: PRESENT: normal bowel sounds, soft. ABSENT: distended, guarding, mass, organolmegaly, rebound, tenderness Rectal exam: PRESENT: deferred Extremities exam: PRESENT: full ROM. ABSENT: calf tenderness, clubbing, pedal edema Musculoskeletal exam: PRESENT: normal inspection Neurological exam: PRESENT: other - Sedated but became confused before intubaation. Skin exam: PRESENT: dry, intact, warm. ABSENT: cyanosis, rash Tubes/Lines: PRESENT: Endotracheal Tube, Central Line, Arterial Catheter, Dialysis catheter, Nasogastic Tube Laboratory/Radiographs Laboratory Results: 09/12/19 05:03 09/12/19 04:39 09/11/19 09/11/19 09/11/19 12:35 12:35 12:35 WBC 9.5 RBC 4.34 Hgb 13.0 Hct 40.9 MCV 94 MCH 30.0 MCHC 31.8 L RDW 16.2 H Plt Count 179 Seg Neutrophils % Not Reportable Carbonic Acid HCO3/H2CO3 Ratio ABG pH ABG pCO2 ABG pO2 ABG HCO3 ABG O2 Saturation ABG Base Excess FiO2 Sodium 135.7 L Potassium 5.8 H Chloride 96 L Carbon Dioxide 15 L Anion Gap 25 H BUN 36 H Creatinine 6.31 H Est GFR ( Amer) 8 L Glucose 71 L Serum Osmolality Lactic Acid 11.2 H Calcium 10.2 Total Bilirubin 2.1 H AST 1481 H Alkaline Phosphatase 160 H Ammonia Total Protein 6.8 Albumin 3.8 Triglycerides Amylase Lipase 119.3 TSH Free T4 Free T3 pg/mL 09/11/19 09/11/19 09/11/19 15:14 16:52 16:52 WBC RBC Hgb Hct MCV MCH MCHC RDW Plt Count Seg Neutrophils % Carbonic Acid HCO3/H2CO3 Ratio ABG pH ABG pCO2 ABG pO2 ABG HCO3 ABG O2 Saturation ABG Base Excess FiO2 Sodium 134.3 L Potassium 5.5 H Chloride 97 L Carbon Dioxide 7 L* Anion Gap 30 H BUN 35 H Creatinine 6.28 H Est GFR ( Amer) 8 L Glucose 328 H Serum Osmolality Lactic Acid 14.6 H Calcium 9.4 Total Bilirubin AST Alkaline Phosphatase Ammonia Total Protein Albumin Triglycerides 268 H Amylase Lipase TSH Free T4 Free T3 pg/mL 09/11/19 09/11/19 09/11/19 17:10 18:09 18:58 WBC RBC Hgb Hct MCV MCH MCHC RDW Plt Count Seg Neutrophils % Carbonic Acid 1.01 L HCO3/H2CO3 Ratio 7:1 ABG pH 6.99 L* ABG pCO2 33.5 L ABG pO2 46.3 L ABG HCO3 7.9 L ABG O2 Saturation 60.5 L ABG Base Excess -22.4 FiO2 2 Sodium Potassium Chloride Carbon Dioxide Anion Gap BUN Creatinine Est GFR ( Amer) Glucose Serum Osmolality Lactic Acid 15.6 H Calcium Total Bilirubin AST Alkaline Phosphatase Ammonia 32.6 Total Protein Albumin Triglycerides Amylase Lipase TSH Free T4 Free T3 pg/mL 09/11/19 09/11/19 09/11/19 21:00 21:28 21:37 WBC RBC Hgb Hct MCV MCH MCHC RDW Plt Count Seg Neutrophils % Carbonic Acid 0.33 L HCO3/H2CO3 Ratio 8:1 ABG pH 7.00 L* ABG pCO2 11.1 L* ABG pO2 612.7 H ABG HCO3 2.7 L ABG O2 Saturation 99.8 H ABG Base Excess -26.7 FiO2 100% Sodium 135.9 L Potassium 5.6 H Chloride 101 Carbon Dioxide < 5 L* Anion Gap Not Reportable BUN 35 H Creatinine 6.44 H Est GFR ( Amer) 8 L Glucose 207 H Serum Osmolality Lactic Acid 17.8 H Calcium 9.0 Total Bilirubin 1.9 H AST 2328 H Alkaline Phosphatase 120 Ammonia Total Protein 5.2 L Albumin 2.8 L Triglycerides Amylase Lipase TSH Free T4 Free T3 pg/mL 09/12/19 09/12/19 09/12/19 00:10 02:25 04:39 WBC RBC Hgb Hct MCV MCH MCHC RDW Plt Count Seg Neutrophils % Carbonic Acid 0.46 L 0.43 L HCO3/H2CO3 Ratio 13:1 10:1 ABG pH 7.21 L 7.09 L* ABG pCO2 15.4 L* 14.4 L* ABG pO2 339.4 H 207.1 H ABG HCO3 6.0 L 4.3 L ABG O2 Saturation 99.7 H 99.0 H ABG Base Excess -19.9 -23.3 FiO2 60% 40% Sodium Potassium Chloride Carbon Dioxide Anion Gap BUN Creatinine Est GFR ( Amer) Glucose Serum Osmolality Lactic Acid Calcium Total Bilirubin AST Alkaline Phosphatase Ammonia 68.3 H Total Protein Albumin Triglycerides Amylase Lipase TSH Free T4 Free T3 pg/mL 09/12/19 09/12/19 09/12/19 04:39 04:39 04:39 WBC Cancelled RBC Cancelled Hgb Cancelled Hct Cancelled MCV Cancelled MCH Cancelled MCHC Cancelled RDW Cancelled Plt Count Cancelled Seg Neutrophils % Cancelled Carbonic Acid HCO3/H2CO3 Ratio ABG pH ABG pCO2 ABG pO2 ABG HCO3 ABG O2 Saturation ABG Base Excess FiO2 Sodium 137.9 Potassium 5.7 H Chloride 95 L Carbon Dioxide 9 L* Anion Gap 34 H BUN 35 H Creatinine 6.23 H Est GFR ( Amer) 8 L Glucose 267 H Serum Osmolality Lactic Acid Calcium 8.0 L Total Bilirubin 2.0 H AST 2617 H Alkaline Phosphatase 111 Ammonia Total Protein 4.1 L Albumin 2.3 L Triglycerides Amylase 169 H Lipase 824.9 H TSH 16.50 H Free T4 0.95 Free T3 pg/mL 2.23 L 09/12/19 09/12/19 09/12/19 05:03 05:03 06:14 WBC 4.1 RBC 2.94 L Hgb 9.0 L D Hct 29.3 L MCV 100 H D MCH 30.8 MCHC 30.9 L RDW 16.3 H Plt Count 60 L Seg Neutrophils % Not Reportable Carbonic Acid 0.41 L HCO3/H2CO3 Ratio 9:1 ABG pH 7.05 L* ABG pCO2 13.6 L* ABG pO2 201.6 H ABG HCO3 3.7 L ABG O2 Saturation 98.9 H ABG Base Excess -24.7 FiO2 40% Sodium Potassium Chloride Carbon Dioxide Anion Gap BUN Creatinine Est GFR ( Amer) Glucose Serum Osmolality 330 H Lactic Acid Calcium Total Bilirubin AST Alkaline Phosphatase Ammonia Total Protein Albumin Triglycerides Amylase Lipase TSH Free T4 Free T3 pg/mL 09/11/19 12:35 Troponin I 0.025 Impressions: Chest X-Ray 09/11/19 12:25 IMPRESSION: 1. Since the prior study dated 10/26/2018, interval placement of right-sided dialysis catheter. 2. Cardiomegaly, no evidence for failure. Abdomen/Pelvis CT 09/11/19 14:13 IMPRESSION: 1. No evidence of acute intra-abdominal/pelvic process. 2. Anasarca. 3. Prior gastric bypass. Normal appendix. 4. Stable atrophic kidneys bilaterally with nonobstructing renal stones. All labs, radiographs, diagnostic studies and EKGs were personally reviewed: Yes In addition, reports of radiographic and diagnostic studies were read: Yes Assessment and Plan - Diagnosis (1) Atrial fibrillation with rapid ventricular response Is this a current diagnosis for this admission?: Yes Plan: She is on metoprolol 100mg a day at home. Will restart at 50. (2) Generalized weakness Is this a current diagnosis for this admission?: Yes Plan: Now intubated and sedated. (3) Chronic atrial fibrillation Is this a current diagnosis for this admission?: Yes Plan: Aim for rate control. (4) Chronic kidney disease, stage V requiring chronic dialysis Is this a current diagnosis for this admission?: Yes Plan: Being dialysed now. Need acidosis correction. (5) Hypoglycemia Is this a current diagnosis for this admission?: Yes Plan: On D5 for now. (6) Metabolic acidosis Is this a current diagnosis for this admission?: Yes Plan: Lactic acid went up to 14. May be due to infection and shock liver. (7) Type 2 diabetes mellitus with chronic kidney disease Qualifiers: Diabetes mellitus detention insulin use: with wool grower use Chronic kidney disease stage: stage 5, not on chronic dialysis Qualified Code(s): E11.22 - Type 2 diabetes mellitus with diabetic chronic kidney disease; N18.5 - Chronic kidney disease, stage 5; Z79.4 - senior living (current) use of insulin Is this a current diagnosis for this admission?: Yes Plan: Controlled for now. (8) Elevated liver enzymes Is this a current diagnosis for this admission?: Yes Plan: Repeat daily until decreasing. Plan Summary: HD today to help clear acidosis. Blood for rectal bleeding. Cefepime for GNR in blood. Prognosis not good. Family aware. Critical Time Critical Time (minutes): 45 Level of Care: ICU Anticipated discharge: SNF Within: Other -: 1. The care of a critical patient is a dynamic process. This note is a outside sales account representative synopsis but static in nature. The timeframe for treatments given in order is not necessarily the actual time these treatments may have been done. 2. This patient requires critical care secondary to ongoing requirements for therapy not offered or safe outside the critical care environment. Transfer to a lower level of care will result in altered life or limb morbidity and mortality. 3. Multidisciplinary rounds completed. 4. ABCDE bundle addressed.
[2019-09-12] MEDS ORDERED: CALCIUM GLUCONATE 1000 MG/10 ML INJ IV ONE (10:56)
[2019-09-12 11:12] LABS: ARTERIAL BLOOD BASE EXCESS -5.5 mmol/L; ARTERIAL BLOOD H2CO3 0.84 mmol/L (1.05-1.35); ARTERIAL BLOOD HCO3 18.3 mmol/L (20-24); ARTERIAL BLOOD O2 SATURATION 99.3 % (94-98); ARTERIAL BLOOD PCO2 27.9 mmHg (35-45); ARTERIAL BLOOD PH 7.44 (7.35-7.45); ARTERIAL BLOOD PO2 177.1 mmHg (80-100); ARTERIAL BLOOD TOTAL CO2 19.2 mmol/L (21-25)
[2019-09-12 11:13] LABS: ARTERIAL BLOOD FIO2 40%
[2019-09-12 11:41] LABS: HEMATOCRIT 20.3 % (36.0-47.0); MEAN CORPUSCULAR HEMOGLOBIN 31.2 pg (27.0-33.4); MEAN CORPUSCULAR HGB CONC 32.9 g/dL (32.0-36.0); RED BLOOD COUNT 2.13 10^6/uL (3.72-5.28); RED CELL DISTRIBUTION WIDTH 14.7 % (11.5-14.0)
[2019-09-12] MEDS: CALCIUM GLUCONATE 1 GM/NS 50 ML RTU IV SCH ×2 (11:55→12:57)
[2019-09-12 11:56] LABS: PATH REVIEW PATHOLOGIST REVIEWED
[2019-09-12 12:09] LABS: MEAN CORPUSCULAR VOLUME 95 fl (80-97)
[2019-09-12 12:14] LABS: HEMOGLOBIN 6.7 g/dL (12.0-15.5)
[2019-09-12] MEDS ORDERED: VANCOMYCIN HCL 0 MG in DEXTROSE 5%-WATER 250 ML IV NR (12:15)
[2019-09-12 12:19] LABS: PLATELET COUNT 28 10^3/uL (150-450)
[2019-09-12] MEDS ORDERED: NORMAL SALINE 100 ML with PANTOPRAZOLE SODIUM 80 MG IV PRN ×2 (12:19)
[2019-09-12 12:34] LABS: WHITE BLOOD COUNT 3.9 10^3/uL (4.0-10.5)
--- NOTE | 2019-09-12 12:47 | PDOC CONSULTATION ---
Consultation Consult Date: 09/12/19 Provider Consulted: Sissy MAI Consult reason:: ESRD for hemodialysis in the setting of severe septic shock and very unstable History of Present Illness Admission Date/PCP: 09/11/19 16:33 JIM GARCÍA MD History of Present Illness: ORLANDO COOPER is a 64 year old female with a history of diabetes mellitus, ESRD on hemodialysis in the background of mellitus, hypertension, atrial fibrillation was admitted with history of progressive weakness and generalized body aches a day after her last dialysis on Monday. She was found to be in septic shock and in respiratory failure and was transferred to the ICU where she was sedated and intubated. Currently I am seeing her while she is on dialysis. She looks very unstable. Blood pressures are quite low in spite of fluid resuscitation along with multiple pressor agents. Her platelets are dropping significantly and she has got abnormal coagulation profile. Labs and medications were reviewed. Her chemistry shows that she is severely acidotic confirmed on ABG with a pH of 7.0 and she has shock liver. Past Medical History Cardiac Medical History: Reports: Atrial Fibrillation, Hyperlipidemia, Hypertension-primary Denies: Coronary Artery Disease, Heart Murmur, Myocardial Infarction, Peripheral Vascular Disease, Pulmonary Embolism Pulmonary Medical History: Reports: Chronic Obstructive Pulmonary Disease (COPD), Sleep Apnea - CPAP- started October 2014 Denies: Asthma, Bronchitis, Pneumonia, Respiratory Failure, Tuberculosis Neurological Medical History: Denies: Seizures Endocrine Medical History: Reports: Diabetes Mellitus Type 2, Hypothyroidism - goiter/Thyroidectomy 2010 Denies: Hyperthyroidism Renal/ Medical History: Reports: End Stage Renal Disease, Secondary Hyperparathyroidism Denies: Benign Prostatic Hyperplasia Malignancy Medical History: Reports: Renal (Kidney) Cancer Denies: Leukemia, Lung Cancer GI Medical History: Reports: Gastroesophageal Reflux Disease - 3 yrs-takes meds Denies: Cirrhosis, Crohn's Disease, Hiatal Hernia Musculoskeltal Medical History: Denies: Arthritis, Fibromyalgia, Rheumatoid Arthritis, Systemic Lupus Erythematosus Psychiatric Medical History: Reports: Depression Denies: Bipolar Disorder, Dementia Infectious Medical History: Denies: HIV Hematology Medical History: Reports Anemia of Chronic Kidney Disease Past Surgical History Past Surgical History: Reports: Gastric Bypass Surgery - 1994, Hysterectomy, Orthopedic Surgery - left knee replacement Denies: Appendectomy, Section, Cholecystectomy, Colostomy, Coronary Artery Bypass Graft, Herniorrhaphy, Mastectomy, Pacemaker, Tonsillectomy, Tubal Ligation Social History Smoking Status: Unknown if Ever Smoked Frequency of Alcohol Use: None Hx Recreational Drug Use: No Drugs: None Hx Prescription Drug Abuse: No - Advance Directive Resuscitation Status: Full Code Family History Parental Family History Reviewed: No Children Family History Reviewed: Yes - Her daughter had ESRD and was on sorin lysis before she . Sibling(s) Family History Reviewed.: No Medication/Allergy Home Medications: Levothyroxine Sodium 200 mcg PO Q6AM 10/26/18 Metoprolol Succinate [Toprol XL 100 mg Tablet] 100 mg PO Q12 10/26/18 Omeprazole 40 mg PO Q6AM 10/26/18 Cetirizine HCl [Zyrtec 10 mg Tablet] 10 mg PO DAILY #90 11/26/18 Duloxetine HCl [Cymbalta 30 mg Capsule.] 30 mg PO Q12 #180 capsule. 11/26/18 Linaclotide [Linzess] 290 mcg PO DAILY 06/11/19 Sucralfate [Carafate 1 gm Tablet] 1 gm PO BID 06/11/19 Albuterol Sulfate [Proair HFA Inhalation Aerosol 8.5 gm MDI] 2 puff IH Q6HP PRN 09/11/19 Albuterol Sulfate [Ventolin 0.083% Neb 2.5 mg/3 mL Ampul] 1 vial IH RTQ8HP PRN 09/11/19 Amlodipine Besylate [Norvasc 10 mg Tablet] 10 mg PO QHS 09/11/19 Cholecalciferol (Vitamin D3) [Vitamin D3 1000 Unit Tablet] 2,000 unit PO NOON 09/11/19 Clonidine HCl [Catapres 0.3 mg Tablet] 0.3 mg PO Q8 09/11/19 Cyanocobalamin (Vitamin B-12) [Vitamin B-12 Inj 1000 Mcg/1 ml Vial] 1 ml INJ .QMONTHLY 09/11/19 Insulin Glargine,Hum.rec.anlog [Lantus Insulin 100 Unit/1 ml 10 ml] 24 unit SQ DAILY 09/11/19 Megestrol Acetate [Megace 20 mg Tablet] 40 mg PO BID 09/11/19 Oxycodone HCl/Acetaminophen [Percocet 10-325 mg Tablet] 1 tab PO Q8HP PRN 09/11/19 Telmisartan 80 mg PO QHS 09/11/19 Allergies/Adverse Reactions: amlodipine [From Lotrel] Allergy (Verified 09/11/19 12:14) benazepril Allergy (Verified 09/11/19 12:14) throat closes,lips swell Review of Systems ROS unobtainable: Due to endotracheal tube Physical Exam Vital Signs: Temp Pulse Resp BP Pulse Ox 100.2 F 124 H 23 H 47/18 L 79 L 09/12/19 05:22 09/11/19 22:27 09/12/19 10:00 09/12/19 08:07 09/12/19 08:00 Intake & Output 09/11/19 09/12/19 09/13/19 06:59 06:59 06:59 Intake Total 4312 2220 Output Total 0 0 Balance 4312 2220 Weight 77.5 kg General appearance: PRESENT: disheveled Exam: Patient is currently sedated but looks extremely sick. She has got icteric eyes. Eye exam: PRESENT: EOMI, PERRLA, scleral icterus Neck exam: ABSENT: lymphadenopathy, meningismus, tenderness, thyromegaly, tracheal deviation Respiratory exam: PRESENT: clear to auscultation andrey, decreased breath sounds. ABSENT: crackles Cardiovascular exam: PRESENT: +S1, +S2 GI/Abdominal exam: PRESENT: distended, soft. ABSENT: firm, guarding, normal bowel sounds, organomegaly, tenderness Extremities exam: ABSENT: pedal edema Neurological exam: PRESENT: altered Skin exam: ABSENT: cyanosis, erythema, mottled Results Laboratory Results: 09/12/19 09:15 09/11/19 09/11/19 09/11/19 12:35 12:35 12:35 WBC 9.5 RBC 4.34 Hgb 13.0 Hct 40.9 MCV 94 MCH 30.0 MCHC 31.8 L RDW 16.2 H Plt Count 179 Seg Neutrophils % Not Reportable Carbonic Acid HCO3/H2CO3 Ratio ABG pH ABG pCO2 ABG pO2 ABG HCO3 ABG O2 Saturation ABG Base Excess FiO2 Sodium 135.7 L Potassium 5.8 H Chloride 96 L Carbon Dioxide 15 L Anion Gap 25 H BUN 36 H Creatinine 6.31 H Est GFR ( Amer) 8 L Glucose 71 L Serum Osmolality Lactic Acid 11.2 H Calcium 10.2 Total Bilirubin 2.1 H AST 1481 H Alkaline Phosphatase 160 H Ammonia Total Protein 6.8 Albumin 3.8 Triglycerides Amylase Lipase 119.3 TSH Free T4 Free T3 pg/mL Blood Type Antibody Screen 09/11/19 09/11/19 09/11/19 15:14 16:52 16:52 WBC RBC Hgb Hct MCV MCH MCHC RDW Plt Count Seg Neutrophils % Carbonic Acid HCO3/H2CO3 Ratio ABG pH ABG pCO2 ABG pO2 ABG HCO3 ABG O2 Saturation ABG Base Excess FiO2 Sodium 134.3 L Potassium 5.5 H Chloride 97 L Carbon Dioxide 7 L* Anion Gap 30 H BUN 35 H Creatinine 6.28 H Est GFR ( Amer) 8 L Glucose 328 H Serum Osmolality Lactic Acid 14.6 H Calcium 9.4 Total Bilirubin AST Alkaline Phosphatase Ammonia Total Protein Albumin Triglycerides 268 H Amylase Lipase TSH Free T4 Free T3 pg/mL Blood Type Antibody Screen 09/11/19 09/11/19 09/11/19 17:10 18:09 18:58 WBC RBC Hgb Hct MCV MCH MCHC RDW Plt Count Seg Neutrophils % Carbonic Acid 1.01 L HCO3/H2CO3 Ratio 7:1 ABG pH 6.99 L* ABG pCO2 33.5 L ABG pO2 46.3 L ABG HCO3 7.9 L ABG O2 Saturation 60.5 L ABG Base Excess -22.4 FiO2 2 Sodium Potassium Chloride Carbon Dioxide Anion Gap BUN Creatinine Est GFR ( Amer) Glucose Serum Osmolality Lactic Acid 15.6 H Calcium Total Bilirubin AST Alkaline Phosphatase Ammonia 32.6 Total Protein Albumin Triglycerides Amylase Lipase TSH Free T4 Free T3 pg/mL Blood Type Antibody Screen 09/11/19 09/11/19 09/11/19 21:00 21:28 21:37 WBC RBC Hgb Hct MCV MCH MCHC RDW Plt Count Seg Neutrophils % Carbonic Acid 0.33 L HCO3/H2CO3 Ratio 8:1 ABG pH 7.00 L* ABG pCO2 11.1 L* ABG pO2 612.7 H ABG HCO3 2.7 L ABG O2 Saturation 99.8 H ABG Base Excess -26.7 FiO2 100% Sodium 135.9 L Potassium 5.6 H Chloride 101 Carbon Dioxide < 5 L* Anion Gap Not Reportable BUN 35 H Creatinine 6.44 H Est GFR ( Amer) 8 L Glucose 207 H Serum Osmolality Lactic Acid 17.8 H Calcium 9.0 Total Bilirubin 1.9 H AST 2328 H Alkaline Phosphatase 120 Ammonia Total Protein 5.2 L Albumin 2.8 L Triglycerides Amylase Lipase TSH Free T4 Free T3 pg/mL Blood Type Antibody Screen 09/12/19 09/12/19 09/12/19 00:10 02:25 04:39 WBC RBC Hgb Hct MCV MCH MCHC RDW Plt Count Seg Neutrophils % Carbonic Acid 0.46 L 0.43 L HCO3/H2CO3 Ratio 13:1 10:1 ABG pH 7.21 L 7.09 L* ABG pCO2 15.4 L* 14.4 L* ABG pO2 339.4 H 207.1 H ABG HCO3 6.0 L 4.3 L ABG O2 Saturation 99.7 H 99.0 H ABG Base Excess -19.9 -23.3 FiO2 60% 40% Sodium Potassium Chloride Carbon Dioxide Anion Gap BUN Creatinine Est GFR ( Amer) Glucose Serum Osmolality Lactic Acid Calcium Total Bilirubin AST Alkaline Phosphatase Ammonia 68.3 H Total Protein Albumin Triglycerides Amylase Lipase TSH Free T4 Free T3 pg/mL Blood Type Antibody Screen 09/12/19 09/12/19 09/12/19 04:39 04:39 04:39 WBC Cancelled RBC Cancelled Hgb Cancelled Hct Cancelled MCV Cancelled MCH Cancelled MCHC Cancelled RDW Cancelled Plt Count Cancelled Seg Neutrophils % Cancelled Carbonic Acid HCO3/H2CO3 Ratio ABG pH ABG pCO2 ABG pO2 ABG HCO3 ABG O2 Saturation ABG Base Excess FiO2 Sodium 137.9 Potassium 5.7 H Chloride 95 L Carbon Dioxide 9 L* Anion Gap 34 H BUN 35 H Creatinine 6.23 H Est GFR ( Amer) 8 L Glucose 267 H Serum Osmolality Lactic Acid Calcium 8.0 L Total Bilirubin 2.0 H AST 2617 H Alkaline Phosphatase 111 Ammonia Total Protein 4.1 L Albumin 2.3 L Triglycerides Amylase 169 H Lipase 824.9 H TSH 16.50 H Free T4 0.95 Free T3 pg/mL 2.23 L Blood Type Antibody Screen 09/12/19 09/12/19 09/12/19 05:03 05:03 06:14 WBC 4.1 RBC 2.94 L Hgb 9.0 L D Hct 29.3 L MCV 100 H D MCH 30.8 MCHC 30.9 L RDW 16.3 H Plt Count 60 L Seg Neutrophils % Not Reportable Carbonic Acid 0.41 L HCO3/H2CO3 Ratio 9:1 ABG pH 7.05 L* ABG pCO2 13.6 L* ABG pO2 201.6 H ABG HCO3 3.7 L ABG O2 Saturation 98.9 H ABG Base Excess -24.7 FiO2 40% Sodium Potassium Chloride Carbon Dioxide Anion Gap BUN Creatinine Est GFR ( Amer) Glucose Serum Osmolality 330 H Lactic Acid Calcium Total Bilirubin AST Alkaline Phosphatase Ammonia Total Protein Albumin Triglycerides Amylase Lipase TSH Free T4 Free T3 pg/mL Blood Type Antibody Screen 09/12/19 09/12/19 09/12/19 09:15 10:35 10:42 WBC RBC Hgb Hct MCV MCH MCHC RDW Plt Count Seg Neutrophils % Carbonic Acid 0.84 L HCO3/H2CO3 Ratio 21:1 ABG pH 7.44 ABG pCO2 27.9 L ABG pO2 177.1 H ABG HCO3 18.3 L ABG O2 Saturation 99.3 H ABG Base Excess -5.5 FiO2 40% Sodium 139.4 Potassium 4.9 Chloride 92 L Carbon Dioxide 11 L Anion Gap 36 H BUN 33 H Creatinine 5.68 H Est GFR ( Amer) 9 L Glucose 304 H Serum Osmolality Lactic Acid Calcium 6.9 L* Total Bilirubin AST Alkaline Phosphatase Ammonia Total Protein Albumin Triglycerides Amylase Lipase TSH Free T4 Free T3 pg/mL Blood Type A POSITIVE Antibody Screen NEGATIVE 09/11/19 15:14 Blood Blood Culture - Final Bacillus Sp. Not Anthracis 09/11/19 12:35 Troponin I 0.025 Impressions: Chest X-Ray 09/11/19 12:25 IMPRESSION: 1. Since the prior study dated 10/26/2018, interval placement of right-sided dialysis catheter. 2. Cardiomegaly, no evidence for failure. Abdomen/Pelvis CT 09/11/19 14:13 IMPRESSION: 1. No evidence of acute intra-abdominal/pelvic process. 2. Anasarca. 3. Prior gastric bypass. Normal appendix. 4. Stable atrophic kidneys bilaterally with nonobstructing renal stones. Assessment & Plan - Diagnosis (1) Sepsis with acute liver failure and septic shock Plan: Patient is in severe septic shock with features suggestive of DIC/acute hepatic failure from shock liver and severely hypotensive. She is on multiple pressors after fluid resuscitation. She is also getting blood. Her platelets are dropping significantly. She is severely acidotic in spite of massive amounts of bicarb replacements. She is got abnormal coagulation profile. Cultures are pending. Urine culture is were not done because she apparently is rather anuric. Guzman catheter yet to be done. Labs and medications were reviewed. Discussions were done with the treating nurse Gaby as well as Dr. León/duct maker. Will order stat CBC/DIC profile followed by Chem-12 and a lactic acid level 30 minutes postdialysis. A stat ABG is pending. We will revise antibiotics to meropenem/vancomycin pending cultures. Ordered more fluids. Discussed dialysis orders with the treating dialysis nurse Mary.2 L of fluid to be bolused now and 2 L following rather slower. Hemodynamically very unstable and unfortunately very poor prognosis. (2) ESRD on hemodialysis Plan: Patient seen on dialysis. Dialysis is proceeding rather cautiously given her her severe hemodynamically unstable condition. She is extremely and critically sick and is very doubtful that she is going to pull through. Dialysis orders were reviewed with the treating dialysis nurse Mary. We will continue with QB of 200/QF of 800. See if we can correct her acidosis which is quite severe in spite of massive amounts of bicarb replacements and given a high lactic acid. (3) Atrial fibrillation with rapid ventricular response Is this a current diagnosis for this admission?: Yes (4) Metabolic acidosis Is this a current diagnosis for this admission?: Yes Plan: In the setting of severe septic shock. Other differentials and etiologies that need to be excluded also include ischemic bowel. (5) Lactic acidosis Plan: As mentioned earlier. Monitor closely. Get levels (6) Anemia Qualifiers: Anemia type: unspecified type Qualified Code(s): D64.9 - Anemia, unspecified Plan: She is got DIC with rapidly dropping hemoglobin and platelets. Her admission hemoglobin was 13 and currently 6.7. Platelet And also dropping rapidly and currently is down to 18 and would consider getting platelets ready for transfusion as well. Would recommend monitoring her CBCs every 2 hours. (7) T2DM (type 2 diabetes mellitus) Qualifiers: Diabetes mellitus termite exterminator insulin use: with termite exterminator use Diabetes mellitus complication status: with kidney complications Diabetes mellitus complication detail: with chronic kidney disease Chronic kidney disease stage: stage 5, not on chronic dialysis Qualified Code(s): E11.22 - Type 2 diabetes mellitus with diabetic chronic kidney disease; N18.5 - Chronic kidney disease, stage 5; Z79.4 - terminal carman (current) use of insulin Plan: Avoid hypoglycemia.This should be expected and monitor closely given the fact that she is in severe septic shock along with shock liver. - Time Time Spent: 50 to 70 Minutes - 50 minutes was spent in reviewing her charts and total care and administering further orders including [id number] time in the ICU. Medications reviewed and adjusted accordingly: Yes
[2019-09-12] MEDS ORDERED: HYDROCORTISONE SOD SUCCINATE INJ/PF 100 MG/2 ML SDV ONE (12:55)
[2019-09-12] MEDS ORDERED: DESMOPRESSIN ACETATE 20 MCG in NORMAL SALINE 50 ML IV ONE (12:57)
[2019-09-12 13:09] LABS: FIBRINOGEN > 1800 mg/dL (209-497); INTERNATIONAL RATION (INR) 10.67; PARTIAL THROMBOPLASTIN TIME 171.2 SEC (23.5-35.8); PROTHROMBIN TIME 87.7 SEC (11.4-15.4)
[2019-09-12 13:10] LABS: D-DIMER > 20.00 ug/mL (0.00-0.50)
[2019-09-12 13:49] LABS: APPEARANCE,URINE CLOUDY; BILIRUBIN,URINE NEGATIVE (NEGATIVE); COLOR,URINE YELLOW; GLUCOSE, URINE NEGATIVE (NEGATIVE); KETONES,URINE NEGATIVE (NEGATIVE); LEUKOCYTE ESTERASE,URINE MODERATE (NEGATIVE); NITRITE,URINE NEGATIVE (NEGATIVE); PROTEIN,URINE 100 mg/dL (NEGATIVE); URINE SPECIFIC GRAVITY 1.005; UROBILINOGEN,URINE NEGATIVE mg/dL (<2.0)
[2019-09-12] MEDS ORDERED: MEROPENEM 1 GM in NORMAL SALINE 50 ML IV SCH (14:00)
[2019-09-12] MEDS ORDERED: VANCOMYCIN HCL 1,500 MG in DEXTROSE 5%-WATER 250 ML IV ONE (14:00)
[2019-09-12 14:16] LABS: BLOOD UREA NITROGEN 14 mg/dL (7-20); CALCIUM 7.5 mg/dL (8.4-10.2); GLUCOSE 187 mg/dL (75-110)
[2019-09-12 14:21] LABS: CARBON DIOXIDE 20 mmol/L (22-30); CHLORIDE 92 mmol/L (98-107)
[2019-09-12 14:24] VITALS: BP 55/25
[2019-09-12 14:43] LABS: POTASSIUM 3.5 mmol/L (3.6-5.0)
[2019-09-12 14:44] LABS: ANION GAP 21 (5-19)
[2019-09-12] MEDS ORDERED: HYDROCORTISONE SOD SUCCINATE INJ/PF 100 MG/2 ML SDV IV SCH (14:45)
[2019-09-12] MEDS ORDERED: DESMOPRESSIN ACETATE INJ 4 MCG/1 ML AMPULE IV ONE (15:00)
--- NOTE | 2019-09-12 16:05 | Death Summary ---
Summary Date : 09/12/19 Time of :: 15:54 Autopsy: No Resuscitation Status: Full Code Primary Care Provider: Dr. Short Consulting Provider: Dr. Lopez - Final Diagnosis (1) Atrial fibrillation with rapid ventricular response Is this a current diagnosis for this admission?: Yes (2) Generalized weakness Is this a current diagnosis for this admission?: Yes (3) Chronic atrial fibrillation Is this a current diagnosis for this admission?: Yes (4) Chronic kidney disease, stage V requiring chronic dialysis Is this a current diagnosis for this admission?: Yes (5) Hypoglycemia Is this a current diagnosis for this admission?: Yes (6) Metabolic acidosis Is this a current diagnosis for this admission?: Yes (7) Type 2 diabetes mellitus with chronic kidney disease Is this a current diagnosis for this admission?: Yes (8) Elevated liver enzymes Is this a current diagnosis for this admission?: Yes Hospital Course:: The patient essentially experienced an inexorable decline from admission.. When admitted she was somewhat sleepy but conversant. This stopped overnight and she became more obtunded. She was semi-electively intubated but continued her downward slide. She remained acidotic with a pH of 6.99. She developed DIC with LGI bleeding, bleeding from her mouth and ETT she developed afib RVR and her BP continued to decline. After HD finished the family (flora) came to see. She suffered a cardiac arrest and did not respond to 3 mg of epinephrine, CPR with good compressions. She had no EKG no BP and no ROSC or even slight signs of survival after this and she was pronounced at 3;54 PM on September 12, 2019.
[2019-09-12] MEDS ORDERED: HEPARIN SOD (PORCINE) 5,000 UNIT/ML 1 ML VIAL SUBCUT SCH (19:00)
[2019-09-12] MEDS ORDERED: MEROPENEM 500 MG in NORMAL SALINE 50 ML IV SCH (22:00)
[2019-09-13] MEDS ORDERED: FAMOTIDINE INJ/PF 20 MG/2 ML SDV IV SCH (10:00)
[2019-09-13 12:50] LABS: PATH REVIEW PATHOLOGIST REVIEWED
[2019-09-13] MEDS ORDERED: CEFEPIME HCL 0.5 GM in DEXTROSE 5%-WATER 25 ML IV SCH (18:00)
[2019-09-13] MEDS ORDERED: VANCOMYCIN HCL 750 MG in DEXTROSE 5%-WATER 250 ML IV SCH (18:00)
--- NOTE | 2019-09-19 10:05 | Progress Note ---
Provider Note Provider Note: The patient's atrial fibrillation is both long standing and persistent.
== END 2019-09-12 15:54 | disposition left against medical advice (07) | DRG 871 ==
LOC: ER 12:03 → EH 16:33 → ICU 19:47
PROVIDERS: ADMIT Anesthesiology; ATTEND Anesthesiology
PROC: 04HK33Z Insertion of Infusion Device into Right Femoral Artery, Percutaneous Approach (ICD-10-PCS; 2019-09-11)
PROC: 02HV33Z Insertion of Infusion Device into Superior Vena Cava, Percutaneous Approach (ICD-10-PCS; 2019-09-11)
PROC: 30233L1 Transfusion of Nonautologous Fresh Plasma into Peripheral Vein, Percutaneous Approach (ICD-10-PCS; principal; 2019-09-12)
PROC: 30233N1 Transfusion of Nonautologous Red Blood Cells into Peripheral Vein, Percutaneous Approach (ICD-10-PCS; 2019-09-12)
PROC: 5A1935Z Respiratory Ventilation, Less than 24 Consecutive Hours (ICD-10-PCS; 2019-09-12)
PROC: 0BH17EZ Insertion of Endotracheal Airway into Trachea, Via Natural or Artificial Opening (ICD-10-PCS; 2019-09-12)
PROC: 5A1D70Z Performance of Urinary Filtration, Intermittent, Less than 6 Hours Per Day (ICD-10-PCS; 2019-09-12)
DX: A41.9 Sepsis, unspecified organism (principal); D65 Disseminated intravascular coagulation [defibrination syndrome]; G93.41 Metabolic encephalopathy; R65.21 Severe sepsis with septic shock; N18.6 End stage renal disease; E87.2 Acidosis; K92.2 Gastrointestinal hemorrhage, unspecified; I12.0 Hypertensive chronic kidney disease with stage 5 chronic kidney disease or end stage renal disease; N25.81 Secondary hyperparathyroidism of renal origin; I48.11 Longstanding persistent atrial fibrillation; T68.XXXA Hypothermia, initial encounter; E11.22 Type 2 diabetes mellitus with diabetic chronic kidney disease; E11.649 Type 2 diabetes mellitus with hypoglycemia without coma; D63.1 Anemia in chronic kidney disease; Z78.1 Physical restraint status; E78.5 Hyperlipidemia, unspecified; J44.9 Chronic obstructive pulmonary disease, unspecified; G47.30 Sleep apnea, unspecified; E89.0 Postprocedural hypothyroidism; K21.9 Gastro-esophageal reflux disease without esophagitis; Y83.6 Removal of other organ (partial) (total) as the cause of abnormal reaction of the patient, or of later complication, without mention of misadventure at the time of the procedure; F32.9 Major depressive disorder, single episode, unspecified; I87.2 Venous insufficiency (chronic) (peripheral); E78.00 Pure hypercholesterolemia, unspecified; Z96.652 Presence of left artificial knee joint; Z85.53 Personal history of malignant neoplasm of renal pelvis; Z88.8 Allergy status to other drugs, medicaments and biological substances; Z99.2 Dependence on renal dialysis; Z86.73 Personal history of transient ischemic attack (TIA), and cerebral infarction without residual deficits
CPT/HCPCS: 31500; 36415; 36430; 36556; 36620; 71045; 74176; 80053; 80307; 81001; 82140; 82150; 82533; 82693; 82803; 82962; 83605; 83615; 83690; 83930; 84439; 84443; 84478; 84481; 84484; 85025; 85379; 85384; 85610; 85730; 86850; 86900; 86901; 86920; 87040; 87070; 87077; 87086; 87088; 87186; 92950; 93005; 93010; 94002; 94003; 96361; 96374; 96375; 96376; 99291; J0610; J0171; J0282; J0692; J1644; J1720; J1815; J2250; J2370; J2405; J2597; J3370; J3490; J7030; J7040; J7050; J7060; P9016; P9017; P9047; Q5105; S0028